=== PATIENT | male | born 1940 | race Caucasian/White ===

== ENCOUNTER 2019-01-02 17:40 | Inpatient (IN) ==
[2019-01-02] MEDS ORDERED: SODIUM CHLORIDE 0.9% 1000ML 2,000 ML IV ONE (18:45)
[2019-01-02 19:11] LABS: iSTAT Creatinine 4.9 mg/dl (0.6-1.3); iSTAT Hemoglobin 7.1 g/dl (14.0-18.0); iSTAT Ionized Calcium 1.25 mmol/l (1.12-1.32); iSTAT Potassium 5.5 mEq/L (3.3-5.0)
[2019-01-02 19:17] LABS: Eosinophils # (auto) 0.14 K/uL (0-0.5); Eosinophils % (auto) 2.6 %; Hematocrit (blood only) 23.8 % (42-52); Hemoglobin 7.8 g/dL (14.0-18.0); Immature Granulocytes # (auto) 0.01 K/uL (0.00-0.02); Immature Granulocytes % (auto) 0.2 %; Lymphocytes # (auto) 1.22 K/uL (1.2-3.4); Lymphocytes % (auto) 23.1 %; Mean Corpuscular Hemoglobin 31.5 pg (25-34); Mean Corpuscular Hgb Conc 32.8 g/dL (32-36); Mean Platelet Volume 8.9 fL (7.4-10.4); Monocytes # (auto) 0.38 K/uL (0.11-0.59); Monocytes % (auto) 7.2 %; Neutrophils # (auto) 3.54 K/uL (1.4-6.5); Neutrophils % (auto) 66.9 %; Platelet Count 212 K/uL (130-400); RDW Coefficient of Variation 14.3 % (11.5-14.5); RDW Standard Deviation 50.1 fL (36.4-46.3); Red Blood Count 2.48 M/uL (4.7-6.1); White Blood Count 5.29 K/uL (4.8-10.8)
[2019-01-02 19:40] LABS: Appearance Urine Clear (Clear); Bilirubin Urine Negative (Negative); Blood Urine Negative (Negative); Color Urine Yellow; Glucose Urine UA Negative (Negative); Ketones Urine Negative (Negative); Leukocyte Esterase Urine Negative (Negative); Nitrite Urine Negative (Negative); Protein Urine Negative (Negative); Specific Gravity Urine 1.015 (1.000-1.030); Urobilinogen Urine Negative (Negative)
[2019-01-02 19:40] LABS: Tear Drop Cells 1+
[2019-01-02 19:42] LABS: Albumin Level 3.7 gm/dl (3.4-5.0); BUN Creatinine Ratio 14.6 (10-20); Calcium 8.7 mg/dl (8.5-10.1); Est GFR (African American) 14.9; Est GFR (Non-African American) 12.9; Potassium 5.3 mmol/L (3.5-5.1)
[2019-01-02 19:45] LABS: Albumin Globulin Ratio 1.1 (0.9-2); Bilirubin,Total 0.2 mg/dl (0.2-1); Globulin 3.3 gm/dl (2.5-4.0)
--- NOTE | 2019-01-02 19:52 | CT Scan Report ---
CT abd pelvis wo con CLINICAL HISTORY: 78 years-old Male presenting with Persistent vomiting. TECHNIQUE: Multidetector CT of the abdomen and pelvis was performed without the use of intravenous co ntrast. IV contrast: None. One or more dose lowering techniques were used consistent with the princip les of ALARA (as low as reasonably achievable), including automatic exposure control, mA or kV adjust ment to individual patient size, and/or use of iterative reconstruction. COMPARISON: None. CT DOSE (mGy.cm): The estimated cumulative dose is 1005.03 mGycm. FINDINGS: Aquarist topogram: Cholecystectomy clips. Lung bases: Trace aortic valve calcification. Multichamber enlargement of the heart. The blood pool i s less dense than adjacent myocardium suggesting anemia. No pericardial or pleural effusion. Minimal dependent changes likely atelectasis. Liver: Normal morphology. Normal density. Biliary: Mild biliary ductal prominence likely a reservoir effect in the post cholecystectomy state. Gallbladder surgically absent. Pancreas: Mild parenchymal atrophy. Spleen: Normal noncontrast appearance. Adrenal glands: Normal noncontrast appearance. Kidneys and ureters: Hydronephrosis is suspected though there may also be parapelvic cysts present. U reters are dilated bilaterally with mild urothelial thickening. Mild cortical atrophy of the kidneys is suspected. Renovascular calcification. No nephrolithiasis. Bladder: Circumferential bladder wall thickening. Bladder calculus noted in the region of the right b ladder trigone. Regan catheter decompresses the urinary bladder, which also contains intraluminal gas . Pelvic organs: Prostate enlargement likely secondary to benign prostatic hyperplasia. Bowel: Moderate stool burden throughout normal caliber colon. The appendix is normal. No bowel obstru ction. Peritoneal cavity: Trace free fluid in the pelvis. No free intraperitoneal gas. Lymph nodes: No gross lymphadenopathy allowing for noncontrast technique. Vasculature: Atherosclerosis of the normal caliber abdominal aorta. Abdominal wall: Body wall edema. Musculoskeletal: Expansile changes of the lateral left seventh rib with periosteal reaction and assoc iated deformity. This does not clearly have a posttraumatic appearance. Multiple sclerotic lesions no gordon throughout the skeleton. IMPRESSION: 1. Abnormal appearance of the lateral left seventh rib, which is not clearly posttraumatic. The expa nsile appearance with periosteal reaction is highly concerning for an underlying osseous lesion. This is likely metastatic given the multifocal sclerotic osseous lesions, which are also characteristic o f metastatic disease. 2. No acute intra-abdominal pathology. 3. Chronic bladder outlet obstruction in the setting of prostatomegaly. The appearance of bilateral hydroureteronephrosis likely relates to chronic reflux uropathy. True obstruction is unlikely; the co llecting systems most likely are dilated in the setting of flaccid systems. 4. Stool burden suggests constipation. 5. Anemia. 6. Cardiomegaly. Electronically signed by: Zacarias Camarena M.D. 01/02/2019 7:51 PM
--- NOTE | 2019-01-02 20:10 | Emergency Department Note ---
Entered by Naye Sabillon acting as a scribe for Ben Muhammad DO History of Present Illness General Chief complaint: Abnormal Labs/Diagnostic Testing Stated complaint: ABNORMAL LAB Source: patient History of Present Illness Onset (ago): day(s) 3 Location: abdomen Pain Consistency: + other (episode) Maximum Pain Intensity: 7 Quality: + other (abnormal labs: elevated creatinine) Associated symptoms: + denies other symptoms (rhinorrhea, abdominal pain, diarrhea), + nausea/vomiting (vomiting) and + other (increased urination, burning with urination, dry mouth); no cough The patient is a 78 year old male who presents to the Emergency Room with complaints of an episode of abnormal labs occurring 3 days ago. The patient states that he had fallen 3 times in July while trying to care for his . He states that around the same time, he had increased urination and burning with urination. He reports that he told his PCP about it, but they didnt think much of it. He states that 3 days ago though he had a urine test and lab work done. He reports that they called him today to tell him that his kidneys were failing and his creatinine is elevated. The patient complains of a dry mouth and vomiting with every meal. The patient denies cough, rhinorrhea, abdominal pain, and diarrhea. Home Medications Home Medications Medication Instructions Recorded Confirmed Type acetaminophen [Tylenol Extra 1,000 mg PO TID PRN 01/02/19 01/02/19 History Strength] Allergies Allergy/AdvReac Type Severity Reaction Status Date / Time iodine Allergy . Verified 01/02/19 19:59 Penicillins Allergy ALLERGY TO Verified 12/28/18 13:24 PCN INJECTION Past Med/Surg History Medical History Hypertension (Acute) Lower back pain (Acute) Psoriasis (Acute) Family History Other Family history non-contributory Social History Preferred Language: Bulgarian marital status: Current Living Situation: Spouse current occupational status: retired Feels Safe at Home: Yes Smoking Status: Former smoker Review of Systems See HPI for pertinent positives & negatives. and A total of 10 systems reviewed and were otherwise negative Physical Exam Vital Signs Vital Signs - 24 hr 01/02/19 17:46 01/02/19 19:00 01/02/19 19:55 Temperature 36.5 C Temperature Source Oral Sepsis Recent Fever Within 48 Hours No Sepsis New/Unexplained Change in Mental Status No Sepsis Action Taken by Nursing No Action Required Pulse Rate 69 Pulse Rate [Apical] 56 L Pulse Rhythm Regular Pulse Strength Normal Respiratory Rate 18 18 Respiratory Effort / Characteristics Non-Labored Spontaneous Respiratory Depth Normal Respiratory Pattern Regular Blood Pressure 185/87 H Blood Pressure [Right Arm] 160/93 H Blood Pressure Mean 119 Blood Pressure Mean [Right Arm] 115 Blood Pressure Position Sitting Pulse Oximetry 99 99 99 Oxygen Delivery Method Room Air Room Air Room Air GENERAL: sitting up in bed, disheveled, chronically ill appearing EYE EXAM: normal conjunctiva OROPHARYNX: no exudate, no erythema, lips, buccal mucosa, and tongue normal and mucous membranes are moist NECK: supple, no nuchal rigidity, no adenopathy, non-tender LUNGS: Clear to auscultation. Normal chest wall mechanics HEART: no murmurs, S1 normal and S2 normal ABDOMEN: abdomen soft, non-tender, normo-active bowel sounds, no masses, no rebound or guarding. BACK: Back is symmetrical on inspection and there is no deformity, no midline tenderness, no CVA tenderness. SKIN: no rashes and no bruising UPPER EXTREMITIES: upper extremities are grossly normal. LOWER EXTREMITIES: No pitting edema. NEURO EXAM: Normal sensorium, cranial nerves II-XII grossly intact, normal speech, no gross weakness of arms, no gross weakness of legs. Procedures Free Text Procedures BEDSIDE US BLADDER SCAN: Bladder is 12 cm x 8 cm and distended. Course ED COURSE: Vital signs were reviewed and showed hypertensive and bradycardic. The patients medical record was reviewed The above diagnostic studies were performed and reviewed. ED treatments and interventions as stated above. 1843: The patient was evaluated in room B8. A complete history and physical examination was performed. 1931: Upon reevaluation, the patient is resting comfortably. I discussed my findings with the patient and he understands and agrees with the treatment plan. Based on the patients age, coexisting illnesses, exam and lab findings the decision to treat as an inpatient was made. The patient remained stable while under my care. The patient will be evaluated for further management. 1952: I discussed the patient's case with Dr. Salvador- [facility] Hospitalist. He will evaluate the patient for further management. Consultations Consultation #1: I discussed the patient's case with Dr. Judd [facility] Hospitalist. He will evaluate the patient for further management. Time: 19:53 Administered Medications Sodium Chloride (Nss 1000ml) 2,000 mls @ 999 mls/hr IV .Q2H1M ONE Stop: 01/02/19 20:45 Last Admin: 01/02/19 19:46 Dose: 999 mls/hr Documented by: [id number] Medical Decision Making Differential Diagnosis Differential Diagnosis includes but is not limited to dehydration, stroke, anemia, hypoglycemia, hyponatremia, hypernatremia, urinary tract infection, pneumonia, bronchitis, sepsis, gastroenteritis, additional abdominal pathology, metabolic abnormalities and infections. Medical Records Attestation: I reviewed the patient's medical records. Home Medications Current Medication List: was personally reviewed by me Laboratory Data Attestation: I reviewed the patient's lab results. Result diagrams: 01/02/19 19:03 01/02/19 19:03 Lab Results 01/02/19 01/02/19 01/02/19 Range/Units 18:57 19:03 19:03 WBC 5.29 (4.8-10.8) K/uL RBC 2.48 L (4.7-6.1) M/uL Hgb 7.8 L (14.0-18.0) g/dL POC Hgb 7.1 L (14.0-18.0) g/dl Hct 23.8 L (42-52) % POC Hct 21 L (42-52) % MCV 96.0 (80-100) fL MCH 31.5 (25-34) pg MCHC 32.8 (32-36) g/dL RDW Std Deviation 50.1 H (36.4-46.3) fL RDW Coeff of Jose 14.3 (11.5-14.5) % Plt Count 212 (130-400) K/uL MPV 8.9 (7.4-10.4) fL Immature Gran % (Auto) 0.2 % Neut % (Auto) 66.9 % Lymph % (Auto) 23.1 % [place] % (Auto) 7.2 % Eos % (Auto) 2.6 % Baso % (Auto) 0.0 % Immature Gran # (Auto) 0.01 (0.00-0.02) K/uL Neut # (Auto) 3.54 (1.4-6.5) K/uL Lymph # (Auto) 1.22 (1.2-3.4) K/uL [place] # (Auto) 0.38 (0.11-0.59) K/uL Eos # (Auto) 0.14 (0-0.5) K/uL Baso # (Auto) 0.00 (0-0.2) K/uL Tear Drop Cells 1+ POC Sodium 139 (135-144) mEq/L Sodium 140 (136-145) mmol/L POC Potassium 5.5 H (3.3-5.0) mEq/L Potassium 5.3 H (3.5-5.1) mmol/L POC Chloride 112 (101-112) mEq/L Chloride 112 H (98-107) mmol/L Carbon Dioxide 18 L (21-32) mmol/L POC Total CO2 19 L (24-31) mEq/l Anion Gap 10.0 (3-11) POC Anion Gap 14.0 L (16-25) mmol/L POC BUN 60 H (7-18) mg/dl BUN 61 H (7-18) mg/dl Creatinine 4.19 H (0.6-1.4) mg/dl POC Creatinine 4.9 H* (0.6-1.3) mg/dl Est Cr Clr Drug Dosing 16.0 ml/min Est GFR ( Amer) 14.9 Est GFR (Non-Af Amer) 12.9 BUN/Creatinine Ratio 14.6 (10-20) Glucose 102 H (70-99) mg/dl POC Glucose (other) 103 H (70-99) mg/dl Calcium 8.7 (8.5-10.1) mg/dl POC Ioniz Calcium Jhonny 1.25 (1.12-1.32) mmol/l Total Bilirubin 0.2 (0.2-1) mg/dl AST 12 L (15-37) U/L ALT 15 (12-78) U/L Alkaline Phosphatase 151 H (45-117) U/L Total Protein 7.0 (6.4-8.2) gm/dl Albumin 3.7 (3.4-5.0) gm/dl Globulin 3.3 (2.5-4.0) gm/dl Albumin/Globulin Ratio 1.1 (0.9-2) Lipase 214 (73-393) U/L Urine Color Urine Appearance (Clear) Urine pH (4.5-7.5) Ur Specific [place] (1.000-1.030) Urine Protein (Negative) Urine Glucose (UA) (Negative) Urine Ketones (Negative) Urine Blood (Negative) Urine Nitrite (Negative) Urine Bilirubin (Negative) Urine Urobilinogen (Negative) Ur Leukocyte Esterase (Negative) 01/02/19 Range/Units 19:30 WBC (4.8-10.8) K/uL RBC (4.7-6.1) M/uL Hgb (14.0-18.0) g/dL POC Hgb (14.0-18.0) g/dl Hct (42-52) % POC Hct (42-52) % MCV (80-100) fL MCH (25-34) pg MCHC (32-36) g/dL RDW Std Deviation (36.4-46.3) fL RDW Coeff of Jose (11.5-14.5) % Plt Count (130-400) K/uL MPV (7.4-10.4) fL Immature Gran % (Auto) % Neut % (Auto) % Lymph % (Auto) % [place] % (Auto) % Eos % (Auto) % Baso % (Auto) % Immature Gran # (Auto) (0.00-0.02) K/uL Neut # (Auto) (1.4-6.5) K/uL Lymph # (Auto) (1.2-3.4) K/uL [place] # (Auto) (0.11-0.59) K/uL Eos # (Auto) (0-0.5) K/uL Baso # (Auto) (0-0.2) K/uL Tear Drop Cells POC Sodium (135-144) mEq/L Sodium (136-145) mmol/L POC Potassium (3.3-5.0) mEq/L Potassium (3.5-5.1) mmol/L POC Chloride (101-112) mEq/L Chloride (98-107) mmol/L Carbon Dioxide (21-32) mmol/L POC Total CO2 (24-31) mEq/l Anion Gap (3-11) POC Anion Gap (16-25) mmol/L POC BUN (7-18) mg/dl BUN (7-18) mg/dl Creatinine (0.6-1.4) mg/dl POC Creatinine (0.6-1.3) mg/dl Est Cr Clr Drug Dosing ml/min Est GFR ( Amer) Est GFR (Non-Af Amer) BUN/Creatinine Ratio (10-20) Glucose (70-99) mg/dl POC Glucose (other) (70-99) mg/dl Calcium (8.5-10.1) mg/dl POC Ioniz Calcium Jhonny (1.12-1.32) mmol/l Total Bilirubin (0.2-1) mg/dl AST (15-37) U/L ALT (12-78) U/L Alkaline Phosphatase (45-117) U/L Total Protein (6.4-8.2) gm/dl Albumin (3.4-5.0) gm/dl Globulin (2.5-4.0) gm/dl Albumin/Globulin Ratio (0.9-2) Lipase (73-393) U/L Urine Color Yellow Urine Appearance Clear (Clear) Urine pH 5.0 (4.5-7.5) Ur Specific [place] 1.015 (1.000-1.030) Urine Protein Negative (Negative) Urine Glucose (UA) Negative (Negative) Urine Ketones Negative (Negative) Urine Blood Negative (Negative) Urine Nitrite Negative (Negative) Urine Bilirubin Negative (Negative) Urine Urobilinogen Negative (Negative) Ur Leukocyte Esterase Negative (Negative) Imaging Data Radiologist's Impression: Radiology results as stated below per my review and the radiologist's interpretation: CT abd pelvis wo con CLINICAL HISTORY: 78 years-old Male presenting with Persistent vomiting. TECHNIQUE: Multidetector CT of the abdomen and pelvis was performed without the use of intravenous contrast. IV contrast: None. One or more dose lowering techniques were used consistent with the principles of ALARA (as low as reasonably achievable), including automatic exposure control, mA or kV adjust ment to individual patient size, and/or use of iterative reconstruction. COMPARISON: None. CT DOSE (mGy.cm): The estimated cumulative dose is 1005.03 mGycm. FINDINGS: Res Habilitation Assistant topogram: Cholecystectomy clips. Lung bases: Trace aortic valve calcification. Multichamber enlargement of the heart. The blood pool is less dense than adjacent myocardium suggesting anemia. No pericardial or pleural effusion. Minimal dependent changes likely atelectasis. Liver: Normal morphology. Normal density. Biliary: Mild biliary ductal prominence likely a reservoir effect in the post cholecystectomy state. Gallbladder surgically absent. Pancreas: Mild parenchymal atrophy. Spleen: Normal noncontrast appearance. Adrenal glands: Normal noncontrast appearance. Kidneys and ureters: Hydronephrosis is suspected though there may also be parapelvic cysts present. Ureters are dilated bilaterally with mild urothelial thickening. Mild cortical atrophy of the kidneys is suspected. Renovascular calcification. No nephrolithiasis. Bladder: Circumferential bladder wall thickening. Bladder calculus noted in the region of the right bladder trigone. Regan catheter decompresses the urinary bladder, which also contains intraluminal gas. Pelvic organs: Prostate enlargement likely secondary to benign prostatic hype rplasia. Bowel: Moderate stool burden throughout normal caliber colon. The appendix is normal. No bowel obstruction. Peritoneal cavity: Trace free fluid in the pelvis. No free intraperitoneal gas. Lymph nodes: No gross lymphadenopathy allowing for noncontrast technique. Vasculature: Atherosclerosis of the normal caliber abdominal aorta. Abdominal wall: Body wall edema. Musculoskeletal: Expansile changes of the lateral left seventh rib with periosteal reaction and associated deformity. This does not clearly have a posttraumatic appearance. Multiple sclerotic lesions noted throughout the s [place]. IMPRESSION: 1. Abnormal appearance of the lateral left seventh rib, which is not clearly posttraumatic. The expansile appearance with periosteal reaction is highly concerning for an underlying osseous lesion. This is likely metastatic given the multifocal sclerotic osseous lesions, which are also characteristic of metastatic disease. 2. No acute intra-abdominal pathology. 3. Chronic bladder outlet obstruction in the setting of prostatomegaly. The appearance of bilateral hydroureteronephrosis likely relates to chronic reflux uropathy. True obstruction is unlikely; the collecting systems most likely are dilated in the setting of flaccid systems. 4. Stool burden suggests constipation. 5. Anemia. 6. Cardiomegaly. Electronically signed by: Zacarias Camarena M.D. 01/02/2019 7:51 PM Blood Pressure Blood Pressure Findings: Elevated blood pressure Blood Pressure Disposition: further management by hospitalist CLAIRE Narrative Patient is a 78-year-old male who presents the ER referred in by his PCP for an elevated creatinine. He admits to persistent urination and feeling thirsty at the same time. He also admits to lower abdominal pain. IV was established blood work was obtained. Bedside ultrasound performed by myself shows an extremely distended bladder. Regan was placed. Labs show chronic anemia at 7.8 thousand. No significant leukocytosis. BMP with creatinine of 4.1 and a potassium of 5.3. CO2 is slightly low at 18. Do favor the metabolic acidosis is likely secondary to the renal failure. Based on his exam and ultrasound this consistent with an obstructive uropathy. Regan was placed and we took off 2 L and he felt significantly better. No transaminitis. Lipase was normal. UA was clean. CT abdomen pelvis shows likely obstructive process. Patient was given 2 L IV fluids and discussed with the hospitalist admitted for FREDO. Impression & Plan FREDO (acute kidney injury), Bilateral hydronephrosis, Hyperkalemia, Chronic anemia Discharge Plan Visit Data Chief Complaint: Abnormal Labs/Diagnostic Testing Stated Complaint: ABNORMAL LAB ED Provider: Ben Muhammad Discharge Problem: FREDO (acute kidney injury), Bilateral hydronephrosis, Hyperkalemia, Chronic anemia Patient Disposition: Being Evaluated by Hospitalist Forms Stand Alone Forms: My [facility] Prescriptions Prescriptions: No Action acetaminophen [Tylenol Extra Strength] 500 mg Tablet 1,000 mg PO TID PRN (Reason: Pain) RF: 0 Referrals Referrals: Sebastien Nickerson III, MD [Primary Care Provider] - The scribe's documentation has been prepared under my direction and personally reviewed by me in its entirety. I confirm that the note above accurately reflects all work, treatment, procedures, and medical decision making performed by me.
[2019-01-02 21:40] LABS: Ferritin 529.1 ng/ml (8-388)
[2019-01-02] MEDS ORDERED: SODIUM CHLORIDE 0.9% 1000ML 1,000 ML IV SCH (22:29)
[2019-01-02] MEDS ORDERED: HydrALAZINE HCL 20 MG/ML VIAL IV PRN ×2 (22:29→22:56)
[2019-01-02] MEDS ORDERED: POLYETHYLENE (MIRALAX) 17 GM PACK PO PRN (22:29)
--- NOTE | 2019-01-02 22:29 | CT Scan Report ---
CT chest wo con CLINICAL HISTORY: 78 years-old Male presenting with rib pain. TECHNIQUE: Multidetector CT imaging of the chest was performed without the use of intravenous contras t. IV contrast: None. One or more dose lowering techniques were used consistent with the principles o f ALARA (as low as reasonably achievable), including automatic exposure control, mA or kV adjustment to individual patient size, and/or use of iterative reconstruction. COMPARISON: None. CT DOSE (mGy.cm): The estimated cumulative dose is 356.70 mGy.cm. FINDINGS: Instructor Weaving topogram: Cholecystectomy clips. Soft tissues: Normal thyroid and thoracic inlet. No axillary, supraclavicular, or mediastinal lymphad enopathy. Evaluation of the chikis limited without intravenous contrast. Atherosclerosis of the aorta. Mild multichamber enlargement of the heart. Coronary artery and aortic valve calcification. No perica rdial or pleural effusion. Cholecystectomy clips. Distention of the right renal collecting system luci pected. Lungs and airways: No pneumothorax. Central airways patent. Pulmonary arteries are not significantly enlarged relative to adjacent bronchi. No interlobular septal thickening. Minimal dependent changes l ikely atelectasis. Musculoskeletal: Expansile lesion of the right fifth rib and left seventh ribs compatible with underl javi lesions. Multiple sclerotic foci also noted compatible with osseous lesions. IMPRESSION: 1. Multifocal osseous metastatic disease. 2. No evidence of lung parenchymal metastatic disease. 3. Allowing for noncontrast technique, no lymphadenopathy or acute intrathoracic pathology. 4. Mild cardiomegaly. Electronically signed by: Zacarias Camarena M.D. 01/02/2019 10:28 PM
[2019-01-02] MEDS ORDERED: INFLUENZA ADMINISTRATION CHARGE ONE (22:45)
[2019-01-02] MEDS ORDERED: PNEUMOCOCCAL POLYSACCHARIDES 25 MCG/0.5 ML VIAL/SYR IM ONE (22:45)
[2019-01-02] MEDS ORDERED: PNEUMOCOCCAL ADMINISTRATION CHARGE ONE (22:45)
[2019-01-02] MEDS ORDERED: INFLUENZA VIRUS QUAD VACCINE 0.5 ML SYR IM ONE (22:45)
[2019-01-02] MEDS: ACETAMINOPHEN 325 MG TAB PO PRN (23:11)
[2019-01-03 03:29] LABS: Eosinophils # (auto) 0.09 K/uL (0-0.5); Eosinophils % (auto) 1.4 %; Hematocrit (blood only) 25.7 % (42-52); Hemoglobin 8.4 g/dL (14.0-18.0); Immature Granulocytes # (auto) 0.01 K/uL (0.00-0.02); Immature Granulocytes % (auto) 0.2 %; Lymphocytes # (auto) 1.34 K/uL (1.2-3.4); Lymphocytes % (auto) 21.1 %; Mean Corpuscular Hemoglobin 31.1 pg (25-34); Mean Corpuscular Volume 95.2 fL (80-100); Mean Platelet Volume 8.6 fL (7.4-10.4); Monocytes % (auto) 6.3 %; Platelet Count 217 K/uL (130-400); RDW Coefficient of Variation 14.1 % (11.5-14.5); RDW Standard Deviation 49.3 fL (36.4-46.3); White Blood Count 6.34 K/uL (4.8-10.8)
[2019-01-03] MEDS ORDERED: CALCIUM CARBONATE 500 MG CHEWABLE TAB PO PRN (03:30)
[2019-01-03] MEDS ORDERED: MoRPHine SULFATE 2 MG/ML CARP IV STA (03:30)
[2019-01-03] MEDS ORDERED: SODIUM CHLORIDE 0.9% 250 ML IV PRN (03:34)
[2019-01-03] MEDS: cefTRIAXone SODIUM 2,000 MG in DEXTROSE 5% 50 ML IV SCH (03:48)
[2019-01-03 03:49] LABS: Albumin Globulin Ratio 1.1 (0.9-2); Albumin Level 3.4 gm/dl (3.4-5.0); BUN Creatinine Ratio 14.9 (10-20); Bilirubin,Total 0.4 mg/dl (0.2-1); Calcium 8.5 mg/dl (8.5-10.1); Creatinine Clr Calc Pharmacy 17.4 ml/min; Est GFR (African American) 16.5; Est GFR (Non-African American) 14.3; Globulin 3.2 gm/dl (2.5-4.0); Potassium 5.3 mmol/L (3.5-5.1); Total Protein 6.6 gm/dl (6.4-8.2)
[2019-01-03 03:51] LABS: Mean Corpuscular Hgb Conc 32.7 g/dL (32-36)
[2019-01-03] MEDS: LIDOCAINE 5% 1 PATCH TD SCH (08:45)
--- NOTE | 2019-01-03 15:11 | Urology Consultation ---
Date of Consultation January 03, 2019 Assessment & Plan (1) FREDO (acute kidney injury): 78 YO male with urinary retention, resulting bilateral hydronephrosis, FREDO. No hematuria noted on exam today, however suspect that this is related to prolonged bladder distention. Regan not bothersome. Suspect that FREDO will continue to improve with hydration and Regan placement. Recommend Regan remain in place x 7-10 days. Will arrange outpatient trial of void and URO follow up. Recommend Tamsulosin QHS. Thank you for allowing us to participate in the inpatient care of Mr. Upton. Please contact our service if we can assist further during hospitalization. (2) Bilateral hydronephrosis: History of Present Illness Attending Physician: Edison Luciano MD History of Present Illness 78 YO male with urinary retention, resulting bilateral hydronephrosis, FREDO. Patient states that he has never seen a urologist. Reported to the ER for evaluation after developing abdominal pain, vomiting. Patient was found to be in urinary retention and Regan was placed. CT scan demonstrates bilateral hydronephrosis, no stones. Patient reports feeling okay today. No pain. Regan not bothersome. No fevers/chills. No nausea/vomiting. Allergies Allergy/AdvReac Type Severity Reaction Status Date / Time iodine Allergy . 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 Physical Exam Physical Exam: NAD. Resp effort normal. No JVD. Abd soft. : Regan in place, patent, draining yellow urine. No hematuria noted. A&Ox3, appropriate affect. Results & Data Vital Signs (Past 12 Hours) Vital Signs Temp Pulse Resp BP Pulse Ox 01/03/19 07:12 36.9 C 77 14 147/81 H 96 PG Care Time/CCT Total # of Minutes Spent Total Time Spent with Patient: Total time spent is greater than 50% in coordination of care (as documented) at patient's floor/unit and/or counseling patient:
--- NOTE | 2019-01-03 16:06 | Gastrointestinal Consultation ---
Date of Consultation January 03, 2019 Assessment & Plan (1) Dysphagia: dysphagia could be paraneoplastic syndrome from malignancy vs. reflux stricture vs. achalasia vs. other etiology. Recs: keep npo post midnight tonight plan for EGD to further evaluate tomorrow History of Present Illness Attending Physician: Edison Luciano MD 78 yo male with HTN here with FREDO and urinary obstruction. GI consulted for dysphagia. Patient notes solid and liquid dysphagia for 5 months now, also notes a 45 lbs weight loss over the last 4 months. He would end up regurgitating the food/throwing it up when it first started, says he can tolerate food now however. No diarrhea, hematochezia, hematemesis. He notes urinary symptoms. No prior EGD nor colonoscopy. No family hx esophageal nor gastric cancer. Labs, imaging reviewed, findings suspicious for possible prostatic malignancy. vitals reviewed. Allergies Allergy/AdvReac Type Severity Reaction Status Date / Time iodine Allergy . 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 Beliefs That Will Affect Care: None marital status: Current Living Situation: Spouse current occupational status: retired Feels Safe at Home: Yes Safety Concerns: Feels Safe At This Time Smoking Status: Never smoker Hx Alcohol Use: No Hx Substance Use: No Review of Systems Constitutional: no fever, no chills and no weight loss Eyes: as per Subjective / HPI Ear, Nose, Mouth, Throat: as per Subjective / HPI Respiratory: no dyspnea and no dyspnea on exertion Cardiovascular: no chest pain and no palpitations Gastrointestinal: as per Subjective / HPI Musculoskeletal: no joint pain and no swelling Integumentary: no rash and no lesions Neurologic: no numbness and no paresthesia Psychiatric: no depression and no anxiety Endocrine: no fatigue Hematologic / Lymphatic: no easy bleeding and no easy bruising Physical Exam 2 Constitutional: WD/WN, vitals as above Eyes: EOM intact bilaterally Neck: normal visual inspection Respiratory: normal respiratory effort, lungs clear to auscultation Cardiovascular: RRR, no murmur, no edema Gastrointestinal (Abdomen): Inspection/Auscultation: abdomen normal to inspection; abdomen not distended Percussion/Palpation: + abdomen tender (mild epigastric and upper abdominal tenderness) and abdomen soft; no hepatosplenomegaly Musculoskeletal: Extremities: no cyanosis Gait: normal gait Skin: no rashes, warm and dry Neurologic: moves all extremities Psychiatric: A+Ox3, euthymic affect Results & Data Vital Signs (Past 12 Hours) Vital Signs Temp Pulse Resp BP Pulse Ox 01/03/19 15:21 169/77 H 01/03/19 15:08 36.9 C 65 16 181/89 H 99 01/03/19 07:12 36.9 C 77 14 147/81 H 96 PG Care Time/CCT Total # of Minutes Spent Total Time Spent with Patient: Total time spent is greater than 50% in coordination of care (as documented) at patient's floor/unit and/or counseling patient:
--- NOTE | 2019-01-03 17:35 | Hospitalist Progress Note ---
Date of Service January 03, 2019 Assessment & Plan (1) FREDO (acute kidney injury): BUN/Cr of 61/4.19 on admission - now trending down following IVF U/A without sign of infection - did have hematuria in Young today likely from bladder irritation due to distention 2+ L of urine released after placement of young catheter CT abd/pel showed prostatic enlargement likely causing urinary obstruction and the bilateral hydronephrosis with ureteral dilatation (2) Enlarged prostate: PSA 387 Bladder distention relieved with young catheter Urology consulted (3) Bilateral hydronephrosis: Secondary to obstruction from prostate enlargement Urology consulted (4) Abdominal pain: - likely mixed picture of urinary obstruction and constipation - improved with increased urine outflow with catheter - miralax ordered for PRN constipation control (5) Dysphagia: With complaints of nausea and vomiting GI consulted - EGD tomorrow (6) Rib pain on left side: CT chest - Multifocal osseous metastatic disease. - given patient's lack of medical care, lack of hx of colonoscopy, prostatic e nlargement on CT with symptoms, cannot rule out metastatic lesion with source currently unknown. - SPEP and EPEP ordered for multiple myeloma - PSA 327 - GI consulted - will have EGD tomorrow, if no colonoscopy inpatient will need to set one up for outpatient after discharge (7) Hyperkalemia: K 5.3 on admission, 5.3 again this morning likely secondary to FREDO and obstructive hydronephrosis repeat prp this afternoon (8) Chronic anemia: Iron level wnl (9) Hypertension: No hx of HTN, pt has not seen physician for many years Blood pressures continue to be somewhat elevated today, no complaints of headaches at the time of my visit however he complains of daily headaches in taoist and frontal areas for which he takes extra strength tylenol 3x per day PRN Hydralazine 10 mg IV ordered for BP>180/90 May need to consider adding a daily medication such as amlodipine to patient's regimen but will hold off for now (10) DVT prophylaxis: SCDS, hold on heparin for hematuria for today, if cleared tomorrow will start dvt chemoprophylaxis Subjective Mr. Upton continues to have issues with swallowing. He rates his rib pain as a 5/10 which is about what it usually is. He has had some constipation recently but no blood in his stool. His abdominal pain is much relieved following the young catheter insertion Review of Systems Review of Systems: All systems reviewed & are unremarkable except as noted in HPI & below Physical Exam Physical Exam: General: no distress Eyes: normal inspection, PERLL Respiratory: chest non tender, clear to auscultation, normal breath sounds, no respiratory distress, no accessory muscle use Cardiac: regular rate and rhythm, no rub or gallop, no murmur, no edema, no jvd GI/: active bowel sounds, no abd pain or tenderness, soft, non distended Extremities: normal range of motion, normal strength, non tender Neuro/Psych: alert and oriented x 3, normal mood and affect Skin: normal color, dry Results & Data Vital Signs (Past 12 Hours) Vital Signs Temp Pulse Resp BP Pulse Ox 01/03/19 15:21 169/77 H 01/03/19 15:08 36.9 C 65 16 181/89 H 99 01/03/19 07:12 36.9 C 77 14 147/81 H 96 PG Care Time/CCT Total # of Minutes Spent Total Time Spent with Patient: Total time spent is greater than 50% in coordination of care (as documented) at patient's floor/unit and/or counseling patient:
[2019-01-03] MEDS ORDERED: HydrALAZINE HCL 20 MG/ML VIAL IV PRN (17:41)
[2019-01-03 18:29] LABS: BUN Creatinine Ratio 14.3 (10-20); Calcium 9.1 mg/dl (8.5-10.1); Creatinine Clr Calc Pharmacy 16.9 ml/min; Est GFR (Non-African American) 13.8; Potassium 5.4 mmol/L (3.5-5.1)
[2019-01-03] MEDS ORDERED: SODIUM CHLORIDE 0.9% 1000ML 1,000 ML IV SCH (18:45)
[2019-01-03] MEDS ORDERED: FUROSEMIDE 20 MG in SYRINGE 0 ML IV SCH (19:00)
[2019-01-04] MEDS: cefTRIAXone SODIUM 2,000 MG in DEXTROSE 5% 50 ML IV SCH (03:31)
[2019-01-04] MEDS: LIDOCAINE 5% 1 PATCH TD SCH (08:04)
[2019-01-04 08:40] LABS: Basophils # (auto) 0.01 K/uL (0-0.2); Basophils % (auto) 0.2 %; Eosinophils # (auto) 0.08 K/uL (0-0.5); Eosinophils % (auto) 1.4 %; Hematocrit (blood only) 26.2 % (42-52); Hemoglobin 8.5 g/dL (14.0-18.0); Immature Granulocytes # (auto) 0.01 K/uL (0.00-0.02); Immature Granulocytes % (auto) 0.2 %; Lymphocytes # (auto) 1.15 K/uL (1.2-3.4); Lymphocytes % (auto) 19.7 %; Mean Corpuscular Hemoglobin 31.3 pg (25-34); Mean Corpuscular Hgb Conc 32.4 g/dL (32-36); Mean Corpuscular Volume 96.3 fL (80-100); Monocytes # (auto) 0.48 K/uL (0.11-0.59); Monocytes % (auto) 8.2 %; Neutrophils # (auto) 4.11 K/uL (1.4-6.5); Neutrophils % (auto) 70.3 %; Platelet Count 230 K/uL (130-400); RDW Coefficient of Variation 14.4 % (11.5-14.5); RDW Standard Deviation 49.9 fL (36.4-46.3); Red Blood Count 2.72 M/uL (4.7-6.1); White Blood Count 5.84 K/uL (4.8-10.8)
[2019-01-04 09:15] LABS: BUN Creatinine Ratio 15.6 (10-20); Calcium 9.2 mg/dl (8.5-10.1); Creatinine Clr Calc Pharmacy 17.9 ml/min; Est GFR (African American) 17.1; Est GFR (Non-African American) 14.8; Potassium 5.5 mmol/L (3.5-5.1)
--- NOTE | 2019-01-04 10:36 | Gastroenterology Progress Note ---
Date of Service January 04, 2019 Assessment & Plan (1) Dysphagia: 1. EGD canceled for today. 2. May advance diet. 3. Continue supportive care. 4. Will sign off now. Reconsideration of outpatient GI work up can be made once acute issues are resolved. Supervising Physician Co-Signing Physician Notes Agree with BRIAN Burnham as above Abd: Soft, NT, ND Consider EGD as outpatient when acute renal problems resolve Continue current therapy Subjective Patient reports frustration over ongoing hospitalization. He denies any GI complaints at present. Was kept NPO for EGD with Dr. Elliott today although he has been evaluated by anesthesia and canceled today due to ongoing acute renal impairment. Review of Systems Constitutional: no problem reported Gastrointestinal: no problem reported Physical Exam Constitutional: WD/WN, vitals as above Respiratory: normal respiratory effort, lungs clear to auscultation Cardiovascular: Rate/Rhythm: regular rate and regular rhythm Gastrointestinal (Abdomen): normal bowel sounds, soft, nontender, no hepatosplenomegaly Psychiatric: A+Ox3, euthymic affect Results & Data Vital Signs (Past 12 Hours) Vital Signs Temp Pulse Resp BP Pulse Ox 01/04/19 07:28 36.8 C 85 18 137/84 97 01/03/19 23:30 36.9 C 64 16 165/82 H 97 Laboratory Results Abnormal lab results 01/03/19 01/04/19 01/04/19 Range/Units 17:48 08:17 08:17 RBC 2.72 L (4.7-6.1) M/uL Hgb 8.5 L (14.0-18.0) g/dL Hct 26.2 L (42-52) % RDW Std Deviation 49.9 H (36.4-46.3) fL Lymph # (Auto) 1.15 L (1.2-3.4) K/uL Sodium 146 H (136-145) mmol/L Potassium 5.4 H 5.5 H (3.5-5.1) mmol/L Chloride 118 H 119 H (98-107) mmol/L Carbon Dioxide 18 L 18 L (21-32) mmol/L BUN 57 H 58 H (7-18) mg/dl Creatinine 3.96 H 3.74 H (0.6-1.4) mg/dl Glucose 113 H 103 H (70-99) mg/dl PG Care Time/CCT Total # of Minutes Spent Total Time Spent with Patient: Total time spent is greater than 50% in coordination of care (as documented) at patient's floor/unit and/or counseling patient:
--- NOTE | 2019-01-04 11:34 | Hospitalist Progress Note ---
Date of Service January 04, 2019 Assessment & Plan (1) FREDO (acute kidney injury): Due to obstruction from enlarged prostate 2+ L of urine released after placement of young catheter BUN/Cr of 61/4.19 on admission - trended down a bit after IVF and placement of Young but remains in the high 3s U/A without sign of infection - hematuria in Young clearing - likely from bladder irritation due to distention CT abd/pel showed prostatic enlargement likely causing urinary obstruction and the bilateral hydronephrosis with ureteral dilatation Nephrology consulted (2) Enlarged prostate: PSA 387 Bladder distention relieved with young catheter Urology consulted - recommend Young stay 7-10 days and then follow up in the office for void trial (3) Bilateral hydronephrosis: Secondary to obstruction from prostate enlargement Urology consulted (4) Abdominal pain: - likely mixed picture of urinary obstruction and constipation - improved with increased urine outflow with catheter - miralax ordered for PRN constipation control (5) Dysphagia: With complaints of nausea and vomiting GI consulted - EGD on hold due to kidney function (6) Rib pain on left side: CT chest - Multifocal osseous metastatic disease. - given patient's lack of medical care, lack of hx of colonoscopy, prostatic enlargement on CT with symptoms, cannot rule out metastatic lesion with source currently unknown. - SPEP and EPEP ordered for multiple myeloma - PSA 327 - GI consulted - will have EGD when kidney function improves, if no colonoscopy inpatient will need to set one up for outpatient after discharge (7) Hyperkalemia: K 5.3 on admission, 5.5 today secondary to FREDO and obstructive hydronephrosis Nephrology consulted (8) Chronic anemia: Iron level wnl Hgb stable in the 8s (9) Hypertension: No hx of HTN, pt has not seen physician for many years Blood pressures continue to be somewhat elevated PRN Hydralazine 10 mg IV ordered for BP>180/90 May need to consider adding a daily medication such as amlodipine to patient's regimen but will hold off for now (10) DVT prophylaxis: SCDS, hold chemoprophylaxis for hematuria which is clearing, if resolved tomorrow will start heparin subq Subjective Mr. Upton is feeling a bit down today about his hospital stay but otherwise has no complaints. His pain is well controlled Review of Systems Review of Systems: All systems reviewed & are unremarkable except as noted in HPI & below Physical Exam Physical Exam: General: no distress Eyes: normal inspection, PERLL Respiratory: chest non tender, clear to auscultation, normal breath sounds, no respiratory distress, no accessory muscle use Cardiac: regular rate and rhythm, no rub or gallop, no murmur, no edema, no jvd GI/: active bowel sounds, no abd pain or tenderness, soft, non distended Extremities: normal range of motion, normal strength, non tender Neuro/Psych: alert and oriented x 3, normal mood and affect Skin: normal color, dry Results & Data Vital Signs (Past 12 Hours) Vital Signs Temp Pulse Resp BP Pulse Ox 01/04/19 07:28 36.8 C 85 18 137/84 97 01/03/19 23:30 36.9 C 64 16 165/82 H 97 PG Care Time/CCT Total # of Minutes Spent Total Time Spent with Patient: Total time spent is greater than 50% in coordination of care (as documented) at patient's floor/unit and/or counseling patient:
--- NOTE | 2019-01-04 11:43 | Nephrology Consultation ---
Date of Consultation January 04, 2019 Assessment & Plan (1) Chronic kidney disease: -- Renal impairment is likely due to chronic obstruction related to BPH -- Urine sediment is bloody due to recent Young catheter insertion -- Creatinine is trending down following Young catheter insertion -- Baseline creatinine is unknown (2) Hyperkalemia: -- Hyperkalemia due to CKD and metabolic acidosis -- Will provide IV NaHCO3 to help correct metabolic acidosis and hyperkalemia -- Monitor PRP -- Recommend low K diet (3) Enlarged prostate: -- PSA 387 -- Await further Urology recommendations. Question need for prostate biopsy (4) Rib pain on left side: -- Consider consultation w/ General Surgery or Oncology to obtain L 7th rib biopsy (metastatic lesion?) History of Present Illness Reason for Consultation: CKD Attending Physician: Edison Luciano MD History of Present Illness Mr. Upton is a 78 year old white male who is seen at the request of Dr. Luciano for evaluation of CKD. Medical records in the EMR were reviewed today and are summarized as follows: Mr. Upton has enjoyed good health. He reports a h/o cataracts and HTN but no other medical illnesses. He has not been on any chronic prescription medications. His last OV w/ his PCP (Dr. Nickerson) was in 2010. Recently Mr. Upton had blood work completed. This revealed Cr 4.2, HCO3 18, K 5.5 and Hgb 8.3. Noncontrast abdominal CT revealed bilateral hydronephrosis, bladder wall thickening, enlarged prostate and a L 7th rib lesion concerning for metastasis. Urology has placed a young catheter. PSA is elevated at 387. Baseline creatinine is unknown but creatinine has improved to 3.7 following Young catheter insertion Allergies Allergy/AdvReac Type Severity Reaction Status Date / Time iodine Allergy . Verified 01/02/19 19:59 Penicillins Allergy ALLERGY TO Verified 12/28/18 13:24 PCN INJECTION Home Medications Home Medications Medication Instructions Recorded Confirmed Type acetaminophen [Tylenol Extra 1,000 mg PO TID PRN 01/02/19 01/02/19 History Strength] Patient History Medical History Hypertension (Acute) Lower back pain (Acute) Psoriasis (Acute) Surgical History History of cholecystectomy Family History Other Family history non-contributory Social History Preferred Language: Slovenian Communication Ability: Effective Micropaleontologist Required: No Beliefs That Will Affect Care: None marital status: Current Living Situation: Spouse current occupational status: retired 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 Feels Safe at Home: Yes Safety Concerns: Feels Safe At This Time Smoking Status: Never smoker Hx Alcohol Use: No Hx Substance Use: No Review of Systems Constitutional: + weakness; no fever and no chills Eyes: no worsening vision and no problem reported Ear, Nose, Mouth, Throat: no problem reported Respiratory: no cough and no dyspnea Cardiovascular: no chest pain, no palpitations and no edema Gastrointestinal: no abdominal pain, no nausea, no vomiting and no diarrhea/loose stools Genitourinary: + urinary hesitancy; no dysuria and no hematuria Musculoskeletal: L chest discomfort Integumentary: no rash Neurologic: no falls, no dizziness and no confusion Physical Exam Constitutional: + frail appearing Eyes: PERRL, conjunctivae normal, anicteric sclerae ENMT: external ear and nose normal, oropharynx normal Neck: trachea midline, no thyromegaly Respiratory: normal respiratory effort, lungs clear to auscultation Cardiovascular: RRR, no murmur, no edema Gastrointestinal (Abdomen): normal bowel sounds, soft, nontender, no hepatosplenomegaly Musculoskeletal: Extremities: no cyanosis Skin: no rashes, warm and dry Neurologic: awake; not confused Results & Data Vital Signs (Past 12 Hours) Vital Signs Temp Pulse Resp BP Pulse Ox 01/04/19 07:28 36.8 C 85 18 137/84 97 Laboratory Results Laboratory Results - last 24 hr 01/03/19 01/03/19 01/04/19 17:48 23:00 08:17 WBC 5.84 RBC 2.72 L Hgb 8.5 L Hct 26.2 L MCV 96.3 MCH 31.3 MCHC 32.4 RDW Std Deviation 49.9 H RDW Coeff of Jose 14.4 Plt Count 230 MPV 9.0 Immature Gran % (Auto) 0.2 Neut % (Auto) 70.3 Lymph % (Auto) 19.7 [place] % (Auto) 8.2 Eos % (Auto) 1.4 Baso % (Auto) 0.2 Immature Gran # (Auto) 0.01 Neut # (Auto) 4.11 Lymph # (Auto) 1.15 L [place] # (Auto) 0.48 Eos # (Auto) 0.08 Baso # (Auto) 0.01 Sodium 144 Potassium 5.4 H Chloride 118 H Carbon Dioxide 18 L Anion Gap 9.0 BUN 57 H Creatinine 3.96 H Est Cr Clr Drug Dosing 16.9 Est GFR ( Amer) 16.0 Est GFR (Non-Af Amer) 13.8 BUN/Creatinine Ratio 14.3 Glucose 113 H Calcium 9.1 Urine Total Volume Pending Ur Creatinine mg/dL Pending Ur Total Protein Conc Pending Ur Total Protein 24 Hr Pending Protein/Creat Ratio 24h Pending Urine Albumin (%) Pending U Prcjw-[id number] (%) Pending U [id number] (%) Pending U Beta Globulin (%) Pending U Gamma Globulin (%) Pending Urine PEP Interpret Pending 01/04/19 08:17 WBC RBC Hgb Hct MCV MCH MCHC RDW Std Deviation RDW Coeff of Jose Plt Count MPV Immature Gran % (Auto) Neut % (Auto) Lymph % (Auto) [place] % (Auto) Eos % (Auto) Baso % (Auto) Immature Gran # (Auto) Neut # (Auto) Lymph # (Auto) [place] # (Auto) Eos # (Auto) Baso # (Auto) Sodium 146 H Potassium 5.5 H Chloride 119 H Carbon Dioxide 18 L Anion Gap 9.0 BUN 58 H Creatinine 3.74 H Est Cr Clr Drug Dosing 17.9 Est GFR ( Amer) 17.1 Est GFR (Non-Af Amer) 14.8 BUN/Creatinine Ratio 15.6 Glucose 103 H Calcium 9.2 Urine Total Volume Ur Creatinine mg/dL Ur Total Protein Conc Ur Total Protein 24 Hr Protein/Creat Ratio 24h Urine Albumin (%) U [id number] (%) U Gwyid-2-Uoufyert (%) U Beta Globulin (%) U Gamma Globulin (%) Urine PEP Interpret Diagnostic Findings Laboratory Tests 01/02/19 19:03 Prostate Specific Ag 387.000 H PG Care Time/CCT Total # of Minutes Spent Total Time Spent with Patient: Total time spent is greater than 50% in coordination of care (as documented) at patient's floor/unit and/or counseling patient:
[2019-01-04] MEDS: SODIUM BICARBONATE 8.4% 75 MEQ in SODIUM CHLORIDE 0.45 % 1,000 ML IV SCH (12:44)
[2019-01-04 14:21] LABS: Albumin 3.6 G/DL (3.8-4.8); Alpha 1 Globulin 0.3 G/DL (0.2-0.3); Alpha 2 Globulin 0.6 G/DL (0.5-0.9); Beta-1-Globulin 0.3 G/DL (0.4-0.6); Beta-2-Globulin 0.3 G/DL (0.2-0.5); Gamma Globulin 0.8 G/DL (0.8-1.7); Monoclonal Protein Band 1 DNR G/DL (NOT DETECTED); Monoclonal Protein Band 2 DNR G/DL (NOT DETECTED); Monoclonal Protein Band 3 DNR G/DL (NOT DETECTED); Total Protein 5.9 G/DL (6.2-8.3)
[2019-01-04] MEDS: ACETAMINOPHEN 325 MG TAB PO PRN (15:47)
[2019-01-05] MEDS: SODIUM BICARBONATE 8.4% 75 MEQ in SODIUM CHLORIDE 0.45 % 1,000 ML IV SCH ×2 (01:33→15:31)
[2019-01-05] MEDS: cefTRIAXone SODIUM 2,000 MG in DEXTROSE 5% 50 ML IV SCH (04:18)
[2019-01-05 05:49] LABS: Hematocrit (blood only) 24.4 % (42-52); Mean Corpuscular Hemoglobin 31.3 pg (25-34); Mean Corpuscular Hgb Conc 32.8 g/dL (32-36); Mean Corpuscular Volume 95.3 fL (80-100); Mean Platelet Volume 9.5 fL (7.4-10.4); Platelet Count 201 K/uL (130-400); RDW Coefficient of Variation 14.2 % (11.5-14.5); RDW Standard Deviation 48.8 fL (36.4-46.3); Red Blood Count 2.56 M/uL (4.7-6.1); White Blood Count 5.29 K/uL (4.8-10.8)
[2019-01-05 06:29] LABS: BUN Creatinine Ratio 18.6 (10-20); Calcium 8.6 mg/dl (8.5-10.1); Creatinine Clr Calc Pharmacy 21.8 ml/min; Est GFR (African American) 21.7; Est GFR (Non-African American) 18.8; Potassium 5.1 mmol/L (3.5-5.1)
[2019-01-05] MEDS: LIDOCAINE 5% 1 PATCH TD SCH (08:48)
--- NOTE | 2019-01-05 09:29 | Nephrology Progress Note ---
Date of Service January 05, 2019 Assessment & Plan (1) Chronic kidney disease: -- Renal impairment due to chronic obstruction related to BPH -- Urine sediment is bloody due to recent Regan catheter insertion -- Creatinine is trending down following Regan catheter insertion -- Baseline creatinine is unknown (2) Hyperkalemia: -- Hyperkalemia due to CKD and metabolic acidosis -- Continue IV NaHCO3 to help correct metabolic acidosis and hyperkalemia -- Monitor PRP -- Recommend low K diet (3) Enlarged prostate: -- PSA 387 -- Await further Urology recommendations. Question need for prostate biopsy (4) Rib pain on left side: -- Consider consultation w/ General Surgery or Oncology to obtain L 7th rib biopsy (metastatic lesion?) Subjective Mr. Upton was seen & examined in his hospital room this morning. He is tolerating IV hydration without dyspnea or progressive LE swelling. Regan catheter remains in place draining clear yellow urine. Mr. Upton reports that he is tolerating his diet and swallowing without difficulty Review of Systems Constitutional: no fever and no chills Eyes: no worsening vision and no problem reported Ear, Nose, Mouth, Throat: no problem reported Respiratory: no cough and no dyspnea Cardiovascular: no chest pain, no palpitations and no edema Gastrointestinal: no abdominal pain, no nausea, no vomiting and no diarrhea/loose stools Genitourinary: no dysuria, no urinary hesitancy and no hematuria Musculoskeletal: no back pain Integumentary: no rash Physical Exam Constitutional: + frail appearing Eyes: PERRL, conjunctivae normal, anicteric sclerae ENMT: external ear and nose normal, oropharynx normal Neck: trachea midline, no thyromegaly Respiratory: normal respiratory effort, lungs clear to auscultation Cardiovascular: RRR, no murmur, no edema Gastrointestinal (Abdomen): normal bowel sounds, soft, nontender, no hepatosplenomegaly Musculoskeletal: Extremities: no cyanosis Skin: no rashes, warm and dry Neurologic: awake; not confused Results & Data Vital Signs (Past 12 Hours) Vital Signs Temp Pulse Resp BP Pulse Ox 01/05/19 07:00 36.7 C 74 18 163/82 H 99 01/04/19 23:25 37 C 61 16 159/75 H 98 Laboratory Results Laboratory Tests 01/05/19 01/05/19 05:21 05:21 WBC 5.29 Hgb 8.0 L Hct 24.4 L Plt Count 201 Sodium 144 Potassium 5.1 Chloride 113 H Carbon Dioxide 23 BUN 57 H Creatinine 3.07 H D Glucose 97 PG Care Time/CCT Total # of Minutes Spent Total Time Spent with Patient: Total time spent is greater than 50% in coordination of care (as documented) at patient's floor/unit and/or counseling patient:
--- NOTE | 2019-01-05 12:16 | Communication Note ---
Date of Service: January 05, 2019 Contacted regarding PSA of 387. Discussed with Dr. Luciano - will order Casodex BID and arrange for outpatient prostate biopsy within 2 weeks. Maintain Regan. Will also coordinate bone scan today. Will discuss results with patient in morning rounds.
[2019-01-05] MEDS: ACETAMINOPHEN 325 MG TAB PO PRN ×2 (15:30→23:46)
[2019-01-05] MEDS: BICALUTAMIDE 50 MG TAB PO SCH (15:32)
--- NOTE | 2019-01-05 16:11 | Hospitalist Progress Note ---
Date of Service January 05, 2019 Assessment & Plan (1) FREDO (acute kidney injury): Due to obstruction from enlarged prostate 2+ L of urine released after placement of young catheter BUN/Cr of 61/4.19 on admission - trended down a bit after IVF and placement of Young but remains in the high 3s U/A without sign of infection - hematuria in Young clearing - likely from bladder irritation due to distention CT abd/pel showed prostatic enlargement likely causing urinary obstruction and the bilateral hydronephrosis with ureteral dilatation Nephrology consulted - placed on bicarb gtt (2) Enlarged prostate: PSA 387 Bladder distention relieved with young catheter Urology consulted - recommend Casodex and biopsy in 2 weeks. They will also organize a bone scan (3) Bilateral hydronephrosis: Secondary to obstruction from prostate enlargement Urology consulted - continue Young until follow up (4) Abdominal pain: - likely mixed picture of urinary obstruction and constipation - improved with increased urine outflow with catheter - miralax ordered for PRN constipation control (5) Dysphagia: With complaints of nausea and vomiting GI consulted - EGD on hold due to kidney function Patient reports his symptoms have resolved at this point following decompression of his bladder (6) Rib pain on left side: CT chest - Multifocal osseous metastatic disease. - likely metastatic prostate CA given high PSA, - SPEP and EPEP ordered for multiple myeloma - PSA 327 - Casodex as above (7) Hyperkalemia: K peaked at 5.5 and trended down with bicarb gtt secondary to FREDO and obstructive hydronephrosis Nephrology consulted (8) Chronic anemia: Iron level wnl Hgb stable in the 8s (9) Hypertension: No hx of HTN, pt has not seen physician for many years Blood pressures continue to be somewhat elevated PRN Hydralazine 10 mg IV ordered for BP>180/90 May need to consider adding a daily medication such as amlodipine to patient's regimen but will hold off for now (10) DVT prophylaxis: SCDS, heparin subq Subjective Mr. Upton is frustrated by continuing to be in the hospital. He has a moderate sinus headache which he reports being prone to centered around his maxillary sinuses that started last evening. Otherwise he has no other complaints. Review of Systems Review of Systems: All systems reviewed & are unremarkable except as noted in HPI & below Physical Exam Physical Exam: General: no distress Eyes: normal inspection, PERLL Respiratory: chest non tender, clear to auscultation, normal breath sounds, no respiratory distress, no accessory muscle use Cardiac: regular rate and rhythm, no rub or gallop, no murmur, no edema, no jvd GI/: active bowel sounds, no abd pain or tenderness, soft, non distended, urine clear in Young Extremities: normal range of motion, normal strength, non tender Neuro/Psych: alert and oriented x 3, normal mood and affect Skin: normal color, dry Results & Data Vital Signs (Past 12 Hours) Vital Signs Temp Pulse Resp BP Pulse Ox 01/05/19 15:16 36.4 C L 60 16 145/66 H 98 01/05/19 07:00 36.7 C 74 18 163/82 H 99 PG Care Time/CCT Total # of Minutes Spent Total Time Spent with Patient: Total time spent is greater than 50% in coordination of care (as documented) at patient's floor/unit and/or counseling patient:
[2019-01-05] MEDS: HEPARIN SOD 5,000 UNIT/0.5 ML VIAL SQ SCH (20:32)
--- NOTE | 2019-01-05 20:48 | Nuclear Medicine Report ---
NM bone scan whole body CLINICAL HISTORY: Elevated PSA elevated alkaline phosphatase. Left rib pain. Enlarged prostate. COMPARISON STUDY: CT scan chest abdomen pelvis dated 01/02/2019 FINDINGS: The patient was injected with 27 mCi of technetium 99m MDP. Three-hour delayed whole-body i mages were acquired. There are extensive multifocal areas of abnormal osseous uptake. These involve multiple bilateral rib s, the left inferior pubic ramus, the medial left femoral neck, the left T12 pedicle. In addition th ere is abnormal activity at the level of both SI joints. There is a focus of increased activity at th e level of the right acetabulum. IMPRESSION: 1. Multiple foci of abnormal increased activity corresponding to blastic lesions on the prior CT scan . 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 Electronically signed by: Graham Horta M.D. 01/05/2019 8:47 PM
[2019-01-05] MEDS ORDERED: BICALUTAMIDE 50 MG TAB PO SCH (21:00)
[2019-01-06] MEDS: cefTRIAXone SODIUM 2,000 MG in DEXTROSE 5% 50 ML IV SCH (04:51)
[2019-01-06 05:43] LABS: Creatinine Ur 21 MG/DL (20-320); Protein, Urine 24 Hour 30664 MG/24HRS. (0-149); Total Protein, Urine 481 MG/DL; Urine Protein/Creatinine Ratio 22905 (<OR=115)
[2019-01-06 06:27] LABS: BUN Creatinine Ratio 18.5 (10-20); Calcium 8.4 mg/dl (8.5-10.1); Est GFR (African American) 25.6; Est GFR (Non-African American) 22.1; Potassium 4.7 mmol/L (3.5-5.1)
[2019-01-06] MEDS: HEPARIN SOD 5,000 UNIT/0.5 ML VIAL SQ SCH (08:03)
[2019-01-06] MEDS: BICALUTAMIDE 50 MG TAB PO SCH (08:04)
[2019-01-06] MEDS: LIDOCAINE 5% 1 PATCH TD SCH (08:04)
[2019-01-06 09:05] LABS: Albumin Level 3.1 gm/dl (3.4-5.0); Bilirubin,Total 0.2 mg/dl (0.2-1); Globulin 3.1 gm/dl (2.5-4.0); Total Protein 6.2 gm/dl (6.4-8.2)
[2019-01-06 09:13] LABS: Basophils # (auto) 0.01 K/uL (0-0.2); Basophils % (auto) 0.2 %; Eosinophils # (auto) 0.24 K/uL (0-0.5); Eosinophils % (auto) 5.4 %; Hematocrit (blood only) 22.8 % (42-52); Hemoglobin 7.5 g/dL (14.0-18.0); Immature Granulocytes # (auto) 0.01 K/uL (0.00-0.02); Immature Granulocytes % (auto) 0.2 %; Lymphocytes # (auto) 1.32 K/uL (1.2-3.4); Lymphocytes % (auto) 29.9 %; Mean Corpuscular Hemoglobin 31.4 pg (25-34); Mean Corpuscular Hgb Conc 32.9 g/dL (32-36); Mean Corpuscular Volume 95.4 fL (80-100); Mean Platelet Volume 9.5 fL (7.4-10.4); Monocytes # (auto) 0.42 K/uL (0.11-0.59); Monocytes % (auto) 9.5 %; Neutrophils # (auto) 2.41 K/uL (1.4-6.5); Neutrophils % (auto) 54.8 %; Platelet Count 203 K/uL (130-400); RDW Standard Deviation 48.4 fL (36.4-46.3); Red Blood Count 2.39 M/uL (4.7-6.1); White Blood Count 4.41 K/uL (4.8-10.8)
--- NOTE | 2019-01-06 09:49 | Nephrology Progress Note ---
Date of Service January 06, 2019 Assessment & Plan (1) Chronic kidney disease: -- Renal impairment due to chronic obstruction related to BPH -- Creatinine is trending down following Regan catheter insertion -- Baseline creatinine is unknown -- If discharge is anticipated monitoring of kidney function and PSA can be provided by PCP and Urology (2) Hyperkalemia: -- Resolved -- Monitor PRP -- Recommend low K diet (3) Enlarged prostate: -- PSA 387 -- Await further Urology recommendations. Question need for prostate biopsy (4) Rib pain on left side: -- Consider consultation w/ General Surgery or Oncology to obtain L 7th rib biopsy (metastatic lesion?) Subjective Mr. Upton was seen & examined in his hospital room this morning. IVF have been stopped. Regan catheter remains in place draining clear yellow urine. Mr. Upton reports that he is tolerating his diet and swallowing without difficulty Review of Systems Constitutional: no fever and no chills Eyes: no worsening vision and no problem reported Ear, Nose, Mouth, Throat: no problem reported Respiratory: no cough and no dyspnea Cardiovascular: no chest pain, no palpitations and no edema Gastrointestinal: no abdominal pain, no nausea, no vomiting and no diarrhea/loose stools Genitourinary: no dysuria, no urinary hesitancy and no hematuria Musculoskeletal: no back pain Integumentary: no rash Physical Exam Constitutional: + frail appearing Eyes: PERRL, conjunctivae normal, anicteric sclerae ENMT: external ear and nose normal, oropharynx normal Neck: trachea midline, no thyromegaly Respiratory: normal respiratory effort, lungs clear to auscultation Cardiovascular: RRR, no murmur, no edema Gastrointestinal (Abdomen): normal bowel sounds, soft, nontender, no hepatosplenomegaly Musculoskeletal: Extremities: no cyanosis Skin: no rashes, warm and dry Neurologic: awake; not confused Results & Data Vital Signs (Past 12 Hours) Vital Signs Temp Pulse Resp BP Pulse Ox 01/06/19 07:29 36.9 C 65 16 137/72 99 01/05/19 23:20 36.7 C 59 L 16 151/77 H 98 Laboratory Results Laboratory Tests 01/06/19 05:20 Sodium 143 Potassium 4.7 Chloride 111 H Carbon Dioxide 26 BUN 50 H Creatinine 2.68 H D Glucose 94 PG Care Time/CCT Total # of Minutes Spent Total Time Spent with Patient: Total time spent is greater than 50% in coordination of care (as documented) at patient's floor/unit and/or counseling patient:
[2019-01-06 10:14] LABS: RBC Morphology Unremarkable
--- NOTE | 2019-01-06 10:36 | Urology Progress Note ---
Date of Service January 06, 2019 Assessment & Plan (1) FREDO (acute kidney injury): 78 YO male with significantly elevated PSA, UR with resulting bilateral hydronephrosis, FREDO. Discussed elevated PSA and bone scan consistent with metastatic prostate cancer. I have arranged outpatient prostate biopsy in our outpatient [address] [place] [address] clinic on Wednesday01/10/19 @ [address] Bran. Biopsy instructions have been mailed to patient home. Patient did mention to me that he will need assistance with transportation to our office - discussed with hospitalist team. Continue Casodex daily. Maintain Regan. Please contact our service if we can assist further during hospitalization. (2) Bilateral hydronephrosis: (3) Elevated PSA, greater than or equal to 20 ng/ml: Subjective 78 YO male with significantly elevated PSA, UR with resulting bilateral hydronephrosis, FREDO. Patient reports feeling better today, is up in chair upon exam. No fevers/chills. No nausea/vomiting. Regan not bothersome. Bone scan is reviewed with patient and is evident of metastatic disease. Review of Systems Review of Systems: Per HPI. Physical Exam Physical Exam: NAD. Resp effort normal. No JVD. Abd nondistended. : Regan patent, draining clear yellow urine. A&Ox3, appropriate affect. Results & Data Vital Signs (Past 12 Hours) Vital Signs Temp Pulse Resp BP Pulse Ox 01/06/19 07:29 36.9 C 65 16 137/72 99 01/05/19 23:20 36.7 C 59 L 16 151/77 H 98 PG Care Time/CCT Total # of Minutes Spent Total Time Spent with Patient: Total time spent is greater than 50% in coordination of care (as documented) at patient's floor/unit and/or counseling patient:
--- NOTE | 2019-01-06 14:07 | Discharge Summary ---
Date of Service January 06, 2019 Admission HPI Per Admitting Provider Mr. Upton is a 78 yo M with a history of cataracts and cholecystectomy who was told to go to the ED by his PCP for abnormal results from recent labwork (Cr of 4.2). Prior to earlier this week, Mr. Upton hadn't had medical care since 2012 when he saw a high school social studies tutor and 2010 was his last appointment with Dr. Nickerson. Today his primary complaint is his abdominal pain and rib pain. The rib pain has been present since July when he fell 3 times taking care of his in her wheelchair. He denies falling on his sides or hitting his head at the time of the injuries. The pain is mostly located throughout the 5-9th left ribs and is described as a dull ache at rest. The abdominal pain has been present for the past 2 months and is general pain throughout his whole abdomen at rest. He denies any nausea/vomiting but attests that he has trouble swallowing foods as he also has a very dry mouth. He attests to having issues with constipation, with his last bowel movement being last Wednesday. In addition, he complains of urinary frequency and difficulty with initiating streams as well as having stopping and starting streams. He states at home he avoids drinking water because he already goes to the bathroom to urinate 15 times an hour, with small amounts coming out each time. After insertion of a young catheter, Mr. Upton was able to urinate over 2L of fluid and attested to much of his resting abdominal pain improving. Principal Diagnosis FREDO Discharge Exam Constitutional WD/WN, vitals as above Respiratory normal respiratory effort, lungs clear to auscultation Cardiovascular RRR, no murmur, no edema Gastrointestinal (Abdomen) Inspection/Auscultation: abdomen normal to inspection and normal bowel sounds; abdomen not distended Percussion/Palpation: abdomen soft; abdomen nontender Musculoskeletal no cyanosis or clubbing, extremities motor strength 5/5 Skin no rashes, warm and dry Neurologic moves all extremities and awake Psychiatric A+Ox3, euthymic affect Discharge Data Allergies Allergy/AdvReac Type Severity Reaction Status Date / Time iodine Allergy . Verified 01/02/19 19:59 Penicillins Allergy ALLERGY TO Verified 12/28/18 13:24 PCN INJECTION Consultations 01/02/19 19:47 ED Decision to Admit Stat 01/02/19 22:29 Consult Case Management - Discharge Planning Routine 01/03/19 03:30 Consult Urology Routine 01/03/19 11:34 Consult Gastroenterology Routine 01/04/19 09:42 Consult Nephrology Routine 01/06/19 12:13 Consult Patient Rep / Service Excellence [Consult Patient Services] Routine Procedures Performed Operation Date: 01/04/19 09:15 <No data on this case meets the specified criteria> Ordered Studies 01/02/19 18:45 CT abd pelvis wo con Stat 01/02/19 20:42 CT chest wo con Stat Hospital Course (1) FREDO (acute kidney injury): Due to obstruction from enlarged prostate 2+ L of urine released after placement of young catheter BUN/Cr of 61/4.19 on admission - trended bit after IVF and placement of Young U/A without sign of infection - hematuria in Young cleared - likely from bladder irritation due to distention UC no growth - discontinue abx CT abd/pel showed prostatic enlargement likely causing urinary obstruction and the bilateral hydronephrosis with ureteral dilatation Nephrology consulted - placed on bicarb gtt (2) Enlarged prostate: Likely secondary to metastatic prostate cancer PSA 387 Bladder distention relieved with young catheter Urology consulted - recommend Casodex, tamsulosin and biopsy in 2 weeks. Bone scan re-demonstrating multiple areas of bone metastasis I did have a long discussion with patient and his daughter at bedside before discharge today summarizing the admission and plan for discharge as well as patient's diagnosis most likely being metastatic prostate cancer but that the biopsy outpatient on Wednesday will help to provide more information (3) Bilateral hydronephrosis: Secondary to obstruction from prostate enlargement Urology consulted - continue Young until follow up (4) Abdominal pain: - likely mixed picture of urinary obstruction and constipation - improved with increased urine outflow with catheter - miralax ordered for PRN constipation control (5) Dysphagia: With complaints of nausea and vomiting GI consulted - EGD on hold due to kidney function Patient reports his symptoms have resolved at this point following decompression of his bladder and no longer wishes to have an EGD (6) Rib pain on left side: CT chest - Multifocal osseous metastatic disease. - likely metastatic prostate CA given high PSA, - SPEP and EPEP ordered for multiple myeloma - Casodex as above (7) Hyperkalemia: K peaked at 5.5 and trended down with bicarb gtt secondary to FREDO and obstructive hydronephrosis Nephrology consulted (8) Chronic anemia: Iron level wnl Hgb stable 7.5-8.5 - will have patient recheck cbc on Wednesday. No s/s of bleeding Has had two small bowel movements here - unlikely GI source of bleeding Patient has never had a colonoscopy and probably should have one on follow up (9) Hypertension: No hx of HTN, pt has not seen physician for many years Blood pressures continue to be somewhat elevated May need to consider adding a daily medication such as amlodipine to patient's regimen but will hold off for now (10) DVT prophylaxis: SCDS, heparin subq Total Time Total Time Spent Total Time Spent (In Minutes): greater than 30 minutes Discharge Plan Discharge Items Patient Disposition: Home - Home Health Services Reason For Visit: ABNORMAL LABS Discharge Diagnosis: Acute Kidney Injury Activity: Resume your previous activity Non-emergency contact: Primary Care Provider Call non-emergency contact if: you have any medication questions, your symptoms worsen, your pain is not controlled and you have a fever Follow-up/Referrals: Crow Bran MD [Physician] - 01/10/19 2:30 pm (Please, follow up at [facility] Urology Office with Dr. Bran on WednesdayJanuary 10 at 2:40 pm (arrive 2:30 pm). *The office is located at [address] [place] [address] in [place]. If you have any questions, call the office at [phone].) Sebastien Nickerson III, MD [Primary Care Provider] - 01/12/19 2:00 pm (Please, follow up at Dr. Nickerson's office with his associate, Kati TORRES, on January 12 at 2:00 pm. *If you need to change this appointment, call the office at [phone].) Diet: Regular Ambulatory Orders: Basic Metabolic Panel (Routine) Timeframe: 20190116 Location: Determined by Patient Ordered By: Ariana Martinez Complete Blood Count with Diff (Timed) Timeframe: 20190106 Location: Determined by Patient Ordered By: Ariana Martinez Addtl Attending Provider Instructions: While you were here you were found to have an enlarged prostate which was causing obstruction to your bladder preventing you from voiding adequately. This obstruction caused injury to your kidneys. - have your kidney function blood work drawn on Tuesday 01/09 by Home Health - You are scheduled to have a biopsy of your prostate on Wednesday 01/10 at 2:40 pm at the Urology office - You will need to keep the Young urinary catheter until Urology recommends it's removal - You will be started on a new medication called Casodex (bicalutamide). This medication is used to prevent testosterone from stimulating cell growth in prostate cancer. Constipation - continue to take Miralax as needed as well as stool softeners such as Colace twice per day. Both of these medications can be purchased over the counter. Anemia - Please have your blood drawn on Wednesday by home health. Your blood count was running low while you were here without any obvious signs or symptoms of bleeding. You should tell your doctor right away if you have any dark or tarry stools, blood in your stools or urine, or excessive bruising Hypertension - your blood pressure was running a bit high while you were in the hospital. Please have [facility] check your blood pressures and record the value to take with you to your next primary care appointment. You may need to start on a blood pressure medication Home Health physical and occupational therapy to evaluate and treat Pending Studies at Discharge: No Stand-Alone Forms: [facility] Medications and DC Order Prescriptions: New bicalutamide 50 mg Tablet 50 mg PO DAILY Qty: 30 RF: 2 polyethylene glycol 3350 [Miralax] 17 gram Powder In Packet 17 g PO DAILY PRN (Reason: constipation) Qty: 30 RF: 0 tamsulosin 0.4 mg capsule 0.4 mg PO DAILY Qty: 30 RF: 0 Continued acetaminophen [Tylenol Extra Strength] 500 mg Tablet 1,000 mg PO TID PRN (Reason: Pain) RF: 0 Discontinued ciprofloxacin HCl [Cipro] 500 mg tablet 500 mg PO BID Qty: 14 RF: 0 Discharge Orders: Discharge Order (Routine); Ordered 01/06/19 Ordered By: Ariana Culver/Other Patient Handouts: Bicalutamide Oral tablet Admission Data Admit Date/Time: 01/03/19 09:46 Attending Provider: Edison Luciano Admit Provider: Yokasta Garcia Primary Care Provider: Sebastien Nickerson III Other Providers: Daniel Craft II ; Edison Luciano ; Galindo Overton ; Andre Jennings
== END 2019-01-06 14:25 | disposition home health service (06) | DRG 723 ==
LOC: ED 17:40 → 3N 17:40 → SUATTDRO 21:06 → 3N 22:02

== ENCOUNTER 2019-06-01 10:55 | Inpatient (IN) ==
[2019-06-01 11:54] LABS: Eosinophils # (auto) 0.01 K/uL (0-0.5); Eosinophils % (auto) 0.2 %; Hematocrit (blood only) 33.8 % (42-52); Immature Granulocytes # (auto) 0.02 K/uL (0.00-0.02); Immature Granulocytes % (auto) 0.3 %; Lymphocytes # (auto) 0.38 K/uL (1.2-3.4); Lymphocytes % (auto) 6.5 %; Mean Corpuscular Hemoglobin 29.9 pg (25-34); Mean Corpuscular Hgb Conc 32.5 g/dL (32-36); Mean Corpuscular Volume 91.8 fL (80-100); Monocytes # (auto) 0.13 K/uL (0.11-0.59); Monocytes % (auto) 2.2 %; Neutrophils # (auto) 5.28 K/uL (1.4-6.5); Neutrophils % (auto) 90.8 %; Platelet Count 184 K/uL (130-400); RDW Standard Deviation 43.7 fL (36.4-46.3); Red Blood Count 3.68 M/uL (4.7-6.1); White Blood Count 5.82 K/uL (4.8-10.8)
[2019-06-01 12:21] LABS: Alanine Aminotransferase 18 U/L (12-78); Albumin Level 3.4 gm/dl (3.4-5.0); Aspartate Aminotransferase 17 U/L (15-37); BUN Creatinine Ratio 16.2 (10-20); Blood Urea Nitrogen 23 mg/dl (7-18); Carbon Dioxide 27 mmol/L (21-32); Chloride 104 mmol/L (98-107); Creatinine Clr Calc Pharmacy 51.7 ml/min; Est GFR (African American) 54.3; Est GFR (Non-African American) 46.8; Glucose 157 mg/dl (70-99); Lipase 66 U/L (73-393); Magnesium 2.4 mg/dl (1.8-2.4); Potassium 4.8 mmol/L (3.5-5.1); Sodium 137 mmol/L (136-145)
--- NOTE | 2019-06-01 12:25 | Ultrasound Report ---
BILATERAL LOWER EXTREMITY VENOUS DOPPLER HISTORY: Bilateral lower extremity edema. COMPARISON STUDY: None. FINDINGS: Small echogenic focus within the right common femoral vein consistent with a site of nonocc lusive chronic thrombus. Otherwise, there is normal compressibility, flow, and augmentation within th e remaining bilateral lower extremity deep venous systems. IMPRESSION: No acute DVT within the right or left lower extremity. Small nonocclusive echogenic focus within the right common femoral vein consistent with chronic thrombus. ACT 112: Negative or not required by law. Electronically signed by: Tung Bryant M.D. 06/01/2019 12:24 PM
[2019-06-01 12:26] LABS: Albumin Globulin Ratio 0.9 (0.9-2); Alkaline Phosphatase 267 U/L (45-117); Bilirubin,Total 0.5 mg/dl (0.2-1); Globulin 3.9 gm/dl (2.5-4.0); NT Pro B Type Natriuretic Pept 218 pg/ml (0-1800); Total Protein 7.3 gm/dl (6.4-8.2); Troponin I < 0.015 ng/ml (0-0.045)
--- NOTE | 2019-06-01 12:45 | CT Scan Report ---
CT chest wo con CLINICAL HISTORY: Fatigue. Abnormal chest x-ray. Suspected metastatic disease. COMPARISON STUDY: CT scan dated 01/02/2019 CT DOSE: 851.08 mGy.cm TECHNIQUE: CT of the thorax was performed from the thoracic inlet to the lung bases. Images are revi ewed in the axial, sagittal, and coronal planes. IV contrast was not administered for this examinatio n. A dose lowering technique was utilized adhering to the principles of ALARA. FINDINGS: Thyroid: Imaged portions of the thyroid gland are normal in appearance. Thoracic aorta: The ascending thoracic aorta measures 36 mm. Heart: The heart is normal in size and configuration, without pericardial effusion. Lungs and pleural spaces: There are dependent atelectatic changes. There are no pleural effusions. Th ere is no focal pulmonary consolidation. Mediastinum: There is no mediastinal lymphadenopathy. Wandy: There is no evidence of pathologic hilar adenopathy given the limitations of a noncontrast stud y Axilla: There is known to pathologic axillary lymphadenopathy Upper abdomen: Partially visualized upper abdominal viscera is within normal limits. Skeletal structures: There are multiple blastic vertebral body lesions indicative of metastatic disea se. In a male of this age, this is most likely secondary to prostate carcinoma. Multiple rib metastas is are also visualized. There is a blastic expansile lesion of the left sixth rib slightly larger casi n on the preceding study. This is consistent with a metastatic lesion. There is an expansile scleroti c lesion of the right sixth rib, also slightly larger than the prior study, consistent with a metasta tic lesion. IMPRESSION: 1. Slight progression in the blastic skeletal lesions consistent with mildly progressive skeletal met astasis. ACT 112: Negative or not required by law. Electronically signed by: Graham Horta M.D. 06/01/2019 12:44 PM
[2019-06-01] MEDS ORDERED: SODIUM CHLORIDE 0.9% 1000ML 1,000 ML IV ONE (13:25)
[2019-06-01] MEDS ORDERED: ONDANSETRON INJ 2 MG/ML 2 ML VIAL IV STA (13:25)
[2019-06-01] MEDS ORDERED: ACETAMINOPHEN 1,000 MG/100 ML VIAL IV STA (13:25)
[2019-06-01] MEDS ORDERED: fentaNYL citrate 100 MCG/2 ML VIAL IV STA (15:53)
[2019-06-01] MEDS ORDERED: PROCHLORPERAZINE 1 ML IV ONE (15:53)
[2019-06-01] MEDS ORDERED: SODIUM CHLORIDE 0.9% 1000ML 1,000 ML IV SCH (16:00)
--- NOTE | 2019-06-01 17:29 | CT Scan Report ---
CT head/brain wo con CT DOSE: 638.56 mGycm HISTORY: Mental status change n/v, ?mets TECHNIQUE: Multiaxial CT images of the head were performed without the use of intravenous contrast. A dose lowering technique was utilized adhering to the principles of ALARA. Comparison: 08/20/2010 Findings: Moderate mucosal thickening right maxillary sinus. Remaining sinuses are clear. The calvari um and skull base are intact. The ventricles and sulci are within normal limits. There is no mass, he matoma, midline shift, or acute infarct. Impression: No acute intracranial abnormality. Moderate mucosal thickening right maxillary sinus ACT 112: Negative or not required by law. The above report was generated using voice recognition software. It may contain grammatical, syntax or spelling errors. Electronically signed by: James Rodrigues M.D. 06/01/2019 5:28 PM
--- NOTE | 2019-06-01 18:42 | History & Physical Report ---
Date of Service June 01, 2019 Assessment & Plan (1) Intractable vomiting with nausea: Admit to PCU on telemetry, Vital signs every 4 hours, Monitor electrolytes and replenish, Supportive treatment for most likely viral gastroenteritis with IV fluids and antinausea medication. Continue observing. DVT prophylaxis patient is on heparin drip for chronic DVT. Full code full code Present on Admission?: Yes (2) Metastatic cancer: Patient is followed by urology. Referred to urology. Appears to be stable at this point. Present on Admission?: Yes (3) Edema of both lower extremities: Patient has chronic lower extremities edema unrelated to DVT. Both lower extremities are slightly edematous. Recommended teds bilaterally Present on Admission?: Yes (4) Urinary retention: Continue Regan catheter Present on Admission?: Yes (5) CKD (chronic kidney disease), stage III: Avoid nephrotoxic agents, Continue monitoring creatinine. Present on Admission?: Yes History of Present Illness Chief Complaint: Generalized malaise, nausea and vomiting Primary Care Provider: Sebastien Nickerson MD The patient is a 78 years old male with past medical history of metastatic prostate cancer to the bone, anemia, chronic left lower extremity DVT, urinary retention who was brought by his daughter to the emergency room for evaluation of nausea vomiting that has been ongoing for 1 day. Patient daughter reports that patient is taking care of her elderly mother who is sick as well. Their is sickness is different, and while patient is nauseated his is short of breath. Patient has long-term history of prostate cancer that metastasized to the bone. Patient declined chemotherapy and is treated only by urologist. Patient declined to see telephoto engineer oncologist. Patient denied eating anything that could be causing food poisoning. Patient reports having normal bowel movement this morning. He reports his stomach being upset since yesterday when he had a CT scan and had to drink contrast. Labs are reviewed: WBC is 5.82, hemoglobin 11, hematocrit 33.8, platelets 184, PT 11.2, INR 1.1, APTT 28.3, sodium 137, potassium 4.8, chloride 104, carbon dioxide 27, anion gap 6, BUN 23, creatinine 1.44, GFR 46.8, magnesium 2.4, calcium 9, TSH 2.09, lipase 66. CT scan of the head no acute intracranial abnormality. Moderate mucosal thickening right maxillary sinus. Venous Doppler shows no acute DVT within the right or left lower extremity. Small nonocclusive echogenic focus within the right common femoral vein consistent with chronic thrombus. CT abdomen and pelvis done on May 31 shows no acute process in the abdomen or pelvis. Unchanged multifocal sclerotic lesions of the bony structures. This again is consistent with metastatic disease. Expansile lesion left seventh rib also unchanged. No change compared to the prior study. CT of the chest shows slight progression in the blastic skeletal lesions consistent with mildly progressive skeletal m etastasis. Decision was made to admit patient to PCU on telemetry for most likely viral gastroenteritis. Allergies Allergy/AdvReac Type Severity Reaction Status Date / Time iodine Allergy . Verified 06/01/19 12:06 Penicillins Allergy ALLERGY TO Verified 06/01/19 12:06 PCN INJECTION Home Medications Home Medications Medication Instructions Recorded Confirmed Type tamsulosin 0.4 mg capsule 0.4 mg PO DAILY #90 cap 02/24/19 06/01/19 Rx bicalutamide 50 mg PO DAILY 06/01/19 06/01/19 History tramadol 50 mg PO TID PRN 06/01/19 06/01/19 History Past Med/Surg History Medical History Acute kidney injury superimposed on CKD (Acute) Anemia (Chronic) Chronic kidney disease (Chronic) Enlarged prostate (Chronic) Hyperkalemia (Acute) Hypertension (Acute) Lower back pain (Acute) Prostate cancer metastatic to bone (Chronic) Psoriasis (Acute) Rib pain on left side (Acute) Surgical History History of cholecystectomy Family History Other Family history non-contributory Social History Preferred Language: Grenadian Communication Ability: Effective Consumer Attorney Required: No Beliefs That Will Affect Care: None marital status: Current Living Situation: Spouse current occupational status: retired 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 Other Information That Helps Us Care for You: No Feels Safe at Home: Yes Safety Concerns: Feels Safe At This Time Smoking Status: Never smoker Hx Alcohol Use: No Hx Substance Use: No Review of Systems Review of Systems: All systems reviewed & are unremarkable except as noted in HPI & below Physical Exam Constitutional: WD/WN, vitals as above well developed and + obese Eyes: PERRL, conjunctivae normal, anicteric sclerae ENMT: external ear and nose normal, oropharynx normal Neck: trachea midline, no thyromegaly Respiratory: normal respiratory effort, lungs clear to auscultation Cardiovascular: Heart Sounds: normal S1 and normal S2 Palpation: + palpable S3 Vessels: dorsalis pedis pulses present Gastrointestinal (Abdomen): Inspection/Auscultation: + abdomen distended and normal bowel sounds Percussion/Palpation: abdomen soft Musculoskeletal: no cyanosis or clubbing, extremities motor strength 5/5 Neurologic: patellar DTR's 2+ bilat, sensation intact Psychiatric: A+Ox3, euthymic affect Lymphatic: no cervical or axillary lymphadenopathy Results & Data Vital Signs (Past 12 Hours) Vital Signs Temp Pulse Pulse Resp BP BP Pulse Ox 06/01/19 17:31 79 14 97 06/01/19 17:30 91 H 10 L 161/77 H 95 06/01/19 17:24 93 H 13 06/01/19 17:01 87 10 L 06/01/19 17:00 85 181/87 H 06/01/19 16:50 85 11 L 06/01/19 16:40 83 1 L 06/01/19 16:31 82 06/01/19 16:30 83 169/93 H 06/01/19 16:20 84 11 L 06/01/19 16:10 64 16 06/01/19 16:01 78 06/01/19 16:00 78 167/88 H 06/01/19 15:50 79 8 L 06/01/19 15:40 82 06/01/19 15:31 86 06/01/19 15:30 79 178/95 H 06/01/19 15:20 86 12 06/01/19 15:10 86 96 06/01/19 15:01 78 10 L 97 06/01/19 15:00 85 11 L 180/98 H 96 06/01/19 14:50 75 97 06/01/19 14:40 75 98 06/01/19 14:31 73 96 06/01/19 14:30 64 162/95 H 97 06/01/19 14:20 81 98 06/01/19 14:10 77 97 06/01/19 14:01 69 96 06/01/19 14:00 80 173/76 H 96 06/01/19 13:50 94 H 18 96 06/01/19 13:40 86 4 L 97 06/01/19 13:31 80 12 96 06/01/19 13:30 81 11 L 190/90 H 96 06/01/19 13:20 80 96 06/01/19 13:10 80 13 95 06/01/19 13:01 67 97 06/01/19 13:00 86 10 L 165/91 H 96 06/01/19 12:59 80 18 165/92 H 97 06/01/19 12:57 79 11 L 165/93 H 98 06/01/19 12:50 81 95 06/01/19 12:40 66 96 06/01/19 12:36 66 97 06/01/19 12:23 70 17 97 06/01/19 11:50 73 12 94 06/01/19 11:40 75 95 06/01/19 11:33 60 13 06/01/19 11:30 81 14 170/103 H 06/01/19 11:00 36.5 C 89 18 158/97 H 95 Code Status & VTE Plan Code Status Full code VTE Prophylaxis Plan VTE Prophylaxis will be ordered: Yes PG Care Time/CCT Total # of Minutes Spent Total Time Spent with Patient: Total time spent is greater than 50% in coordination of care (as documented) at patient's floor/unit and/or counseling patient: Coding Level of Care Code 69399 Initial Inpt Care Lvl 3 Diagnoses Intractable vomiting with nausea R11.2 Metastatic cancer C79.9 Edema of both lower extremities R60.0 Urinary retention R33.9 CKD (chronic kidney disease), stage III N18.3
--- NOTE | 2019-06-01 19:14 | Electrocardiogram Report ---
Test Reason : Blood Pressure : / mmHG Vent. Rate : 065 BPM Atrial Rate : 065 BPM P-R Int : 178 ms QRS Dur : 112 ms QT Int : 396 ms P-R-T Axes : 063 031 063 degrees QTc Int : 411 ms Sinus rhythm with marked sinus arrhythmia Incomplete right bundle branch block Borderline ECG When compared with ECG of 20-AUG-2010 18:20, No significant change was found Confirmed by Winston Young ([id number]) on 06/01/2019 7:14:15 PM Referred By: REFERRED SELF Confirmed By:Jimbo Young
[2019-06-01] MEDS ORDERED: PROMETHAZINE HCL 25 MG in SODIUM CHLORIDE 0.9% 50 ML IV PRN (20:19)
[2019-06-01] MEDS ORDERED: MAGNESIUM HYDROXIDE SUSP 30 ML UDC PO PRN (20:19)
[2019-06-01] MEDS ORDERED: ONDANSETRON INJ 2 MG/ML 2 ML VIAL IV PRN (20:19)
[2019-06-01] MEDS ORDERED: TRAMADOL HCL 50 MG TABLET PO PRN (20:19)
[2019-06-01] MEDS ORDERED: POLYETHYLENE (MIRALAX) 17 GM PACK PO PRN (20:19)
[2019-06-01] MEDS ORDERED: ALUMINUM/MAGNESIUM SUSP 30 ML UDC PO PRN (20:19)
[2019-06-01] MEDS ORDERED: HEPARIN 25000 UNIT/500 ML D5W IV ONE (20:36)
[2019-06-01 20:58] LABS: INR 1.1 (0.9-1.1); Partial Thromboplastin Time 28.3 Seconds (21.0-31.0); Prothrombin Time 11.2 Seconds (9.0-12.0)
[2019-06-01] MEDS: HEPARIN SODIUM/DEXTROSE 25,000 UNITS/500 ML BAG IV SCH (20:59)
[2019-06-01] MEDS: Heparin IV Standard *NO* Bolus IV SCH ×4 (21:00→23:16)
[2019-06-01 21:12] LABS: Thyroid Stimulating Hormone 2.09 uIu/ml (0.300-4.500)
[2019-06-01] MEDS: HydrALAZINE 10 MG TAB PO PRN (23:34)
[2019-06-02] MEDS: ACETAMINOPHEN 325 MG TAB PO PRN ×3 (02:58→19:32)
[2019-06-02 03:06] LABS: Eosinophils # (auto) 0.01 K/uL (0-0.5); Eosinophils % (auto) 0.1 %; Hematocrit (blood only) 35.5 % (42-52); Hemoglobin 11.4 g/dL (14.0-18.0); Immature Granulocytes # (auto) 0.01 K/uL (0.00-0.02); Immature Granulocytes % (auto) 0.1 %; Lymphocytes # (auto) 1.05 K/uL (1.2-3.4); Mean Corpuscular Hemoglobin 29.3 pg (25-34); Mean Corpuscular Hgb Conc 32.1 g/dL (32-36); Mean Corpuscular Volume 91.3 fL (80-100); Mean Platelet Volume 9.1 fL (7.4-10.4); Monocytes % (auto) 6.7 %; Neutrophils # (auto) 5.93 K/uL (1.4-6.5); Neutrophils % (auto) 79.1 %; Platelet Count 174 K/uL (130-400); RDW Coefficient of Variation 13.2 % (11.5-14.5); RDW Standard Deviation 43.3 fL (36.4-46.3); Red Blood Count 3.89 M/uL (4.7-6.1)
[2019-06-02 03:28] LABS: Partial Thromboplastin Ratio 2.2
[2019-06-02 03:34] LABS: Partial Thromboplastin Time 58.5 Seconds (21.0-31.0)
[2019-06-02 03:45] LABS: Albumin Level 3.3 gm/dl (3.4-5.0); Calcium 8.7 mg/dl (8.5-10.1); Creatinine Clr Calc Pharmacy 52.7 ml/min; Est GFR (African American) 63.2; Est GFR (Non-African American) 54.5; Potassium 4.9 mmol/L (3.5-5.1)
[2019-06-02] MEDS: Heparin IV Standard *NO* Bolus IV SCH (03:45)
[2019-06-02 03:48] LABS: Albumin Globulin Ratio 0.9 (0.9-2); Bilirubin,Total 0.5 mg/dl (0.2-1); Globulin 3.8 gm/dl (2.5-4.0); Total Protein 7.1 gm/dl (6.4-8.2)
[2019-06-02] MEDS: BICALUTAMIDE 50 MG TAB PO SCH (07:53)
[2019-06-02] MEDS: TAMSULOSIN HCL 0.4 MG CAP PO SCH (07:53)
[2019-06-02] MEDS: HydrALAZINE 10 MG TAB PO PRN ×2 (07:53→15:20)
[2019-06-02] MEDS: RIVAROXABAN 10 MG TABLET PO SCH (14:37)
[2019-06-02] MEDS: HEPARIN SODIUM/DEXTROSE 25,000 UNITS/500 ML BAG IV SCH (14:55)
--- NOTE | 2019-06-02 16:42 | Hospitalist Progress Note ---
Date of Service June 02, 2019 Assessment & Plan (1) Intractable vomiting with nausea: - Suspect this may be more from drinking oral contrast as this currently is resolved; CT suggest some sinus mucosal thickening so maybe some viral component to GI symptoms? -- is hospitalized with respiratory condition - daughter states this is a CHF exacerbation - Given initial hydration - will monitor off IVF; labs in AM (2) Chronic deep vein thrombosis (DVT): - Venous U/S reveals small focus in the R common femoral vein consistent with chronic thrombus - Discussed with heme/onc as normally chronic thrombi do not necessarily need anticoagulation however given his CA diagnosis he may benefit from a prophylactic dose of anticoagulation. May discuss with Dr. Bailey as well to discuss options. -- Recommended Xarelto 10 mg daily (3) Metastatic cancer: - Only follows with Urology; not actively seeking treatment for cancer - is aware of the metastasis (4) Edema of both lower extremities: - Chronic lower extremity edema - unlikley this is related to DVT - Could utilize compression stockings - No echocardiogram to review for heart function - rather stable in general so this can be defered to outpatient workup if needed to assess contribution of heart to lower extremity edema (5) Urinary retention: - Related partially to prostatic enlargement - Continue Regan catheter (6) CKD (chronic kidney disease), stage III: - Cr at 1.27 with hydration was mildly elevated at 1.44 - limited labs for comparison as previous ones were rather elevated and thought to be related to obstructive uropathy in setting of prostatic enlargement Disposition: Likely D/C home tomorrow if symptoms remain resolved Admission and Anticipated Discharge Date Admission Date: June 01, 2019 Supervising Physician Co-Signing Physician Notes Attending Attestation - Chart reviewed in detail, care plan d/w AUORRA Quinn. I agree w/ the bolaños components of her documentation. 78yo male - stage 4 prostate ca - with nausea/emesis. Recent CT abd/pelvis without acute process (bony mets from prostate ca seen only). Rib abnormality also seen but this, too, is chronic. Cont Rx of symptoms. Joshua Coronado MD Subjective Reports feeling a lot better today. No more nausea or vomiting and tolerating his diet. Denies fever or chills. A little tired but otherwise feeling well. Discussed his blood clot and reports no known history of this. He verbalizes no other complaints Review of Systems Constitutional: + fatigue; no fever and no chills Respiratory: no cough and no dyspnea Cardiovascular: no chest pain, no palpitations and no lightheadedness Gastrointestinal: no abdominal pain, no nausea, no vomiting, no constipation and no diarrhea/loose stools Genitourinary: no dysuria Neurologic: no tingling and no numbness Physical Exam Constitutional: WD/WN, vitals as above Eyes: + anicteric sclerae ENMT: Ears: no hearing impairment Neck: trachea midline Respiratory: normal respiratory effort, lungs clear to auscultation Cardiovascular: RRR, no murmur, no edema Gastrointestinal (Abdomen): Inspection/Auscultation: normal bowel sounds Percussion/Palpation: abdomen soft; abdomen nontender Musculoskeletal: Head/Neck/Chest: normocephalic and head atraumatic Skin: no rashes, warm and dry Neurologic: moves all extremities Psychiatric: A+Ox3, euthymic affect Results & Data ([facility]) Vital Signs (Past 12 Hours) Vital Signs Temp Pulse Pulse Pulse Pulse Resp BP 06/02/19 16:35 82 176/72 H 06/02/19 15:38 36.4 C L 72 20 181/80 H 06/02/19 15:18 65 177/83 H 06/02/19 10:57 36.3 C L 63 20 178/82 H 06/02/19 10:27 60 168/83 H 06/02/19 09:57 65 06/02/19 07:09 36.6 C 78 16 196/95 H Pulse Ox 06/02/19 16:35 94 06/02/19 15:38 93 06/02/19 15:18 96 06/02/19 10:57 97 06/02/19 10:27 06/02/19 09:57 06/02/19 07:09 98 PG Care Time/CCT Total # of Minutes Spent Total Time Spent with Patient: Total time spent is greater than 50% in coordination of care (as documented) at patient's floor/unit and/or counseling patient: Coding Level of Care Code 10962 Subseq Hosp Care Lvl 3 Diagnoses Intractable vomiting with nausea R11.2 Chronic deep vein thrombosis (DVT) I82.509 Metastatic cancer C79.9 Edema of both lower extremities R60.0 Urinary retention R33.9 CKD (chronic kidney disease), stage III N18.3
[2019-06-02 19:06] LABS: Influenza A virus by PCR Neg for Influ A (Neg); Influenza B virus by PCR Neg for Influ B (Neg)
--- NOTE | 2019-06-03 00:12 | Emergency Department Note ---
Entered by Arnie Montenegro acting as a scribe for History of Present Illness General Chief complaint: Illness Time Seen by Provider: 06/01/19 11:01 Source: patient Limitations: no limitations History of Present Illness Onset (ago): day(s) (couple days ago) Location: lower extremity Pain Consistency: + constant Quality: + constant Associated symptoms: + denies other symptoms (trouble breathing, abdominal pain), + fever/chills (chills), + nausea/vomiting (vomiting) and + other (dizzy, tired, legs swelling); no chest pain The patient is a 78 year old male who presents to the Emergency Room with complaints of a constant illness starting a couple days ago. The patient states he has been dizzy, tired, and has had a dry mouth. He states he has been having chills. The patient's daughter states the patient's legs are swollen from his knees down to his toes. She states the patient went to his PCP yesterday. She states the patient's PCP sent him to the ED to get emergent testing done. She states the patient did not see anyone in the ED. they state he had blood work done and a CT of the abdomen performed. She states they were supposed to go to the patient's PCP today to discuss the testing results, but this morning the patient was vomiting. She states she called the patient's PCP and was told to go to the ED. The daughter states the patient has prostate cancer that led to bone cancer. She states the patient has metastasis in his ribs, back, and going down his legs. She notes the patient does not have nausea medication at home. The patient denies having fevers, chest pain, trouble breathing, and abdominal pain. On review of EMR, patient had labs and CT of the abdomen and pelvis performed at the hospital but was not seen in the emergency room. Home Medications Home Medications Medication Instructions Recorded Confirmed Type tamsulosin 0.4 mg capsule 0.4 mg PO DAILY #90 cap 02/24/19 06/01/19 Rx bicalutamide 50 mg PO DAILY 06/01/19 06/01/19 History tramadol 50 mg PO TID PRN 06/01/19 06/01/19 History Allergies Allergy/AdvReac Type Severity Reaction Status Date / Time iodine Allergy . 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 and A total of 10 systems reviewed and were otherwise negative Physical Exam Vital Signs Vital Signs - 24 hr 06/01/19 11:00 06/01/19 11:30 06/01/19 11:33 Temperature 97.7 F Temperature Source Oral Pulse Rate 89 81 60 Pulse Rate [Apical] Pulse Rate from SpO2 Sensor Respiratory Rate 18 14 13 Blood Pressure 158/97 H 170/103 H Blood Pressure [Left Arm] Blood Pressure Mean 117 125 Blood Pressure Mean [Left Arm] Pulse Oximetry 95 Oxygen Delivery Method Room Air Sepsis Recent Fever Within 48 Hours No Sepsis New/Unexplained Change in Mental Status No Sepsis Action Taken by Nursing No Action Required 06/01/19 11:40 06/01/19 11:50 06/01/19 12:23 Temperature Temperature Source Pulse Rate 75 73 70 Pulse Rate [Apical] Pulse Rate from SpO2 Sensor 70 71 68 Respiratory Rate 12 17 Blood Pressure Blood Pressure [Left Arm] Blood Pressure Mean Blood Pressure Mean [Left Arm] Pulse Oximetry 95 94 97 Oxygen Delivery Method Sepsis Recent Fever Within 48 Hours Sepsis New/Unexplained Change in Mental Status Sepsis Action Taken by Nursing 06/01/19 12:36 06/01/19 12:40 06/01/19 12:50 Temperature Temperature Source Pulse Rate 66 66 81 Pulse Rate [Apical] Pulse Rate from SpO2 Sensor 72 68 80 Respiratory Rate Blood Pressure Blood Pressure [Left Arm] Blood Pressure Mean Blood Pressure Mean [Left Arm] Pulse Oximetry 97 96 95 Oxygen Delivery Method Sepsis Recent Fever Within 48 Hours Sepsis New/Unexplained Change in Mental Status Sepsis Action Taken by Nursing 06/01/19 12:57 06/01/19 12:59 06/01/19 13:00 Temperature Temperature Source Pulse Rate 79 86 Pulse Rate [Apical] 80 Pulse Rate from SpO2 Sensor 79 87 Respiratory Rate 11 L 18 10 L Blood Pressure 165/93 H 165/91 H Blood Pressure [Left Arm] 165/92 H Blood Pressure Mean 105 111 Blood Pressure Mean [Left Arm] 116 Pulse Oximetry 98 97 96 Oxygen Delivery Method Room Air Sepsis Recent Fever Within 48 Hours Sepsis New/Unexplained Change in Mental Status Sepsis Action Taken by Nursing 06/01/19 13:01 06/01/19 13:10 06/01/19 13:20 Temperature Temperature Source Pulse Rate 67 80 80 Pulse Rate [Apical] Pulse Rate from SpO2 Sensor 71 78 79 Respiratory Rate 13 Blood Pressure Blood Pressure [Left Arm] Blood Pressure Mean Blood Pressure Mean [Left Arm] Pulse Oximetry 97 95 96 Oxygen Delivery Method Sepsis Recent Fever Within 48 Hours Sepsis New/Unexplained Change in Mental Status Sepsis Action Taken by Nursing 06/01/19 13:30 06/01/19 13:31 06/01/19 13:40 Temperature Temperature Source Pulse Rate 81 80 86 Pulse Rate [Apical] Pulse Rate from SpO2 Sensor 80 80 86 Respiratory Rate 11 L 12 4 L Blood Pressure 190/90 H Blood Pressure [Left Arm] Blood Pressure Mean 116 Blood Pressure Mean [Left Arm] Pulse Oximetry 96 96 97 Oxygen Delivery Method Sepsis Recent Fever Within 48 Hours Sepsis New/Unexplained Change in Mental Status Sepsis Action Taken by Nursing 06/01/19 13:50 06/01/19 14:00 06/01/19 14:01 Temperature Temperature Source Pulse Rate 94 H 80 69 Pulse Rate [Apical] Pulse Rate from SpO2 Sensor 92 H 82 70 Respiratory Rate 18 Blood Pressure 173/76 H Blood Pressure [Left Arm] Blood Pressure Mean 127 Blood Pressure Mean [Left Arm] Pulse Oximetry 96 96 96 Oxygen Delivery Method Sepsis Recent Fever Within 48 Hours Sepsis New/Unexplained Change in Mental Status Sepsis Action Taken by Nursing 06/01/19 14:10 06/01/19 14:20 06/01/19 14:30 Temperature Temperature Source Pulse Rate 77 81 64 Pulse Rate [Apical] Pulse Rate from SpO2 Sensor 76 81 69 Respiratory Rate Blood Pressure 162/95 H Blood Pressure [Left Arm] Blood Pressure Mean 122 Blood Pressure Mean [Left Arm] Pulse Oximetry 97 98 97 Oxygen Delivery Method Sepsis Recent Fever Within 48 Hours Sepsis New/Unexplained Change in Mental Status Sepsis Action Taken by Nursing 06/01/19 14:31 06/01/19 14:40 06/01/19 14:50 Temperature Temperature Source Pulse Rate 73 75 75 Pulse Rate [Apical] Pulse Rate from SpO2 Sensor 74 76 75 Respiratory Rate Blood Pressure Blood Pressure [Left Arm] Blood Pressure Mean Blood Pressure Mean [Left Arm] Pulse Oximetry 96 98 97 Oxygen Delivery Method Sepsis Recent Fever Within 48 Hours Sepsis New/Unexplained Change in Mental Status Sepsis Action Taken by Nursing 06/01/19 15:00 06/01/19 15:01 06/01/19 15:10 Temperature Temperature Source Pulse Rate 85 78 86 Pulse Rate [Apical] Pulse Rate from SpO2 Sensor 85 77 86 Respiratory Rate 11 L 10 L Blood Pressure 180/98 H Blood Pressure [Left Arm] Blood Pressure Mean 116 Blood Pressure Mean [Left Arm] Pulse Oximetry 96 97 96 Oxygen Delivery Method Sepsis Recent Fever Within 48 Hours Sepsis New/Unexplained Change in Mental Status Sepsis Action Taken by Nursing 06/01/19 15:20 06/01/19 15:30 06/01/19 15:31 Temperature Temperature Source Pulse Rate 86 79 86 Pulse Rate [Apical] Pulse Rate from SpO2 Sensor Respiratory Rate 12 Blood Pressure 178/95 H Blood Pressure [Left Arm] Blood Pressure Mean 139 Blood Pressure Mean [Left Arm] Pulse Oximetry Oxygen Delivery Method Sepsis Recent Fever Within 48 Hours Sepsis New/Unexplained Change in Mental Status Sepsis Action Taken by Nursing 06/01/19 15:40 06/01/19 15:50 06/01/19 16:00 Temperature Temperature Source Pulse Rate 82 79 78 Pulse Rate [Apical] Pulse Rate from SpO2 Sensor Respiratory Rate 8 L Blood Pressure 167/88 H Blood Pressure [Left Arm] Blood Pressure Mean 111 Blood Pressure Mean [Left Arm] Pulse Oximetry Oxygen Delivery Method Sepsis Recent Fever Within 48 Hours Sepsis New/Unexplained Change in Mental Status Sepsis Action Taken by Nursing 06/01/19 16:01 06/01/19 16:10 06/01/19 16:20 Temperature Temperature Source Pulse Rate 78 64 84 Pulse Rate [Apical] Pulse Rate from SpO2 Sensor Respiratory Rate 16 11 L Blood Pressure Blood Pressure [Left Arm] Blood Pressure Mean Blood Pressure Mean [Left Arm] Pulse Oximetry Oxygen Delivery Method Sepsis Recent Fever Within 48 Hours Sepsis New/Unexplained Change in Mental Status Sepsis Action Taken by Nursing 06/01/19 16:30 06/01/19 16:31 Temperature Temperature Source Pulse Rate 83 82 Pulse Rate [Apical] Pulse Rate from SpO2 Sensor Respiratory Rate Blood Pressure 169/93 H Blood Pressure [Left Arm] Blood Pressure Mean 126 Blood Pressure Mean [Left Arm] Pulse Oximetry Oxygen Delivery Method Sepsis Recent Fever Within 48 Hours Sepsis New/Unexplained Change in Mental Status Sepsis Action Taken by Nursing GENERAL: alert, ill appearing, well nourished, no distress, non-toxic EYE EXAM: normal conjunctiva, PERRL and EOM's grossly intact OROPHARYNX: no exudate, no erythema, lips, buccal mucosa, and tongue normal and mucous membranes are dry NECK: supple, no nuchal rigidity, no adenopathy, non-tender LUNGS: Clear to auscultation. Normal chest wall mechanics. Decreased breath sounds but no wheezing, rhonchi, or rales. HEART: no murmurs, S1 normal and S2 normal ABDOMEN: abdomen soft, non-tender, normo-active bowel sounds, no masses, no rebound or guarding. BACK: Back is symmetrical on inspection and there is no deformity, no midline tenderness, no CVA tenderness. SKIN: no rashes and no bruising UPPER EXTREMITIES: upper extremities are grossly normal. FROM, nml pulses b/l. LOWER EXTREMITIES: 3+ lower extremity edema up to knees bilaterally. FROM, nml pulses b/l. NEURO EXAM: Normal sensorium, cranial nerves II-XII grossly intact, normal speech, no gross weakness of arms, no gross weakness of legs. Course Course 1107: The patient was evaluated in room C10, and a complete history and physical examination were performed. 1322: I reevaluated the patient. He states he is still nauseous and has a headache. 1423: I spoke with [facility]. Dr. Craft - Urology, is aware of the patient's case. 1551: I spoke with the patient. Patient still very nauseated and ill-appearing. I discussed admission, and the patient agreed. 1625: I discussed the patient's case with Dr. Servin [facility]. She will evaluate the patient for further management. Administered Medications Acetaminophen (Tylenol) 650 mg PO Q4H PRN PRN Reason: Pain or Fever Stop: 07/01/19 20:18 Last Admin: 06/02/19 19:32 Dose: 650 mg Documented by: [id number] Admin: 06/02/19 07:52 Dose: 650 mg Documented by: [id number] Admin: 06/02/19 02:58 Dose: 650 mg Documented by: [id number] Bicalutamide (Casodex) 50 mg PO DAILY [facility] Stop: 07/02/19 08:59 Last Admin: 06/02/19 07:53 Dose: 50 mg Documented by: [id number] Cosigned by: [id number] Hydralazine HCl (Apresoline) 10 mg PO QID PRN PRN Reason: for elevated BP Stop: 07/02/19 08:59 Last Admin: 06/02/19 15:20 Dose: 10 mg Documented by: [id number] Admin: 06/02/19 07:53 Dose: 10 mg Documented by: [id number] Admin: 06/01/19 23:34 Dose: 10 mg Documented by: [id number] Rivaroxaban (Xarelto) 10 mg PO DAILY [facility] Stop: 07/02/19 13:14 Last Admin: 06/02/19 14:37 Dose: 10 mg Documented by: [id number] Tamsulosin HCl (Flomax) 0.4 mg PO DAILY [facility] Stop: 07/02/19 08:59 Last Admin: 06/02/19 07:53 Dose: 0.4 mg Documented by: [id number] Discontinued Medications Fentanyl Citrate (Fentanyl Citrate) 50 mcg IV NOW [facility] Stop: 06/01/19 15:54 Last Admin: 06/01/19 16:06 Dose: 50 mcg Documented by: [id number] Heparin Sodium/Dextrose () 1 ea IV Q15M [facility]; Protocol Stop: 06/01/19 22:05 Last Admin: 06/02/19 03:45 Dose: Not Given Documented by: [id number] Admin: 06/02/19 03:45 Dose: Not Given Documented by: [id number] Admin: 06/02/19 03:45 Dose: Not Given Documented by: [id number] Admin: 06/02/19 03:45 Dose: Not Given Documented by: [id number] Admin: 06/01/19 23:16 Dose: 1 ea Documented by: [id number] Admin: 06/01/19 21:02 Dose: Not Given Documented by: [id number] Admin: 06/01/19 21:01 Dose: Not Given Documented by: [id number] Admin: 06/01/19 21:00 Dose: Not Given Documented by: [id number] Heparin Sodium/Dextrose (Heparin Sodium/Dextrose) Confirm Administered Dose 25,000 units IV .STK-MED ONE Stop: 06/01/19 20:37 Last Admin: 06/01/19 20:59 Dose: Not Given Documented by: [id number] Acetaminophen (Ofirmev) 1,000 mg in 100 mls @ 400 mls/hr IV NOW STA Stop: 06/01/19 13:39 Last Infusion: 06/01/19 14:38 Dose: 0 mls/hr Documented by: [id number] Admin: 06/01/19 13:46 Dose: 400 mls/hr Documented by: [id number] Sodium Chloride (Nss 1000ml) 1,000 mls @ 999 mls/hr IV .Q1H1M ONE Stop: 06/01/19 14:25 Last Infusion: 06/01/19 14:38 Dose: 0 mls/hr Documented by: [id number] Admin: 06/01/19 13:46 Dose: 999 mls/hr Documented by: [id number] Prochlorperazine (Compazine) 1 mls @ 1 mls/min IV ONE ONE Stop: 06/01/19 15:54 Last Admin: 06/01/19 16:06 Dose: 1 mls/min Documented by: [id number] Sodium Chloride (Nss 1000ml) 1,000 mls @ 125 mls/hr IV .Q8H LORIE Stop: 07/01/19 15:59 Last Infusion: 06/01/19 23:17 Dose: 0 mls/hr Documented by: [id number] Admin: 06/01/19 16:06 Dose: 125 mls/hr Documented by: [id number] Heparin Sodium/Dextrose (Heparin Sodium/Dextrose) 25,000 units in 500 mls @ 30 mls/hr IV .[id number] LORIE; Protocol Stop: 07/01/19 20:18 Last Admin: 06/02/19 14:55 Dose: Not Given Documented by: [id number] Titration: 06/02/19 12:59 Dose: 0 units/hr, 0 mls/hr Documented by: [id number] Cosigned by: [id number] Titration: 06/02/19 07:16 Dose: 1,500 units/hr, 30 mls/hr Documented by: [id number] Cosigned by: [id number] Admin: 06/01/19 20:59 Dose: 1,500 units/hr, 30 mls/hr Documented by: [id number] Cosigned by: [id number] Ondansetron HCl (Zofran) 4 mg IV NOW STA Stop: 06/01/19 13:26 Last Admin: 06/01/19 13:46 Dose: 4 mg Documented by: [id number] Medical Decision Making Differential Diagnosis Differential Diagnosis includes but is not limited to dehydration, stroke, anemia, hypoglycemia, hyponatremia, hypernatremia, urinary tract infection, pneumonia, bronchitis, sepsis, gastroenteritis, additional abdominal pathology, metabolic abnormalities and infections, DVT, vascular ischemia, radiculopathy, fracture, hematoma/contusion, myositis, abscess, septic arthritis cellulitis, joint effusion, trauma, lymphedema, idiopathic, and CHF. Medical Records Attestation: I reviewed the patient's medical records. Home Medications Current Medication List: was personally reviewed by me Laboratory Data Attestation: I reviewed the patient's lab results. Result diagrams: 06/02/19 02:56 06/02/19 02:56 Lab Results 06/01/19 06/01/19 Range/Units 11:38 11:38 WBC 5.82 (4.8-10.8) K/uL RBC 3.68 L (4.7-6.1) M/uL Hgb 11.0 L (14.0-18.0) g/dL Hct 33.8 L (42-52) % MCV 91.8 (80-100) fL MCH 29.9 (25-34) pg MCHC 32.5 (32-36) g/dL RDW Std Deviation 43.7 (36.4-46.3) fL RDW Coeff of Jose 13.0 (11.5-14.5) % Plt Count 184 (130-400) K/uL MPV 9.0 (7.4-10.4) fL Immature Gran % (Auto) 0.3 % Neut % (Auto) 90.8 % Lymph % (Auto) 6.5 % Greer % (Auto) 2.2 % Eos % (Auto) 0.2 % Baso % (Auto) 0.0 % Immature Gran # (Auto) 0.02 (0.00-0.02) K/uL Neut # (Auto) 5.28 (1.4-6.5) K/uL Lymph # (Auto) 0.38 L (1.2-3.4) K/uL Greer # (Auto) 0.13 (0.11-0.59) K/uL Eos # (Auto) 0.01 (0-0.5) K/uL Baso # (Auto) 0.00 (0-0.2) K/uL Sodium 137 (136-145) mmol/L Potassium 4.8 (3.5-5.1) mmol/L Chloride 104 (98-107) mmol/L Carbon Dioxide 27 (21-32) mmol/L Anion Gap 6.0 (3-11) BUN 23 H (7-18) mg/dl Creatinine 1.44 H (0.6-1.4) mg/dl Est Cr Clr Drug Dosing 51.7 ml/min Est GFR ( Amer) 54.3 Est GFR (Non-Af Amer) 46.8 BUN/Creatinine Ratio 16.2 (10-20) Glucose 157 H (70-99) mg/dl Calcium 9.0 (8.5-10.1) mg/dl Magnesium 2.4 (1.8-2.4) mg/dl Total Bilirubin 0.5 (0.2-1) mg/dl AST 17 (15-37) U/L ALT 18 (12-78) U/L Alkaline Phosphatase 267 H (45-117) U/L Troponin I < 0.015 (0-0.045) ng/ml NT-Pro-B Natriuret Pep 218 (0-1800) pg/ml Total Protein 7.3 (6.4-8.2) gm/dl Albumin 3.4 (3.4-5.0) gm/dl Globulin 3.9 (2.5-4.0) gm/dl Albumin/Globulin Ratio 0.9 (0.9-2) Lipase 66 L (73-393) U/L Imaging Data Radiologist's Impression: Radiology results as stated below per my review and the radiologist's interpretation: CT chest wo con CLINICAL HISTORY: Fatigue. Abnormal chest x-ray. Suspected metastatic disease. COMPARISON STUDY: CT scan dated 01/02/2019 CT DOSE: 851.08 mGy.cm TECHNIQUE: CT of the thorax was performed from the thoracic inlet to the lung bases. Images are reviewed in the axial, sagittal, and coronal planes. IV contrast was not administered for this examination. A dose lowering technique was utilized adhering to the principles of ALARA. FINDINGS: Thyroid: Imaged portions of the thyroid gland are normal in appearance. Thoracic aorta: The ascending thoracic aorta measures 36 mm. Heart: The heart is normal in size and configuration, without pericardial effusion. Lungs and pleural spaces: There are dependent atelectatic changes. There are no pleural effusions. There is no focal pulmonary consolidation. Mediastinum: There is no mediastinal lymphadenopathy. Wandy: There is no evidence of pathologic hilar adenopathy given the limitations of a noncontrast study Axilla: There is known to pathologic axillary lymphadenopathy Upper abdomen: Partially visualized upper abdominal viscera is within normal limits. Skeletal structures: There are multiple blastic vertebral body lesions indicative of metastatic disease. In a male of this age, this is most likely secondary to prostate carcinoma. Multiple rib metastasis are also visualized. There is a blastic expansile lesion of the left sixth rib slightly larger than on the preceding study. This is consistent with a metastatic lesion. There is an expansile sclerotic lesion of the right sixth rib, also slightly larger than the prior study, consistent with a metastatic lesion. IMPRESSION: 1. Slight progression in the blastic skeletal lesions consistent with mildly progressive skeletal metastasis. ACT 112: Negative or not required by law. Electronically signed by: Graham Horta M.D. 06/01/2019 12:44 PM BILATERAL LOWER EXTREMITY VENOUS DOPPLER HISTORY: Bilateral lower extremity edema. COMPARISON STUDY: None. FINDINGS: Small echogenic focus within the right common femoral vein consistent with a site of nonocclusive chronic thrombus. Otherwise, there is normal compressibility, flow, and augmentation within the remaining bilateral lower extremity deep venous systems. IMPRESSION: No acute DVT within the right or left lower extremity. Small nonocclusive echogenic focus within the right common femoral vein consistent with chronic thrombus. ACT 112: Negative or not required by law. Electronically signed by: Tung Bryant M.D. 06/01/2019 12:24 PM ECG Data Attestation: I personally reviewed and interpreted this ECG as follows: Indication: + vomiting Rate (beats per minute): 65 Rhythm: + sinus rhythm ECG Intervals/blocks: + Normal QRS, + Normal QT, + Normal MT and + Normal QT-c ECG [place]: + Normal ECG ST segments: no ST depression and no ST elevation Blood Pressure Blood Pressure Findings: Elevated blood pressure Blood Pressure Disposition: further management by hospitalist CLAIRE Narrative Continuous Cardiac Monitoring: An order was placed for continuous cardiac monitoring. The monitor shows a rate of 65 with a sinus rhythm Patient here ill-appearing with known metastatic prostate cancer. Unclear how long the chronic appearing nonocclusive proximal DVT has been in the right lower extremity. It does not seem that it is related to the new and acute bilateral lower extremity edema. Patient had persistent nausea despite 2 different antiemetics here. Patient was cautiously rehydrated. Due to concern for persistent nausea and intolerance of p.o., unclear etiology of lower extremity edema, I discussed case with the hospitalist. Patient was in agreement with this plan, we did discuss all results at bedside. I feel patient's pain that he complains of is likely secondary to his bony mets. Patient was given Tylenol here and then additional IV fentanyl. Patient states he had not felt well at home on both tramadol or Tylenol with codeine. No evidence of acute infectious etiology at this time. I do not suspect sepsis, ACS, PE, CVA, dissection. Patient has taken a very conservative approach to the treatment of his cancer so far. Urology at this time did not have any significant input and stated they would see the patient in consult if he was admitted. Impression & Plan Intractable vomiting with nausea, Metastatic cancer, Edema of both lower extremities Discharge Plan Visit Data *Final* Discharge Date/Time: 06/01/19 18:54 Chief Complaint: Illness ED Provider: Ghazala Nash Discharge Problem: Intractable vomiting with nausea, Metastatic cancer, Edema of both lower extremities Patient Disposition: Admitted As Inpatient Discharge Instructions Interventions: ED Discharge Assessment Last Done: 06/01/19 18:54 The scribe's documentation has been prepared under my direction and personally reviewed by me in its entirety. I confirm that the note above accurately reflects all work, treatment, procedures, and medical decision making performed by me.
[2019-06-03] MEDS: HydrALAZINE 10 MG TAB PO PRN ×2 (00:37→08:15)
[2019-06-03] MEDS ORDERED: HydrALAZINE HCL 20 MG/ML VIAL IV STA (03:43)
[2019-06-03] MEDS: ACETAMINOPHEN 325 MG TAB PO PRN ×3 (04:06→15:36)
[2019-06-03 05:56] LABS: Basophils # (auto) 0.01 K/uL (0-0.2); Basophils % (auto) 0.1 %; Eosinophils # (auto) 0.01 K/uL (0-0.5); Eosinophils % (auto) 0.1 %; Hematocrit (blood only) 38.3 % (42-52); Hemoglobin 12.3 g/dL (14.0-18.0); Immature Granulocytes # (auto) 0.09 K/uL (0.00-0.02); Immature Granulocytes % (auto) 1.2 %; Lymphocytes # (auto) 1.32 K/uL (1.2-3.4); Lymphocytes % (auto) 17.3 %; Mean Corpuscular Hemoglobin 29.3 pg (25-34); Mean Corpuscular Hgb Conc 32.1 g/dL (32-36); Mean Corpuscular Volume 91.2 fL (80-100); Mean Platelet Volume 8.9 fL (7.4-10.4); Monocytes # (auto) 0.45 K/uL (0.11-0.59); Monocytes % (auto) 5.9 %; Neutrophils # (auto) 5.76 K/uL (1.4-6.5); Neutrophils % (auto) 75.4 %; Platelet Count 186 K/uL (130-400); RDW Coefficient of Variation 13.1 % (11.5-14.5); RDW Standard Deviation 43.6 fL (36.4-46.3); White Blood Count 7.64 K/uL (4.8-10.8)
[2019-06-03 06:27] LABS: Albumin Level 3.6 gm/dl (3.4-5.0); BUN Creatinine Ratio 21.4 (10-20); Calcium 9.1 mg/dl (8.5-10.1); Creatinine Clr Calc Pharmacy 55.8 ml/min; Est GFR (African American) 61.4; Potassium 3.9 mmol/L (3.5-5.1)
[2019-06-03 06:41] LABS: Albumin Globulin Ratio 0.9 (0.9-2); Bilirubin,Total 0.6 mg/dl (0.2-1); Globulin 3.9 gm/dl (2.5-4.0); Total Protein 7.5 gm/dl (6.4-8.2)
[2019-06-03] MEDS: TAMSULOSIN HCL 0.4 MG CAP PO SCH (08:03)
[2019-06-03] MEDS: RIVAROXABAN 10 MG TABLET PO SCH (08:03)
[2019-06-03] MEDS: BICALUTAMIDE 50 MG TAB PO SCH (08:11)
[2019-06-03] MEDS ORDERED: POLYETHYLENE (MIRALAX) 17 GM PACK PO PRN (09:42)
[2019-06-03] MEDS ORDERED: bisacodyL 10 MG SUPP PR STA (09:42)
[2019-06-03] MEDS ORDERED: SENNA 8.6 MG TAB PO SCH (09:45)
[2019-06-03] MEDS ORDERED: AMLODIPINE BESYLATE 5 MG TAB PO ONE (11:50)
[2019-06-03] MEDS: CIPRO 0.3%/DEXAMETHASONE 0.1% OTIC SUSP 7.5ML OTL SCH ×2 (12:15→20:07)
--- NOTE | 2019-06-03 16:52 | Hospitalist Progress Note ---
Date of Service June 03, 2019 Assessment & Plan (1) Intractable vomiting with nausea: - Reviewed CT images and discussion with patient it appears he has had to disimpact himself lately and there is presence of significant stool on imaging - between this and maybe some upset stomach from oral contrast this could be the cause of his presentation - After a long discussion and chart review - nausea/vomiting is not a new issue and was to have an EGD on last admission but felt improved and didn't complete this; He is noted to have some dysphagia so maybe contributing to regurgitation - could consider outpatient EGD if needed; also reporting significant stress/depression due to having cancer and being 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 x 1; can do Miralax PRN - Start Protonix 40 mg daily consider short treatment course (2) Chronic deep vein thrombosis (DVT): - Venous U/S reveals small focus in the R common femoral vein consistent with chronic thrombus - Discussed with heme/onc as normally chronic thrombi do not necessarily need anticoagulation however given his CA diagnosis he may benefit from a prophylactic dose of anticoagulation. -- Recommended Xarelto 10 mg daily - copay $3.90 - No CP/SOB/hypoxia on admission - low suspicion for PE but if these symptoms should arise could perform CTA to assess need for full dose anticoagulation (3) Metastatic cancer: - Prostate - Only follows with Urology; not actively seeking treatment for cancer - is aware of the metastasis - Continue Casodex 50 mg daily - Tramadol for pain; patient reports GI upset with Tylenol #3 so avoid this (4) Edema of both lower extremities: - Chronic lower extremity edema - unlikley this is related to DVT - Could utilize compression stockings - No echocardiogram to review for heart function - rather stable in general so this can be defered to outpatient workup if needed to assess contribution of heart to lower extremity edema (5) Urinary retention: - Related partially to prostatic enlargement - Flomax 0.4 mg daily - Continue Regan catheter - this is chronic - exchanged in ED (6) Depression: - Had a long discussion in regards to this. 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 ; Has multiple social situations in regards to his home - Discussed options of looking into therapy or even medications to help with depression/stress and he is in agreement - Started Fluoxetine 20 mg daily and can monitor - will need PCP F/U to assess efficacy (7) Hypertension: - Has had ongoing elevations in-hospital but seems to be improved at PCP office and hasn't started medications -- Some BP issues may be from stress/hospital setting - but Hydralazine was not working - most recent BP since medication dose is 138/85 - Will start Amlodipine 5 mg daily (8) Ear pain, left: - Had recent cerumen washout of L ear canal and now with some tenderness - TM difficult to visualize as some mild cerumen but not obvious redness on external canal - but will do Ciprodex BID to see if this gives some relief - CT suggests R maxillary sinus thickening but denies sinus congestion and no R ear pain (9) CKD (chronic kidney disease), stage III: - Cr at 1.3 was mildly elevated at 1.44 - limited labs for comparison as previous ones were rather elevated and thought to be related to obstructive uropathy in setting of prostatic enlargement Disposition: Likely D/C home tomorrow if symptoms remain resolved; patient is having difficulty coping with his metastatic prostate CA and trying to care for his rather dependent who is currently hospitalized as well. [facility]OA is involved and they have caregivers for her. Daughter is trying to get caregivers for him as well. They need more help at night as this is what is creating more stress for him trying to take care of her. Discussed possibility of her needing rehab on D/C which I am not caring for her to know the plan but family states she will likely not agree. Admission and Anticipated Discharge Date Admission Date: June 01, 2019 Subjective Was feeling well yesterday however had increased nausea and vomited x 1 this AM. Some bilious vomit but also some regurgitation of slovak toast. This seems to be a recurrent issue and was to have an EGD on a previous admission but got better and did have it done. Suspect multifactorial issues. Did review the CT imaging and with discussion with the patient it appears he actually has had a lot of constipation lately and there is a lot of stool on the CT. Symptoms improved after BMs today on reassessment. We also discussed his BP and started Amlodipine which seems to have helped this afternoon control BP. Also discussed how he feels emotionally as he reports some depression in regards to is prostate cancer diagnosis and difficulty caring for his . Discussed possibly starting medications and he is agreeing to that. Review of Systems Constitutional: no fever and no chills Ear, Nose, Mouth, Throat: + ear pain (L) Respiratory: no cough and no dyspnea Cardiovascular: no chest pain, no palpitations and no lightheadedness Gastrointestinal: + nausea, + vomiting, + cramping and + constipation; no abdominal pain and no diarrhea/loose stools Genitourinary: no dysuria Psychiatric: + depression and + abnormal sleep pattern Physical Exam Constitutional: WD/WN, vitals as above Eyes: + anicteric sclerae ENMT: Ears: no hearing impairment and no TM abnormality (can only minimally see L TM due to some cerumen) Neck: trachea midline Respiratory: normal respiratory effort, lungs clear to auscultation Cardiovascular: RRR, no murmur, no edema Gastrointestinal (Abdomen): Inspection/Auscultation: normal bowel sounds Percussion/Palpation: abdomen soft; abdomen nontender Musculoskeletal: Head/Neck/Chest: normocephalic and head atraumatic Skin: + psoriatic patches of hands/knees/elbows Neurologic: moves all extremities Psychiatric: Orientation: alert and oriented x 3 Affect: + flat affect (improved in the afternoon with some smiling more comfortable) Results & Data ([facility]) Vital Signs (Past 12 Hours) Vital Signs Temp Pulse Resp BP Pulse Ox 06/03/19 15:57 36.7 C 88 20 138/85 96 06/03/19 11:16 36.1 C L 78 16 171/90 H 97 06/03/19 07:24 36.8 C 92 H 18 173/87 H 94 06/03/19 05:02 175/85 H PG Care Time/CCT Total # of Minutes Spent Total Time Spent with Patient: Total time spent is greater than 50% in coordination of care (as documented) at patient's floor/unit and/or counseling patient: Coding Level of Care Code 37729 Subseq Hosp Care Lvl 3 Diagnoses Intractable vomiting with nausea R11.2 Chronic deep vein thrombosis (DVT) I82.509 Metastatic cancer C79.9 Edema of both lower extremities R60.0 Urinary retention R33.9 Depression F32.9 Hypertension I10 Ear pain, left H92.02 CKD (chronic kidney disease), stage III N18.3
[2019-06-03] MEDS: EUCERIN CR 120 GM JAR EXT SCH (20:09)
[2019-06-04] MEDS: ACETAMINOPHEN 325 MG TAB PO PRN (04:18)
[2019-06-04 06:21] LABS: Basophils # (auto) 0.01 K/uL (0-0.2); Basophils % (auto) 0.2 %; Eosinophils # (auto) 0.04 K/uL (0-0.5); Eosinophils % (auto) 0.6 %; Hematocrit (blood only) 36.6 % (42-52); Hemoglobin 11.7 g/dL (14.0-18.0); Immature Granulocytes # (auto) 0.02 K/uL (0.00-0.02); Immature Granulocytes % (auto) 0.3 %; Lymphocytes # (auto) 1.42 K/uL (1.2-3.4); Lymphocytes % (auto) 22.9 %; Mean Corpuscular Hemoglobin 29.6 pg (25-34); Mean Corpuscular Volume 92.7 fL (80-100); Mean Platelet Volume 9.4 fL (7.4-10.4); Monocytes # (auto) 0.72 K/uL (0.11-0.59); Monocytes % (auto) 11.6 %; Neutrophils # (auto) 3.99 K/uL (1.4-6.5); Neutrophils % (auto) 64.4 %; Platelet Count 208 K/uL (130-400); RDW Coefficient of Variation 13.1 % (11.5-14.5); RDW Standard Deviation 44.6 fL (36.4-46.3); Red Blood Count 3.95 M/uL (4.7-6.1)
[2019-06-04 06:51] LABS: Albumin Level 3.2 gm/dl (3.4-5.0); BUN Creatinine Ratio 18.9 (10-20); Calcium 8.5 mg/dl (8.5-10.1); Creatinine Clr Calc Pharmacy 45.5 ml/min; Est GFR (African American) 52.9; Est GFR (Non-African American) 45.7; Potassium 3.8 mmol/L (3.5-5.1)
[2019-06-04 06:53] LABS: Albumin Globulin Ratio 0.9 (0.9-2); Bilirubin,Total 0.6 mg/dl (0.2-1); Globulin 3.6 gm/dl (2.5-4.0); Total Protein 6.8 gm/dl (6.4-8.2)
[2019-06-04] MEDS: CIPRO 0.3%/DEXAMETHASONE 0.1% OTIC SUSP 7.5ML OTL SCH (07:51)
[2019-06-04] MEDS: EUCERIN CR 120 GM JAR EXT SCH (07:52)
[2019-06-04] MEDS: TAMSULOSIN HCL 0.4 MG CAP PO SCH (07:53)
[2019-06-04] MEDS: RIVAROXABAN 10 MG TABLET PO SCH (07:53)
[2019-06-04] MEDS: BICALUTAMIDE 50 MG TAB PO SCH (07:55)
[2019-06-04] MEDS ORDERED: FLUOXETINE HCL 20 MG CAP PO SCH (09:00)
[2019-06-04] MEDS ORDERED: PANTOprazole 40 MG TAB PO SCH (09:00)
[2019-06-04] MEDS ORDERED: SENNA 8.6 MG TAB PO SCH (09:00)
--- NOTE | 2019-06-04 15:22 | Discharge Summary ---
Date of Service June 04, 2019 Admission HPI Per Admitting Provider The patient is a 78 years old male with past medical history of metastatic prostate cancer to the bone, anemia, chronic left lower extremity DVT, urinary retention who was brought by his daughter to the emergency room for evaluation of nausea vomiting that has been ongoing for 1 day. Patient daughter reports that patient is taking care of her elderly mother who is sick as well. Their is sickness is different, and while patient is nauseated his is short of breath. Patient has long-term history of prostate cancer that metastasized to the bone. Patient declined chemotherapy and is treated only by urologist. Patient declined to see information security engineer oncologist. Patient denied eating anything that could be causing food poisoning. Patient reports having normal bowel movement this morning. He reports his stomach being upset since yesterday when he had a CT scan and had to drink contrast. Labs are reviewed: WBC is 5.82, hemoglobin 11, hematocrit 33.8, platelets 184, PT 11.2, INR 1.1, APTT 28.3, sodium 137, potassium 4.8, chloride 104, carbon dioxide 27, anion gap 6, BUN 23, creatinine 1.44, GFR 46.8, magnesium 2.4, calcium 9, TSH 2.09, lipase 66. CT scan of the head no acute intracranial abnormality. Moderate mucosal thickening right maxillary sinus. Venous Doppler shows no acute DVT within the right or left lower extremity. Small nonocclusive echogenic focus within the right common femoral vein consistent with chronic thrombus. CT abdomen and pelvis done on May 31 shows no acute process in the abdomen or pelvis. Unchanged multifocal sclerotic lesions of the bony structures. This again is consistent with metastatic disease. Expansile lesion left seventh rib also unchanged. No change compared to the prior study. CT of the chest shows slight progression in the blastic skeletal lesions consistent with mildly progressive skeletal metastasis. Decision was made to admit patient to PCU on telemetry for most likely viral gastroenteritis. Discharge Data Allergies Allergy/AdvReac Type Severity Reaction Status Date / Time iodine Allergy . Verified 06/01/19 12:06 Penicillins Allergy ALLERGY TO Verified 06/01/19 12:06 PCN INJECTION Consultations 06/01/19 16:24 ED Decision to Admit Stat Ordered Studies 06/01/19 11:20 CT chest wo con Stat 06/01/19 11:22 US venous doppler LE BI Stat 06/01/19 16:24 CT head/brain wo con Stat Discharge Plan Discharge Items Patient Disposition: Home - Self-Care Reason For Visit: NAUSEA AND VOMITING Discharge Diagnosis: nausea and vomiting - resolved; possibly due to severe constipation Activity: Resume your previous activity Activity Comment: as tolerated Non-emergency contact: Primary Care Provider Call non-emergency contact if: you have any medication questions, your symptoms worsen, your pain is unusual for you, your pain is concerning for you and you have a fever Follow-up/Referrals: Sebastien Nickerson III, MD [Primary Care Provider] - (see Dr Nickerson this week (within 5 days)) Diet: Regular Addtl Attending Provider Instructions: You were admitted for nausea and vomiting. A CAT scan of your abdomen on 05/31 was normal with the exception of a fair amount of stool. Other blood work and test results were normal. We did not find any infections such as urinary tract infection. We treated you for reflux and constipation with various medications. Your nausea/vomiting gradually resolved. In addition to the above we found an OLD blood clot in the groin in your right leg. We do not know how old it is but it was felt to have occurred in the past. We discussed your case with a blood specialist (information security engineer) and, in light of your prostate cancer, it was felt that we should put you on PREVENTIVE blood thinner to prevent the old clot from getting larger and prevent the formation of new clots. Thus, we are placing you on xarelto 10mg once daily every day for prevention purposes. Recommendations - 1. for constipation - both agents can be purchased [id number] -- * senna (senakot) 2 tablets daily * miralax one serving daily 2. for blood clot prevention - * xarelto 10mg once daily 3. to improve your spirits/moods - * fluoxetine 20mg once daily * please follow-up with your family doctor for this medication 4. for stomach - * pantoprazole 40mg once daily every morning 5. follow-up - see your family doctor within 5 days 6. diet - please gradually increase the amount of solids in your diet over the next 24 hours Return to [facility] if - * you have fever over 100.5 degrees * you have worsening abdominal pain, nausea or vomiting * you have shortness of breath * any other concerns Pending Studies at Discharge: No Stand-Alone Forms: My [facility], Smoking Cessation Medications and DC Order Prescriptions: New sennosides [Senokot] 8.6 mg Tablet 17.2 mg PO QAM Qty: 60 RF: 2 polyethylene glycol 3350 [Miralax] 17 gram Powder In Packet 17 g PO DAILY Qty: 30 RF: 0 pantoprazole 40 mg Tablet,Delayed Release (Dr/Ec) 40 mg PO QAM Qty: 30 RF: 2 fluoxetine 20 mg Capsule 20 mg PO QAM Qty: 30 RF: 0 Xarelto 10 mg Tablet 10 mg PO DAILY Qty: 30 RF: 2 Continued tamsulosin 0.4 mg capsule 0.4 mg PO DAILY Qty: 90 RF: 3 bicalutamide 50 mg tablet 50 mg PO DAILY RF: 0 tramadol 50 mg tablet 50 mg PO TID PRN (Reason: Pain) RF: 0 Discharge Orders: Discharge Order (Routine); Ordered 06/04/19 Ordered By: Joshua Coronado Admission Data Admit Date/Time: 06/01/19 18:40 Attending Provider: Joshua Croonado Admit Provider: Lora Servin Primary Care Provider: Sebastien Nickerson III Other Providers: Lora Servin ; [facility] Coding
== END 2019-06-04 16:43 | disposition home or self-care (01) | DRG 392 ==
LOC: ED 10:55 → 2S 18:40 → SUATTDRO 18:40 → 2S 18:54

== ENCOUNTER 2020-07-28 19:56 | Inpatient (IN) ==
[~2020-07-28 19:56] MED LIST: ETOMIDATE 2 MG/ML 20 ML VIAL IV ONE; ROCURONIUM BROMIDE 10 MG/ML 5 ML VIAL IV ONE
[2020-07-28] MEDS ORDERED: SODIUM CHLORIDE 0.9% 1000ML 500 ML IV ONE (20:15)
--- NOTE | 2020-07-28 20:19 | Emergency Department Note ---
History of Present Illness General Chief complaint: Shortness of Breath/Dyspnea Stated complaint: FALL, COVID+ Time Seen by Provider: 07/28/20 20:07 Source: patient and RN notes reviewed Mode of arrival: EMS Limitations: no limitations History of Present Illness Maximum Pain Intensity: 5 This patient comes in after being diagnosed with Covid 2 days ago but feeling very weak he fell 3 times today because his legs were weak bilaterally he denies any trauma. He has had a temperature as well and had increasing shortness of breath and cough. He said he was sick for a week prior to getting tested so he is on about day 9. In the ambulance his O2 sat was 89% was placed on oxygen. He denies any head trauma. He denies chest pain. Denies abdominal pain. He feels he has been keeping up with fluids. No nausea vomiting or diarrhea or blood or melena in stool Home Medications Medication Instructions Recorded Confirmed Type polyethylene glycol 3350 [Miralax] 17 g PO DAILY #30 ea 06/04/19 07/28/20 Rx leuprolide (6 month) 45 mg 45 mg IM Q24W 08/25/19 07/28/20 History intramuscular syringe kit tamsulosin 0.4 mg capsule 0.4 mg PO DAILY #90 cap 01/10/20 07/28/20 Rx bicalutamide 50 mg tablet 50 mg PO DAILY tab 06/20/20 07/28/20 History triamcinolone acetonide 0.1 % 1 applic TOPICAL TID #80 g 06/20/20 07/28/20 Rx topical cream cholecalciferol (vitamin D3) 25 25 mcg PO DAILY 07/03/20 07/28/20 History mcg (1,000 unit) capsule furosemide 20 mg tablet 20 mg PO DAILY #90 tab 07/03/20 07/28/20 Rx Allergies Allergy/AdvReac Type Severity Reaction Status Date / Time iodine Allergy Unknown Unknown Verified 07/28/20 21:21 Penicillins Allergy Unknown Unknown Verified 07/28/20 21:21 Past Med/Surg History Medical History Acute kidney injury superimposed on CKD Anemia Bilateral hydronephrosis Chronic deep vein thrombosis of femoral vein Constipation Depression Dysphagia Elevated PSA, greater than or equal to 20 ng/ml Enlarged prostate Hyperkalemia Hypertension Lower back pain Prostate cancer metastatic to bone Psoriasis Rib pain on left side Sinobronchitis Surgical History History of cataract extraction History of cholecystectomy Family History Mother , age 89 choking something stuck in her throat No problems noted. Father , age 88 coma No problems noted. Brother No problems noted. Brother No problems noted. Brother No problems noted. Brother No problems noted. Brother No problems noted. Brother No problems noted. Brother No problems noted. Brother No problems noted. Sister No problems noted. Sister No problems noted. Sister , age 54 cancer does not know type Cancer Son No problems noted. Daughter No problems noted. Daughter No problems noted. Other Family history non-contributory Denies family history of Ovarian cancer Prostate cancer Myocardial infarction Breast cancer Colorectal cancer Social History Smoking Status: Never smoker Second Hand Exposure: Yes (his son smokes around him at times ); Hx Alcohol Use: No Hx Substance Use: No Preferred Language: [place] Communication Ability: Effective Visual Impairment: No Limitations Hearing Ability: Normal Director Occupational Required: No Beliefs That Will Affect Care: None marital status: Current Living Situation: Spouse Current Living Situation Comment: lives at home independently with current occupational status: retired 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 Feels Safe at Home: Yes Safety Concerns: Feels Safe At This Time Childhood Exposure to Second-Hand Smoke: Yes caffeine: Yes (tea 2 cups per day) during the past year weight has: decreased > 10 lbs Dental Care, Regularly: No Physical Activity Frequency: 1-2 Times per Week Seatbelt Use: always Sunscreen Use: No Assistive Devices: Glasses Review of Systems A total of 10 systems reviewed and were otherwise negative Physical Exam Vital Signs Vital Signs - 24 hr 07/28/20 20:02 07/28/20 20:08 07/28/20 20:15 Temperature 38.2 C H 37.6 C H Temperature Source Oral Oral Pulse Rate 102 H Pulse Rate [Left Finger] 87 Pulse Rate from SpO2 Sensor Pulse Rhythm [Left Finger] Regular Pulse Strength [Left Finger] Normal Respiratory Rate 18 20 Respiratory Effort / Characteristics Non-Labored Spontaneous Respiratory Depth Normal Normal Respiratory Pattern Regular Blood Pressure 156/91 H Blood Pressure Mean 112 Pulse Oximetry 89 L 94 90 Oxygen Delivery Method Room Air Nasal Cannula Nasal Cannula Oxygen Flow Rate 4 4 Sepsis Recent Fever Within 48 Hours Yes Sepsis New/Unexplained Change in Mental Status No Sepsis Action Taken by Nursing No Action Required 07/28/20 20:45 07/28/20 21:15 07/28/20 21:30 Temperature Temperature Source Pulse Rate Pulse Rate [Left Finger] Pulse Rate from SpO2 Sensor Pulse Rhythm [Left Finger] Pulse Strength [Left Finger] Respiratory Rate 24 30 H 30 H Respiratory Effort / Characteristics Non-Labored Respiratory Depth Respiratory Pattern Blood Pressure Blood Pressure Mean Pulse Oximetry 99 98 97 Oxygen Delivery Method Nasal Cannula Nasal Cannula Nasal Cannula Oxygen Flow Rate 4 4 4 Sepsis Recent Fever Within 48 Hours Sepsis New/Unexplained Change in Mental Status Sepsis Action Taken by Nursing 07/28/20 21:31 07/28/20 21:42 07/28/20 21:45 Temperature Temperature Source Pulse Rate 98 H 95 H 97 H Pulse Rate [Left Finger] Pulse Rate from SpO2 Sensor 91 H 95 H 98 H Pulse Rhythm [Left Finger] Pulse Strength [Left Finger] Respiratory Rate 26 H 28 H 20 Respiratory Effort / Characteristics Respiratory Depth Respiratory Pattern Blood Pressure 153/64 H Blood Pressure Mean 93 Pulse Oximetry 98 98 95 Oxygen Delivery Method Oxygen Flow Rate Sepsis Recent Fever Within 48 Hours Sepsis New/Unexplained Change in Mental Status Sepsis Action Taken by Nursing 07/28/20 22:00 07/28/20 22:15 07/28/20 22:30 Temperature Temperature Source Pulse Rate 97 H 96 H 94 H Pulse Rate [Left Finger] Pulse Rate from SpO2 Sensor 100 H 97 H 96 H Pulse Rhythm [Left Finger] Pulse Strength [Left Finger] Respiratory Rate 33 H 30 H 28 H Respiratory Effort / Characteristics Respiratory Depth Respiratory Pattern Blood Pressure 131/83 153/88 H Blood Pressure Mean 99 109 Pulse Oximetry 98 99 99 Oxygen Delivery Method Nasal Cannula Oxygen Flow Rate 4 Sepsis Recent Fever Within 48 Hours Sepsis New/Unexplained Change in Mental Status Sepsis Action Taken by Nursing 07/28/20 22:45 07/28/20 23:00 07/28/20 23:15 Temperature Temperature Source Pulse Rate 95 H 94 H 95 H Pulse Rate [Left Finger] Pulse Rate from SpO2 Sensor 94 H 93 H Pulse Rhythm [Left Finger] Pulse Strength [Left Finger] Respiratory Rate 32 H 33 H 22 Respiratory Effort / Characteristics Respiratory Depth Respiratory Pattern Blood Pressure 153/70 H 143/87 H 154/86 H Blood Pressure Mean 97 105 108 Pulse Oximetry 99 99 Oxygen Delivery Method Oxygen Flow Rate Sepsis Recent Fever Within 48 Hours Sepsis New/Unexplained Change in Mental Status Sepsis Action Taken by Nursing 07/28/20 23:23 Temperature 36.8 C Temperature Source Oral Pulse Rate 95 H Pulse Rate [Left Finger] Pulse Rate from SpO2 Sensor Pulse Rhythm [Left Finger] Pulse Strength [Left Finger] Respiratory Rate 22 Respiratory Effort / Characteristics Respiratory Depth Respiratory Pattern Blood Pressure 154/86 H Blood Pressure Mean Pulse Oximetry Oxygen Delivery Method Nasal Cannula Oxygen Flow Rate 4 Sepsis Recent Fever Within 48 Hours Sepsis New/Unexplained Change in Mental Status Sepsis Action Taken by Nursing General: Well developed well nourished older male who is on supplemental oxygen but in no acute distress, breathing comfortably on room air. Normal speech HEENT: Normal cephalic atraumatic. Pupils are equal round and reactive to light. Extraocular movements are intact. Oropharynx is pink with moist mucous membranes. No swelling of the mouth lips or tongue. Neck: Supple with a midline trachea. No meningeal signs or stiffness, no JVD or bruits. No Stridor. Chest: Clear to auscultation bilaterally. No wheezes or rhonchi. No increased work of breathing. Heart: Regular rate and rhythm without murmurs or gallops. Abdomen: Soft nontender, nondistended without rebound guarding or rigidity. Extremities: No cyanosis clubbing or edema. No calf tenderness or assymetry Spine/Back. Non tender to palpation. No CVA tenderness Skin: Good turgor without rashes. Neurologic exam: Cranial nerves two through 12 are intact. Motor and sensation are intact and symmetrical throughout. Course Administered Medications Acetaminophen (Acetaminophen 325 Mg Tab) 650 mg PO Q4H PRN PRN Reason: Pain or Fever Stop: 08/28/20 00:06 Last Admin: 07/29/20 00:29 Dose: 650 mg Documented by: [id number] Discontinued Medications Amoxicillin (Amoxicillin 250 Mg/5 Ml Btl) Confirm Administered Dose 50 mg .ROUTE .STK-MED ONE Stop: 07/28/20 21:05 Last Admin: 07/28/20 21:32 Dose: Not Given Documented by: [id number] Dexamethasone Sodium Phosphate (DexamethasonePf 10 Mg/Ml Vial) 6 mg IV NOW ONE Stop: 07/28/20 21:43 Last Admin: 07/28/20 22:06 Dose: 6 mg Documented by: [id number] Sodium Chloride (Nss 1000ml) 500 mls @ 999 mls/hr IV .Q31M ONE Stop: 07/28/20 20:45 Last Infusion: 07/28/20 20:57 Dose: 0 mls/hr Documented by: [id number] Admin: 07/28/20 20:26 Dose: 999 mls/hr Documented by: [id number] Sodium Chloride (Nss 1000ml) 1,000 mls @ 999 mls/hr IV .Q1H1M ONE Stop: 07/28/20 22:42 Last Infusion: 07/28/20 23:20 Dose: 0 mls/hr Documented by: [id number] Admin: 07/28/20 22:06 Dose: 999 mls/hr Documented by: [id number] Medical Decision Making Differential Diagnosis Covid, dehydration, electrolyte or metabolic abnormality, arrhythmia, PE, anemia Medical Records Attestation: I reviewed the patient's medical records. Home Medications Current Medication List: was personally reviewed by me Laboratory Data Attestation: I reviewed the patient's lab results. Result diagrams: 07/28/20 20:20 07/28/20 20:20 Lab Results 07/28/20 07/28/20 07/28/20 Range/Units 20:20 20:20 20:20 WBC 10.62 (4.8-10.8) K/uL RBC 4.40 L (4.7-6.1) M/uL Hgb 13.6 L (14.0-18.0) g/dL Hct 39.8 L (42-52) % MCV 90.5 (80-100) fL MCH 30.9 (25-34) pg MCHC 34.2 (32-36) g/dL RDW Std Deviation 43.3 (36.4-46.3) fL RDW Coeff of Jose 13.1 (11.5-14.5) % Plt Count 212 (130-400) K/uL MPV 9.8 (7.4-10.4) fL Immature Gran % (Auto) 0.4 % Neut % (Auto) 89.8 % Lymph % (Auto) 4.0 % Aiken % (Auto) 5.6 % Eos % (Auto) 0.1 % Baso % (Auto) 0.1 % Neut # (Auto) 9.53 H (1.4-6.5) K/uL Lymph # (Auto) 0.43 L (1.2-3.4) K/uL Aiken # (Auto) 0.60 H (0.11-0.59) K/uL Eos # (Auto) 0.01 (0-0.5) K/uL Baso # (Auto) 0.01 (0-0.2) K/uL Immature Gran # (Auto) 0.04 H (0.00-0.02) K/uL PT 11.1 (9.0-12.0) Seconds INR 1.1 (0.9-1.1) APTT 29.5 (21.0-31.0) Seconds PTT Ratio 1.1 Sodium 133 L (136-145) mmol/L Potassium 3.8 (3.5-5.1) mmol/L Chloride 99 (98-107) mmol/L Carbon Dioxide 26 (21-32) mmol/L Anion Gap 8.0 (3-11) BUN 39 H (7-18) mg/dl Creatinine 2.16 H (0.6-1.4) mg/dl Est Cr Clr Drug Dosing 34.9 ml/min Est GFR ( Amer) 32.8 Est GFR (Non-Af Amer) 28.3 BUN/Creatinine Ratio 17.9 (10-20) Glucose 142 H (70-99) mg/dl Lactate (0.4-2.0) mmol/L Calcium 8.8 (8.5-10.1) mg/dl Magnesium 2.3 (1.8-2.4) mg/dl Total Bilirubin 0.8 (0.2-1) mg/dl AST 28 (15-37) U/L ALT 27 (12-78) U/L Alkaline Phosphatase 150 H (45-117) U/L Troponin I < 0.015 (0-0.045) ng/ml Total Protein 8.1 (6.4-8.2) gm/dl Albumin 3.3 L (3.4-5.0) gm/dl Globulin 4.8 H (2.5-4.0) gm/dl Albumin/Globulin Ratio 0.7 L (0.9-2) Procalcitonin (0-0.5) ng/ml 07/28/20 07/28/20 Range/Units 20:20 20:20 WBC (4.8-10.8) K/uL RBC (4.7-6.1) M/uL Hgb (14.0-18.0) g/dL Hct (42-52) % MCV (80-100) fL MCH (25-34) pg MCHC (32-36) g/dL RDW Std Deviation (36.4-46.3) fL RDW Coeff of Jose (11.5-14.5) % Plt Count (130-400) K/uL MPV (7.4-10.4) fL Immature Gran % (Auto) % Neut % (Auto) % Lymph % (Auto) % Aiken % (Auto) % Eos % (Auto) % Baso % (Auto) % Neut # (Auto) (1.4-6.5) K/uL Lymph # (Auto) (1.2-3.4) K/uL Aiken # (Auto) (0.11-0.59) K/uL Eos # (Auto) (0-0.5) K/uL Baso # (Auto) (0-0.2) K/uL Immature Gran # (Auto) (0.00-0.02) K/uL PT (9.0-12.0) Seconds INR (0.9-1.1) APTT (21.0-31.0) Seconds PTT Ratio Sodium (136-145) mmol/L Potassium (3.5-5.1) mmol/L Chloride (98-107) mmol/L Carbon Dioxide (21-32) mmol/L Anion Gap (3-11) BUN (7-18) mg/dl Creatinine (0.6-1.4) mg/dl Est Cr Clr Drug Dosing ml/min Est GFR ( Amer) Est GFR (Non-Af Amer) BUN/Creatinine Ratio (10-20) Glucose (70-99) mg/dl Lactate 1.4 (0.4-2.0) mmol/L Calcium (8.5-10.1) mg/dl Magnesium (1.8-2.4) mg/dl Total Bilirubin (0.2-1) mg/dl AST (15-37) U/L ALT (12-78) U/L Alkaline Phosphatase (45-117) U/L Troponin I (0-0.045) ng/ml Total Protein (6.4-8.2) gm/dl Albumin (3.4-5.0) gm/dl Globulin (2.5-4.0) gm/dl Albumin/Globulin Ratio (0.9-2) Procalcitonin 0.59 H (0-0.5) ng/ml Imaging Data Attestation: I personally reviewed and interpreted this imaging study as follows: My Impression: Chest x-raycardiomegaly and infiltrates in the base consistent with Covid likely. No pneumothorax Pelvis with left hip x-rayno fractures or dislocations appreciated or seen. ECG Data Attestation: I personally reviewed and interpreted this ECG as follows: Indication: + SOB/dyspnea and + weakness Rate (beats per minute): 97 Rhythm: + normal sinus ECG Intervals/blocks: + Incomplete right bundle branch block ECG Kinnear: + Normal ECG ST segments: + Normal ST segments ECG Findings: no PACs and no PVCs Comparison ECG Date: from (06/01/19) [facility] Narrative This patient comes in as described above. Was placed on a residential monitor in room C9. He has Covid and is not doing well at home he was hypoxemic he has been weak and falling. Besides hypoxemia his vital signs are stable. Blood work was obtained a full sepsis type work-up was obtained chest x-ray EKG were obtained. His hydrated normal saline. Covid test was not repeated as he had one done [address] the [address]-through. His chest x-ray does show findings likely consistent with Covid with patchy infiltrates bilaterally. EKG does not suggest ischemic changes. BUN and creatinine were elevated and likely he is dehydrated he was hydrated with IV normal saline boluses in the ED. He was given Decadron 6 mg IV, as he was hypoxemic. He looks much more comfortable. I do think he needs to come in. Later in his stay he started complaining of hip pain and I did do hip x-rays and there is no fractures or dislocations. Given his weakness and hypoxemia and Covid I do think he needs to be admitted/observed. Consulted Dr. Conley to see him in ER for these measures Continuous cardiac monitoringdue to his shortness of breath he was placed on a continuous cardiac monito, an order was placed in the EMR. he was noted to be in normal sinus rhythm with a rate of 95 upon my interpretation. Impression & Plan COVID-19, Dehydration, Weakness, Frequent falls, Hypoxemia Discharge Plan Visit Data Chief Complaint: Shortness of Breath/Dyspnea Stated Complaint: FALL, COVID+ ED Provider: Isaías Abraham Discharge Problem: COVID-19, Dehydration, Weakness, Frequent falls, Hypoxemia Patient Disposition: Admitted As Inpatient Discharge Instructions Interventions: ED Discharge Assessment Last Done: 07/28/20 23:23
[2020-07-28 20:37] LABS: Basophils # (auto) 0.01 K/uL (0-0.2); Basophils % (auto) 0.1 %; Eosinophils # (auto) 0.01 K/uL (0-0.5); Eosinophils % (auto) 0.1 %; Hematocrit (blood only) 39.8 % (42-52); Hemoglobin 13.6 g/dL (14.0-18.0); Immature Granulocytes # (auto) 0.04 K/uL (0.00-0.02); Immature Granulocytes % (auto) 0.4 %; Lymphocytes # (auto) 0.43 K/uL (1.2-3.4); Mean Corpuscular Hemoglobin 30.9 pg (25-34); Mean Corpuscular Hgb Conc 34.2 g/dL (32-36); Mean Corpuscular Volume 90.5 fL (80-100); Mean Platelet Volume 9.8 fL (7.4-10.4); Monocytes % (auto) 5.6 %; Neutrophils # (auto) 9.53 K/uL (1.4-6.5); Neutrophils % (auto) 89.8 %; Platelet Count 212 K/uL (130-400); RDW Coefficient of Variation 13.1 % (11.5-14.5); RDW Standard Deviation 43.3 fL (36.4-46.3); White Blood Count 10.62 K/uL (4.8-10.8)
[2020-07-28 20:47] LABS: INR 1.1 (0.9-1.1); Partial Thromboplastin Ratio 1.1; Partial Thromboplastin Time 29.5 Seconds (21.0-31.0); Prothrombin Time 11.1 Seconds (9.0-12.0)
[2020-07-28 20:59] LABS: Alanine Aminotransferase 27 U/L (12-78); Albumin Level 3.3 gm/dl (3.4-5.0); Aspartate Aminotransferase 28 U/L (15-37); BUN Creatinine Ratio 17.9 (10-20); Blood Urea Nitrogen 39 mg/dl (7-18); Calcium 8.8 mg/dl (8.5-10.1); Carbon Dioxide 26 mmol/L (21-32); Chloride 99 mmol/L (98-107); Creatinine Clr Calc Pharmacy 34.9 ml/min; Est GFR (African American) 32.8; Est GFR (Non-African American) 28.3; Glucose 142 mg/dl (70-99); Magnesium 2.3 mg/dl (1.8-2.4); Potassium 3.8 mmol/L (3.5-5.1); Sodium 133 mmol/L (136-145)
[2020-07-28 21:04] LABS: Albumin Globulin Ratio 0.7 (0.9-2); Alkaline Phosphatase 150 U/L (45-117); Bilirubin,Total 0.8 mg/dl (0.2-1); Globulin 4.8 gm/dl (2.5-4.0); Total Protein 8.1 gm/dl (6.4-8.2); Troponin I < 0.015 ng/ml (0-0.045)
[2020-07-28] MEDS ORDERED: AMOXICILLIN 250 MG/5 ML ONE (21:04)
[2020-07-28] MEDS ORDERED: dexAMETHasone**PF** 10 MG/ML VIAL IV ONE (21:42)
[2020-07-28] MEDS ORDERED: SODIUM CHLORIDE 0.9% 1000ML 1,000 ML IV ONE (21:42)
--- NOTE | 2020-07-28 22:38 | History & Physical Report ---
Date of Service July 28, 2020 Assessment & Plan (1) COVID-19: Som Upton is a 80yo C male presenting with Covid-19 infection, hypoxic on room air at 89% now improved with supplemental O2. He is on appx day 9 of illness. -Admit, maintain isolation precautions airborne and contact -Supplemental O2 as needed to maintain SpO2 94% -Prone as tolerated -Dexamethasone 6mg IV daily -EGFR = 28.3 - patient is unable to receive Remdesivir at this time -Tylenol PRN pain or fever -Continue home Vitamin D supplementation -Zofran PRN -DVT PPX with Heparin 5000u q 8H Present on Admission?: Yes (2) Psoriasis: Chronic. Patient with diffuse plaques on extensor surfaces of arms and legs as well as abdomen and scalp. No evidence of bleeding or secondary infection -Continue Triamcinolone cream TID Present on Admission?: Yes (3) CKD (chronic kidney disease), stage III: Patient with obstructive uropathy secondary to prostate CA. BUN=39 today and Cr = 2.16 which is slightly above prior values of 30 and 1.59, respectively. Patient follows with Nephrology - last seen 07/01/20. Baseline Cr is 1.4-1.6. Patient was administered 1.5L of NSS in the ER. Will hold additional IVF at this time as a slightly negative fluid balance is preferred in patients with Covid-19 PNA -Repeat BMP in AM -Avoid nephrotoxic agents -Renal dosing where needed -Will continue Lasix 20mg po daily Present on Admission?: Yes (4) Prostate cancer metastatic to bone: PET scan revealed bony metastasis. Patient follows with Urology. He was treated with one dose of Firmagon and now receives Lupron injections q6mo. He reports self catheterizing several times daily -Place Regan -Continue Casodex -Flomax daily F/E/N - 1.5L given in ER, Monitor electrolytes and replete as needed, CC diet as tolerated, continue bowel regimen PPx - Heparin 5000u q8 Present on Admission?: Yes History of Present Illness Chief Complaint: Covid-19 infection Primary Care Provider: Sebastien Nickerson MD Som Upton is a 80yo C male presenting with Covid-19 infection, hypoxia. Patient states he has been feeling ill for the last 9 days. He has been weak and fatigued, abdominal pain, diarrhea and hip pain. He has fallen x 3 at home due to weakness. He also has some dry cough, SOB and chest discomfort. Patient was possibly exposed to Covid-19 by a door tender that helps him and his at home. His is currently admitted with Covid-19 as well. On arrival to the ER patient febrile, tachycardic, tachypneic and hypoxic to 89%. He was placed on supplemental O2 with improvement. ER Course: NSS x 1500mL, Dexamethasone 6mg IV Allergies Allergy/AdvReac Type Severity Reaction Status Date / Time iodine Allergy Unknown Unknown Verified 07/28/20 21:21 Penicillins Allergy Unknown Unknown Verified 07/28/20 21:21 Home Medications Medication Instructions Recorded Confirmed Type polyethylene glycol 3350 [Miralax] 17 g PO DAILY #30 ea 06/04/19 07/28/20 Rx leuprolide (6 month) 45 mg 45 mg IM Q24W 08/25/19 07/28/20 History intramuscular syringe kit tamsulosin 0.4 mg capsule 0.4 mg PO DAILY #90 cap 01/10/20 07/28/20 Rx bicalutamide 50 mg tablet 50 mg PO DAILY tab 06/20/20 07/28/20 History triamcinolone acetonide 0.1 % 1 applic TOPICAL TID #80 g 06/20/20 07/28/20 Rx topical cream cholecalciferol (vitamin D3) 25 25 mcg PO DAILY 07/03/20 07/28/20 History mcg (1,000 unit) capsule furosemide 20 mg tablet 20 mg PO DAILY #90 tab 07/03/20 07/28/20 Rx Past Med/Surg History Medical History Acute kidney injury superimposed on CKD Anemia Bilateral hydronephrosis Chronic deep vein thrombosis of femoral vein Constipation Depression Dysphagia Elevated PSA, greater than or equal to 20 ng/ml Enlarged prostate Hyperkalemia Hypertension Lower back pain Prostate cancer metastatic to bone Psoriasis Rib pain on left side Sinobronchitis Surgical History History of cataract extraction History of cholecystectomy Family History Mother , age 89 choking something stuck in her throat No problems noted. Father , age 88 coma No problems noted. Brother No problems noted. Brother No problems noted. Brother No problems noted. Brother No problems noted. Brother No problems noted. Brother No problems noted. Brother No problems noted. Brother No problems noted. Sister No problems noted. Sister No problems noted. Sister , age 54 cancer does not know type Cancer Son No problems noted. Daughter No problems noted. Daughter No problems noted. Other Family history non-contributory Denies family history of Ovarian cancer Prostate cancer Myocardial infarction Breast cancer Colorectal cancer Social History Smoking Status: Never smoker Second Hand Exposure: Yes (his son smokes around him at times ); Hx Alcohol Use: No Hx Substance Use: No Preferred Language: Swedish Communication Ability: Effective Visual Impairment: No Limitations Hearing Ability: Normal Soil Chemist Required: No Beliefs That Will Affect Care: None marital status: Current Living Situation: Spouse Current Living Situation Comment: lives at home independently with current occupational status: retired 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 Feels Safe at Home: Yes Safety Concerns: Feels Safe At This Time Childhood Exposure to Second-Hand Smoke: Yes caffeine: Yes (tea 2 cups per day) during the past year weight has: decreased > 10 lbs Dental Care, Regularly: No Physical Activity Frequency: 1-2 Times per Week Seatbelt Use: always Sunscreen Use: No Assistive Devices: Glasses Review of Systems Review of Systems: All systems reviewed & are unremarkable except as noted in HPI & below Physical Exam Physical Exam: General: patient resting comfortably, NAD, non-toxic in appearance, AA&O x 4 Skin: warm, dry, intact, psoriasis plaques on forehead, extensor surfaces of arms and legs. No evidence of secondary infection or bleeding HEENT: NC/AT, PERRL, EOMI, anicteric sclera, conjunctiva without injection, external ear normal to inspection and nontender, nares patent, moist mucus membranes, dentition intact, no oropharyngeal lesions, neck supple, trachea midline, no LAD, no thyromegaly, no JVD Heart: +S1/S2, regular, tachycardic, no m/r/g Lungs: equal air entry bilaterally, no rales/rhonchi/wheezes Abd: +BS, soft, mildly tender with deep palpation with no rebound/guarding/peritoneal signs, ND, no masses/organomegaly/ascites Ext: warm, 2+ pulses in UE/LE bilaterally, no clubbing/cyanosis or edema Neuro: nonfocal, patient AA&O x 4, speech intact, no facial droop, moving all extremities on command with equal strength 5/5 Results & Data Results & Data ([facility]) Vital Signs (Past 12 Hours) Vital Signs Temp Pulse Resp BP Pulse Ox 07/28/20 22:00 28 H 98 07/28/20 21:30 30 H 97 07/28/20 21:15 30 H 98 07/28/20 20:45 24 99 07/28/20 20:08 94 07/28/20 20:02 38.2 C H 102 H 18 156/91 H 89 L Laboratory Results Lab Results 07/28/20 07/28/20 07/28/20 Range/Units 20:20 20:20 20:20 WBC 10.62 (4.8-10.8) K/uL RBC 4.40 L (4.7-6.1) M/uL Hgb 13.6 L (14.0-18.0) g/dL Hct 39.8 L (42-52) % MCV 90.5 (80-100) fL MCH 30.9 (25-34) pg MCHC 34.2 (32-36) g/dL RDW Std Deviation 43.3 (36.4-46.3) fL RDW Coeff of Jose 13.1 (11.5-14.5) % Plt Count 212 (130-400) K/uL MPV 9.8 (7.4-10.4) fL Immature Gran % (Auto) 0.4 % Neut % (Auto) 89.8 % Lymph % (Auto) 4.0 % Heard % (Auto) 5.6 % Eos % (Auto) 0.1 % Baso % (Auto) 0.1 % Neut # (Auto) 9.53 H (1.4-6.5) K/uL Lymph # (Auto) 0.43 L (1.2-3.4) K/uL Heard # (Auto) 0.60 H (0.11-0.59) K/uL Eos # (Auto) 0.01 (0-0.5) K/uL Baso # (Auto) 0.01 (0-0.2) K/uL Immature Gran # (Auto) 0.04 H (0.00-0.02) K/uL PT 11.1 (9.0-12.0) Seconds INR 1.1 (0.9-1.1) APTT 29.5 (21.0-31.0) Seconds PTT Ratio 1.1 Sodium 133 L (136-145) mmol/L Potassium 3.8 (3.5-5.1) mmol/L Chloride 99 (98-107) mmol/L Carbon Dioxide 26 (21-32) mmol/L Anion Gap 8.0 (3-11) BUN 39 H (7-18) mg/dl Creatinine 2.16 H (0.6-1.4) mg/dl Est Cr Clr Drug Dosing 34.9 ml/min Est GFR ( Amer) 32.8 Est GFR (Non-Af Amer) 28.3 BUN/Creatinine Ratio 17.9 (10-20) Glucose 142 H (70-99) mg/dl Lactate (0.4-2.0) mmol/L Calcium 8.8 (8.5-10.1) mg/dl Magnesium 2.3 (1.8-2.4) mg/dl Total Bilirubin 0.8 (0.2-1) mg/dl AST 28 (15-37) U/L ALT 27 (12-78) U/L Alkaline Phosphatase 150 H (45-117) U/L Troponin I < 0.015 (0-0.045) ng/ml Total Protein 8.1 (6.4-8.2) gm/dl Albumin 3.3 L (3.4-5.0) gm/dl Globulin 4.8 H (2.5-4.0) gm/dl Albumin/Globulin Ratio 0.7 L (0.9-2) 04/25/21 Range/Units 20:20 WBC (4.8-10.8) K/uL RBC (4.7-6.1) M/uL Hgb (14.0-18.0) g/dL Hct (42-52) % MCV (80-100) fL MCH (25-34) pg MCHC (32-36) g/dL RDW Std Deviation (36.4-46.3) fL RDW Coeff of Jose (11.5-14.5) % Plt Count (130-400) K/uL MPV (7.4-10.4) fL Immature Gran % (Auto) % Neut % (Auto) % Lymph % (Auto) % Heard % (Auto) % Eos % (Auto) % Baso % (Auto) % Neut # (Auto) (1.4-6.5) K/uL Lymph # (Auto) (1.2-3.4) K/uL Heard # (Auto) (0.11-0.59) K/uL Eos # (Auto) (0-0.5) K/uL Baso # (Auto) (0-0.2) K/uL Immature Gran # (Auto) (0.00-0.02) K/uL PT (9.0-12.0) Seconds INR (0.9-1.1) APTT (21.0-31.0) Seconds PTT Ratio Sodium (136-145) mmol/L Potassium (3.5-5.1) mmol/L Chloride (98-107) mmol/L Carbon Dioxide (21-32) mmol/L Anion Gap (3-11) BUN (7-18) mg/dl Creatinine (0.6-1.4) mg/dl Est Cr Clr Drug Dosing ml/min Est GFR ( Amer) Est GFR (Non-Af Amer) BUN/Creatinine Ratio (10-20) Glucose (70-99) mg/dl Lactate 1.4 (0.4-2.0) mmol/L Calcium (8.5-10.1) mg/dl Magnesium (1.8-2.4) mg/dl Total Bilirubin (0.2-1) mg/dl AST (15-37) U/L ALT (12-78) U/L Alkaline Phosphatase (45-117) U/L Troponin I (0-0.045) ng/ml Total Protein (6.4-8.2) gm/dl Albumin (3.4-5.0) gm/dl Globulin (2.5-4.0) gm/dl Albumin/Globulin Ratio (0.9-2) Diagnostic Findings Hip X-ray - by my interpretation, no fracture CXR - by my interpretation patient with diffuse airspace disease of bilateral lower lung burciaga PG Care Time/CCT Total # of Minutes Spent Total Time Spent with Patient: Total time spent is greater than 50% in coordination of care (as documented) at patient's floor/unit and/or counseling patient: Coding Level of Care Code 70802 Initial Inpt Care Lvl 3 Diagnoses COVID-19 U07.1 Psoriasis L40.9 CKD (chronic kidney disease), stage III N18.30 Chronic kidney disease stage 3 subtype: unspecified whether 3a or 3b Prostate cancer metastatic to bone C61 (1) CKD (chronic kidney disease), stage III Chronic kidney disease stage 3 subtype: unspecified whether 3a or 3b Qualified Code(s): N18.30 - Chronic kidney disease, stage 3 unspecified
[2020-07-29] MEDS ORDERED: POLYETHYLENE (MIRALAX) 17 GM PACK PO PRN (00:07)
[2020-07-29] MEDS: ACETAMINOPHEN 325 MG TAB PO PRN ×2 (00:29→20:50)
[2020-07-29 00:50] LABS: Appearance Urine Cloudy (Clear); Bacteria Urine Automated Negative (Negative); Bilirubin Urine Negative (Negative); Blood Urine 2+ (Negative); Color Urine Dark Yellow; Epithelial Cell Urine Auto >30 /lpf (0-5); Glucose Urine UA Negative (Negative); Ketones Urine Negative (Negative); Leukocyte Esterase Urine Negative (Negative); Nitrite Urine Negative (Negative); Protein Urine 3+ (Negative); RBC Urine Automated 0-4 /hpf (0-4); Specific Gravity Urine 1.021 (1.000-1.030); Urobilinogen Urine Negative (Negative)
[2020-07-29 01:01] LABS: Mucus Urine Present (None Prsent)
[2020-07-29] MEDS: HEPARIN SOD 5,000 UNIT/0.5 ML VIAL SQ SCH ×3 (05:16→20:43)
[2020-07-29 06:19] LABS: Basophils # (auto) 0.01 K/uL (0-0.2); Basophils % (auto) 0.1 %; Hematocrit (blood only) 38.5 % (42-52); Hemoglobin 12.6 g/dL (14.0-18.0); Immature Granulocytes # (auto) 0.03 K/uL (0.00-0.02); Immature Granulocytes % (auto) 0.3 %; Lymphocytes # (auto) 0.57 K/uL (1.2-3.4); Mean Corpuscular Hemoglobin 30.1 pg (25-34); Mean Corpuscular Hgb Conc 32.7 g/dL (32-36); Mean Corpuscular Volume 91.9 fL (80-100); Mean Platelet Volume 10.2 fL (7.4-10.4); Neutrophils # (auto) 8.82 K/uL (1.4-6.5); Neutrophils % (auto) 92.6 %; Platelet Count 195 K/uL (130-400); RDW Coefficient of Variation 13.1 % (11.5-14.5); RDW Standard Deviation 44.1 fL (36.4-46.3); Red Blood Count 4.19 M/uL (4.7-6.1); White Blood Count 9.53 K/uL (4.8-10.8)
--- NOTE | 2020-07-29 06:48 | XRay Report ---
XR chest 1V portable CLINICAL HISTORY: SEPSIS COMPARISON STUDY: 05/31/2019 FINDINGS: The heart is enlarged. There are old bilateral rib fractures. Since the prior study, the pa tient developed bilateral pulmonary opacities. The findings likely represent a multifocal pneumonia a lthough congestive failure with pulmonary edema could appear similar. There are no large pleural effu sions IMPRESSION: 1. Cardiomegaly and interval development of bilateral pulmonary opacities. Multifocal pneumonia favor ed over pulmonary edema. Clinical and radiographic follow-up recommended ACT 112: Negative or not required by law. Electronically signed by: Graham Horta M.D. 07/29/2020 6:47 AM
--- NOTE | 2020-07-29 06:53 | XRay Report ---
XR hip LT 2V w pelvis CLINICAL HISTORY: left hip pain COMPARISON: None. DISCUSSION: No fractures or dislocations are visualized. There are no erosive or destructive changes. IMPRESSION: No fractures or dislocations identified. ACT 112: Negative or not required by law. Electronically signed by: Graham Horta M.D. 07/29/2020 6:51 AM
[2020-07-29 06:59] LABS: BUN Creatinine Ratio 22.8 (10-20); Calcium 8.5 mg/dl (8.5-10.1); Est GFR (African American) 44.1; Est GFR (Non-African American) 38.1; Magnesium 2.8 mg/dl (1.8-2.4); Potassium 4.1 mmol/L (3.5-5.1)
--- NOTE | 2020-07-29 08:55 | Hospitalist Progress Note ---
Date of Service July 29, 2020 Assessment & Plan (1) Acute respiratory failure with hypoxia: due to COVID 19 pneumonia, possible bacterial infection as well continue dexamethasone Ceftriaxone/Zithromax flutter valve and ISB (2) COVID-19: Som Upton is a 80yo C male presenting with Covid-19 infection, hypoxic on room air at 89% now improved with supplemental O2. He is on appx day 9 of illness at the time of admission dexamethasone 6mg IV daily, day 2 today add Rocephin/Zithromax x 5 days due to slightly elevated procalcitonin initially did not give Remdesivir due to low GFR, now improved a little, but day 10 illness, unlikely to provide benefit encourage him to lay on his side, he says he cannot lay prone ISB and flutter valve to promote deep breaths stay well nourished and well hydrated Hep SC for DVT prophylaxis (3) Psoriasis: Chronic. Patient with diffuse plaques on extensor surfaces of arms and legs as well as abdomen and scalp. No evidence of bleeding or secondary infection -Continue Triamcinolone cream TID (4) CKD (chronic kidney disease), stage III: Patient with obstructive uropathy secondary to prostate CA. BUN=39 today and Cr = 2.16 which is slightly above prior values of 30 and 1.59, respectively. Patient follows with Nephrology - last seen 07/01/20. Baseline Cr is 1.4-1.6. Patient was administered 1.5L of NSS in the ER would qualify as mild FREDO at the time of admission, this was prerenal azotemia Cr improved to baseline at 1.69 this morning, no further IV fluids electrolytes stable, K 4.1 resume Lasix 20mg PO daily promote good oral intake, follow BMP daily (5) Prostate cancer metastatic to bone: PET scan revealed bony metastasis. Patient follows with Urology. He was treated with one dose of Firmagon and now receives Lupron injections q6mo. 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 discussed need to take deep breaths, will get incentive spirometer and flutter valve discussed prone position, he says he cannot lay on stomach but can lay on his side reviewed chart, reviewed labs, procalcitonin is 0.59, will add rocephina and zithromax Review of Systems Review of Systems: All systems reviewed & are unremarkable except as noted in Subjective Constitutional: + fatigue and + weakness; no fever Respiratory: + cough, + dyspnea and + dyspnea on exertion; no sputum production Cardiovascular: no chest pain and no edema Gastrointestinal: no abdominal pain, no nausea, no vomiting, no constipation and no diarrhea/loose stools Musculoskeletal: + muscle weakness (generalized) Physical Exam Constitutional: WD/WN, vitals as above no acute distress Neck: trachea midline, no thyromegaly Respiratory: normal respiratory effort and + cough; no respiratory distress and no labored breathing Auscultation: lungs clear to auscultation bilaterally Cardiovascular: RRR, no murmur, no edema Gastrointestinal (Abdomen): normal bowel sounds, soft, nontender, no hepatosplenomegaly Musculoskeletal: no cyanosis or clubbing, extremities motor strength 5/5 Skin: no rashes, warm and dry Neurologic: patellar DTR's 2+ bilat, sensation intact and PERRL, EOMI, accommodation nl, no face palsy, no dysarthria Psychiatric: A+Ox3, euthymic affect Lymphatic: no cervical or axillary lymphadenopathy Results & Data Results & Data ([facility]) Vital Signs (Past 12 Hours) Vital Signs Temp Pulse Pulse Resp BP BP Pulse Ox 07/29/20 05:14 139/77 07/29/20 04:11 36.5 C 60 24 181/83 H 93 07/29/20 02:03 96 H 07/29/20 00:15 37.6 C H 87 20 152/88 H 97 07/28/20 23:23 36.8 C 95 H 22 154/86 H 07/28/20 23:15 95 H 22 154/86 H 07/28/20 23:00 94 H 33 H 143/87 H 99 07/28/20 22:45 95 H 32 H 153/70 H 99 07/28/20 22:30 94 H 28 H 153/88 H 99 07/28/20 22:15 96 H 30 H 131/83 99 07/28/20 22:00 97 H 33 H 98 07/28/20 21:45 97 H 20 95 07/28/20 21:42 95 H 28 H 98 07/28/20 21:31 98 H 26 H 153/64 H 98 07/28/20 21:30 30 H 97 07/28/20 21:15 30 H 98 Laboratory Results Laboratory Results - last 24 hr 07/28/20 07/28/20 07/28/20 20:20 20:20 20:20 WBC 10.62 RBC 4.40 L Hgb 13.6 L Hct 39.8 L MCV 90.5 MCH 30.9 MCHC 34.2 RDW Std Deviation 43.3 RDW Coeff of Jose 13.1 Plt Count 212 MPV 9.8 Immature Gran % (Auto) 0.4 Neut % (Auto) 89.8 Lymph % (Auto) 4.0 [place] % (Auto) 5.6 Eos % (Auto) 0.1 Baso % (Auto) 0.1 Neut # (Auto) 9.53 H Lymph # (Auto) 0.43 L [place] # (Auto) 0.60 H Eos # (Auto) 0.01 Baso # (Auto) 0.01 Immature Gran # (Auto) 0.04 H PT 11.1 INR 1.1 APTT 29.5 PTT Ratio 1.1 Sodium 133 L Potassium 3.8 Chloride 99 Carbon Dioxide 26 Anion Gap 8.0 BUN 39 H Creatinine 2.16 H Est Cr Clr Drug Dosing 34.9 Est GFR ( Amer) 32.8 Est GFR (Non-Af Amer) 28.3 BUN/Creatinine Ratio 17.9 Glucose 142 H POC Glucose Lactate Calcium 8.8 Magnesium 2.3 Total Bilirubin 0.8 AST 28 ALT 27 Alkaline Phosphatase 150 H Troponin I < 0.015 Total Protein 8.1 Albumin 3.3 L Globulin 4.8 H Albumin/Globulin Ratio 0.7 L Procalcitonin Urine Color Urine Appearance Urine pH Ur Specific [place] Urine Protein Urine Glucose (UA) Urine Ketones Urine Blood Urine Nitrite Urine Bilirubin Urine Urobilinogen Ur Leukocyte Esterase Urine WBC (Auto) Urine RBC (Auto) U Hyaline Cast (Auto) U Epithel Cells (Auto) Urine Bacteria (Auto) Urine Mucus Urine Yeast 07/28/20 07/28/20 07/29/20 20:20 20:20 00:40 WBC RBC Hgb Hct MCV MCH MCHC RDW Std Deviation RDW Coeff of Jose Plt Count MPV Immature Gran % (Auto) Neut % (Auto) Lymph % (Auto) [place] % (Auto) Eos % (Auto) Baso % (Auto) Neut # (Auto) Lymph # (Auto) [place] # (Auto) Eos # (Auto) Baso # (Auto) Immature Gran # (Auto) PT INR APTT PTT Ratio Sodium Potassium Chloride Carbon Dioxide Anion Gap BUN Creatinine Est Cr Clr Drug Dosing Est GFR ( Amer) Est GFR (Non-Af Amer) BUN/Creatinine Ratio Glucose POC Glucose Lactate 1.4 Calcium Magnesium Total Bilirubin AST ALT Alkaline Phosphatase Troponin I Total Protein Albumin Globulin Albumin/Globulin Ratio Procalcitonin 0.59 H Urine Color Dark Yellow Urine Appearance Cloudy A Urine pH 5.0 Ur Specific [place] 1.021 Urine Protein 3+ H Urine Glucose (UA) Negative Urine Ketones Negative Urine Blood 2+ H Urine Nitrite Negative Urine Bilirubin Negative Urine Urobilinogen Negative Ur Leukocyte Esterase Negative Urine WBC (Auto) 5-10 H Urine RBC (Auto) 0-4 U Hyaline Cast (Auto) 1-5 U Epithel Cells (Auto) >30 H Urine Bacteria (Auto) Negative Urine Mucus Present A Urine Yeast Not Reportable 07/29/20 07/29/20 07/29/20 05:31 05:31 07:27 WBC 9.53 RBC 4.19 L Hgb 12.6 L Hct 38.5 L MCV 91.9 MCH 30.1 MCHC 32.7 RDW Std Deviation 44.1 RDW Coeff of Jose 13.1 Plt Count 195 MPV 10.2 Immature Gran % (Auto) 0.3 Neut % (Auto) 92.6 Lymph % (Auto) 6.0 [place] % (Auto) 1.0 Eos % (Auto) 0.0 Baso % (Auto) 0.1 Neut # (Auto) 8.82 H Lymph # (Auto) 0.57 L [place] # (Auto) 0.10 L Eos # (Auto) 0.00 Baso # (Auto) 0.01 Immature Gran # (Auto) 0.03 H PT INR APTT PTT Ratio Sodium 137 Potassium 4.1 Chloride 106 Carbon Dioxide 24 Anion Gap 7.0 BUN 38 H Creatinine 1.69 H D Est Cr Clr Drug Dosing 45.0 Est GFR ( Amer) 44.1 Est GFR (Non-Af Amer) 38.1 BUN/Creatinine Ratio 22.8 H Glucose 181 H POC Glucose 180 H Lactate Calcium 8.5 Magnesium 2.8 H Total Bilirubin AST ALT Alkaline Phosphatase Troponin I Total Protein Albumin Globulin Albumin/Globulin Ratio Procalcitonin Urine Color Urine Appearance Urine pH Ur Specific [place] Urine Protein Urine Glucose (UA) Urine Ketones Urine Blood Urine Nitrite Urine Bilirubin Urine Urobilinogen Ur Leukocyte Esterase Urine WBC (Auto) Urine RBC (Auto) U Hyaline Cast (Auto) U Epithel Cells (Auto) Urine Bacteria (Auto) Urine Mucus Urine Yeast Medications Administered Current Inpatient Medications Acetaminophen (Acetaminophen 325 Mg Tab) 650 mg PO Q4H PRN PRN Reason: Pain or Fever Stop: 08/28/20 00:06 Last Admin: 07/29/20 00:29 Dose: 650 mg Documented by: Azithromycin (Azithromycin 250 Mg Tab) 500 mg PO QAM [facility] Stop: 08/05/20 08:59 Bicalutamide (Bicalutamide 50 Mg Tab) 50 mg PO DAILY [facility] Stop: 08/28/20 08:59 Furosemide (Furosemide 20 Mg Tab) 20 mg PO DAILY [facility] Stop: 08/28/20 08:59 Heparin Sodium (Porcine) (Heparin Sod 5,000 Unit/0.5 Ml Vial) 5,000 units SQ Q8 [facility] Stop: 08/28/20 05:59 Last Admin: 07/29/20 05:16 Dose: 5,000 units Documented by: Dexamethasone 6 mg/ Syringe 1.5 mls @ 1 mls/min IV DAILY [facility] Stop: 08/08/20 08:59 Ceftriaxone Sodium 2,000 mg/ (Dextrose) 70 mls @ 100 mls/hr IV DAILY@0900 [facility]; Protocol Stop: 08/05/20 08:59 Ondansetron HCl (Ondansetron Inj 2 Mg/Ml 2 Ml Vial) 4 mg IV Q6H PRN PRN Reason: Nausea Stop: 08/28/20 00:06 Polyethylene Glycol (Polyethylene (Miralax) 17 Gm Pack) 17 gm PO DAILY [facility] Stop: 08/28/20 08:59 Polyethylene Glycol (Polyethylene (Miralax) 17 Gm Pack) 17 gm PO DAILY PRN PRN Reason: Constipation Stop: 08/28/20 00:06 Tamsulosin HCl (Tamsulosin Hcl 0.4 Mg Cap) 0.4 mg PO DAILY [facility] Stop: 08/28/20 08:59 Triamcinolone Acetonide (Triamcinolone Acet 0.1% Cr 15 Gm Tube) 1 appln TOP TID [facility] Stop: 08/28/20 08:59 Vitamin D (Cholecalciferol 1,000 Units 25 Mcg Tab) 1,000 units PO DAILY [facility] Stop: 08/28/20 08:59 PG Care Time/CCT Total # of Minutes Spent Total Time Spent with Patient: Total time spent is greater than 50% in c oordination of care (as documented) at patient's floor/unit and/or counseling patient: Coding Level of Care Code 22971 Subseq Hosp Care Lvl 3 Diagnoses Acute respiratory failure with hypoxia J96.01 COVID-19 U07.1 Psoriasis L40.9 CKD (chronic kidney disease), stage III N18.30 Chronic kidney disease stage 3 subtype: unspecified whether 3a or 3b Prostate cancer metastatic to bone C61 Acute kidney injury superimposed on CKD N17.9 (1) CKD (chronic kidney disease), stage III Chronic kidney disease stage 3 subtype: unspecified whether 3a or 3b Qualified Code(s): N18.30 - Chronic kidney disease, stage 3 unspecified
[2020-07-29] MEDS: cefTRIAXone SODIUM 2,000 MG in DEXTROSE 5% 50 ML IV SCH (09:23)
[2020-07-29] MEDS: dexAMETHasone 6 MG in SYRINGE 0 ML IV SCH (09:24)
[2020-07-29] MEDS: AZITHROMYCIN 250 MG TAB PO SCH (09:24)
[2020-07-29] MEDS: TAMSULOSIN HCL 0.4 MG CAP PO SCH (09:25)
[2020-07-29] MEDS: BICALUTAMIDE 50 MG TAB PO SCH (09:25)
[2020-07-29] MEDS: FUROSEMIDE 20 MG TAB PO SCH (09:25)
[2020-07-29] MEDS: POLYETHYLENE (MIRALAX) 17 GM PACK PO SCH (09:25)
[2020-07-29] MEDS: CHOLECALCIFEROL 1,000 UNITS 25 MCG TAB PO SCH (09:25)
[2020-07-29] MEDS: TRIAMCINOLONE ACET 0.1% CR 15 GM TUBE TOP SCH ×3 (09:26→20:43)
--- NOTE | 2020-07-29 14:31 | Electrocardiogram Report ---
Test Reason : Blood Pressure : / mmHG Vent. Rate : 097 BPM Atrial Rate : 097 BPM P-R Int : 136 ms QRS Dur : 112 ms QT Int : 330 ms P-R-T Axes : 050 005 047 degrees QTc Int : 419 ms Normal sinus rhythm Incomplete right bundle branch block Borderline ECG When compared with ECG of 01-JUN-2019 11:29, Vent. rate has increased BY 32 BPM Nonspecific T wave abnormality now evident in Inferior leads T wave amplitude has decreased in Anterolateral leads Confirmed by Mat Clark [id number]) on 07/29/2020 2:31:35 PM Referred By: REFERRED SELF Confirmed By:Mat Clark
[2020-07-30] MEDS: HEPARIN SOD 5,000 UNIT/0.5 ML VIAL SQ SCH ×3 (05:45→20:29)
--- NOTE | 2020-07-30 07:27 | Hospitalist Progress Note ---
Date of Service July 30, 2020 Assessment & Plan (1) Acute respiratory failure with hypoxia: due to COVID 19 pneumonia, possible bacterial infection as well worsening dyspnea, hypoxemia today, went from 4L to 15L to Vapotherm this morning currently on 35L and 80%, laying on his side, cannot lay prone CRP elevated at 13 will increase dexamethasone asked Dr. Rich to evaluate for Tocilizumab guarded prognosis, will update his daughter and his (she is in 301) (2) COVID-19: he is about day 11 of illness at this time, getting worse dexamethasone 6mg IV daily x 3 days will increase to 20mg IV daily due to elevated CRP and worsening hypoxemia continue Rocephin/Zithromax x 5 days due to slightly elevated procalcitonin, day 2 today initially did not give Remdesivir due to low GFR, now improved a little, but day 11 illness, unlikely to provide benefit ask pulmonology to evaluate for Tocilizumab encourage him to lay on his side, he says he cannot lay prone ISB and flutter valve to promote deep breaths stay well nourished and well hydrated Hep SC for DVT prophylaxis (3) Psoriasis: Chronic. Patient with diffuse plaques on extensor surfaces of arms and legs as well as abdomen and scalp. No evidence of bleeding or secondary infection -Continue Triamcinolone cream TID (4) CKD (chronic kidney disease), stage III: Baseline Cr is 1.4-1.6. 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 Patient follows with Urology. He was treated with one dose of Firmagon and now receives Lupron injections q6mo. He reports self catheterizing several times daily -Placed Regan on admission -Continue Casodex -Flomax daily c/o back pain from metastatic disease, will give Morphine 2mg IV q4 (6) Acute kidney injury superimposed on CKD: see above, resolved, Cr is 1.7 today Admission and Anticipated Discharge Date Admission Date: July 28, 2020 Subjective patient with worsening hypoxemia this morning, went from 4L mask yesterday, up to 15L mask this morning with saturations in 80's placed on Vapotherm, tolerating well, currently at 35L and 80% FiO2 laying on his side, he cannot lay prone due to severe back pain from prostate cancer mets he ate some toast this morning, drinking well reviewed labs, WBC 16, Hb 13, Cr 1.75, CRP is high at 13 discussed that his worsening hypoxemia is not a good sign, that he may start to get fatigued discussed possible need for intubation and ventilation, he said he would not want to be on a ventilator no fever, no chills, + weakness and fatigue, no chest pain, no GI symptoms Review of Systems Review of Systems: All systems reviewed & are unremarkable except as noted in Subjective Constitutional: + fatigue and + weakness; no fever Respiratory: + cough, + dyspnea and + dyspnea on exertion; no sputum production and no wheezing Cardiovascular: no chest pain Gastrointestinal: no abdominal pain, no nausea, no vomiting, no constipation and no diarrhea/loose stools Musculoskeletal: + back pain Physical Exam Constitutional: well developed, well nourished, + ill appearing and + frail appearing Neck: trachea midline, no thyromegaly Respiratory: + labored breathing, + uses accessory muscles, + cough and + tachypneic; no respiratory distress Auscultation: lungs clear to auscultation bilaterally Cardiovascular: RRR, no murmur, no edema Gastrointestinal (Abdomen): normal bowel sounds, soft, nontender, no hepatosplenomegaly Musculoskeletal: no cyanosis or clubbing, extremities motor strength 5/5 Skin: no rashes, warm and dry Neurologic: patellar DTR's 2+ bilat, sensation intact and PERRL, EOMI, accommodation nl, no face palsy, no dysarthria Psychiatric: A+Ox3, euthymic affect Lymphatic: no cervical or axillary lymphadenopathy Results & Data Results & Data ([facility]) Vital Signs (Past 12 Hours) Vital Signs Temp Pulse Pulse Resp BP BP Pulse Ox 07/30/20 07:04 36.8 C 100 H 24 160/90 H 94 07/30/20 03:44 37.1 C 77 20 148/75 H 95 07/30/20 00:02 36.5 C 58 L 24 138/80 93 07/30/20 00:00 71 Laboratory Results Laboratory Results - last 24 hr 07/29/20 07/29/20 07/29/20 11:31 16:30 20:48 WBC RBC Hgb Hct MCV MCH MCHC RDW Std Deviation RDW Coeff of Jose Plt Count MPV Immature Gran % (Auto) Neut % (Auto) Lymph % (Auto) Sierra % (Auto) Eos % (Auto) Baso % (Auto) Neut # (Auto) Lymph # (Auto) Sierra # (Auto) Eos # (Auto) Baso # (Auto) Immature Gran # (Auto) Sodium Potassium Chloride Carbon Dioxide Anion Gap BUN Creatinine Est Cr Clr Drug Dosing Est GFR ( Amer) Est GFR (Non-Af Amer) BUN/Creatinine Ratio Glucose POC Glucose 145 H 190 H 163 H Calcium Magnesium C-Reactive Protein 07/30/20 07/30/20 07/30/20 06:56 06:56 06:56 WBC 16.34 H RBC 4.34 L Hgb 13.2 L Hct 39.9 L MCV 91.9 MCH 30.4 MCHC 33.1 RDW Std Deviation 44.1 RDW Coeff of Jose 13.2 Plt Count 255 MPV 10.7 H Immature Gran % (Auto) 0.4 Neut % (Auto) 87.4 Lymph % (Auto) 7.0 Sierra % (Auto) 5.1 Eos % (Auto) 0.0 Baso % (Auto) 0.1 Neut # (Auto) 14.28 H Lymph # (Auto) 1.15 L Sierra # (Auto) 0.83 H Eos # (Auto) 0.00 Baso # (Auto) 0.01 Immature Gran # (Auto) 0.07 H Sodium 138 Potassium 3.7 Chloride 105 Carbon Dioxide 26 Anion Gap 7.0 BUN 54 H Creatinine 1.75 H Est Cr Clr Drug Dosing 44.2 Est GFR ( Amer) 42.3 Est GFR (Non-Af Amer) 36.5 BUN/Creatinine Ratio 30.7 H Glucose 117 H POC Glucose Calcium 9.2 Magnesium 2.7 H C-Reactive Protein 13.50 H 07/30/20 07:03 WBC RBC Hgb Hct MCV MCH MCHC RDW Std Deviation RDW Coeff of Jose Plt Count MPV Immature Gran % (Auto) Neut % (Auto) Lymph % (Auto) Sierra % (Auto) Eos % (Auto) Baso % (Auto) Neut # (Auto) Lymph # (Auto) Sierra # (Auto) Eos # (Auto) Baso # (Auto) Immature Gran # (Auto) Sodium Potassium Chloride Carbon Dioxide Anion Gap BUN Creatinine Est Cr Clr Drug Dosing Est GFR ( Amer) Est GFR (Non-Af Amer) BUN/Creatinine Ratio Glucose POC Glucose 110 H Calcium Magnesium C-Reactive Protein Medications Administered Current Inpatient Medications Acetaminophen (Acetaminophen 325 Mg Tab) 650 mg PO Q4H PRN PRN Reason: Pain or Fever Stop: 08/28/20 00:06 Last Admin: 07/29/20 20:50 Dose: 650 mg Documented by: Azithromycin (Azithromycin 250 Mg Tab) 500 mg PO QAM [facility] Stop: 08/05/20 08:59 Last Admin: 07/29/20 09:24 Dose: 500 mg Documented by: Bicalutamide (Bicalutamide 50 Mg Tab) 50 mg PO DAILY [facility] Stop: 08/28/20 08:59 Last Admin: 07/29/20 09:25 Dose: 50 mg Documented by: Furosemide (Furosemide 20 Mg Tab) 20 mg PO DAILY [facility] Stop: 08/28/20 08:59 Last Admin: 07/29/20 09:25 Dose: 20 mg Documented by: Heparin Sodium (Porcine) (Heparin Sod 5,000 Unit/0.5 Ml Vial) 5,000 units SQ Q8 [facility] Stop: 08/28/20 05:59 Last Admin: 07/30/20 05:45 Dose: 5,000 units Documented by: Dexamethasone 6 mg/ Syringe 1.5 mls @ 1 mls/min IV DAILY [facility] Stop: 08/08/20 08:59 Last Admin: 07/29/20 09:24 Dose: 1 mls/min Documented by: Ceftriaxone Sodium 2,000 mg/ (Dextrose) 70 mls @ 100 mls/hr IV DAILY@0900 [facility]; Protocol Stop: 08/05/20 08:59 Last Infusion: 07/29/20 10:10 Dose: Infused Documented by: Ondansetron HCl (Ondansetron Inj 2 Mg/Ml 2 Ml Vial) 4 mg IV Q6H PRN PRN Reason: Nausea Stop: 08/28/20 00:06 Polyethylene Glycol (Polyethylene (Miralax) 17 Gm Pack) 17 gm PO DAILY [facility] Stop: 08/28/20 08:59 Last Admin: 07/29/20 09:25 Dose: 17 gm Documented by: Polyethylene Glycol (Polyethylene (Miralax) 17 Gm Pack) 17 gm PO DAILY PRN PRN Reason: Constipation Stop: 08/28/20 00:06 Tamsulosin HCl (Tamsulosin Hcl 0.4 Mg Cap) 0.4 mg PO DAILY [facility] Stop: 08/28/20 08:59 Last Admin: 07/29/20 09:25 Dose: 0.4 mg Documented by: Triamcinolone Acetonide (Triamcinolone Acet 0.1% Cr 15 Gm Tube) 1 appln TOP TID [facility] Stop: 08/28/20 08:59 Last Admin: 07/29/20 20:43 Dose: 1 appln Documented by: Vitamin D (Cholecalciferol 1,000 Units 25 Mcg Tab) 1,000 units PO DAILY [facility] Stop: 08/28/20 08:59 Last Admin: 07/29/20 09:25 Dose: 1,000 units Documented by: PG Care Time/CCT Total # of Minutes Spent Total Time Spent: 33 Total Time Spent with Patient: Total time spent is greater than 50% in coordination of care (as documented) at patient's floor/unit and/or counseling patient: Coding Level of Care Code 65171 Subseq Hosp Care Lvl 3 Diagnoses Acute respiratory failure with hypoxia J96.01 COVID-19 U07.1 Psoriasis L40.9 CKD (chronic kidney disease), stage III N18.30 Chronic kidney disease stage 3 subtype: unspecified whether 3a or 3b Prostate cancer metastatic to bone C61 Acute kidney injury superimposed on CKD N17.9 (1) CKD (chronic kidney disease), stage III Chronic kidney disease stage 3 subtype: unspecified whether 3a or 3b Qualified Code(s): N18.30 - Chronic kidney disease, stage 3 unspecified
[2020-07-30 07:31] LABS: Basophils # (auto) 0.01 K/uL (0-0.2); Basophils % (auto) 0.1 %; Hematocrit (blood only) 39.9 % (42-52); Hemoglobin 13.2 g/dL (14.0-18.0); Immature Granulocytes # (auto) 0.07 K/uL (0.00-0.02); Immature Granulocytes % (auto) 0.4 %; Lymphocytes # (auto) 1.15 K/uL (1.2-3.4); Mean Corpuscular Hemoglobin 30.4 pg (25-34); Mean Corpuscular Hgb Conc 33.1 g/dL (32-36); Mean Corpuscular Volume 91.9 fL (80-100); Mean Platelet Volume 10.7 fL (7.4-10.4); Monocytes # (auto) 0.83 K/uL (0.11-0.59); Monocytes % (auto) 5.1 %; Neutrophils # (auto) 14.28 K/uL (1.4-6.5); Neutrophils % (auto) 87.4 %; Platelet Count 255 K/uL (130-400); RDW Coefficient of Variation 13.2 % (11.5-14.5); RDW Standard Deviation 44.1 fL (36.4-46.3); Red Blood Count 4.34 M/uL (4.7-6.1); White Blood Count 16.34 K/uL (4.8-10.8)
[2020-07-30] MEDS: FUROSEMIDE 20 MG TAB PO SCH (07:37)
[2020-07-30] MEDS: AZITHROMYCIN 250 MG TAB PO SCH (07:37)
[2020-07-30] MEDS: CHOLECALCIFEROL 1,000 UNITS 25 MCG TAB PO SCH (07:37)
[2020-07-30] MEDS: BICALUTAMIDE 50 MG TAB PO SCH (07:37)
[2020-07-30] MEDS: TAMSULOSIN HCL 0.4 MG CAP PO SCH (07:37)
[2020-07-30] MEDS: POLYETHYLENE (MIRALAX) 17 GM PACK PO SCH (07:37)
[2020-07-30] MEDS: cefTRIAXone SODIUM 2,000 MG in DEXTROSE 5% 50 ML IV SCH (07:38)
[2020-07-30] MEDS: dexAMETHasone 6 MG in SYRINGE 0 ML IV SCH (07:38)
[2020-07-30] MEDS: TRIAMCINOLONE ACET 0.1% CR 15 GM TUBE TOP SCH ×3 (07:38→20:30)
[2020-07-30] MEDS: ACETAMINOPHEN 325 MG TAB PO PRN (08:05)
[2020-07-30 08:07] LABS: BUN Creatinine Ratio 30.7 (10-20); Calcium 9.2 mg/dl (8.5-10.1); Creatinine Clr Calc Pharmacy 44.2 ml/min; Est GFR (African American) 42.3; Est GFR (Non-African American) 36.5; Magnesium 2.7 mg/dl (1.8-2.4); Potassium 3.7 mmol/L (3.5-5.1)
[2020-07-30] MEDS ORDERED: DEXAMETHASONE SOD INJ 4 MG/ML VIAL IV STA (09:20)
[2020-07-30] MEDS ORDERED: MoRPHine SULFATE 2 MG/ML CARP IV STA (09:25)
[2020-07-30] MEDS ORDERED: MoRPHine SULFATE 2 MG/ML CARP IV PRN (09:25)
[2020-07-30] MEDS ORDERED: dexAMETHasone 10 MG in SYRINGE 0 ML IV ONE (10:00)
[2020-07-31] MEDS: HEPARIN SOD 5,000 UNIT/0.5 ML VIAL SQ SCH ×4 (05:57→21:22)
[2020-07-31 06:05] LABS: Basophils # (auto) 0.01 K/uL (0-0.2); Basophils % (auto) 0.1 %; Hematocrit (blood only) 37.6 % (42-52); Hemoglobin 12.3 g/dL (14.0-18.0); Immature Granulocytes # (auto) 0.05 K/uL (0.00-0.02); Immature Granulocytes % (auto) 0.4 %; Lymphocytes # (auto) 0.71 K/uL (1.2-3.4); Lymphocytes % (auto) 5.7 %; Mean Corpuscular Hemoglobin 29.9 pg (25-34); Mean Corpuscular Hgb Conc 32.7 g/dL (32-36); Mean Corpuscular Volume 91.5 fL (80-100); Mean Platelet Volume 10.9 fL (7.4-10.4); Monocytes # (auto) 0.77 K/uL (0.11-0.59); Monocytes % (auto) 6.2 %; Neutrophils # (auto) 10.86 K/uL (1.4-6.5); Neutrophils % (auto) 87.6 %; Platelet Count 236 K/uL (130-400); RDW Standard Deviation 43.3 fL (36.4-46.3); Red Blood Count 4.11 M/uL (4.7-6.1)
[2020-07-31 06:40] LABS: Calcium 8.4 mg/dl (8.5-10.1); Creatinine Clr Calc Pharmacy 48.8 ml/min; Est GFR (African American) 49.7; Est GFR (Non-African American) 42.9; Potassium 4.2 mmol/L (3.5-5.1)
--- NOTE | 2020-07-31 07:49 | Hospitalist Progress Note ---
Date of Service July 31, 2020 Assessment & Plan (1) Acute respiratory failure with hypoxia: due to COVID 19 pneumonia, possible bacterial infection as well worsening dyspnea, hypoxemia the past 72 hours went from 4L to 15L to Vapotherm currently on 40L and 100% he is sitting up in a chair this morning, no distress CRP elevated at 14, went up despite higher dose dexamethasone continue dexamethasone 20mg IV daily x [address] Rich to evaluate for Tocilizumab guarded prognosis, will update his daughter and his (she is in 301) (2) COVID-19: he is about day 12 of illness at this time, getting worse dexamethasone 6mg IV daily, completed 3 days then increased cotinue 20mg IV daily due to elevated CRP and worsening hypoxemia, day 1 of 20mg IV continue Rocephin/Zithromax x 5 days due to slightly elevated procalcitonin, day 3 today no role for Remdesivir ask pulmonology to evaluate for Tocilizumab today encourage him to lay on his side, he says he cannot lay prone ISB and flutter valve to promote deep breaths stay well nourished and well hydrated Hep SC for DVT prophylaxis (3) Psoriasis: Chronic. Patient with diffuse plaques on extensor surfaces of arms and legs as well as abdomen and scalp. No evidence of bleeding or secondary infection -Continue Triamcinolone cream TID he says he does not take any biologics, has never had psoriatic arthritis (4) CKD (chronic kidney disease), stage III: Baseline Cr is 1.4-1.6. 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 Patient follows with Urology. He was treated with one dose of Firmagon and now receives Lupron injections q6mo. He reports self catheterizing several times daily -Placed Regan on admission -Continue Casodex -Flomax daily c/o back pain from metastatic disease, will give Morphine 2mg IV q4 (6) Acute kidney injury superimposed on CKD: see above, resolved, Cr is 1.5 today (7) Constipation: no BM for 5 days mildly distended, hypoactive bowel sounds Miralax BID, Senokot qAM try suppository this afternoon if no BM Admission and Anticipated Discharge Date Admission Date: July 28, 2020 Subjective patient doing okay, he is up in a chair, he is on 40L and 100% FiO2 but no increased work of breathing reviewed labs, Cr is 1.5, CRP is up to 14 from 13 despite higher dose of Decadron reached out to pharmacy about Tocilizumab, awaiting their input he is eating fairly well, does not like the sausage or the chicken he has not had a BM in a few days, has been taking Miralax, asked for Senokot encouraged him to try a suppository later today I updated his daughter over the phone and his at the bedside in her room, 301 Review of Systems Review of Systems: All systems reviewed & are unremarkable except as noted in Subjective Respiratory: + cough, + dyspnea and + dyspnea on exertion; no sputum production Cardiovascular: no chest pain and no edema Gastrointestinal: + constipation; no abdominal pain, no nausea, no vomiting and no diarrhea/loose stools Physical Exam Constitutional: WD/WN, vitals as above well developed, well nourished, + ill appearing and + frail appearing Neck: trachea midline, no thyromegaly Respiratory: + cough and + tachypneic; no respiratory distress, no labored breathing and does not use accessory muscles Auscultation: lungs clear to auscultation bilaterally Cardiovascular: RRR, no murmur, no edema Gastrointestinal (Abdomen): Inspection/Auscultation: + abdomen distended and + hypoactive bowel sounds Percussion/Palpation: + tympanic to percussion and + abdomen firm; abdomen nontender Musculoskeletal: no cyanosis or clubbing, extremities motor strength 5/5 Skin: no rashes, warm and dry Neurologic: patellar DTR's 2+ bilat, sensation intact and PERRL, EOMI, accommodation nl, no face palsy, no dysarthria Psychiatric: A+Ox3, euthymic affect Lymphatic: no cervical or axillary lymphadenopathy Results & Data Results & Data ([facility]) Vital Signs (Past 12 Hours) Vital Signs Temp Pulse Pulse Resp BP Pulse Ox 07/31/20 07:41 58 L 20 90 07/31/20 07:24 36.8 C 61 20 120/68 91 07/31/20 04:35 36.6 C 58 L 20 139/77 90 07/31/20 03:40 53 L 18 95 07/30/20 23:05 36.9 C 54 L 24 123/63 96 07/30/20 23:00 59 L 07/30/20 22:08 52 L 21 94 Laboratory Results Laboratory Results - last 24 hr 07/30/20 07/30/20 07/30/20 06:56 06:56 11:21 WBC RBC Hgb Hct MCV MCH MCHC RDW Std Deviation RDW Coeff of Jose Plt Count MPV Immature Gran % (Auto) Neut % (Auto) Lymph % (Auto) [place] % (Auto) Eos % (Auto) Baso % (Auto) Neut # (Auto) Lymph # (Auto) [place] # (Auto) Eos # (Auto) Baso # (Auto) Immature Gran # (Auto) Sodium 138 Potassium 3.7 Chloride 105 Carbon Dioxide 26 Anion Gap 7.0 BUN 54 H Creatinine 1.75 H Est Cr Clr Drug Dosing 44.2 Est GFR ( Amer) 42.3 Est GFR (Non-Af Amer) 36.5 BUN/Creatinine Ratio 30.7 H Glucose 117 H POC Glucose 167 H Calcium 9.2 Magnesium 2.7 H C-Reactive Protein 13.50 H 07/30/20 07/30/20 07/31/20 16:19 20:39 05:26 WBC 12.40 H RBC 4.11 L Hgb 12.3 L Hct 37.6 L MCV 91.5 MCH 29.9 MCHC 32.7 RDW Std Deviation 43.3 RDW Coeff of Jose 13.0 Plt Count 236 MPV 10.9 H Immature Gran % (Auto) 0.4 Neut % (Auto) 87.6 Lymph % (Auto) 5.7 [place] % (Auto) 6.2 Eos % (Auto) 0.0 Baso % (Auto) 0.1 Neut # (Auto) 10.86 H Lymph # (Auto) 0.71 L [place] # (Auto) 0.77 H Eos # (Auto) 0.00 Baso # (Auto) 0.01 Immature Gran # (Auto) 0.05 H Sodium Potassium Chloride Carbon Dioxide Anion Gap BUN Creatinine Est Cr Clr Drug Dosing Est GFR ( Amer) Est GFR (Non-Af Amer) BUN/Creatinine Ratio Glucose POC Glucose 178 H 174 H Calcium Magnesium C-Reactive Protein 07/31/20 07/31/20 05:26 07:22 WBC RBC Hgb Hct MCV MCH MCHC RDW Std Deviation RDW Coeff of Jose Plt Count MPV Immature Gran % (Auto) Neut % (Auto) Lymph % (Auto) [place] % (Auto) Eos % (Auto) Baso % (Auto) Neut # (Auto) Lymph # (Auto) [place] # (Auto) Eos # (Auto) Baso # (Auto) Immature Gran # (Auto) Sodium 136 Potassium 4.2 Chloride 104 Carbon Dioxide 27 Anion Gap 5.0 BUN 55 H Creatinine 1.53 H Est Cr Clr Drug Dosing 48.8 Est GFR ( Amer) 49.7 Est GFR (Non-Af Amer) 42.9 BUN/Creatinine Ratio 36.0 H Glucose 130 H POC Glucose 105 H Calcium 8.4 L Magnesium 3.0 H C-Reactive Protein Medications Administered Current Inpatient Medications Acetaminophen (Acetaminophen 325 Mg Tab) 650 mg PO Q4H PRN PRN Reason: Pain or Fever Stop: 08/28/20 00:06 Last Admin: 07/30/20 08:05 Dose: 650 mg Documented by: Azithromycin (Azithromycin 250 Mg Tab) 500 mg PO QAM [facility] Stop: 08/05/20 08:59 Last Admin: 07/30/20 07:37 Dose: 500 mg Documented by: Bicalutamide (Bicalutamide 50 Mg Tab) 50 mg PO DAILY [facility] Stop: 08/28/20 08:59 Last Admin: 07/30/20 07:37 Dose: 50 mg Documented by: Furosemide (Furosemide 20 Mg Tab) 20 mg PO DAILY [facility] Stop: 08/28/20 08:59 Last Admin: 07/30/20 07:37 Dose: 20 mg Documented by: Heparin Sodium (Porcine) (Heparin Sod 5,000 Unit/0.5 Ml Vial) 5,000 units SQ Q8 [facility] Stop: 08/28/20 05:59 Last Admin: 07/31/20 05:57 Dose: 5,000 units Documented by: Ceftriaxone Sodium 2,000 mg/ (Dextrose) 70 mls @ 100 mls/hr IV DAILY@0900 [facility]; Protocol Stop: 08/05/20 08:59 Last Infusion: 07/30/20 09:26 Dose: Infused Documented by: Dexamethasone 20 mg/ Dextrose 30 mls @ 0.833 mls/min IV DAILY [facility] Stop: 08/10/20 08:59 Morphine Sulfate (Morphine Sulfate 2 Mg/Ml Carp) 2 mg IV Q4H PRN PRN Reason: Pain Stop: 08/13/20 09:24 Last Admin: 07/31/20 05:57 Dose: 2 mg Documented by: Ondansetron HCl (Ondansetron Inj 2 Mg/Ml 2 Ml Vial) 4 mg IV Q6H PRN PRN Reason: Nausea Stop: 08/28/20 00:06 Polyethylene Glycol (Polyethylene (Miralax) 17 Gm Pack) 17 gm PO DAILY [facility] Stop: 08/28/20 08:59 Last Admin: 07/30/20 07:37 Dose: 17 gm Documented by: Polyethylene Glycol (Polyethylene (Miralax) 17 Gm Pack) 17 gm PO DAILY PRN PRN Reason: Constipation Stop: 08/28/20 00:06 Tamsulosin HCl (Tamsulosin Hcl 0.4 Mg Cap) 0.4 mg PO DAILY [facility] Stop: 08/28/20 08:59 Last Admin: 07/30/20 07:37 Dose: 0.4 mg Documented by: Triamcinolone Acetonide (Triamcinolone Acet 0.1% Cr 15 Gm Tube) 1 appln TOP TID [facility] Stop: 08/28/20 08:59 Last Admin: 07/30/20 20:30 Dose: 1 appln Documented by: Vitamin D (Cholecalciferol 1,000 Units 25 Mcg Tab) 1,000 units PO DAILY [facility] Stop: 08/28/20 08:59 Last Admin: 07/30/20 07:37 Dose: 1,000 units Documented by: PG Care Time/CCT Total # of Minutes Spent Total Time Spent with Patient: Total time spent is greater than 50% in coordination of care (as documented) at patient's floor/unit and/or counseling patient: Coding Level of Care Code 00999 Subseq Hosp Care Lvl 3 Diagnoses Acute respiratory failure with hypoxia J96.01 COVID-19 U07.1 Psoriasis L40.9 CKD (chronic kidney disease), stage III N18.30 Chronic kidney disease stage 3 subtype: unspecified whether 3a or 3b Prostate cancer metastatic to bone C61 Acute kidney injury superimposed on CKD N17.9 Constipation K59.00 (1) CKD (chronic kidney disease), stage III Chronic kidney disease stage 3 subtype: unspecified whether 3a or 3b Qualified Code(s): N18.30 - Chronic kidney disease, stage 3 unspecified
[2020-07-31] MEDS: cefTRIAXone SODIUM 2,000 MG in DEXTROSE 5% 50 ML IV SCH (08:06)
[2020-07-31] MEDS: POLYETHYLENE (MIRALAX) 17 GM PACK PO SCH (08:07)
[2020-07-31] MEDS: AZITHROMYCIN 250 MG TAB PO SCH (08:07)
[2020-07-31] MEDS: FUROSEMIDE 20 MG TAB PO SCH (08:07)
[2020-07-31] MEDS: BICALUTAMIDE 50 MG TAB PO SCH (08:07)
[2020-07-31] MEDS: TRIAMCINOLONE ACET 0.1% CR 15 GM TUBE TOP SCH ×3 (08:08→20:39)
[2020-07-31] MEDS: TAMSULOSIN HCL 0.4 MG CAP PO SCH (08:08)
[2020-07-31] MEDS: CHOLECALCIFEROL 1,000 UNITS 25 MCG TAB PO SCH (08:08)
[2020-07-31] MEDS: ACETAMINOPHEN 325 MG TAB PO PRN (08:21)
[2020-07-31] MEDS ORDERED: dexAMETHasone 20 MG in DEXTROSE 5% 25 ML IV SCH (09:00)
[2020-07-31] MEDS ORDERED: dexAMETHasone 20 MG in SYRINGE 0 ML IV SCH (09:00)
[2020-07-31] MEDS ORDERED: bisacodyL 10 MG SUPP PR STA (09:08)
[2020-07-31] MEDS: DOCUSATE SODIUM/SENNA 50/8.6MG TAB PO SCH (10:05)
[2020-07-31] MEDS ORDERED: POTASSIUM CHLORIDE CRTAB 20 MEQ TABCR PO STA (11:02)
[2020-07-31] MEDS ORDERED: FUROSEMIDE 20 MG in SYRINGE 0 ML IV ONE (11:02)
[2020-07-31] MEDS ORDERED: TOCILIZUMAB 800 MG in 0.9 % SODIUM CHLORIDE 60 ML IV ONE (11:15)
[2020-07-31] MEDS: INSULIN ASPART 100 UNITS/ML 3 ML PEN SC SCH ×2 (17:45→21:22)
[2020-08-01] MEDS: ONDANSETRON INJ 2 MG/ML 2 ML VIAL IV PRN (06:06)
[2020-08-01] MEDS: HEPARIN SOD 5,000 UNIT/0.5 ML VIAL SQ SCH ×3 (06:06→21:37)
[2020-08-01 06:36] LABS: Hematocrit (blood only) 39.6 % (42-52); Hemoglobin 12.9 g/dL (14.0-18.0); Mean Corpuscular Hemoglobin 29.7 pg (25-34); Mean Corpuscular Hgb Conc 32.6 g/dL (32-36); Mean Corpuscular Volume 91.2 fL (80-100); Platelet Count 274 K/uL (130-400); RDW Coefficient of Variation 12.9 % (11.5-14.5); RDW Standard Deviation 43.4 fL (36.4-46.3); Red Blood Count 4.34 M/uL (4.7-6.1); White Blood Count 11.55 K/uL (4.8-10.8)
[2020-08-01] MEDS ORDERED: MoRPHine SULFATE 4 MG/ML 1 ML CARP\\VIAL IV STA (07:11)
[2020-08-01] MEDS ORDERED: FUROSEMIDE 40 MG in SYRINGE 0 ML IV ONE (07:12)
[2020-08-01 07:13] LABS: BUN Creatinine Ratio 36.9 (10-20); Calcium 8.5 mg/dl (8.5-10.1); Creatinine Clr Calc Pharmacy 49.6 ml/min; Est GFR (African American) 50.1; Est GFR (Non-African American) 43.3; Potassium 4.6 mmol/L (3.5-5.1)
[2020-08-01 07:14] LABS: C Reactive Protein 14.2 mg/dl (0-0.29)
[2020-08-01] MEDS ORDERED: MoRPHine SULFATE 4 MG/ML 1 ML CARP\\VIAL ONE (07:18)
[2020-08-01] MEDS ORDERED: FUROSEMIDE 40 MG/4 ML VIAL IV ONE ×2 (07:18→07:30)
[2020-08-01] MEDS: POLYETHYLENE (MIRALAX) 17 GM PACK PO SCH (07:21)
[2020-08-01] MEDS: dexAMETHasone 6 MG in SYRINGE 0 ML IV SCH (07:21)
[2020-08-01] MEDS: DOCUSATE SODIUM/SENNA 50/8.6MG TAB PO SCH (07:21)
[2020-08-01] MEDS: cefTRIAXone SODIUM 2,000 MG in DEXTROSE 5% 50 ML IV SCH (07:31)
[2020-08-01] MEDS ORDERED: AZITHROMYCIN 500 MG in DEXTROSE 5% 250 ML IV ONE (07:45)
[2020-08-01] MEDS: INSULIN ASPART 100 UNITS/ML 3 ML PEN SC SCH ×3 (07:46→17:13)
--- NOTE | 2020-08-01 08:08 | Hospitalist Progress Note ---
Date of Service August 01, 2020 Assessment & Plan (1) Acute respiratory failure with hypoxia: due to COVID 19 pneumonia, possible bacterial infection as well worsening dyspnea, hypoxemia over the past 4 days since he was admitted was on 40L 100% FiO2 on 07/31 required CPAP last night and BIPAP this morning, tried again on high flow at 60L and 100% but dropped to 82%, needs the pressure spoke with patient again about intubation/ventilation, he agreed spoke with his daughter Annabella prior to intubation, she also agreed with plan intubated 08/[address] Sloan, will transfer to ICU status CXR today shows worsening infiltrates CRP still high at 14 continue dexamethasone 6mg IV daily (2) COVID-19: he is about two weeks into illness dexamethasone 6mg IV daily, day 5 did give one day of 20mg IV on 07/31, changed back to 6mg due to use of To cilizumab gave Tocilizumab on 07/31 due to increasing oxygen requirements and CRP of 14 despite steroids continue Rocephin/Zithromax x 5 days due to slightly elevated procalcitonin, day 4 today no role for Remdesivir on admission due to FREDO and being 10 days into illness required intubation on 08/01, change to ICU status will continue to follow closely Hep SC for DVT prophylaxis (3) Psoriasis: Chronic. Patient with diffuse plaques on extensor surfaces of arms and legs as well as abdomen and scalp. No evidence of bleeding or secondary infection -Continue Triamcinolone cream TID he says he does not take any biologics, has never had psoriatic arthritis (4) CKD (chronic kidney disease), stage III: Baseline Cr is 1.4-1.6. 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 Patient follows with Urology. He was treated with one dose of Firmagon and now receives Lupron injections q6mo. He reports self catheterizing several times daily -Placed Regan on admission -Continue Casodex -Flomax daily c/o back pain from metastatic disease, will give Morphine 2mg IV q4 (6) Acute kidney injury superimposed on CKD: see above, resolved, Cr is 1.5 again today (7) Constipation: no BM for 5 days mildly distended, hypoactive bowel sounds Miralax BID, Senokot qAM try suppository this afternoon if no BM (did not get this on 07/31) KUB today with moderate stool in colon, no obstruction or ileus seen Admission and Anticipated Discharge Date Admission Date: July 28, 2020 Subjective patient got worse over night, required CPAP got nauseated on CPAP, took off for some Zofran this morning, placed on 40L and 100% but his saturations were 80% placed on BIPAP, had to increase to 18/12 with 100% FiO2 and saturations were finally 90% increased work of breathing earlier this morning but now a little more calm evaluated with Dr. Rich at the bedside, will transfer to ICU status will try high flow at 60L and 100%, check a chest x-ray reviewed labs this morning, WBC 11k, Cr 1.5, CRP still high at 14 got Tocilizumab yesterday still no BM despite Miralax (multiple doses) and Senokot S, will check a KUB patient did not do well on high flow, placed back on CPAP Dr. Rich intubated this morning, placed central line I called his daughter after this happened to she is aware and I spoke with patient's in room 301 Review of Systems Review of Systems: All systems reviewed & are unremarkable except as noted in Subjective Constitutional: + fatigue and + weakness; no fever Respiratory: + cough, + dyspnea and + dyspnea on exertion Cardiovascular: no chest pain and no edema Gastrointestinal: + nausea and + constipation; no abdominal pain, no vomiting and no diarrhea/loose stools Physical Exam Constitutional: WD/WN, vitals as above well developed, well nourished, + ill appearing and + frail appearing Neck: trachea midline, no thyromegaly Respiratory: + labored breathing, + uses accessory muscles, + cough and + tachypneic; no respiratory distress Auscultation: lungs clear to auscultation bilaterally Cardiovascular: RRR, no murmur, no edema Gastrointestinal (Abdomen): normal bowel sounds, soft, nontender, no hepatosplenomegaly Inspection/Auscultation: + abdomen distended and + hypoactive bowel sounds Percussion/Palpation: + tympanic to percussion and + abdomen firm; abdomen nontender Musculoskeletal: no cyanosis or clubbing, extremities motor strength 5/5 Skin: no rashes, warm and dry Neurologic: patellar DTR's 2+ bilat, sensation intact and PERRL, EOMI, accommodation nl, no face palsy, no dysarthria Psychiatric: A+Ox3, euthymic affect Lymphatic: no cervical or axillary lymphadenopathy Results & Data Results & Data ([facility]) Vital Signs (Past 12 Hours) Vital Signs Temp Pulse Pulse Resp BP Pulse Ox 08/01/20 07:05 36.8 C 54 L 20 149/72 H 91 08/01/20 06:46 50 L 24 87 L 08/01/20 04:00 60 27 H 93 08/01/20 03:29 36.5 C 64 18 124/68 88 L 07/31/20 23:42 36.5 C 65 18 134/64 91 07/31/20 22:41 61 27 H 91 07/31/20 21:14 63 28 H 91 Laboratory Results Laboratory Results - last 24 hr 07/31/20 07/31/20 07/31/20 05:26 11:50 16:27 WBC RBC Hgb Hct MCV MCH MCHC RDW Std Deviation RDW Coeff of Jose Plt Count MPV Sodium Potassium Chloride Carbon Dioxide Anion Gap BUN Creatinine Est Cr Clr Drug Dosing Est GFR ( Amer) Est GFR (Non-Af Amer) BUN/Creatinine Ratio Glucose POC Glucose 208 H 238 H Calcium C-Reactive Protein 14.00 H 07/31/20 08/01/20 08/01/20 21:04 05:35 05:35 WBC 11.55 H RBC 4.34 L Hgb 12.9 L Hct 39.6 L MCV 91.2 MCH 29.7 MCHC 32.6 RDW Std Deviation 43.4 RDW Coeff of Jose 12.9 Plt Count 274 MPV 11.0 H Sodium 138 Potassium 4.6 Chloride 107 Carbon Dioxide 27 Anion Gap 4.0 BUN 56 H Creatinine 1.52 H Est Cr Clr Drug Dosing 49.6 Est GFR ( Amer) 50.1 Est GFR (Non-Af Amer) 43.3 BUN/Creatinine Ratio 36.9 H Glucose 130 H POC Glucose 225 H Calcium 8.5 C-Reactive Protein 14.20 H 08/01/20 07:13 WBC RBC Hgb Hct MCV MCH MCHC RDW Std Deviation RDW Coeff of Jose Plt Count MPV Sodium Potassium Chloride Carbon Dioxide Anion Gap BUN Creatinine Est Cr Clr Drug Dosing Est GFR ( Amer) Est GFR (Non-Af Amer) BUN/Creatinine Ratio Glucose POC Glucose 124 H Calcium C-Reactive Protein Diagnostic Findings KUB: IMPRESSION: 1. No evidence for a bowel obstruction. 2. Moderate amount of stool within the colon and rectum. Chest x-ray IMPRESSION: 1. Progression of extensive bilateral mid to lower lung airspace opacities consistent with pneumonia. 2. Redemonstration of skeletal metastases, better depicted on prior chest CT. Medications Administered Current Inpatient Medications Acetaminophen (Acetaminophen 325 Mg Tab) 650 mg PO Q4H PRN PRN Reason: Pain or Fever Stop: 08/28/20 00:06 Last Admin: 07/31/20 08:21 Dose: 650 mg Documented by: Heparin Sodium (Porcine) (Heparin Sod 5,000 Unit/0.5 Ml Vial) 5,000 units SQ Q8 [facility] Stop: 08/28/20 05:59 Last Admin: 08/01/20 06:06 Dose: 5,000 units Documented by: Ceftriaxone Sodium 2,000 mg/ (Dextrose) 70 mls @ 100 mls/hr IV DAILY@0900 [facility]; Protocol Stop: 08/05/20 08:59 Last Admin: 08/01/20 07:31 Dose: 100 mls/hr Documented by: Dexamethasone 6 mg/ Syringe 1.5 mls @ 0.75 mls/min IV DAILY [facility] Stop: 08/31/20 08:59 Last Admin: 08/01/20 07:21 Dose: 0.75 mls/min Documented by: Azithromycin 500 mg/ Dextrose 255 mls @ 125 mls/hr IV 0745 [facility] Stop: 08/01/20 09:47 Insulin Aspart (Insulin Aspart 100 Units/Ml 3 Ml Pen) 0 units SC ACHS [facility] Stop: 08/30/20 16:29 Last Admin: 08/01/20 07:46 Dose: Not Given Documented by: Ondansetron HCl (Ondansetron Inj 2 Mg/Ml 2 Ml Vial) 4 mg IV Q6H PRN PRN Reason: Nausea Stop: 08/28/20 00:06 Last Admin: 08/01/20 06:06 Dose: 4 mg Documented by: Polyethylene Glycol (Polyethylene (Miralax) 17 Gm Pack) 17 gm PO DAILY [facility]ORIE Stop: 08/28/20 08:59 Last Admin: 08/01/20 07:21 Dose: Not Given Documented by: Polyethylene Glycol (Polyethylene (Miralax) 17 Gm Pack) 17 gm PO DAILY PRN PRN Reason: Constipation Stop: 08/28/20 00:06 Senna/Docusate Sodium (Docusate Sodium/Senna 50/8.6mg Tab) 1 tab PO QAM LORIE Stop: 08/30/20 09:29 Last Admin: 08/01/20 07:21 Dose: Not Given Documented by: Triamcinolone Acetonide (Triamcinolone Acet 0.1% Cr 15 Gm Tube) 1 appln TOP TID [facility] Stop: 08/28/20 08:59 Last Admin: 07/31/20 20:39 Dose: 1 appln Documented by: PG Care Time/CCT Total # of Minutes Spent Total Time Spent: 62 Total Time Spent with Patient: Total time spent is greater than 50% in coordination of care (as documented) at patient's floor/unit and/or counseling patient: three visits to patients room this morning several discussion with Dr. Rich two separate talks with daughter over the phone spoke with his in room 301 reviewed chart, imaging, labs Prolonged Care Time Prolonged Care Time: Yes Total Prolonged Care Time: 32 Coding Level of Care Code 70829 Subseq Hosp Care Lvl 3 Diagnoses Acute respiratory failure with hypoxia J96.01 COVID-19 U07.1 Psoriasis L40.9 CKD (chronic kidney disease), stage III N18.30 Chronic kidney disease stage 3 subtype: unspecified whether 3a or 3b Prostate cancer metastatic to bone C61 Acute kidney injury superimposed on CKD N17.9 Constipation K59.00 Additional Codes Prolonged Care Time - Prolonged Care Time: Yes ([id number]) (1) CKD (chronic kidney disease), stage III Chronic kidney disease stage 3 subtype: unspecified whether 3a or 3b Qualified Code(s): N18.30 - Chronic kidney disease, stage 3 unspecified
[2020-08-01] MEDS: TRIAMCINOLONE ACET 0.1% CR 15 GM TUBE TOP SCH ×3 (08:13→21:33)
--- NOTE | 2020-08-01 08:42 | XRay Report ---
ERMA CLINICAL HISTORY: constipation COMPARISON STUDY: CT of the abdomen and pelvis October 30, 2019. FINDINGS: Cholecystectomy clips are noted. The bowel gas pattern is normal. Moderate amount stool wit hin the colon and rectum is noted. Sclerotic skeletal lesions are better depicted on CT of the abdome n and pelvis from October 30, 2019. IMPRESSION: 1. No evidence for a bowel obstruction. 2. Moderate amount of stool within the colon and rectum. ACT 112: Negative or not required by law. Electronically signed by: Vamsi Hayes M.D. 08/01/2020 8:40 AM
[2020-08-01] MEDS ORDERED: RAPID SEQUENCE INDUCTION BAG ONE (08:49)
[2020-08-01] MEDS ORDERED: DOPamine 400MG / 250ML D5W IV ONE (08:49)
[2020-08-01] MEDS ORDERED: MIDAZOLAM BOLUS FROM BAG IV PRN (08:52)
[2020-08-01] MEDS ORDERED: STAT IV Infusion **Titration per Protocol STA ×5 (08:52→20:44)
--- NOTE | 2020-08-01 08:53 | XRay Report ---
XR chest 1V portable CLINICAL HISTORY: RESPIRATORY PROBLEMS COMPARISON STUDY: Chest radiograph July 28, 2020. FINDINGS: There is no pneumothorax or pleural effusion. There has been progression of extensive bilat eral mid and lower lung airspace opacities since prior exam. Cardiomegaly is unchanged. Multiple bila teral rib lesions consistent with metastatic disease are better depicted on chest CT of June 01, 2019. IMPRESSION: 1. Progression of extensive bilateral mid to lower lung airspace opacities consistent with pneumonia. 2. Redemonstration of skeletal metastases, better depicted on prior chest CT. ACT 112: Negative or not required by law. Electronically signed by: Vamsi Hayes M.D. 08/01/2020 8:52 AM
--- NOTE | 2020-08-01 08:57 | Critical Care Consultation ---
Date of Consultation August 01, 2020 Assessment & Plan (1) Acute hypoxemic respiratory failure: Neurologic: Analgesics and sedation: Patient is currently sedated with Versed and fentanyl. We will switch to propofol. He is also on neuromuscular blockade with Nimbex to promote ventilator synchrony. He was mentating well prior to intubation. Delirium precautions Pulmonary: Ventilator/BiPAP settings: Intubated 08/01/2020 due to ARDS secondary to COVID-19 pneumonitis. Continue lung protective ventilation strategy. He is currently proned. We will continue proning for approximately 16 hours. He should be placed in a supine position at around 5 AM. His oxygenation improved substantia lly with proning. ABG is suggestive of combined hypoxemic and hypercapnic respiratory failure. Maintain pH above 7.25. Cardiovascular: No significant issues at present. Maintain mean arterial pressures above sixty- five. Gastrointestinal: Bowel regimen if on analgesics: We will order a soapsuds enema given constipation. Continue with MiraLAX, senna and docusate. We will start tube feeds tomorrow. Stress ulcer prophylaxis: Pepcid 20 mg IV daily. Renal: FREDO is improving. We will continue monitor urine output closely. Infectious disease: Repeat procalcitonin. Obtain sputum culture. Continue with Rocephin. Received tocilizumab 07/31/2020. Not a candidate for remdesivir due to FREDO. Hematologic: No issues at present. Endocrine: Pharmacy assisting in management of hyperglycemia. Lines and tubes: Right IJ placed 08/01/2020. Right radial arterial line placed 08/01/2020. Intubated 08/01/2020. Peripheral IVs and Regan catheter are in place. VTE prophylaxis: Heparin 5000 units subcu 3 times daily. CODE STATUS: Full code Family at bedside: None available at bedside due to the COVID-19 pandemic. Disposition: Remain in ICU. I have personally spent 120 minutes of critical care time in the direct management of this patient. This is a life/limb threatening event. This includes time spent evaluating patient, direct bedside care, chart review, placing orders, interpretation of diagnostic studies, discussion with consultants, patient, and family members, as well as other required patient management activities. This time is exclusive of all separately billable procedures, and teaching time and separate from and in addition to any other critical care service time. (2) COVID-19: (3) CKD (chronic kidney disease), stage III: History of Present Illness Reason for Consultation: COVID-19 and hypoxic respiratory failure Attending Physician: Chau Castro DO History of Present Illness 80-year-old male with a past medical history of plaque psoriasis, metastatic prostate cancer, hypertension and CKD stage III who presented to the hospital on 07/28/2020 due to COVID-19 pneumonia. He has been becoming progressively hypoxemic. He received tocilizumab 07/31/2020 due to an elevated CRP of fourteen. He is currently on day #5 of 6 mg Decadron. He did receive a 20 mg dose of Decadron yesterday. Patient notes that he is tired and mildly short of breath. He also has a nonproductive cough. He denies any chest pain at present. He did have some nausea earlier this morning while on CPAP and received Zofran. He is also constipated and has received several doses of MiraLAx and Senokot. He was on BiPAP set at 100% FiO2 upon my evaluation and saturating in the high 80s to low 90s. We did trial the patient on 60 L of high flow nasal cannula set at 100% and he would drop his saturations to the low 80s while laying in bed. Numerous discussions were had with the patient regarding CODE STATUS and intubation. Patient was agreeable to intubation. Patient was emergently intubated. I then placed a central line in the right internal jugular and a right radial arterial line. He was then proned after intubation. His oxygenation improved substantially after proning. He is currently on a PEEP of sixteen and FiO2 of 60%. He did have a period of desaturation about an hour after proning and a large mucous plug was suctioned out of his airway with improvement of his oxygenation. Of note, dopamine was started prior to the intubation due to sinus bradycardia. This was quickly discontinued after intubation. Allergies Allergy/AdvReac Type Severity Reaction Status Date / Time iodine Allergy Unknown Unknown Verified 07/28/20 21:21 Penicillins Allergy Unknown Unknown Verified 07/28/20 21:21 Home Medications Medication Instructions Recorded Confirmed Type polyethylene glycol 3350 [Miralax] 17 g PO DAILY #30 ea 06/04/19 07/28/20 Rx leuprolide (6 month) 45 mg 45 mg IM Q24W 08/25/19 07/28/20 History intramuscular syringe kit tamsulosin 0.4 mg capsule 0.4 mg PO DAILY #90 cap 01/10/20 07/28/20 Rx bicalutamide 50 mg tablet 50 mg PO DAILY tab 06/20/20 07/28/20 History triamcinolone acetonide 0.1 % 1 applic TOPICAL TID #80 g 06/20/20 07/28/20 Rx topical cream cholecalciferol (vitamin D3) 25 25 mcg PO DAILY 07/03/20 07/28/20 History mcg (1,000 unit) capsule furosemide 20 mg tablet 20 mg PO DAILY #90 tab 07/03/20 07/28/20 Rx Patient History Medical History Acute kidney injury superimposed on CKD Anemia Bilateral hydronephrosis Chronic deep vein thrombosis of femoral vein Constipation Depression Dysphagia Elevated PSA, greater than or equal to 20 ng/ml Enlarged prostate Hyperkalemia Hypertension Lower back pain Prostate cancer metastatic to bone Psoriasis Rib pain on left side Sinobronchitis Surgical History History of cataract extraction History of cholecystectomy Family History Mother , age 89 choking something stuck in her throat No problems noted. Father , age 88 coma No problems noted. Brother No problems noted. Brother No problems noted. Brother No problems noted. Brother No problems noted. Brother No problems noted. Brother No problems noted. Brother No problems noted. Brother No problems noted. Sister No problems noted. Sister No problems noted. Sister , age 54 cancer does not know type Cancer Son No problems noted. Daughter No problems noted. Daughter No problems noted. Other Family history non-contributory Denies family history of Ovarian cancer Prostate cancer Myocardial infarction Breast cancer Colorectal cancer Social History Smoking Status: Never smoker Second Hand Exposure: Yes (his son smokes around him at times ); Hx Alcohol Use: No Hx Substance Use: No Preferred Language: Spanish Communication Ability: Effective Visual Impairment: No Limitations Hearing Ability: Normal Surgical Scrub Technologist Required: No Beliefs That Will Affect Care: None marital status: Current Living Situation: Spouse Current Living Situation Comment: lives at home independently with current occupational status: retired 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 Feels Safe at Home: Yes Safety Concerns: Feels Safe At This Time Childhood Exposure to Second-Hand Smoke: Yes caffeine: Yes (tea 2 cups per day) during the past year weight has: decreased > 10 lbs Dental Care, Regularly: No Physical Activity Frequency: 1-2 Times per Week Seatbelt Use: always Sunscreen Use: No Assistive Devices: BiPap Review of Systems Review of Systems: All systems reviewed & are unremarkable except as noted in HPI & below Physical Exam Constitutional: + ill appearing and + in distress Eyes: PERRL, conjunctivae normal, anicteric sclerae Neck: normal visual inspection Respiratory: + retractions and + cough Auscultation: + diminished lung sounds Cardiovascular: RRR, no murmur, no edema Gastrointestinal (Abdomen): normal bowel sounds, soft, nontender, no hepatosplenomegaly Musculoskeletal: no cyanosis or clubbing, extremities motor strength 5/5 Skin: no rashes, warm and dry Neurologic: PERRL, EOMI, accommodation nl, no face palsy, no dysarthria Psychiatric: A+Ox3, euthymic affect Results & Data Results & Data ([facility]) Vital Signs (Past 12 Hours) Vital Signs Temp Pulse Pulse Resp BP Pulse Ox 08/01/20 07:05 98.2 F 54 L 20 149/72 H 91 08/01/20 06:46 50 L 24 87 L 08/01/20 04:00 60 27 H 93 08/01/20 03:29 97.7 F 64 18 124/68 88 L 07/31/20 23:42 97.7 F 65 18 134/64 91 07/31/20 22:41 61 27 H 91 07/31/20 21:14 63 28 H 91 I reviewed the patient's vital signs, labs and imaging. I discussed with the hospitalist at bedside on multiple occasions. Coding Level of Care Code 33126 Prolonged Care (int'l) Diagnoses Acute hypoxemic respiratory failure J96.01 COVID-19 U07.1 CKD (chronic kidney disease), stage III N18.30 Time Spent (min) 120
[2020-08-01] MEDS ORDERED: FUROSEMIDE 40 MG TAB PO SCH (09:00)
[2020-08-01] MEDS ORDERED: MIDAZOLAM HCL 125 MG/250 ML BAG IV SCH (09:00)
[2020-08-01] MEDS ORDERED: DOPamine / D5W 400 MG/250 ML BAG IV SCH (09:00)
[2020-08-01] MEDS: fentaNYL DRIP 1,250 MCG/250 ML BAG IV SCH ×2 (09:23→23:25)
[2020-08-01] MEDS: ATROPINE SULFATE 0.1 MG/ML 10ML SYR IV ONE (10:08)
--- NOTE | 2020-08-01 10:15 | Procedure Note ---
Procedure Note Date of Service August 01, 2020 Note INTERNAL JUGULAR CENTRAL LINE PROCEDURE NOTE: Procedure: Internal Jugular Central Line Placement Indication: Central Drug Administration, Poor Venous Access, Multiple Lab Draws Necessary, etc. Anesthesia: Continuous Versed and fentanyl were infusing none/eight lidocaine 1% Verbal consent was obtained from the patient prior to intubation. He understood the risks and benefits of the procedure. A time-out was completed verifying correct patient, procedure, site, positioning, and implants(s) or special equipment if applicable. Patients right neck was cleansed and draped in the typical sterile fashion using Chloraprep. The Internal Jugular Vein and Carotid Artery were identified using ultrasound. The superficial tissue was anesthetized using eight mL of 1% lidocaine without epinephrine under direct visualization with the ultrasound. After adequate anesthetization was achieved, the Internal Jugular vein was cannulated under direct ultrasound guidance using an introducer needle on a syringe. Good venous blood return was maintained prior to removal of syringe from introducer needle. Using Seldinger Technique, a guide wire was advanced through the introducer needle without resistance. The introducer needle was removed and ultrasound images were obtained of the guide wire within the Internal Jugular Vein and saved to the patients medical record. A small incision was made in penetrating fashion at the guide wire insertion site utilizing an 11 blade scalpel. The dilator was advanced to the vessel without resistance. The dilator was exchanged for the triple lumen catheter which was advanced into the vessel without r esistance. The guide wire was removed intact from the catheter without issue. Claves were placed on each catheter tip with confirmation of good blood flow from each lumen. Each port was easily flushed with sterile saline. The catheter was placed at 16 cm [address] in place. BioPatch was applied to the catheter and a sterile Tegaderm dressing was applied over the catheter with careful attention to sterility. Patient tolerated procedure well. No immediate complications were met. Post procedure x-ray was completed, placement was appropriate and no pneumothorax was noted. Procedural Ultrasound Guidance used. Coding CPT Codes Tubes, Drains, and Vasc Access - Tubes, Drains, and Vasc Access: [id number] Place catheter in vein superior or inferior vena cava ([id number]) Tubes, Drains, and Vasc Access - Tubes, Drains, and Vasc Access: [id number] Ultrasonic Guide For Needle Placement ([id number]) [facility] [place] Procedure Codes (Charges) Tubes, Drains, and Vasc Access Procedure 1: Tubes, Drains, and Vasc Access: [id number] Place catheter in vein superior or inferior vena cava Procedure 2: Tubes, Drains, and Vasc Access: [id number] Ultrasonic Guide For Needle Placement
--- NOTE | 2020-08-01 10:16 | Procedure Note ---
Procedure Note Date of Service August 01, 2020 Note INTUBATION PROCEDURE NOTE: Dr. Enrique Rich A time-out was completed verifying correct patient, procedure, site, positioning. Patient was evaluated and required intubation for acute hypoxemic respiratory failure from COVID-19 pneumonia. Sedative agent used: 25 mg etomidate Paralysis agent used: 75 mg rocuronium Verbal consent was obtained from the patient prior to the intubation due to his worsening hypoxemic respiratory failure. He understood the risks and benefits and agreed to the procedure. Number of attempts: 1 The patient was prepared in the appropriate fashion. Sedation was achieved utilizing etomidate and rocuronium. The patient was easily ventilated using [id number] to achieve adequate oxygenation. A 8.0 Indian endotracheal tube was placed under glide scope guidance to 25 cm at the lip. The stylette was removed and balloon was inflated with 10mL of air. Appropriate Colorimetric change was appreciated. Bilateral breath sounds were heard without air sounds in the abdomen. Post intubation chest x-ray demonstrates adequate positioning of the endotracheal tube. Patient tolerated the procedure well and there were no immediate complications. Coding CPT Codes Resuscitation - Resuscitation: 34479 Endotracheal Intubation, emergency ([id number]) [facility] [place] Procedure Codes (Charges) Resuscitation Resuscitation: 90385 Endotracheal Intubation, emergency
--- NOTE | 2020-08-01 10:16 | Procedure Note ---
Procedure Note Date of Service August 01, 2020 Note ARTERIAL LINE PROCEDURE NOTE: Procedure: Arterial Line Placement Indication: Monitoring on Pressors Anesthesia: Continuous Versed and fentanyl were infusing at the time Consent was obtained from the patient verbally prior to the intubation. Indication, risks, and benefits were explained at length. A time-out was completed verifying correct patient, procedure, site, positioning, and implant(s) or special equipment if applicable. Patients right wrist was prepped and draped in the usual sterile fashion. Ultrasound guidance was used to aid needle placement. A 20g Arrow arterial line was introduced into the right radial artery. Catheter was threaded, and the needle was removed with appropriate blood return. Good waveform was observed. The patient tolerated the procedure well. Blood Loss: Minimal Complications: None Coding CPT Codes Tubes, Drains, and Vasc Access - Tubes, Drains, and Vasc Access: [id number] Insertion Catheter, Artery ([id number]) Tubes, Drains, and Vasc Access - Tubes, Drains, and Vasc Access: [id number] Ultrasonic Guide For Needle Placement ([id number]) [facility] [place]arges) Tubes, Drains, and Vasc Access Procedure 3: Tubes, Drains, and Vasc Access: [id number] Insertion Catheter, Artery Procedure 4: Tubes, Drains, and Vasc Access: [id number] Ultrasonic Guide For Needle Placement
--- NOTE | 2020-08-01 10:22 | XRay Report ---
XR chest 1V portable HISTORY: hypoxemia COMPARISON: Chest 08/01/2020. FINDINGS: Endotracheal tube terminates proximal a 4.5 cm and the ayala. Nasogastric tube terminates in the stomach. No pneumothorax. No change in the hazy bilateral airspace opacities most pronounced w ithin the mid to lower lung zones. The heart remains borderline enlarged. A right jugular central jhonny ous catheter terminates at the SVC. IMPRESSION: 1. Satisfactory support line placement. 2. No change in the bilateral airspace opacities consistent with a pneumonia. ACT 112: Negative or not required by law. Electronically signed by: Tung Brynat M.D. 08/01/2020 10:21 AM
[2020-08-01] MEDS: CISATRACURIUM BESYLATE 40 MG in 0.9 % SODIUM CHLORIDE 80 ML IV SCH ×4 (11:03→22:42)
[2020-08-01 11:53] LABS: iSTAT Arterial Blood Gas HCO3 29 meg/L (19-24); iSTAT Arterial Blood Gas pCO2 60 mmHg (35-46); iSTAT Arterial Blood Gas pO2 67 mmHg (80-95); iSTAT Carbon Dioxide 31 mmol/L (24-31); iSTAT FiO2 80 %; iSTAT Site Art Line
[2020-08-01] MEDS ORDERED: PROPOFOL BOLUS FROM BAG IV PRN (12:37)
--- NOTE | 2020-08-01 13:25 | XRay Report ---
XR chest 1V portable HISTORY: Respiratory distress. COMPARISON: Chest 08/01/2020. FINDINGS: Endotracheal tube terminates 5.5 cm from the ayala. Nasogastric tube terminates in the sto mach. A right jugular central venous catheter terminates in the expected location of the SVC. No pneu mothorax. No pleural effusions. Old, healed bilateral rib fractures. The heart remains enlarged. Ther e is a tortuous thoracic aorta. Perihilar interstitial thickening and hazy airspace opacities have sl ightly improved. IMPRESSION: 1. Slight improved aeration within the perihilar hazy airspace opacities. 2. The endotracheal tube terminates 5.5 cm and the ayala. This could be advanced by approximately 1 to 2 cm. 3. Stable cardiomegaly. ACT 112: Negative or not required by law. Electronically signed by: Tung Bryant M.D. 08/01/2020 1:23 PM
[2020-08-01] MEDS: propofoL 1,000 MG/100 ML VIAL IV SCH ×4 (13:34→21:46)
[2020-08-01] MEDS: POLYETHYLENE (MIRALAX) 17 GM PACK GT PRN (17:59)
[2020-08-01] MEDS: MIDAZOLAM HCL 125 MG/250 ML BAG IV PRN (21:33)
[2020-08-01] MEDS: SENNOSIDES 8.8 MG/5 ML UDC GT PRN (22:16)
[2020-08-02] MEDS: INSULIN ASPART 100 UNITS/ML 3 ML PEN SC SCH ×4 (00:13→18:13)
[2020-08-02] MEDS: CISATRACURIUM BESYLATE 40 MG in 0.9 % SODIUM CHLORIDE 80 ML IV SCH ×5 (03:32→22:32)
[2020-08-02] MEDS: propofoL 1,000 MG/100 ML VIAL IV SCH ×2 (03:33→12:40)
--- NOTE | 2020-08-02 04:18 | Communication Note ---
Date of Service: August 02, 2020 Procedure: Supination Maneuver Attending: Dr. Rich APC: Arnoldo Coles PA-C Indication: Requiring lung recruitment intervention in the setting of advanced ARDS with poor lung compliance and oxygenation on standard ventilator settings. Patient requiring return to supination in the setting of advanced ARDS per imaging, ventilator requirements, and calculated P:F ratio. Appropriate staff was assembled including myself, Respiratory Therapy, and Nursing Staff. A time- out was completed verifying correct patient, time from recent pronation/supination, current ventilator settings, review of any prior issues during pronation/supination maneuvers. Patient was fully undressed as to be able to view all current IV sites, central venous access sites, arterial lines, endotracheal tube, Regan catheter, etc. After properly identifying/securing all lines, tubes, etc., the patient was ``papoosed using flat sheets. On my count, the patient was slid to the edge of the bed. After reevaluating all lines, tubes, etc., the patient was then placed on their side allowing for RT to maintain control of ET tube and ready for completion of Supination maneuver. Fi nal check of all lines, tubes, etc. was completed by myself and nursing staff. Blood pressure, heart rhythm, and oxygen saturations were monitored for several minutes s/p maneuver. Discussion was held with patients RN and RT regarding ongoing management. Patient tolerated maneuver well. No immediate complications were noted. TIME SUPINE: 0415 I have personally spent 20 minutes of critical care time in the direct management of this patient. This is a life/limb threatening event. This includes time spent evaluating patient, direct bedside care, chart review, placing orders, interpretation of diagnostic studies, discussion with consultants, patient, and family members, as well as other required patient management activities. This time is exclusive of all separately billable procedures, and teaching time and separate from and in addition to any other critical care service time. Coding Level of Care Code Critical Care 1st 30-74 mins Time Spent (min) 20
[2020-08-02 04:23] LABS: iSTAT Art Bld Gas pCO2 Correct 43 mmHg (35-46); iSTAT Art Bld Gas pH Corrected 7.394 (7.35-7.45); iSTAT Arterial Blood Gas HCO3 27 meg/L (19-24); iSTAT Arterial Blood Gas pCO2 43 mmHg (35-46); iSTAT Arterial Blood Gas pH 7.39 (7.35-7.45); iSTAT Arterial Blood Gas pO2 74 mmHg (80-95); iSTAT Arterial Blood Gas pO2 C 74; iSTAT Carbon Dioxide 28 mmol/L (24-31); iSTAT FiO2 40 %; iSTAT Hematocrit 38 % (42-52); iSTAT Hemoglobin 12.9 g/dl (14.0-18.0); iSTAT Potassium 4.6 mmol/L (3.3-5.0); iSTAT Site Art Line; iSTAT Sodium 138 mmol/L (135-144)
[2020-08-02 06:06] LABS: Hematocrit (blood only) 39.1 % (42-52); Hemoglobin 12.6 g/dL (14.0-18.0); Mean Corpuscular Hemoglobin 29.8 pg (25-34); Mean Corpuscular Hgb Conc 32.2 g/dL (32-36); Mean Corpuscular Volume 92.4 fL (80-100); Mean Platelet Volume 10.8 fL (7.4-10.4); Platelet Count 299 K/uL (130-400); RDW Coefficient of Variation 13.1 % (11.5-14.5); RDW Standard Deviation 43.9 fL (36.4-46.3); Red Blood Count 4.23 M/uL (4.7-6.1); White Blood Count 7.86 K/uL (4.8-10.8)
[2020-08-02] MEDS ORDERED: STAT IV Infusion **Titration per Protocol STA (06:24)
[2020-08-02 06:30] LABS: BUN Creatinine Ratio 42.1 (10-20); C Reactive Protein 8.34 mg/dl (0-0.29); Calcium 8.3 mg/dl (8.5-10.1); Creatinine Clr Calc Pharmacy 47.8 ml/min; Est GFR (African American) 49.7; Est GFR (Non-African American) 42.9; Magnesium 3.1 mg/dl (1.8-2.4); Potassium 4.7 mmol/L (3.5-5.1)
[2020-08-02] MEDS: HEPARIN SOD 5,000 UNIT/0.5 ML VIAL SQ SCH ×3 (07:09→22:32)
[2020-08-02] MEDS: dexAMETHasone 6 MG in SYRINGE 0 ML IV SCH (07:26)
[2020-08-02] MEDS: TRIAMCINOLONE ACET 0.1% CR 15 GM TUBE TOP SCH ×3 (07:27→20:08)
[2020-08-02] MEDS: FAMOTIDINE 20 MG in SYRINGE 3 ML IV SCH (07:35)
[2020-08-02] MEDS: cefTRIAXone SODIUM 2,000 MG in DEXTROSE 5% 50 ML IV SCH (07:45)
--- NOTE | 2020-08-02 08:50 | XRay Report ---
XR chest 1V portable CLINICAL HISTORY: Respiratory failure COMPARISON STUDY: 08/01/2020 FINDINGS: The heart remains enlarged. There is aortic tortuosity. There is an endotracheal tube posit ioned 6 cm above the ayala. There is an enteric tube which passes into the stomach. There is a right internal jugular central venous catheter projected superior vena cava. There are persistent bilatera l pulmonary airspace opacities.[ IMPRESSION: 1. Persistent bilateral pulmonary airspace opacities similar to the prior study 2. Endotracheal tube 6 cm above the ayala ACT 112: Negative or not required by law. Electronically signed by: Graham Horta M.D. 08/02/2020 8:49 AM
[2020-08-02] MEDS: ATROPINE SULFATE 0.1 MG/ML 10ML SYR IV ONE (09:25)
--- NOTE | 2020-08-02 10:02 | Hospitalist Progress Note ---
Date of Service August 02, 2020 Assessment & Plan (1) Acute respiratory failure with hypoxia: due to COVID 19 pneumonia, possible bacterial infection as well worsening dyspnea, hypoxemia over 4 days since he was admitted progressed from Vapotherm to being dependent on BIPAP/CPAP spoke with patient again about intubation/ventilation, he agreed spoke with his daughter Annabella prior to intubation, she also agreed with plan intubated 08/[address] Sloan, will transfer to ICU status prone and sedated, paralyzed today PEEP 18 and FiO2 80% pH normal on ABG this morning, PaO2 [address] Rich continue dexamethasone 6mg IV daily (2) COVID-19: he is about two weeks into illness dexamethasone 6mg IV daily, day 6 gave Tocilizumab on 07/31 due to increasing oxygen requirements and CRP of 14 despite steroids continue Rocephin/Zithromax x 5 days due to slightly elevated procalcitonin, day 5 today defer to ICU for further antibiotics no role for Remdesivir on admission due to FREDO and being 10 days into illness required intubation on 08/01, change to ICU status will continue to follow closely Hep SC for DVT prophylaxis (3) Psoriasis: Chronic. Patient with diffuse plaques on extensor surfaces of arms and legs as well as abdomen and scalp. No evidence of bleeding or secondary infection -Continue Triamcinolone cream TID he says he does not take any biologics, has never had psoriatic arthritis (4) CKD (chronic kidney disease), stage III: Baseline Cr is 1.4-1.6. 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 Patient follows with Urology. He was treated with one dose of Firmagon and now receives Lupron injections q6mo. He reports self catheterizing several times daily -Placed Regan on admission -Continue Casodex -Flomax daily (6) Acute kidney injury superimposed on CKD: see above, resolved, Cr is 1.5 again today (7) Constipation: no BM for 6 days mildly distended, hypoactive bowel sounds can try Miralax down OGT once he is no longer paralyzed has rectal tube to monitor for stools Admission and Anticipated Discharge Date Admission Date: July 28, 2020 Subjective patient ventilated and prone PEEP is 18 and FiO2 80% currently and assist control CRP going down to 8, Cr is 1.5 updated his daughter Annabella Review of Systems Review of Systems: Unobtainable due to cognitive status and Unobtainable due to endotracheal tube Physical Exam Constitutional: + mechanically ventilated (prone, sedated, paralyzed) Neck: trachea midline, no thyromegaly Respiratory: symmetric chest movement Auscultation: lungs clear to auscult ation bilaterally Cardiovascular: RRR, no murmur, no edema Gastrointestinal (Abdomen): Inspection/Auscultation: abdomen normal to inspection (difficult to exam, laying prone, has rectal tube) Musculoskeletal: no cyanosis or clubbing, extremities motor strength 5/5 Skin: no rashes, warm and dry Neurologic: patellar DTR's 2+ bilat, sensation intact and PERRL, EOMI, accommodation nl, no face palsy, no dysarthria Psychiatric: A+Ox3, euthymic affect Lymphatic: no cervical or axillary lymphadenopathy Results & Data Results & Data ([facility]) Vital Signs (Past 12 Hours) Vital Signs Temp Pulse Pulse Resp BP BP BP 08/02/20 09:45 66 24 120/88 08/02/20 09:00 49 L 24 100/51 L 08/02/20 08:07 55 L 24 08/02/20 08:00 65 65 24 139/70 131/73 139/70 08/02/20 07:00 36.5 C 65 24 180/79 H 08/02/20 04:00 53 L 08/02/20 03:30 55 L 08/02/20 03:27 52 L 24 08/02/20 03:00 50 L 08/02/20 02:45 51 L 138/91 08/02/20 02:30 52 L 08/02/20 02:00 51 L 08/02/20 01:45 51 L 153/91 H 08/02/20 01:30 51 L 08/02/20 01:00 51 L 08/02/20 00:45 52 L 131/84 08/02/20 00:30 53 L 08/02/20 00:00 62 08/01/20 23:45 56 L 165/93 H 08/01/20 23:30 63 08/01/20 23:16 56 L 08/01/20 23:12 59 L 24 08/01/20 23:00 36.6 C 56 L 57 L 24 150/67 H 08/01/20 22:30 56 L 08/01/20 22:04 54 L 128/80 Pulse Ox 08/02/20 09:45 86 L 08/02/20 09:00 86 L 08/02/20 08:07 90 08/02/20 08:00 90 08/02/20 07:00 96 08/02/20 04:00 08/02/20 03:30 85 L 08/02/20 03:27 96 08/02/20 03:00 86 L 08/02/20 02:45 88 L 08/02/20 02:30 89 L 08/02/20 02:00 92 08/02/20 01:45 90 08/02/20 01:30 85 L 08/02/20 01:00 85 L 08/02/20 00:45 86 L 08/02/20 00:30 87 L 08/02/20 00:00 86 L 08/01/20 23:45 89 L 08/01/20 23:30 93 08/01/20 23:16 08/01/20 23:12 91 08/01/20 23:00 99 08/01/20 22:30 100 08/01/20 22:04 97 Laboratory Results Laboratory Results - last 24 hr 08/01/20 08/01/20 08/01/20 05:20 11:34 11:36 WBC RBC Hgb POC Hgb Hct POC Hct MCV MCH MCHC RDW Std Deviation RDW Coeff of Jose Plt Count MPV Sample Site Art Line POC pH 7.30 L POC pCO2 60 H POC pO2 67 L POC HCO3 29 H POC Total CO2 31 POC Base Excess 3.0 H ABG pH (Temp Correct) ABG pCO2 (Temp Corrct POC ABG pO2 at Pt Temp POC ABG O2 Sat 90.0 Ananda Test NA O2 Delivery Device Ventilator POC O2 Rate 20 Minute Ventilation POC FiO2 80 Tidal Volume 400 PEEP 20 POC Sodium Sodium POC Potassium Potassium Chloride Carbon Dioxide Anion Gap BUN Creatinine Est Cr Clr Drug Dosing Est GFR ( Amer) Est GFR (Non-Af Amer) BUN/Creatinine Ratio Glucose POC Glucose 174 H Calcium Phosphorus Magnesium C-Reactive Protein Procalcitonin 0.30 08/01/20 08/02/20 08/02/20 16:19 00:00 04:00 WBC RBC Hgb POC Hgb 12.9 L Hct POC Hct 38 L MCV MCH MCHC RDW Std Deviation RDW Coeff of Jose Plt Count MPV Sample Site Art Line POC pH 7.39 POC pCO2 43 POC pO2 74 L POC HCO3 27 H POC Total CO2 28 POC Base Excess 2.0 H ABG pH (Temp Correct) 7.394 ABG pCO2 (Temp Corrct 43 POC ABG pO2 at Pt Temp 74 POC ABG O2 Sat 95.0 Ananda Test NA O2 Delivery Device Ventilator POC O2 Rate 24 Minute Ventilation 400 POC FiO2 40 Tidal Volume 400 PEEP 14 POC Sodium 138 Sodium POC Potassium 4.6 Potassium Chloride Carbon Dioxide Anion Gap BUN Creatinine Est Cr Clr Drug Dosing Est GFR ( Amer) Est GFR (Non-Af Amer) BUN/Creatinine Ratio Glucose POC Glucose 157 H 140 H Calcium Phosphorus Magnesium C-Reactive Protein Procalcitonin 08/02/20 08/02/20 08/02/20 05:19 05:19 05:19 WBC 7.86 RBC 4.23 L Hgb 12.6 L POC Hgb Hct 39.1 L POC Hct MCV 92.4 MCH 29.8 MCHC 32.2 RDW Std Deviation 43.9 RDW Coeff of Jose 13.1 Plt Count 299 MPV 10.8 H Sample Site POC pH POC pCO2 POC pO2 POC HCO3 POC Total CO2 POC Base Excess ABG pH (Temp Correct) ABG pCO2 (Temp Corrct POC ABG pO2 at Pt Temp POC ABG O2 Sat Ananda Test O2 Delivery Device POC O2 Rate Minute Ventilation POC FiO2 Tidal Volume PEEP POC Sodium Sodium 138 POC Potassium Potassium 4.7 Chloride 107 Carbon Dioxide 25 Anion Gap 6.0 BUN 64 H Creatinine 1.53 H Est Cr Clr Drug Dosing 47.8 Est GFR ( Amer) 49.7 Est GFR (Non-Af Amer) 42.9 BUN/Creatinine Ratio 42.1 H Glucose 129 H POC Glucose Calcium 8.3 L Phosphorus 5.0 H Magnesium 3.1 H C-Reactive Protein 8.34 H Procalcitonin 0.20 08/02/20 06:51 WBC RBC Hgb POC Hgb Hct POC Hct MCV MCH MCHC RDW Std Deviation RDW Coeff of Jose Plt Count MPV Sample Site POC pH POC pCO2 POC pO2 POC HCO3 POC Total CO2 POC Base Excess ABG pH (Temp Correct) ABG pCO2 (Temp Corrct POC ABG pO2 at Pt Temp POC ABG O2 Sat Ananda Test O2 Delivery Device POC O2 Rate Minute Ventilation POC FiO2 Tidal Volume PEEP POC Sodium Sodium POC Potassium Potassium Chloride Carbon Dioxide Anion Gap BUN Creatinine Est Cr Clr Drug Dosing Est GFR ( Amer) Est GFR (Non-Af Amer) BUN/Creatinine Ratio Glucose POC Glucose 119 H Calcium Phosphorus Magnesium C-Reactive Protein Procalcitonin Medications Administered Current Inpatient Medications Acetaminophen (Acetaminophen 325 Mg Tab) 650 mg PO Q4H PRN PRN Reason: Pain or Fever Stop: 08/28/20 00:06 Last Admin: 07/31/20 08:21 Dose: 650 mg Documented by: Fentanyl Citrate (Fentanyl Bolus From Bag) 50 mcg IV Q60M PRN PRN Reason: Pain or Agitation Stop: 08/15/20 08:51 Heparin Sodium (Porcine) (Heparin Sod 5,000 Unit/0.5 Ml Vial) 5,000 units SQ Q8 [facility] Stop: 08/28/20 05:59 Last Admin: 08/02/20 07:09 Dose: 5,000 units Documented by: Ceftriaxone Sodium 2,000 mg/ (Dextrose) 70 mls @ 100 mls/hr IV DAILY@0900 [facility]; Protocol Stop: 08/05/20 08:59 Last Infusion: 08/02/20 08:23 Dose: Infused Documented by: Dexamethasone 6 mg/ Syringe 1.5 mls @ 0.75 mls/min IV DAILY [facility] Stop: 08/31/20 08:59 Last Admin: 08/02/20 07:26 Dose: 0.75 mls/min Documented by: Fentanyl Citrate (Fentanyl Drip) 1,250 mcg in 250 mls @ 20 mls/hr IV .[id number] [facility]; Protocol Stop: 08/15/20 08:59 Last Admin: 08/01/20 23:25 Dose: 100 mcg/hr, 20 mls/hr Documented by: Cisatracurium Besylate 40 mg/ (Sodium Chloride) 100 mls @ 22.59 mls/hr IV .Q4H26M [facility]; Protocol Stop: 08/31/20 10:14 Last Admin: 08/02/20 08:12 Dose: 2 mcg/kg/min, 22.6 mls/hr Documented by: Propofol (Diprivan) 1,000 mg in 100 mls @ 0 mls/hr IV .Q0M [facility]; Protocol Stop: 08/04/20 12:44 Last Titration: 08/02/20 06:43 Dose: 0 mcg/kg/min, 0 mls/hr Documented by: Famotidine 20 mg/ Syringe 5 mls @ 2.5 mls/min IV DAILY [facility] Stop: 09/01/20 08:59 Last Admin: 08/02/20 07:35 Dose: 2.5 mls/min Documented by: Midazolam HCl (Versed) 125 mg in 250 mls @ 2 mls/hr IV .Q96H PRN; Protocol PRN Reason: agitation Stop: 08/31/20 20:43 Last Admin: 08/01/20 21:33 Dose: 1 mg/hr, 2 mls/hr Documented by: Norepinephrine Bitartrate (Levophed/D5w) 8 mg in 508 mls @ 18.898 mls/hr IV .Q24H [facility]; Protocol Stop: 09/01/20 06:29 Insulin Aspart (Insulin Aspart 100 Units/Ml 3 Ml Pen) 0 units SC Q6 [facility] Stop: 08/31/20 17:59 Last Admin: 08/02/20 07:08 Dose: Not Given Documented by: Midazolam HCl (Midazolam Bolus From Bag) 2 mg IV Q60M PRN PRN Reason: Sedation Stop: 08/31/20 20:43 Ondansetron HCl (Ondansetron Inj 2 Mg/Ml 2 Ml Vial) 4 mg IV Q6H PRN PRN Reason: Nausea Stop: 08/28/20 00:06 Last Admin: 08/01/20 06:06 Dose: 4 mg Documented by: Polyethylene Glycol (Polyethylene (Miralax) 17 Gm Pack) 17 gm GT DAILY PRN PRN Reason: Constipation Stop: 08/31/20 17:46 Last Admin: 08/01/20 17:59 Dose: 17 gm Documented by: Propofol (Propofol Bolus From Bag) 20 mg IV Q5M PRN PRN Reason: Sedation Stop: 08/04/20 12:36 Sennosides (Sennosides 8.8 Mg/5 Ml Udc) 8.8 mg GT DAILY PRN PRN Reason: Constipation Stop: 08/31/20 17:47 Last Admin: 08/01/20 22:16 Dose: 8.8 mg Documented by: Triamcinolone Acetonide (Triamcinolone Acet 0.1% Cr 15 Gm Tube) 1 appln TOP TID [facility] Stop: 08/28/20 08:59 Last Admin: 08/02/20 07:27 Dose: 1 appln Documented by: PG Care Time/CCT Total # of Minutes Spent Total Time Spent with Patient: Total time spent is greater than 50% in coordination of care (as documented) at patient's floor/unit and/or counseling patient: Coding Level of Care Code 24770 Subseq Hosp Care Lvl 3 Diagnoses Acute respiratory failure with hypoxia J96.01 COVID-19 U07.1 Psoriasis L40.9 CKD (chronic kidney disease), stage III N18.30 Chronic kidney disease stage 3 subtype: unspecified whether 3a or 3b Prostate cancer metastatic to bone C61 Acute kidney injury superimposed on CKD N17.9 Constipation K59.00 (1) CKD (chronic kidney disease), stage III Chronic kidney disease stage 3 subtype: unspecified whether 3a or 3b Qualified Code(s): N18.30 - Chronic kidney disease, stage 3 unspecified
--- NOTE | 2020-08-02 10:50 | XRay Report ---
XR chest 1V portable CLINICAL HISTORY: Post-proning SpO2 changes HYPOXIA COMPARISON STUDY: 08/02/2020 FINDINGS: The endotracheal tube is 53 mm above the ayala. The enteric tube is positioned within the stomach. There is a right internal jugular central venous catheter with its tip projected superior ve na cava. The heart remains enlarged. There are persistent bilateral pulmonary airspace opacities stab le to minimally progressive. IMPRESSION: Persistent bilateral pulmonary airspace opacities stable to minimally progressive. ACT 112: Negative or not required by law. Electronically signed by: Graham Horta M.D. 08/02/2020 10:48 AM
[2020-08-02] MEDS: fentaNYL DRIP 1,250 MCG/250 ML BAG IV SCH (11:45)
[2020-08-02] MEDS: ALBUTEROL 0.083% NEBU SOLN 3 ML VIAL NEB SCH ×2 (13:04→19:36)
[2020-08-02] MEDS ORDERED: FUROSEMIDE 40 MG in SYRINGE 0 ML IV ONE (13:24)
[2020-08-02] MEDS ORDERED: FUROSEMIDE 40 MG/4 ML VIAL IV ONE (13:30)
--- NOTE | 2020-08-02 13:33 | Critical Care Progress Note ---
Date of Service August 02, 2020 Assessment & Plan (1) Acute hypoxemic respiratory failure: Neurologic: Analgesics and sedation: Patient is currently sedated with Versed and fentanyl. Holding on propofol and Precedex given severe bradycardia. Nimbex drip day #2. He was mentating well prior to intubation. Delirium precautions Pulmonary: Ventilator/BiPAP settings: Intubated 08/01/2020 due to ARDS secondary to COVID-19 pneumonitis. Continue lung protective ventilation strategy. Day #2 of proning. We will continue proning for approximately 16 hours. Oxygenation is not improving with proning today. Increasing infiltrates noted bilaterally. He has progressed to severe ARDS. Maintain pH above 7.25. Cardiovascular: Continues with bradycardia. Prior to placing the patient in the prone position this morning, I instructed the nurse to give 0.5 mg of atropine. Bradycardia likely related to hypoxia and the use of sedatives. Gastrointestinal: Bowel regimen if on analgesics: Continue with bowel regimen including MiraLAX, senna and docusate. We will hold on tube feeds today. Stress ulcer prophylaxis: Pepcid 20 mg IV daily. Renal: FREDO stable. We will give a one-time dose of 40 mg IV Lasix today. Infectious disease: Procalcitonin is within normal limits. Sputum cultures gr owing few gram-negative rods. Continue with Rocephin. Received tocilizumab 07/31/2020. Not a candidate for remdesivir due to FREDO. Hematologic: No issues at present. Endocrine: Pharmacy assisting in management of hyperglycemia. Lines and tubes: Right IJ placed 08/01/2020. Right radial arterial line placed 08/01/2020. Intubated 08/01/2020. Peripheral IVs and Regan catheter are in place. VTE prophylaxis: Heparin 5000 units subcu 3 times daily. CODE STATUS: Full code Family at bedside: None available at bedside due to the COVID-19 pandemic. Family updated by the hospitalist Disposition: Remain in ICU. I have personally spent 45 minutes of critical care time in the direct management of this patient. This is a life/limb threatening event. This includes time spent evaluating patient, direct bedside care, chart review, placing orders, interpretation of diagnostic studies, discussion with consultants, patient, and family members, as well as other required patient management activities. This time is exclusive of all separately billable procedures, and teaching time and separate from and in addition to any other critical care service time. (2) COVID-19: (3) CKD (chronic kidney disease), stage III: (4) ARDS (adult respiratory distress syndrome): Admission and Anticipated Discharge Date Admission Date: July 28, 2020 Subjective Patient was placed in the supine position at approximately 5 AM this morning. He continues to have oxygen desaturations to the low 80s. He was placed prone in approximately 9:30 AM. He continues to have significant desaturations and is requiring 70% FiO2 and high amounts of PEEP support. He is currently on Versed, fentanyl and neuromuscular blockade with Nimbex. Patient is unable to participate in the review of systems. Physical Exam Constitutional: + mechanically ventilated (prone, sedated, paralyzed) Neck: trachea midline, no thyromegaly Respiratory: symmetric chest movement Auscultation: lungs clear to auscultation bilaterally Cardiovascular: RRR, no murmur, no edema Gastrointestinal (Abdomen): Inspection/Auscultation: abdomen normal to inspection (difficult to exam, laying prone, has rectal tube) Musculoskeletal: Intubated, sedated and paralyzed. Difficult to examine skeletal tone. Skin: no rashes, warm and dry Neurologic: Neurological exam is limited given that he is currently on neuromuscular blockade. Psychiatric: Unable to assess given sedation and neuromuscular blockade. Lymphatic: no cervical or axillary lymphadenopathy Results & Data Results & Data ([facility]) Vital Signs (Past 12 Hours) Vital Signs Temp Pulse Pulse Resp BP BP BP 08/02/20 13:02 66 24 08/02/20 13:00 58 L 08/02/20 12:59 66 24 08/02/20 12:51 68 162/86 H 08/02/20 12:49 73 216/99 H 08/02/20 12:04 54 L 24 108/89 08/02/20 12:00 63 118/86 08/02/20 11:45 61 08/02/20 11:30 76 08/02/20 11:15 53 L 08/02/20 11:11 98.2 F 55 L 24 113/54 L 08/02/20 11:00 54 L 08/02/20 10:45 56 L 08/02/20 10:30 59 L 08/02/20 10:15 60 08/02/20 10:12 61 24 152/60 H 08/02/20 10:00 63 64 24 08/02/20 09:45 64 66 24 120/88 08/02/20 09:30 08/02/20 09:15 53 L 08/02/20 09:00 49 L 49 L 24 100/51 L 08/02/20 08:46 51 L 08/02/20 08:45 51 L 106/65 08/02/20 08:30 53 L 08/02/20 08:15 54 L 08/02/20 08:07 55 L 24 08/02/20 08:00 67 65 24 139/70 131/73 139/70 08/02/20 07:46 57 L 08/02/20 07:45 60 131/73 08/02/20 07:30 57 L 08/02/20 07:15 57 L 08/02/20 07:00 97.7 F 70 65 24 180/79 H 08/02/20 06:46 52 L 08/02/20 06:45 51 L 106/64 08/02/20 06:30 51 L 08/02/20 06:24 51 L 86/53 L 08/02/20 06:23 51 L 85/53 L 08/02/20 06:15 51 L 08/02/20 06:11 50 L 84/56 L 08/02/20 06:00 52 L 08/02/20 05:50 51 L 91/59 L 08/02/20 05:46 51 L 08/02/20 05:45 51 L 88/58 L 08/02/20 05:39 53 L 102/69 08/02/20 05:30 54 L 08/02/20 05:15 47 L 08/02/20 05:00 50 L 08/02/20 04:46 50 L 08/02/20 04:45 49 L 97/63 L 08/02/20 04:30 49 L 08/02/20 04:15 61 08/02/20 04:00 56 L 08/02/20 03:46 51 L 08/02/20 03:45 52 L 139/83 08/02/20 03:30 55 L 08/02/20 03:27 52 L 24 08/02/20 03:00 50 L 08/02/20 02:45 51 L 138/91 08/02/20 02:30 52 L 08/02/20 02:00 51 L 08/02/20 01:45 51 L 153/91 H 08/02/20 01:30 51 L Pulse Ox 08/02/20 13:02 90 08/02/20 13:00 92 08/02/20 12:59 90 08/02/20 12:51 97 08/02/20 12:49 98 08/02/20 12:04 93 08/02/20 12:00 93 08/02/20 11:45 89 L 08/02/20 11:30 82 L 08/02/20 11:15 94 08/02/20 11:11 92 08/02/20 11:00 92 08/02/20 10:45 91 08/02/20 10:30 92 08/02/20 10:15 96 08/02/20 10:12 99 08/02/20 10:00 85 L 08/02/20 09:45 86 L 08/02/20 09:30 87 L 08/02/20 09:15 89 L 08/02/20 09:00 86 L 08/02/20 08:46 88 L 08/02/20 08:45 88 L 08/02/20 08:30 91 08/02/20 08:15 90 08/02/20 08:07 90 08/02/20 08:00 88 L 08/02/20 07:46 93 08/02/20 07:45 91 08/02/20 07:30 91 08/02/20 07:15 93 08/02/20 07:00 95 08/02/20 06:46 96 08/02/20 06:45 96 08/02/20 06:30 96 08/02/20 06:24 94 08/02/20 06:23 94 08/02/20 06:15 94 08/02/20 06:11 94 08/02/20 06:00 93 08/02/20 05:50 92 08/02/20 05:46 91 08/02/20 05:45 91 08/02/20 05:39 91 08/02/20 05:30 83 L 08/02/20 05:15 84 L 08/02/20 05:00 86 L 08/02/20 04:46 87 L 08/02/20 04:45 89 L 08/02/20 04:30 87 L 08/02/20 04:15 08/02/20 04:00 95 08/02/20 03:46 95 08/02/20 03:45 95 08/02/20 03:30 85 L 08/02/20 03:27 96 08/02/20 03:00 86 L 08/02/20 02:45 88 L 08/02/20 02:30 89 L 08/02/20 02:00 92 08/02/20 01:45 90 08/02/20 01:30 85 L Vital signs, labs and imaging reviewed. Chest x-ray with increasing multifocal, bilateral infiltrates. Coding Level of Care Code Critical Care 1st 30-74 mins Diagnoses Acute hypoxemic respiratory failure J96.01 COVID-19 U07.1 CKD (chronic kidney disease), stage III N18.30 ARDS (adult respiratory distress syndrome) J80 Time Spent (min) 45
[2020-08-02] MEDS: MIDAZOLAM BOLUS FROM BAG IV PRN ×2 (13:44→22:09)
[2020-08-02] MEDS: POLYETHYLENE (MIRALAX) 17 GM PACK GT PRN (14:39)
[2020-08-03] MEDS: INSULIN ASPART 100 UNITS/ML 3 ML PEN SC SCH ×4 (01:07→16:56)
[2020-08-03] MEDS: CISATRACURIUM BESYLATE 40 MG in 0.9 % SODIUM CHLORIDE 80 ML IV SCH ×9 (02:20→17:15)
[2020-08-03] MEDS: ALBUTEROL 0.083% NEBU SOLN 3 ML VIAL NEB SCH ×3 (02:37→11:16)
--- NOTE | 2020-08-03 03:05 | Communication Note ---
Date of Service: August 03, 2020 Procedure: Supination Maneuver Attending: Dr. Rich APC: Arnoldo Coles PA-C Indication: Requiring lung recruitment intervention in the setting of advanced ARDS with poor lung compliance and oxygenation on standard ventilator settings. Patient requiring supination in the setting of advanced ARDS per imaging, ventilator requirements, and calculated P:F ratio. Appropriate staff was assembled including myself, Respiratory Therapy, and Nursing Staff. A time-out was completed verifying correct patient, time from recent pronation/supination, current ventilator settings, review of any prior issues during pronation/supination maneuvers. Patient was fully undressed as to be able to view all current IV sites, central venous access sites, arterial lines, en dotracheal tube, Regan catheter, etc. After properly identifying/securing all lines, tubes, etc., the patient was ``papoosed using flat sheets. On my count, the patient was slid to the edge of the bed. After reevaluating all lines, tubes, etc., the patient was then placed on their side allowing for RT to maintain control of ET tube and ready for completion of Supination maneuver. Final check of all lines, tubes, etc. was completed by myself and nursing staff. Blood pressure, heart rhythm, and oxygen saturations were monitored for several minutes s/p maneuver. Discussion was held with patients RN and RT regarding ongoing management. Patient tolerated maneuver well. No immediate complications were noted. TIME SUPINE: 0245 I have personally spent 20 minutes of critical care time in the direct management of this patient. This is a life/limb threatening event. This includes time spent evaluating patient, direct bedside care, chart review, placing orders, interpretation of diagnostic studies, discussion with consultants, patient, and family members, as well as other required patient management activities. This time is exclusive of all separately billable procedures, and teaching time and separate from and in addition to any other critical care service time. Coding Level of Care Code Critical Care 1st 30-74 mins Time Spent (min) 20
[2020-08-03 03:35] LABS: iSTAT Allen Test Pass; iSTAT Arterial Blood Gas HCO3 27 meg/L (19-24); iSTAT Arterial Blood Gas pCO2 49 mmHg (35-46); iSTAT Arterial Blood Gas pH 7.35 (7.35-7.45); iSTAT Arterial Blood Gas pO2 54 mmHg (80-95); iSTAT Carbon Dioxide 29 mmol/L (24-31); iSTAT FiO2 40 %; iSTAT Site Art Line
[2020-08-03] MEDS: MIDAZOLAM BOLUS FROM BAG IV PRN ×2 (04:02→08:33)
[2020-08-03] MEDS: fentaNYL DRIP 1,250 MCG/250 ML BAG IV SCH ×5 (04:04→17:13)
[2020-08-03] MEDS: HEPARIN SOD 5,000 UNIT/0.5 ML VIAL SQ SCH ×3 (06:43→19:31)
[2020-08-03 07:00] LABS: Hematocrit (blood only) 43.1 % (42-52); Hemoglobin 13.8 g/dL (14.0-18.0); Mean Corpuscular Hemoglobin 29.8 pg (25-34); Mean Corpuscular Volume 93.1 fL (80-100); Mean Platelet Volume 10.9 fL (7.4-10.4); Nucleated RBC # (auto) 0.03 K/uL (0-0); Nucleated RBC % (auto) 0.4 %; Platelet Count 346 K/uL (130-400); RDW Coefficient of Variation 13.1 % (11.5-14.5); RDW Standard Deviation 44.4 fL (36.4-46.3); Red Blood Count 4.63 M/uL (4.7-6.1); White Blood Count 7.54 K/uL (4.8-10.8)
[2020-08-03 07:17] LABS: BUN Creatinine Ratio 40.3 (10-20); C Reactive Protein 4.96 mg/dl (0-0.29); Calcium 9.1 mg/dl (8.5-10.1); Creatinine Clr Calc Pharmacy 45.5 ml/min; Est GFR (African American) 47.5; Phosphorus 5.4 mg/dl (2.5-4.9); Potassium 4.6 mmol/L (3.5-5.1)
[2020-08-03] MEDS: TRIAMCINOLONE ACET 0.1% CR 15 GM TUBE TOP SCH ×3 (07:18→19:33)
[2020-08-03] MEDS: cefTRIAXone SODIUM 2,000 MG in DEXTROSE 5% 50 ML IV SCH (08:08)
[2020-08-03] MEDS: dexAMETHasone 6 MG in SYRINGE 0 ML IV SCH (08:08)
[2020-08-03] MEDS: FAMOTIDINE 20 MG in SYRINGE 3 ML IV SCH (08:08)
--- NOTE | 2020-08-03 08:55 | XRay Report ---
XR chest 1V portable HISTORY: 80 years-old Male f/u acute respiratory failure COMPARISON: Chest radiograph 08/02/2020 TECHNIQUE: AP view the chest FINDINGS: Endotracheal tube overlies the midline, 4.3 cm superior to the ayala. Enteric tube courses below the diaphragm outside the field of view. Right IJ central venous catheter distal tip overlies the superi or cavoatrial junction. Unchanged cardiomegaly. No pneumothorax or large pleural effusion. Persistent bilateral airspace opacities appear unchanged. Degenerative changes of the shoulders and spine. IMPRESSION: 1. Lines and tubes as above. 2. Persistent bilateral airspace opacities suggestive of multifocal pneumonia. 3. No pneumothorax. ACT 112: Negative or not required by law. The above report was generated using voice recognition software. It may contain grammatical, syntax o r spelling errors. Electronically signed by: Jhonny Mcknight M.D. 08/03/2020 8:54 AM
[2020-08-03] MEDS ORDERED: FUROSEMIDE 40 MG in SYRINGE 0 ML IV ONE (11:13)
[2020-08-03] MEDS ORDERED: FUROSEMIDE 40 MG/4 ML VIAL IV ONE (11:30)
[2020-08-03] MEDS: SENNOSIDES 8.8 MG/5 ML UDC GT PRN (12:11)
[2020-08-03] MEDS: ARTIFICIAL TEARS OP OINT 3.5 GM TUBE OP SCH ×3 (16:19→19:32)
[2020-08-03] MEDS: NYSTATIN POWDER 15GM BTL EXT SCH ×2 (16:20→19:32)
[2020-08-03] MEDS: MIDAZOLAM HCL 125 MG/250 ML BAG IV PRN (16:25)
[2020-08-03] MEDS: NOREPINEPHRINE/D5W 8 MG/508 ML BAG IV SCH ×2 (16:55→17:14)
[2020-08-03] MEDS: propofoL 1,000 MG/100 ML VIAL IV SCH (19:30)
--- NOTE | 2020-08-03 22:21 | Hospitalist Progress Note ---
Date of Service August 03, 2020 Assessment & Plan (1) Acute respiratory failure with hypoxia: due to COVID 19 pneumonia, possible bacterial infection as well worsening dyspnea, hypoxemia over 4 days since he was admitted progressed from Vapotherm to being dependent on BIPAP/CPAP spoke with patient again about intubation/ventilation, he agreed spoke with his daughter Annabella prior to intubation, she also agreed with plan intubated 08/[address] Sloan supine today after being prone yesterday ventilating, oxygenating better today, lower PEEP and FiO2 40% defer further prone positioning to ICU management per Dr. Rihc continue dexamethasone 6mg IV daily (2) COVID-19: he is about two weeks into illness dexamethasone 6mg IV daily, day 7 gave Tocilizumab on 07/31 due to increasing oxygen requirements and CRP of 14 despite steroids CRP did go down to 8 after Toci gave 5 days of Rocephin/Zithromax due to slightly elevated procalcitonin defer to ICU for further antibiotics no role for Remdesivir on admission due to FREDO and being 10 days into illness required intubation on 08/01, change to ICU status will continue to follow closely Hep SC for DVT prophylaxis (3) Psoriasis: Chronic. Patient with diffuse plaques on extensor surfaces of arms and legs as well as abdomen and scalp. No evidence of bleeding or secondary infection -Continue Triamcinolone cream TID he says he has never needed biologics, has never had psoriatic arthritis (4) CKD (chronic kidney disease), stage III: Baseline Cr is 1.4-1.6. 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 Patient follows with Urology. He was treated with one dose of Firmagon and now receives Lupron injections q6mo. He reports self catheterizing several times daily -Placed Regan on admission -Continue Casodex -Flomax daily (6) Acute kidney injury superimposed on CKD: see above, resolved, Cr is 1.5 again today (7) Constipation: no BM for 6 days mildly distended, hypoactive bowel sounds can try Miralax down OGT once he is no longer paralyzed has rectal tube to monitor for stools, some liquid brown stool today (08/03), not much Admission and Anticipated Discharge Date Admission Date: July 28, 2020 Subjective some improvement today with ventilation able to lower the PEEP and FiO2 even when supine moved down to 105 to make it easier for ICU to manage reviewed labs discussed with Dr. Rich discussed with his RN at the bedside Review of Systems Review of Systems: Unobtainable due to endotracheal tube Physical Exam Constitutional: WD/WN, vitals as above + mechanically ventilated (supine) Neck: trachea midline, no thyromegaly Respiratory: symmetric chest movement Auscultation: lungs clear to auscultation bilaterally Cardiovascular: RRR, no murmur, no edema Gastrointestinal (Abdomen): normal bowel sounds, soft, nontender, no hepatosplenomegaly Inspection/Auscultation: abdomen normal to inspection (d ifficult to exam, laying prone, has rectal tube) Percussion/Palpation: + tympanic to percussion and + abdomen firm; abdomen nontender Musculoskeletal: no cyanosis or clubbing, extremities motor strength 5/5 Skin: no rashes, warm and dry Neurologic: patellar DTR's 2+ bilat, sensation intact and PERRL, EOMI, accommodation nl, no face palsy, no dysarthria Psychiatric: A+Ox3, euthymic affect Lymphatic: no cervical or axillary lymphadenopathy Results & Data Results & Data ([facility]) Vital Signs (Past 12 Hours) Vital Signs Temp Pulse Pulse Resp BP Pulse Ox 08/03/20 21:51 53 L 95/63 L 90 08/03/20 20:47 37.1 C 57 L 104/60 89 L 08/03/20 19:51 79 148/74 H 86 L 08/03/20 19:20 84 28 H 86 L 08/03/20 19:00 56 L 94 08/03/20 18:51 58 L 119/79 91 08/03/20 18:45 56 L 91 08/03/20 18:30 56 L 90 08/03/20 18:15 67 90 08/03/20 18:00 56 L 92 08/03/20 17:53 56 L 91 08/03/20 17:52 55 L 111/66 91 08/03/20 17:00 60 91 08/03/20 16:51 62 127/68 92 08/03/20 16:30 70 92 08/03/20 16:00 36.8 C 57 L 92 08/03/20 15:30 58 L 91 08/03/20 15:00 58 L 92 08/03/20 14:40 63 24 91 08/03/20 14:30 65 92 08/03/20 14:18 36.8 C 08/03/20 14:15 62 91 08/03/20 14:00 71 92 08/03/20 13:51 77 141/95 H 91 08/03/20 13:45 71 94 08/03/20 11:36 61 107/62 08/03/20 11:31 61 114/69 88 L 08/03/20 11:30 63 88 L 08/03/20 11:16 62 24 93 08/03/20 11:15 68 92 08/03/20 11:00 57 L 94 08/03/20 10:54 60 24 93 08/03/20 10:45 62 93 08/03/20 10:30 57 L 92 08/03/20 10:27 60 123/78 92 08/03/20 10:21 59 L 114/74 92 Laboratory Results Laboratory Results - last 24 hr 08/02/20 08/03/20 08/03/20 23:44 03:03 05:31 WBC 7.54 RBC 4.63 L Hgb 13.8 L Hct 43.1 MCV 93.1 MCH 29.8 MCHC 32.0 RDW Std Deviation 44.4 RDW Coeff of Jose 13.1 Plt Count 346 MPV 10.9 H Absolute Nucleated RBC 0.03 H Nucleated RBC % (auto) 0.4 Sample Site Art Line POC pH 7.35 POC pCO2 49 H POC pO2 54 L POC HCO3 27 H POC Total CO2 29 POC Base Excess 1.0 POC ABG O2 Sat 86.0 L Ananda Test Pass O2 Delivery Device Ventilator POC O2 Rate 24 Minute Ventilation 9.6 POC FiO2 40 Tidal Volume 400 PEEP 12 Sodium Potassium Chloride Carbon Dioxide Anion Gap BUN Creatinine Est Cr Clr Drug Dosing Est GFR ( Amer) Est GFR (Non-Af Amer) BUN/Creatinine Ratio Glucose POC Glucose 130 H Calcium Phosphorus Magnesium C-Reactive Protein 08/03/20 08/03/20 08/03/20 05:31 06:47 12:06 WBC RBC Hgb Hct MCV MCH MCHC RDW Std Deviation RDW Coeff of Jose Plt Count MPV Absolute Nucleated RBC Nucleated RBC % (auto) Sample Site POC pH POC pCO2 POC pO2 POC HCO3 POC Total CO2 POC Base Excess POC ABG O2 Sat Ananda Test O2 Delivery Device POC O2 Rate Minute Ventilation POC FiO2 Tidal Volume PEEP Sodium 137 Potassium 4.6 Chloride 104 Carbon Dioxide 27 Anion Gap 6.0 BUN 64 H Creatinine 1.59 H Est Cr Clr Drug Dosing 45.5 Est GFR ( Amer) 47.5 Est GFR (Non-Af Amer) 41.0 BUN/Creatinine Ratio 40.3 H Glucose 141 H POC Glucose 124 H 150 H Calcium 9.1 Phosphorus 5.4 H Magnesium 3.0 H C-Reactive Protein 4.96 H 08/03/20 08/03/20 14:06 16:40 WBC RBC Hgb Hct MCV MCH MCHC RDW Std Deviation RDW Coeff of Jose Plt Count MPV Absolute Nucleated RBC Nucleated RBC % (auto) Sample Site POC pH POC pCO2 POC pO2 POC HCO3 POC Total CO2 POC Base Excess POC ABG O2 Sat Ananda Test O2 Delivery Device POC O2 Rate Minute Ventilation POC FiO2 Tidal Volume PEEP Sodium Potassium Chloride Carbon Dioxide Anion Gap BUN Creatinine Est Cr Clr Drug Dosing Est GFR ( Amer) Est GFR (Non-Af Amer) BUN/Creatinine Ratio Glucose POC Glucose 172 H 169 H Calcium Phosphorus Magnesium C-Reactive Protein Medications Administered Current Inpatient Medications Acetaminophen (Acetaminophen 325 Mg Tab) 650 mg PO Q4H PRN PRN Reason: Pain or Fever Stop: 08/28/20 00:06 Last Admin: 07/31/20 08:21 Dose: 650 mg Documented by: Fentanyl Citrate (Fentanyl Bolus From Bag) 50 mcg IV Q60M PRN PRN Reason: Pain or Agitation Stop: 08/15/20 08:51 Last Admin: 08/03/20 08:33 Dose: 50 mcg Documented by: Heparin Sodium (Porcine) (Heparin Sod 5,000 Unit/0.5 Ml Vial) 5,000 units SQ Q8 LORIE Stop: 08/28/20 05:59 Last Admin: 08/03/20 19:31 Dose: 5,000 units Documented by: Ceftriaxone Sodium 2,000 mg/ (Dextrose) 70 mls @ 100 mls/hr IV DAILY@0900 [facility]; Protocol Stop: 08/05/20 08:59 Last Infusion: 08/03/20 08:45 Dose: Infused Documented by: Dexamethasone 6 mg/ Syringe 1.5 mls @ 0.75 mls/min IV DAILY LORIE Stop: 08/31/20 08:59 Last Admin: 08/03/20 08:08 Dose: 0.75 mls/min Documented by: Fentanyl Citrate (Fentanyl Drip) 1,250 mcg in 250 mls @ 20 mls/hr IV .[id number] LORIE; Protocol Stop: 08/15/20 08:59 Last Titration: 08/03/20 20:07 Dose: 100 mcg/hr, 20 mls/hr Documented by: Cisatracurium Besylate 40 mg/ (Sodium Chloride) 100 mls @ 0 mls/hr IV .Q0M LORIE; Protocol Stop: 08/31/20 10:14 Last Titration: 08/03/20 20:07 Dose: 0 mcg/kg/min, 0 mls/hr Documented by: Propofol (Diprivan) 1,000 mg in 100 mls @ 12.732 mls/hr IV .Q7H52M [facility]; Protocol Stop: 08/04/20 12:44 Last Titration: 08/03/20 21:29 Dose: 20 mcg/kg/min, 12.7 mls/hr Documented by: Famotidine 20 mg/ Syringe 5 mls @ 2.5 mls/min IV DAILY LORIE Stop: 09/01/20 08:59 Last Admin: 08/03/20 08:08 Dose: 2.5 mls/min Documented by: Midazolam HCl (Versed) 125 mg in 250 mls @ 6 mls/hr IV .[id number] PRN; Protocol PRN Reason: agitation Stop: 08/31/20 20:43 Last Titration: 08/03/20 20:07 Dose: 3 mg/hr, 6 mls/hr Documented by: Norepinephrine Bitartrate (Levophed/D5w) 8 mg in 508 mls @ 18.898 mls/hr IV .Q24H [facility]; Protocol Stop: 09/01/20 06:29 Last Admin: 08/03/20 17:14 Dose: Not Given Documented by: Insulin Aspart (Insulin Aspart 100 Units/Ml 3 Ml Pen) 0 units SC Q6 LORIE Stop: 08/31/20 17:59 Last Admin: 08/03/20 16:56 Dose: 1 units Documented by: Midazolam HCl (Midazolam Bolus From Bag) 2 mg IV Q60M PRN PRN Reason: Sedation Stop: 08/31/20 20:43 Last Admin: 08/03/20 08:33 Dose: 2 mg Documented by: Multi-Ingredient Cream (Artificial Tears Op Oint 3.5 Gm Tube) 1 appln OP QID [facility] Stop: 09/02/20 12:59 Last Admin: 08/03/20 19:32 Dose: 1 appln Documented by: Nystatin (Nystatin Powder 15gm Btl) 1 appln EXT TID [facility] Stop: 09/02/20 13:59 Last Admin: 08/03/20 19:32 Dose: 1 appln Documented by: Ondansetron HCl (Ondansetron Inj 2 Mg/Ml 2 Ml Vial) 4 mg IV Q6H PRN PRN Reason: Nausea Stop: 08/28/20 00:06 Last Admin: 08/01/20 06:06 Dose: 4 mg Documented by: Polyethylene Glycol (Polyethylene (Miralax) 17 Gm Pack) 17 gm GT DAILY PRN PRN Reason: Constipation Stop: 08/31/20 17:46 Last Admin: 08/02/20 14:39 Dose: 17 gm Documented by: Sennosides (Sennosides 8.8 Mg/5 Ml Udc) 8.8 mg GT DAILY PRN PRN Reason: Constipation Stop: 08/31/20 17:47 Last Admin: 08/03/20 12:11 Dose: 8.8 mg Documented by: Triamcinolone Acetonide (Triamcinolone Acet 0.1% Cr 15 Gm Tube) 1 appln TOP TID [facility] Stop: 08/28/20 08:59 Last Admin: 08/03/20 19:33 Dose: 1 appln Documented by: PG Care Time/CCT Total # of Minutes Spent Total Time Spent with Patient: Total time spent is greater than 50% in coord ination of care (as documented) at patient's floor/unit and/or counseling patient: Coding Level of Care Code 57140 Subseq Hosp Care Lvl 3 Diagnoses Acute respiratory failure with hypoxia J96.01 COVID-19 U07.1 Psoriasis L40.9 CKD (chronic kidney disease), stage III N18.30 Chronic kidney disease stage 3 subtype: unspecified whether 3a or 3b Prostate cancer metastatic to bone C61 Acute kidney injury superimposed on CKD N17.9 Constipation K59.00 (1) CKD (chronic kidney disease), stage III Chronic kidney disease stage 3 subtype: unspecified whether 3a or 3b Qualified Code(s): N18.30 - Chronic kidney disease, stage 3 unspecified
--- NOTE | 2020-08-03 23:27 | Critical Care Progress Note ---
Date of Service August 03, 2020 Assessment & Plan (1) Acute hypoxemic respiratory failure: Neurologic: Analgesics and sedation: Patient is currently sedated with Versed and fentanyl. Holding on propofol and Precedex given severe bradycardia. Nimbex drip day #3. Will begin to wean nimbex. He was mentating well prior to intubation. Pulmonary: Ventilator/BiPAP settings: Intubated 08/01/2020 due to ARDS secondary to COVID-19 pneumonitis. Continue lung protective ventilation strategy. Two days of proning complete. No proning required today. Maintain pH above 7.25. Cardiovascular: Occasional sinus bradycardia likely from sedation. Weaning nimbex ggt. HDS. Gastrointestinal: Bowel regimen if on analgesics: Continue with bowel regimen including MiraLAX, senna and docusate. Will need to start tube feeds soon. Stress ulcer prophylaxis: Pepcid 20 mg IV daily. Renal: Renal function stable. Infectious disease: Procalcitonin is within normal limits. Sputum cultures growing few gram-negative rods. Continue with Rocephin. Received tocilizumab 07/31/2020. Not a candidate for remdesivir due to FREDO. Hematologic: No issues at present. Endocrine: Pharmacy assisting in management of hyperglycemia. Lines and tubes: Right IJ placed 08/01/2020. Right radial arterial line placed 08/01/2020. Intubated 08/01/2020. Peripheral IVs and Regan catheter are in place. VTE prophylaxis: Heparin 5000 units subcu 3 times daily. CODE STATUS: Full code Family at bedside: None available at bedside due to the COVID-19 pandemic. Family updated by the hospitalist Disposition: Remain in ICU. I have personally spent 30 minutes of critical care time in the direct management of this patient. This is a life/limb threatening event. This includes time spent evaluating patient, direct bedside care, chart review, placing orders, interpretation of diagnostic studies, discussion with consultants, patient, and family members, as well as other required patient management activities. This time is exclusive of all separately billable procedures, and teaching time and separate from and in addition to any other critical care service time. (2) COVID-19: (3) CKD (chronic kidney disease), stage III: (4) ARDS (adult respiratory distress syndrome): Admission and Anticipated Discharge Date Admission Date: July 28, 2020 Subjective Sedated. Unable to obtain ROS. Physical Exam Constitutional: + mechanically ventilated (prone, sedated, paralyzed) Neck: trachea midline, no thyromegaly Respiratory: symmetric chest movement Auscultation: lungs clear to auscultation bilaterally Cardiovascular: RRR, no murmur, no edema Gastrointestinal (Abdomen): Inspection/Auscultation: abdomen normal to inspection (difficult to exam, laying prone, has rectal tube) Musculoskeletal: Intubated, sedated and paralyzed. Difficult to examine skeletal tone. Skin: no rashes, warm and dry Neurologic: Neurological exam is limited given that he is currently on neuromuscular blockade. Psychiatric: Unable to assess given sedation and neuromuscular blockade. Lymphatic: no cervical or axillary lymphadenopathy Results & Data Results & Data ([facility]) Vital Signs (Past 12 Hours) Vital Signs Temp Pulse Resp BP Pulse Ox 08/03/20 21:51 53 L 95/63 L 90 08/03/20 20:47 98.8 F 57 L 104/60 89 L 08/03/20 19:51 79 148/74 H 86 L 08/03/20 19:20 84 28 H 86 L 08/03/20 19:00 56 L 94 08/03/20 18:51 58 L 119/79 91 08/03/20 18:45 56 L 91 08/03/20 18:30 56 L 90 08/03/20 18:15 67 90 08/03/20 18:00 56 L 92 08/03/20 17:53 56 L 91 08/03/20 17:52 55 L 111/66 91 08/03/20 17:00 60 91 08/03/20 16:51 62 127/68 92 08/03/20 16:30 70 92 08/03/20 16:00 98.2 F 57 L 92 08/03/20 15:30 58 L 91 08/03/20 15:00 58 L 92 08/03/20 14:40 63 24 91 08/03/20 14:30 65 92 08/03/20 14:18 98.2 F 08/03/20 14:15 62 91 08/03/20 14:00 71 92 08/03/20 13:51 77 141/95 H 91 08/03/20 13:45 71 94 08/03/20 11:36 61 107/62 08/03/20 11:31 61 114/69 88 L 08/03/20 11:30 63 88 L Coding Level of Care Code Critical Care 1st 30-74 mins Diagnoses Acute hypoxemic respiratory failure J96.01 COVID-19 U07.1 CKD (chronic kidney disease), stage III N18.30 ARDS (adult respiratory distress syndrome) J80 Time Spent (min) 30
--- NOTE | 2020-08-04 00:36 | Procedure Note ---
Procedure Note Date of Service August 04, 2020 Procedure: Arterial Line Placement Attending: Dr. Rich APC: Arnoldo Coles PA-C Indication: Monitoring on Pressors Anesthesia: Lidocaine 1% Emergent consent previously obtained prior to induction and intubation. Need for change of arterial line secondary to malfunction of initial line. A time-out was completed verifying correct patient, procedure, site, positioning, and implant(s) or special equipment if applicable. Allens test was performed to ensure adequate perfusion. Patients LEFT wrist was prepped and draped in the usual sterile fashion. Ultrasound guidance was used to aid needle placement. A 20g Arrow arterial line was introduced into the LEFT Radial artery. Catheter was threaded, and the needle was removed with appropriate blood return. Good waveform was observed. The patient tolerated the procedure well. Confirmation of placement with ultrasound. Blood Loss: Minimal Complications: None Procedural Ultrasound Guidance: Procedure Date: 08/04/2020 Indication: Pressors, frequent lab draws, frequent ABGs Attending: Dr. Rich APC: Arnoldo Coles PA-C Artery Identified: YES Line confirmed in Artery with ultrasound: YES Complications: NONE Patient tolerated procedure: WELL Coding CPT Codes Tubes, Drains, and Vasc Access - Tubes, Drains, and Vasc Access: [id number] Place Catheter In Artery ([id number]) [facility] [place] Procedure Codes (Charges) Tubes, Drains, and Vasc Access Procedure 5: Tubes, Drains, and Vasc Access: [id number] Place Catheter In Artery
[2020-08-04] MEDS: propofoL 1,000 MG/100 ML VIAL IV SCH ×5 (03:50→21:37)
[2020-08-04] MEDS: fentaNYL DRIP 1,250 MCG/250 ML BAG IV SCH ×5 (03:51→17:03)
[2020-08-04 03:52] LABS: iSTAT Arterial Blood Gas HCO3 26 meg/L (19-24); iSTAT Arterial Blood Gas pCO2 44 mmHg (35-46); iSTAT Arterial Blood Gas pH 7.38 (7.35-7.45); iSTAT Arterial Blood Gas pO2 54 mmHg (80-95); iSTAT Carbon Dioxide 28 mmol/L (24-31); iSTAT Hematocrit 39 % (42-52); iSTAT Hemoglobin 13.3 g/dl (14.0-18.0); iSTAT Potassium 4.4 mmol/L (3.3-5.0); iSTAT Sodium 140 mmol/L (135-144)
[2020-08-04 04:21] LABS: BUN Creatinine Ratio 46.4 (10-20); Calcium 8.5 mg/dl (8.5-10.1); Creatinine Clr Calc Pharmacy 39.1 ml/min; Est GFR (African American) 39.5; Est GFR (Non-African American) 34.1; Magnesium 3.4 mg/dl (1.8-2.4); Potassium 4.4 mmol/L (3.5-5.1)
[2020-08-04] MEDS: INSULIN ASPART 100 UNITS/ML 3 ML PEN SC SCH ×4 (05:19→17:58)
[2020-08-04] MEDS: HEPARIN SOD 5,000 UNIT/0.5 ML VIAL SQ SCH ×3 (05:19→21:38)
[2020-08-04] MEDS: NOREPINEPHRINE/D5W 8 MG/508 ML BAG IV SCH (05:20)
[2020-08-04 06:18] LABS: Hematocrit (blood only) 41.1 % (42-52); Hemoglobin 13.4 g/dL (14.0-18.0); Mean Corpuscular Hemoglobin 30.5 pg (25-34); Mean Corpuscular Hgb Conc 32.6 g/dL (32-36); Mean Corpuscular Volume 93.4 fL (80-100); Nucleated RBC # (auto) 0.04 K/uL (0-0); Nucleated RBC % (auto) 0.6 %; Platelet Count 345 K/uL (130-400); RDW Standard Deviation 44.8 fL (36.4-46.3); White Blood Count 7.11 K/uL (4.8-10.8)
[2020-08-04 06:46] LABS: Basophils # (auto) 0.01 K/uL (0-0.2); Basophils % (auto) 0.1 %; Eosinophils % (auto) 2.8 %; Immature Granulocytes # (auto) 0.39 K/uL (0.00-0.02); Immature Granulocytes % (auto) 5.5 %; Lymphocytes # (auto) 0.92 K/uL (1.2-3.4); Lymphocytes % (auto) 12.9 %; Monocytes # (auto) 0.23 K/uL (0.11-0.59); Monocytes % (auto) 3.2 %; Neutrophils # (auto) 5.36 K/uL (1.4-6.5); Neutrophils % (auto) 75.5 %
[2020-08-04] MEDS: CISATRACURIUM BESYLATE 40 MG in 0.9 % SODIUM CHLORIDE 80 ML IV SCH (07:14)
[2020-08-04] MEDS: FAMOTIDINE 20 MG in SYRINGE 3 ML IV SCH (08:19)
[2020-08-04] MEDS: dexAMETHasone 6 MG in SYRINGE 0 ML IV SCH (08:19)
[2020-08-04] MEDS: cefTRIAXone SODIUM 2,000 MG in DEXTROSE 5% 50 ML IV SCH (08:19)
[2020-08-04] MEDS: TRIAMCINOLONE ACET 0.1% CR 15 GM TUBE TOP SCH ×3 (08:20→21:37)
[2020-08-04] MEDS: NYSTATIN POWDER 15GM BTL EXT SCH ×3 (08:20→21:37)
[2020-08-04] MEDS: ARTIFICIAL TEARS OP OINT 3.5 GM TUBE OP SCH ×4 (08:21→21:36)
--- NOTE | 2020-08-04 09:58 | XRay Report ---
XR chest 1V portable HISTORY: 80 years-old Male F/U COVID-19 acute respiratory failure COMPARISON: Chest radiograph 08/03/2020 TECHNIQUE: Portable AP view the chest FINDINGS: Endotracheal tube overlies the midline, 6.0 cm superior to the ayala. Enteric tube courses below the diaphragm outside the [id number]. Right IJ central venous catheter distal tip terminates over the superior SVC. No pneumothorax or large pleural effusion. Persistent bilateral airspace opacities hav e slightly improved. Bones appear grossly intact. IMPRESSION: 1. Lines and tubes as above. 2. Mild improvement of the bilateral airspace opacities. ACT 112: Negative or not required by law. The above report was generated using voice recognition software. It may contain grammatical, syntax o r spelling errors. Electronically signed by: Jhonny Mcknight M.D. 08/04/2020 9:57 AM
--- NOTE | 2020-08-04 10:15 | Hospitalist Progress Note ---
Date of Service August 04, 2020 Assessment & Plan (1) Acute respiratory failure with hypoxia: due to COVID 19 pneumonia, possible bacterial infection as well worsening dyspnea, hypoxemia over 4 days from admission leading to need for intubation progressed from Vapotherm to being dependent on BIPAP/CPAP spoke with patient again about intubation/ventilation, he agreed spoke with his daughter Annabella prior to intubation, she also agreed with plan intubated 08/[address] Sloan supine today after being prone on 08/02 PEEP 14 and FiO2 50% defer further prone positioning to ICU sedated with Propofol, Versed, Fentanyl, not ready for SBT today management per Dr. Rich continue dexamethasone 6mg IV daily (2) COVID-19: he is about two weeks into illness dexamethasone 6mg IV daily, day 8 gave Tocilizumab on 07/31 due to increasing oxygen requirements and CRP of 14 despite steroids CRP has gone down to 4.9 on 08/03 after Toci on 07/31 gave 5 days of Rocephin/Zithromax due to slightly elevated procalcitonin continues on Ceftriaxone for now no role for Remdesivir on admission due to FREDO and being 10 days into illness required intubation on 08/01, changed to ICU status will continue to follow closely Hep SC for DVT prophylaxis (3) Psoriasis: Chronic. Patient with diffuse plaques on extensor surfaces of arms and legs as well as abdomen and scalp. No evidence of bleeding or secondary infe ction -Continue Triamcinolone cream TID he says he has never needed biologics, has never had psoriatic arthritis (4) CKD (chronic kidney disease), stage III: Baseline Cr is 1.4-1.6. 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 Patient follows with Urology. He was treated with one dose of Firmagon and now receives Lupron injections q6mo. He reports self catheterizing several times daily -Placed Regan on admission -Continue Casodex -Flomax daily (6) Acute kidney injury superimposed on CKD: see above, resolved, Cr is 1.8 today (7) Constipation: went 6 days without BM mildly distended, hypoactive bowel sounds using Miralax down OGT has rectal tube to monitor for stools, some liquid brown stool on 08/03, not much today Admission and Anticipated Discharge Date Admission Date: July 28, 2020 Subjective patient seen this morning, sedated on Propofol, Versed, Fentanyl he is on PEEP 14 and FiO2 50% with saturations 90%, vitals stable reviewed labs, WBC 7k, Hb 13, plts 345k pH 7.38, CO2 44, pO2 54 Cr is 1.85, BUN 86, K 4.4 phos and mag elevated, glucose controlled Dr. Rich managing will call daughter later to update her Review of Systems Review of Systems: Unobtainable due to endotracheal tube Physical Exam Constitutional: WD/WN, vitals as above + mechanically ventilated (supine) Neck: trachea midline, no thyromegaly Respiratory: symmetric chest movement Auscultation: lungs clear to auscultation bilaterally Cardiovascular: RRR, no murmur, no edema Gastrointestinal (Abdomen): normal bowel sounds, soft, nontender, no hepatosplenomegaly Inspection/Auscultation: abdomen normal to inspection (difficult to exam, laying prone, has rectal tube) Percussion/Palpation: + tympanic to percussion and + abdomen firm; abdomen nontender Musculoskeletal: no cyanosis or clubbing, extremities motor strength 5/5 Skin: no rashes, warm and dry Neurologic: CN's II-XI intact bilaterally and + obtunded; no focal motor deficits Psychiatric: Orientation: + not alert Lymphatic: no cervical or axillary lymphadenopathy Results & Data Results & Data ([facility]) Vital Signs (Past 12 Hours) Vital Signs Temp Pulse Resp BP Pulse Ox 08/04/20 09:00 52 L 92 08/04/20 08:52 53 L 106/61 90 08/04/20 08:00 36.6 C 53 L 91 08/04/20 07:52 54 L 100/60 92 08/04/20 07:30 54 L 90 08/04/20 07:15 55 L 89 L 08/04/20 07:08 55 L 24 88 L 08/04/20 07:00 56 L 85 L 08/04/20 06:52 54 L 106/62 90 08/04/20 06:45 55 L 90 08/04/20 06:30 54 L 90 08/04/20 06:15 54 L 90 08/04/20 05:52 55 L 102/61 89 L 08/04/20 04:52 56 L 112/70 91 08/04/20 03:52 54 L 113/70 87 L 08/04/20 03:35 54 L 24 90 08/04/20 02:52 53 L 101/65 90 08/04/20 01:00 58 L 91 08/04/20 00:29 36.5 C 54 L 124/75 88 L 08/03/20 23:40 54 L 104/63 91 08/03/20 23:25 53 L 24 91 08/03/20 22:52 54 L 97/62 L 90 Laboratory Results Laboratory Results - last 24 hr 08/03/20 08/03/20 08/03/20 12:06 14:06 16:40 WBC RBC Hgb POC Hgb Hct POC Hct MCV MCH MCHC RDW Std Deviation RDW Coeff of Jose Plt Count MPV Immature Gran % (Auto) Neut % (Auto) Lymph % (Auto) [place] % (Auto) Eos % (Auto) Baso % (Auto) Neut # (Auto) Lymph # (Auto) [place] # (Auto) Eos # (Auto) Baso # (Auto) Immature Gran # (Auto) Absolute Nucleated RBC Nucleated RBC % (auto) POC pH POC pCO2 POC pO2 POC HCO3 POC Total CO2 POC Base Excess POC ABG O2 Sat POC Sodium Sodium POC Potassium Potassium Chloride Carbon Dioxide Anion Gap BUN Creatinine Est Cr Clr Drug Dosing Est GFR ( Amer) Est GFR (Non-Af Amer) BUN/Creatinine Ratio Glucose POC Glucose 150 H 172 H 169 H Calcium Phosphorus Magnesium 08/03/20 08/04/20 08/04/20 23:02 03:34 03:34 WBC 7.11 RBC 4.40 L Hgb 13.4 L POC Hgb Hct 41.1 L POC Hct MCV 93.4 MCH 30.5 MCHC 32.6 RDW Std Deviation 44.8 RDW Coeff of Jose 13.0 Plt Count 345 MPV 11.0 H Immature Gran % (Auto) 5.5 Neut % (Auto) 75.5 Lymph % (Auto) 12.9 [place] % (Auto) 3.2 Eos % (Auto) 2.8 Baso % (Auto) 0.1 Neut # (Auto) 5.36 Lymph # (Auto) 0.92 L [place] # (Auto) 0.23 Eos # (Auto) 0.20 Baso # (Auto) 0.01 Immature Gran # (Auto) 0.39 H Absolute Nucleated RBC 0.04 H Nucleated RBC % (auto) 0.6 POC pH POC pCO2 POC pO2 POC HCO3 POC Total CO2 POC Base Excess POC ABG O2 Sat POC Sodium Sodium 141 POC Potassium Potassium 4.4 Chloride 109 H Carbon Dioxide 26 Anion Gap 6.0 BUN 86 H Creatinine 1.85 H Est Cr Clr Drug Dosing 39.1 Est GFR ( Amer) 39.5 Est GFR (Non-Af Amer) 34.1 BUN/Creatinine Ratio 46.4 H Glucose 138 H POC Glucose 132 H Calcium 8.5 Phosphorus 5.0 H Magnesium 3.4 H 08/04/20 08/04/20 03:39 04:50 WBC RBC Hgb POC Hgb 13.3 L Hct POC Hct 39 L MCV MCH MCHC RDW Std Deviation RDW Coeff of Jose Plt Count MPV Immature Gran % (Auto) Neut % (Auto) Lymph % (Auto) [place] % (Auto) Eos % (Auto) Baso % (Auto) Neut # (Auto) Lymph # (Auto) [place] # (Auto) Eos # (Auto) Baso # (Auto) Immature Gran # (Auto) Absolute Nucleated RBC Nucleated RBC % (auto) POC pH 7.38 POC pCO2 44 POC pO2 54 L POC HCO3 26 H POC Total CO2 28 POC Base Excess 1.0 POC ABG O2 Sat 87.0 L POC Sodium 140 Sodium POC Potassium 4.4 Potassium Chloride Carbon Dioxide Anion Gap BUN Creatinine Est Cr Clr Drug Dosing Est GFR ( Amer) Est GFR (Non-Af Amer) BUN/Creatinine Ratio Glucose POC Glucose 121 H Calcium Phosphorus Magnesium Medications Administered Current Inpatient Medications Acetaminophen (Acetaminophen 325 Mg Tab) 650 mg PO Q4H PRN PRN Reason: Pain or Fever Stop: 08/28/20 00:06 Last Admin: 07/31/20 08:21 Dose: 650 mg Documented by: Fentanyl Citrate (Fentanyl Bolus From Bag) 50 mcg IV Q60M PRN PRN Reason: Pain or Agitation Stop: 08/15/20 08:51 Last Admin: 08/03/20 08:33 Dose: 50 mcg Documented by: Heparin Sodium (Porcine) (Heparin Sod 5,000 Unit/0.5 Ml Vial) 5,000 units SQ Q8 [facility] Stop: 08/28/20 05:59 Last Admin: 08/04/20 05:19 Dose: 5,000 units Documented by: Ceftriaxone Sodium 2,000 mg/ (Dextrose) 70 mls @ 100 mls/hr IV DAILY@0900 [facility]; Protocol Stop: 08/05/20 08:59 Last Infusion: 08/04/20 09:22 Dose: Infused Documented by: Dexamethasone 6 mg/ Syringe 1.5 mls @ 0.75 mls/min IV DAILY [facility] Stop: 08/31/20 08:59 Last Admin: 08/04/20 08:19 Dose: 0.75 mls/min Documented by: Fentanyl Citrate (Fentanyl Drip) 1,250 mcg in 250 mls @ 15 mls/hr IV .[id number] [facility]; Protocol Stop: 08/15/20 08:59 Last Admin: 08/04/20 07:15 Dose: Not Given Documented by: Cisatracurium Besylate 40 mg/ (Sodium Chloride) 100 mls @ 0 mls/hr IV .Q0M [facility]; Protocol Stop: 08/31/20 10:14 Last Admin: 08/04/20 07:14 Dose: Not Given Documented by: Propofol (Diprivan) 1,000 mg in 100 mls @ 9.549 mls/hr IV .[id number] [facility]; Protocol Stop: 08/04/20 12:44 Last Admin: 08/04/20 09:22 Dose: Not Given Documented by: Famotidine 20 mg/ Syringe 5 mls @ 2.5 mls/min IV DAILY [facility] Stop: 09/01/20 08:59 Last Admin: 08/04/20 08:19 Dose: 2.5 mls/min Documented by: Midazolam HCl (Versed) 125 mg in 250 mls @ 5 mls/hr IV .Q50H PRN; Protocol PRN Reason: agitation Stop: 08/31/20 20:43 Last Titration: 08/04/20 06:51 Dose: 2.5 mg/hr, 5 mls/hr Documented by: Norepinephrine Bitartrate (Levophed/D5w) 8 mg in 508 mls @ 18.898 mls/hr IV .Q24H [facility]; Protocol Stop: 09/01/20 06:29 Last Admin: 08/04/20 05:20 Dose: Not Given Documented by: Insulin Aspart (Insulin Aspart 100 Units/Ml 3 Ml Pen) 0 units SC Q6 [facility] Stop: 08/31/20 17:59 Last Admin: 08/04/20 05:19 Dose: Not Given Documented by: Midazolam HCl (Midazolam Bolus From Bag) 2 mg IV Q60M PRN PRN Reason: Sedation Stop: 08/31/20 20:43 Last Admin: 08/03/20 08:33 Dose: 2 mg Documented by: Multi-Ingredient Cream (Artificial Tears Op Oint 3.5 Gm Tube) 1 appln OP QID [facility] Stop: 09/02/20 12:59 Last Admin: 08/04/20 08:21 Dose: 1 appln Documented by: Nystatin (Nystatin Powder 15gm Btl) 1 appln EXT TID [facility] Stop: 09/02/20 13:59 Last Admin: 08/04/20 08:20 Dose: 1 appln Documented by: Ondansetron HCl (Ondansetron Inj 2 Mg/Ml 2 Ml Vial) 4 mg IV Q6H PRN PRN Reason: Nausea Stop: 08/28/20 00:06 Last Admin: 08/01/20 06:06 Dose: 4 mg Documented by: Polyethylene Glycol (Polyethylene (Miralax) 17 Gm Pack) 17 gm GT DAILY PRN PRN Reason: Constipation Stop: 08/31/20 17:46 Last Admin: 08/02/20 14:39 Dose: 17 gm Documented by: Sennosides (Sennosides 8.8 Mg/5 Ml Udc) 8.8 mg GT DAILY PRN PRN Reason: Constipation Stop: 08/31/20 17:47 Last Admin: 08/03/20 12:11 Dose: 8.8 mg Documented by: Triamcinolone Acetonide (Triamcinolone Acet 0.1% Cr 15 Gm Tube) 1 appln TOP TID [facility] Stop: 08/28/20 08:59 Last Admin: 08/04/20 08:20 Dose: 1 appln Documented by: PG Care Time/CCT Total # of Minutes Spent Total Time Spent with Patient: Total time spent is greater than 50% in coordination of care (as documented) at patient's floor/unit and/or counseling p atient: Coding Level of Care Code 05288 Subseq Hosp Care Lvl 3 Diagnoses Acute respiratory failure with hypoxia J96.01 COVID-19 U07.1 Psoriasis L40.9 CKD (chronic kidney disease), stage III N18.30 Chronic kidney disease stage 3 subtype: unspecified whether 3a or 3b Prostate cancer metastatic to bone C61 Acute kidney injury superimposed on CKD N17.9 Constipation K59.00 (1) CKD (chronic kidney disease), stage III Chronic kidney disease stage 3 subtype: unspecified whether 3a or 3b Qualified Code(s): N18.30 - Chronic kidney disease, stage 3 unspecified
--- NOTE | 2020-08-04 10:44 | Critical Care Progress Note ---
Date of Service August 04, 2020 Assessment & Plan (1) Acute hypoxemic respiratory failure: Neurologic: Analgesics and sedation: Currently on Versed, propofol and fentanyl. He was on 3 days of Nimbex. He was mentating well prior to intubation. Pulmonary: Ventilator/BiPAP settings: Intubated 08/01/2020 due to ARDS secondary to COVID-19 pneumonitis. Continue lung protective ventilation strategy. Two days of proning complete. No proning required today. Maintain pH above 7.25. Cardiovascular: Occasional sinus bradycardia likely from sedation. Nimbex drip has been weaned off. Hemodynamically stable. Gastrointestinal: Bowel regimen if on analgesics: Continue with bowel regimen including MiraLAX, senna and docusate. Start tube feeds today. Stress ulcer prophylaxis: Pepcid 20 mg IV daily. Renal: Worsening creatinine today. We will keep an eye on urine output. Infectious disease: Procalcitonin is within normal limits. Sputum cultures with normal george. We will discontinue Rocephin. Received tocilizumab 07/31/2020. Not a candidate for remdesivir due to FREDO. Hematologic: No issues at present. Endocrine: Pharmacy assisting in management of hyperglycemia. Lines and tubes: Right IJ placed 08/01/2020. Right radial arterial line placed 08/01/2020. Intubated 08/01/2020. Peripheral IVs and Regan catheter are in place. VTE prophylaxis: Heparin 5000 units subcu 3 times daily. CODE STATUS: Full code Family at bedside: None available at bedside due to the COVID-19 pandemic. Disposition: Remain in ICU. I have personally spent 30 minutes of critical care time in the direct management of this patient. This is a life/limb threatening event. This includes time spent evaluating patient, direct bedside care, chart review, placing orders, interpretation of diagnostic studies, discussion with consultants, patient, and family members, as well as other required patient management activities. This time is exclusive of all separately billable procedures, and teaching time and separate from and in addition to any other critical care service time. (2) COVID-19: (3) CKD (chronic kidney disease), stage III: (4) ARDS (adult respiratory distress syndrome): Admission and Anticipated Discharge Date Admission Date: July 28, 2020 Subjective Patient seen examined this morning. Currently on propofol, Versed and fentanyl. Responds to commands intermittently. No significant overnight events. Review of Systems Review of Systems: Unobtainable due to cognitive status and Unobtainable due to endotracheal tube Physical Exam Constitutional: + mechanically ventilated (prone, sedated, paralyzed) Neck: trachea midline, no thyromegaly Respiratory: symmetric chest movement Auscultation: lungs clear to auscultation bilaterally Cardiovascular: RRR, no murmur, no edema Gastrointestinal (Abdomen): Inspection/Auscultation: abdomen normal to inspection (difficult to exam, laying prone, has rectal tube) Musculoskeletal: Intubated, sedated and paralyzed. Difficult to examine skeletal tone. Skin: no rashes, warm and dry Neurologic: Moves limbs spontaneously. Follows simple commands. Psychiatric: Unable to fully assess due to sedation Lymphatic: no cervical or axillary lymphadenopathy Results & Data Results & Data ([place]) Vital Signs (Past 12 Hours) Vital Signs Temp Pulse Resp BP Pulse Ox 08/04/20 09:00 52 L 92 08/04/20 08:52 53 L 106/61 90 08/04/20 08:00 97.9 F 53 L 91 08/04/20 07:52 54 L 100/60 92 08/04/20 07:30 54 L 90 08/04/20 07:15 55 L 89 L 08/04/20 07:08 55 L 24 88 L 08/04/20 07:00 56 L 85 L 08/04/20 06:52 54 L 106/62 90 08/04/20 06:45 55 L 90 08/04/20 06:30 54 L 90 08/04/20 06:15 54 L 90 08/04/20 05:52 55 L 102/61 89 L 08/04/20 04:52 56 L 112/70 91 08/04/20 03:52 54 L 113/70 87 L 08/04/20 03:35 54 L 24 90 08/04/20 02:52 53 L 101/65 90 08/04/20 01:00 58 L 91 08/04/20 00:29 97.7 F 54 L 124/75 88 L 08/03/20 23:40 54 L 104/63 91 08/03/20 23:25 53 L 24 91 08/03/20 22:52 54 L 97/62 L 90 I reviewed the vital signs, labs and imaging Coding Level of Care Code Critical Care 1st 30-74 mins Diagnoses Acute hypoxemic respiratory failure J96.01 COVID-19 U07.1 CKD (chronic kidney disease), stage III N18.30 ARDS (adult respiratory distress syndrome) J80 Time Spent (min) 30
[2020-08-04] MEDS: DOCUSATE SODIUM/SENNA 50/8.6MG TAB PO SCH (11:41)
[2020-08-04] MEDS: PEPTAMEN INTENSE VHP 1.0 CAL 1,000 ML BAG OG SCH ×2 (15:53→18:00)
--- NOTE | 2020-08-04 17:50 | XRay Report ---
KUB HISTORY: Status post placement of an enteric tube OG tube placement COMPARISON: KUB 08/01/2020. FINDINGS: Lower abdomen is excluded from the [id number]. Enteric tube distal tip projects over the proximal gastric body. Cholecystectomy. Nonobstructive bowel gas pattern. No urolith or acute fractu re notified. Degenerative changes of the lumbar spine. Cardiomegaly. Right IJ central venous catheter . Findings suggestive of healed chronic bilateral rib fractures. IMPRESSION: Distal tip of enteric tube projects over the proximal gastric body. ACT 112: Negative or not required by law. The above report was generated using voice recognition software. It may contain grammatical, syntax o r spelling errors. Electronically signed by: Jhonny Mcknight M.D. 08/04/2020 5:49 PM
[2020-08-04] MEDS ORDERED: PROPOFOL BOLUS FROM BAG IV PRN (19:41)
[2020-08-04] MEDS ORDERED: STAT IV Infusion **Titration per Protocol STA (19:41)
[2020-08-05] MEDS: INSULIN ASPART 100 UNITS/ML 3 ML PEN SC SCH ×4 (00:25→18:05)
[2020-08-05] MEDS: propofoL 1,000 MG/100 ML VIAL IV SCH ×5 (02:11→20:10)
[2020-08-05] MEDS: fentaNYL DRIP 1,250 MCG/250 ML BAG IV SCH ×2 (03:13→13:22)
[2020-08-05 04:31] LABS: iSTAT Arterial Blood Gas HCO3 26 meg/L (19-24); iSTAT Arterial Blood Gas pCO2 46 mmHg (35-46); iSTAT Arterial Blood Gas pH 7.35 (7.35-7.45); iSTAT Arterial Blood Gas pO2 69 mmHg (80-95); iSTAT Carbon Dioxide 27 mmol/L (24-31); iSTAT Hematocrit 39 % (42-52); iSTAT Hemoglobin 13.3 g/dl (14.0-18.0); iSTAT Potassium 4.2 mmol/L (3.3-5.0); iSTAT Sodium 141 mmol/L (135-144)
[2020-08-05 05:13] LABS: Basophils # (auto) 0.01 K/uL (0-0.2); Basophils % (auto) 0.1 %; Eosinophils # (auto) 0.18 K/uL (0-0.5); Eosinophils % (auto) 1.8 %; Hematocrit (blood only) 40.7 % (42-52); Hemoglobin 13.1 g/dL (14.0-18.0); Lymphocytes # (auto) 0.84 K/uL (1.2-3.4); Lymphocytes % (auto) 8.6 %; Mean Corpuscular Hemoglobin 30.3 pg (25-34); Mean Corpuscular Hgb Conc 32.2 g/dL (32-36); Mean Platelet Volume 10.6 fL (7.4-10.4); Monocytes # (auto) 0.44 K/uL (0.11-0.59); Monocytes % (auto) 4.5 %; Neutrophils # (auto) 8.12 K/uL (1.4-6.5); Nucleated RBC # (auto) 0.03 K/uL (0-0); Nucleated RBC % (auto) 0.4 %; Platelet Count 299 K/uL (130-400); RDW Coefficient of Variation 13.2 % (11.5-14.5); RDW Standard Deviation 45.6 fL (36.4-46.3); Red Blood Count 4.33 M/uL (4.7-6.1); White Blood Count 9.79 K/uL (4.8-10.8)
[2020-08-05 05:32] LABS: BUN Creatinine Ratio 57.1 (10-20); Calcium 8.5 mg/dl (8.5-10.1); Creatinine Clr Calc Pharmacy 40.4 ml/min; Est GFR (African American) 40.9; Est GFR (Non-African American) 35.3; Magnesium 3.8 mg/dl (1.8-2.4); Potassium 4.2 mmol/L (3.5-5.1)
[2020-08-05 05:34] LABS: Phosphorus 5.3 mg/dl (2.5-4.9)
[2020-08-05] MEDS: HEPARIN SOD 5,000 UNIT/0.5 ML VIAL SQ SCH ×2 (06:17→15:21)
--- NOTE | 2020-08-05 07:28 | Hospitalist Progress Note ---
Date of Service August 05, 2020 Assessment & Plan (1) Acute respiratory failure with hypoxia: due to COVID 19 pneumonia, possible bacterial infection as well worsening dyspnea, hypoxemia over 4 days from admission leading to need for intubation progressed from Vapotherm to being dependent on BIPAP/CPAP IN patient team discussed with patient again about intubation/ventilation, he agreed IN patient team discussed with his daughter Annabella prior to intubation, she also agreed with plan intubated 08/[address] Sloan supine today after being prone on 08/02 PEEP 14 and FiO2 50% defer further prone positioning to ICU sedated with Propofol, Versed, Fentanyl, not ready for SBT today management per Dr. Rich continue dexamethasone 6mg IV daily (2) COVID-19: he is about two weeks into illness dexamethasone 6mg IV daily Administered Tocilizumab on 07/31 due to increasing oxygen requirements and CRP of 14 despite steroids CRP has gone down to 4.9 on 08/03 after Toci on 07/31 gave 5 days of Rocephin/Zithromax due to slightly elevated procalcitonin continues on Ceftriaxone for now no role for Remdesivir on admission due to FREDO and being 10 days into illness required intubation on 08/01, changed to ICU status Hep SC for DVT prophylaxis (3) Acute kidney injury superimposed on CKD: see above, resolved, Cr is 1.8 today (4) CKD (chronic kidney disease), stage III: Baseline Cr is 1.4-1.6. Patient was administered 1.5L of NSS in the ER for Cr of 2.0 FREDO and rising BUN question if elevation of BUN is from feeding (5) Psoriasis: Chronic. Patient with diffuse plaques on extensor surfaces of arms and legs as well as abdomen and scalp. 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 Patient follows with Urology. He was treated with one dose of Firmagon and now receives Lupron injections q6mo. He reports self catheterizing several times daily -Placed Regan on admission -Continue Casodex -Flomax daily (7) Constipation: went 6 days without BM mildly distended, hypoactive bowel sounds using Miralax down OGT has rectal tube to monitor for stools, some liquid brown stool (8) DVT prophylaxis: heparin due to renal dysfunction Admission and Anticipated Discharge Date Admission Date: July 28, 2020 Subjective Intubated sedated and ventilated Review of Systems Review of Systems: Unobtainable due to cognitive status and Unobtainable due to endotracheal tube Physical Exam Physical Exam: The patient appeared comfortable on the vent tolerating tube feeding Vital signs as documented. Head exam is normocephalic atraumatic Neck is without JVD, thyromegaly, or carotid bruits. Lungs are coarse bilaterally Cardiac exam, Rhythm is regular.. No murmurs, rubs or gallops. Abdominal exam reveals normal bowel sounds, soft does not appear to be distended Extremities are nonedematous and both pedal pulses are present Neurologic exam sedate this is open his eyes and a startle response does not follow commands Skin is without bruises or rashes Results & Data Results & Data ([facility]) Vital Signs (Past 12 Hours) Vital Signs Temp Pulse Resp BP Pulse Ox 08/05/20 06:35 97.3 F L 08/05/20 06:30 47 L 94 08/05/20 05:52 47 L 101/63 90 08/05/20 05:30 48 L 93 08/05/20 04:52 47 L 99/67 L 92 08/05/20 04:30 47 L 92 08/05/20 03:52 49 L 99/66 L 92 08/05/20 03:30 47 L 92 08/05/20 02:52 48 L 110/68 92 08/05/20 02:30 49 L 20 86 L 08/05/20 01:52 48 L 102/68 89 L 08/05/20 00:52 48 L 94/64 L 88 L 08/05/20 00:30 48 L 90 08/05/20 00:00 97.3 F L 08/04/20 23:52 48 L 95/64 L 100 08/04/20 23:39 51 L 20 100 08/04/20 23:30 50 L 100 08/04/20 22:52 49 L 95/64 L 100 08/04/20 22:30 49 L 100 08/04/20 21:52 51 L 119/71 98 08/04/20 21:30 51 L 100 08/04/20 20:52 65 108/75 95 05/02/21 20:45 97 08/04/20 19:54 68 135/71 97 08/04/20 19:44 69 140/80 08/04/20 19:25 62 25 H 92 PG Care Time/CCT Total # of Minutes Spent Total Time Spent with Patient: Total time spent is greater than 50% in coordination of care (as documented) at patient's floor/unit and/or counseling patient: Coding Level of Care Code 65516 Subseq Hosp Care Lvl 2 Diagnoses Acute respiratory failure with hypoxia J96.01 COVID-19 U07.1 Acute kidney injury superimposed on CKD N17.9 CKD (chronic kidney disease), stage III N18.30 Chronic kidney disease stage 3 subtype: unspecified whether 3a or 3b Psoriasis L40.9 Prostate cancer metastatic to bone C61 Constipation K59.00 DVT prophylaxis Z29.9 (1) CKD (chronic kidney disease), stage III Chronic kidney disease stage 3 subtype: unspecified whether 3a or 3b Qualif ied Code(s): N18.30 - Chronic kidney disease, stage 3 unspecified
--- NOTE | 2020-08-05 08:28 | XRay Report ---
XR chest 1V portable CLINICAL HISTORY: f/u COMPARISON STUDY: Chest radiograph August 04, 2020. FINDINGS: Tip of endotracheal tube is 5.6 cm above the ayala. Tip of nasogastric tube is below the l ower aspect of this image but at least within the proximal stomach. There is no pneumothorax. Bilater al lower lung opacities and interstitial thickening is similar to prior exam. Old bilateral rib lesio ns consistent with metastatic disease are again noted. Right internal jugular central line remains in place IMPRESSION: 1. Satisfactory positioning of lines and tubes. 2. No significant change in lower lung airspace opacities and interstitial thickening suggestive of m ultifocal pneumonia. ACT 112: Negative or not required by law. Electronically signed by: Vamsi Hayes M.D. 08/05/2020 8:27 AM
[2020-08-05] MEDS: NOREPINEPHRINE/D5W 8 MG/508 ML BAG IV SCH (08:55)
[2020-08-05] MEDS: DOCUSATE SODIUM/SENNA 50/8.6MG TAB PO SCH (08:58)
[2020-08-05] MEDS: FAMOTIDINE 20 MG in SYRINGE 3 ML IV SCH (08:58)
[2020-08-05] MEDS: dexAMETHasone 6 MG in SYRINGE 0 ML IV SCH (08:58)
[2020-08-05] MEDS: TRIAMCINOLONE ACET 0.1% CR 15 GM TUBE TOP SCH ×3 (08:58→22:06)
[2020-08-05] MEDS: NYSTATIN POWDER 15GM BTL EXT SCH ×3 (08:58→22:06)
[2020-08-05] MEDS: SENNOSIDES 8.8 MG/5 ML UDC GT PRN (08:58)
[2020-08-05] MEDS: ARTIFICIAL TEARS OP OINT 3.5 GM TUBE OP SCH ×4 (08:58→20:11)
[2020-08-05] MEDS ORDERED: NOVASOURCE RENAL 2.0 CAL 1000ML BAG OG SCH (12:00)
[2020-08-05] MEDS: TUBE FEEDING WATER FLUSH OG SCH ×3 (13:23→20:11)
--- NOTE | 2020-08-05 14:27 | Critical Care Progress Note ---
Date of Service August 05, 2020 Assessment & Plan (1) Acute hypoxemic respiratory failure: Impression: 80-year-old male admitted to the hospital 07/28/2020 with Covid pneumonia. He was intubated 08/01/2020 and completed a course of proning as well as neuromuscular blockade. 24-hour events: Patient had issues with agitation when sedation was weaned. He is currently on fentanyl and propofol infusions. Recommendations Neurologic: Analgesics and sedation: Currently on Versed, propofol and fentanyl. He was on 3 days of Nimbex. He was mentating well prior to intubation. Will add low-dose of an antipsychotic (seroquel) to see if it helps with agitated delirium. Not a Precedex candidate given his bradycardia. QT ok, will follow Pulmonary: Ventilator/BiPAP settings: Assist-control/20/400/9/0 0.4. Peak pressures of 21 with plateau pressures of 20. Most recent blood gas 7.3 546/69. P/F 172. intubated 08/01/2020 due to ARDS secondary to COVID-19 pneumonitis. Continue ARDS net strategy. Adequately diuresed at this point time. SBT once ventilator settings are appropriate. Cardiovascular: Occasional sinus bradycardia likely from sedation. Nimbex drip has been weaned off. Hemodynamically stable. Gastrointestinal: Continue with bowel regimen including MiraLAX, senna and docusate. Continue tube feeds, advancing as tolerated to goal. Stress ulcer prophylaxis: Pepcid 20 mg IV daily. Renal: Stable creatinine today. Following urine output closely. Acid-base status and electrolytes are acceptable. Will need to follow phosphate and magnesium. Infectious disease: Procalcitonin is within normal limits. Sputum cultures with normal george. Off antibiotics received tocilizumab 07/31/2020. Not a candidate for remdesivir due to FREDO. Hematologic: No issues at present. Endocrine: Per ICU protocol Lines and tubes: Right IJ placed 08/01/2020. Right radial arterial line placed 08/01/2020. Intubated 08/01/2020. Peripheral IVs and Regan catheter are in place. VTE prophylaxis: Heparin 5000 units subcu 3 times daily. CODE STATUS: Full code Family at bedside: None available at bedside due to the COVID-19 pandemic. Disposition: Remain in ICU. I have personally spent 40 minutes of critical care time in the direct management of this patient. This is a life/limb threatening event. This includes time spent evaluating patient, direct bedside care, chart review, placing orders, interpretation of diagnostic studies, discussion with consultants, patient, and family members, as well as other required patient management activities. This time is exclusive of all separately billable procedures, and teaching time and separate from and in addition to any other critical care service time. Patient was discussed with the bedside critical care nurse, respiratory therapy, and on multidisciplinary rounds. (2) COVID-19: (3) CKD (chronic kidney disease), stage III: (4) ARDS (adult respiratory distress syndrome): Admission and Anticipated Discharge Date Admission Date: July 28, 2020 Subjective Patient intubated and sedated Review of Systems Review of Systems: Unobtainable due to endotracheal tube Results & Data Results & Data ([facility]) Vital Signs (Past 12 Hours) Vital Signs Temp Pulse Resp BP Pulse Ox 08/05/20 13:00 45 L 92 08/05/20 12:52 47 L 111/68 93 08/05/20 12:00 36.8 C 47 L 93 08/05/20 11:52 47 L 108/66 93 08/05/20 11:34 46 L 20 92 08/05/20 11:00 46 L 93 08/05/20 10:52 45 L 121/65 94 08/05/20 10:00 36.6 C 46 L 95 08/05/20 09:52 46 L 120/69 96 08/05/20 09:00 46 L 94 08/05/20 08:52 47 L 103/67 95 08/05/20 08:00 48 L 89 L 08/05/20 07:55 48 L 20 89 L 08/05/20 07:52 50 L 108/59 L 90 08/05/20 07:00 36.6 C 46 L 94 08/05/20 06:52 49 L 110/68 93 08/05/20 06:35 36.3 C L 08/05/20 06:30 47 L 94 08/05/20 05:52 47 L 101/63 90 08/05/20 05:30 48 L 93 08/05/20 04:52 47 L 99/67 L 92 08/05/20 04:30 47 L 92 08/05/20 03:52 49 L 99/66 L 92 08/05/20 03:30 47 L 92 08/05/20 02:52 48 L 110/68 92 08/05/20 02:30 49 L 20 86 L Laboratory Results 08/05/20 04:57 08/05/20 04:57 I/O: -400. Cumulative -4.6 L Diagnostic Findings Chest x-ray from today was independently reviewed and compared to prior films. The endotracheal tube is approximately 5.5 cm above the ayala but does rest below the heads of the clavicles. There are basilar patchy infiltrates identified. Central venous catheter in good position. Not significantly changed from prior films Coding Level of Care Code Critical Care 1st 30-74 mins Diagnoses Acute hypoxemic respiratory failure J96.01 COVID-19 U07.1 CKD (chronic kidney disease), stage III N18.30 ARDS (adult respiratory distress syndrome) J80 Time Spent (min) 40
[2020-08-05] MEDS ORDERED: QUEtiapine FUMARATE 200 MG TAB PO SCH (21:00)
[2020-08-06] MEDS: TUBE FEEDING WATER FLUSH OG SCH ×7 (00:24→22:07)
[2020-08-06] MEDS: HEPARIN SOD 5,000 UNIT/0.5 ML VIAL SQ SCH ×4 (00:24→21:37)
[2020-08-06] MEDS: INSULIN ASPART 100 UNITS/ML 3 ML PEN SC SCH ×4 (00:25→18:47)
[2020-08-06] MEDS: fentaNYL DRIP 1,250 MCG/250 ML BAG IV SCH ×3 (01:34→13:24)
[2020-08-06] MEDS: propofoL 1,000 MG/100 ML VIAL IV SCH ×5 (01:34→13:26)
[2020-08-06 04:26] LABS: iSTAT Arterial Blood Gas HCO3 26 meg/L (19-24); iSTAT Arterial Blood Gas pCO2 45 mmHg (35-46); iSTAT Arterial Blood Gas pH 7.37 (7.35-7.45); iSTAT Arterial Blood Gas pO2 67 mmHg (80-95); iSTAT Carbon Dioxide 27 mmol/L (24-31); iSTAT Hematocrit 39 % (42-52); iSTAT Hemoglobin 13.3 g/dl (14.0-18.0); iSTAT Potassium 4.2 mmol/L (3.3-5.0); iSTAT Sodium 144 mmol/L (135-144)
[2020-08-06 05:31] LABS: Basophils # (auto) 0.01 K/uL (0-0.2); Basophils % (auto) 0.1 %; Eosinophils # (auto) 0.15 K/uL (0-0.5); Eosinophils % (auto) 1.5 %; Hematocrit (blood only) 40.5 % (42-52); Hemoglobin 13.2 g/dL (14.0-18.0); Lymphocytes # (auto) 0.82 K/uL (1.2-3.4); Lymphocytes % (auto) 8.2 %; Mean Corpuscular Hemoglobin 30.7 pg (25-34); Mean Corpuscular Hgb Conc 32.6 g/dL (32-36); Mean Corpuscular Volume 94.2 fL (80-100); Mean Platelet Volume 10.5 fL (7.4-10.4); Monocytes # (auto) 0.58 K/uL (0.11-0.59); Monocytes % (auto) 5.8 %; Neutrophils % (auto) 81.4 %; Nucleated RBC # (auto) 0.05 K/uL (0-0); Nucleated RBC % (auto) 0.5 %; Platelet Count 282 K/uL (130-400); RDW Coefficient of Variation 13.3 % (11.5-14.5); RDW Standard Deviation 45.5 fL (36.4-46.3); White Blood Count 10.06 K/uL (4.8-10.8)
[2020-08-06 06:06] LABS: BUN Creatinine Ratio 58.7 (10-20); Calcium 8.2 mg/dl (8.5-10.1); Creatinine Clr Calc Pharmacy 42.5 ml/min; Est GFR (African American) 43.5; Est GFR (Non-African American) 37.5; Magnesium 3.9 mg/dl (1.8-2.4); Phosphorus 4.2 mg/dl (2.5-4.9); Potassium 4.1 mmol/L (3.5-5.1)
[2020-08-06] MEDS: ARTIFICIAL TEARS OP OINT 3.5 GM TUBE OP SCH ×4 (08:08→21:38)
[2020-08-06] MEDS: SENNOSIDES 8.8 MG/5 ML UDC GT PRN (08:08)
[2020-08-06] MEDS: NOREPINEPHRINE/D5W 8 MG/508 ML BAG IV SCH (08:08)
[2020-08-06] MEDS: DOCUSATE SODIUM/SENNA 50/8.6MG TAB PO SCH (08:08)
[2020-08-06] MEDS: TRIAMCINOLONE ACET 0.1% CR 15 GM TUBE TOP SCH ×3 (08:09→21:39)
[2020-08-06] MEDS: NYSTATIN POWDER 15GM BTL EXT SCH ×3 (08:09→21:38)
[2020-08-06] MEDS: FAMOTIDINE 20 MG in SYRINGE 3 ML IV SCH (08:11)
--- NOTE | 2020-08-06 09:30 | XRay Report ---
XR chest 1V portable CLINICAL HISTORY: f/u COMPARISON STUDY: Chest radiograph August 05, 2020. FINDINGS: Tip of the endotracheal tube is 4.9 cm above the ayala. Tip of nasogastric tube is within the body of the stomach. Right internal jugular central line remains in place. There is no pneumothor ax. No pleural effusion is identified. Bilateral rib lesions are again noted. Cardiomegaly is unchang ed. Bilateral mid to lower lung airspace opacities persist with interstitial thickening. IMPRESSION: 1. Satisfactory positioning of lines and tubes. 2. No significant change in bilateral airspace opacities and interstitial thickening which favor an i nfectious process. ACT 112: Negative or not required by law. Electronically signed by: Vamsi Hayes M.D. 08/06/2020 9:28 AM
--- NOTE | 2020-08-06 10:08 | Hospitalist Progress Note ---
Date of Service August 06, 2020 Assessment & Plan (1) Acute respiratory failure with hypoxia: due to COVID 19 pneumonia, possible bacterial infection as well IN patient team discussed with patient again about intubation/ventilation, he agreed IN patient team discussed with his daughter Annabella prior to intubation, she also agreed with plan intubated 08/[address] Sloan sedated with Propofol, Versed, Fentanyl, not ready for SBT 08/06/20 encouraged to have progression to extubation management per Dr. Gunderson completed dexamthasone (2) COVID-19: dexamethasone completed Administered Tocilizumab on 07/31 due to increasing oxygen requirements and CRP of 14 despite steroids CRP has gone down to 4.9 on 08/03 after Toci on 07/31 gave 5 days of Rocephin/Zithromax due to slightly elevated procalcitonin continues on Ceftriaxone for now no role for Remdesivir on admission due to FREDO and being 10 days into illness required intubation on 08/01, now moving to SBT Hep SC for DVT prophylaxis (3) Acute kidney injury superimposed on CKD: see above, resolved, Cr is 1.8 today (4) CKD (chronic kidney disease), stage III: Baseline Cr is 1.4-1.6. Patient was administered 1.5L of NSS in the ER for Cr of 2.0 FREDO and rising BUN question if elevation of BUN is from feeding (5) Psoriasis: Chronic. Patient with diffuse plaques on extensor surfaces of arms and legs as well as abdomen and scalp. 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 Patient follows with Urology. He was treated with one dose of Firmagon and now receives Lupron injections q6mo. He reports self catheterizing several times daily -Placed Regan on admission -Continue Casodex -Flomax daily (7) Constipation: went 6 days without BM mildly distended, hypoactive bowel sounds using Miralax down OGT has rectal tube to monitor for stools, some liquid brown stool (8) DVT prophylaxis: heparin due to renal dysfunction Admission and Anticipated Discharge Date Admission Date: July 28, 2020 Subjective Intubated sedated and ventilated, pt has had some improved ventilation numbers for SBT today Physical Exam Physical Exam: The patient appeared comfortable on the vent tolerating tube feeding Vital signs as documented. Head exam is normocephalic atraumatic Neck is without JVD, thyromegaly, or carotid bruits. Lungs are coarse bilaterally Cardiac exam, Rhythm is regular.. No murmurs, rubs or gallops. Abdominal exam reveals normal bowel sounds, soft does not appear to be distended Extremities are nonedematous and both pedal pulses are present Neurologic exam sedate this is open his eyes and a startle response does not follow commands Skin is without bruises or rashes Results & Data Results & Data ([facility]) Vital Signs (Past 12 Hours) Vital Signs Pulse Resp BP Pulse Ox 08/06/20 07:36 55 L 20 93 08/06/20 06:00 49 L 94 08/06/20 05:53 50 L 111/66 93 08/06/20 05:00 52 L 92 08/06/20 04:53 51 L 120/68 93 08/06/20 04:10 69 22 90 08/06/20 04:00 56 L 93 08/06/20 03:53 57 L 124/71 93 08/06/20 03:00 65 91 08/06/20 02:53 67 139/70 90 08/06/20 02:00 68 91 08/06/20 01:53 67 139/72 89 L 08/06/20 01:00 60 91 08/06/20 00:53 59 L 120/69 91 08/06/20 00:00 58 L 89 L 08/05/20 23:53 60 139/70 92 08/05/20 23:40 69 20 94 08/05/20 23:00 58 L 92 08/05/20 22:53 64 129/64 95 PG Care Time/CCT Total # of Minutes Spent Total Time Spent with Patient: Total time spent is greater than 50% in coordination of care (as documented) at patient's floor/unit and/or counseling patient: Coding Level of Care Code 58465 Subseq Hosp Care Lvl 2 Diagnoses Acute respiratory failure with hypoxia J96.01 COVID-19 U07.1 Acute kidney injury superimposed on CKD N17.9 CKD (chronic kidney disease), stage III N18.30 Chronic kidney disease stage 3 subtype: unspecified whether 3a or 3b Psoriasis L40.9 Prostate cancer metastatic to bone C61 Constipation K59.00 DVT prophylaxis Z29.9 (1) CKD (chronic kidney disease), stage III Chronic kidney disease stage 3 subtype: unspecified whether 3a or 3b Qualified Code(s): N18.30 - Chronic kidney disease, stage 3 unspecified
--- NOTE | 2020-08-06 13:25 | Critical Care Progress Note ---
Date of Service August 06, 2020 Assessment & Plan (1) Acute hypoxemic respiratory failure: Impression: 80-year-old male admitted to the hospital 07/28/2020 with Covid pneumonia. He was intubated 08/01/2020 and completed a course of proning as well as neuromuscular blockade. 24-hour events: Patient tolerated an SBT and sedation break this morning. He appeared neurologically intact. We will plan on trial of extubation and see how he does Recommendations Neurologic: We will discontinue fentanyl propofol and Seroquel and follow clinically. He will likely need aggressive PT and OT which will be initiated tomorrow. Will also request speech/swallow evaluation for tomorrow. Pulmonary: Doing well on SBT 08/07 with RSB of less than 100. Will pursue trial of extubation. May need some ventilatory support in the form of high flow oxygen or BiPAP post extubation Cardiovascular: No current issues. Diuresing as tolerated Gastrointestinal: Continue with bowel regimen including MiraLAX, senna and docusate. Tube feeds on hold in anticipation of extubation. Will need swallow evaluation prior to feeding. Stress ulcer prophylaxis: Pepcid 20 mg IV daily. Renal: Stable creatinine today. Following urine output closely. Acid-base status and electrolytes are acceptable. BUN is increased significantly. Unclear if he is catabolic. No evidence of ongoing GI bleeding. This could contribute to some encephalopathy and will need to be followed closely. Could consider additional IV fluids however in anticipation of extubation and trying to keep his lungs on the dry side will hold off for now. Infectious disease: Procalcitonin is within normal limits. Sputum cultures with normal george. Off antibiotics received tocilizumab 07/31/2020. Not a candidate for remdesivir due to FREDO. Hematologic: No issues at present. Endocrine: Per ICU protocol Lines and tubes: Right IJ placed 08/01/2020. Right radial arterial line placed 08/01/2020 we will discontinue today. Intubated 08/01/2020, trial of extubation. Peripheral IVs and Regan catheter are in place. Anticipate removal of Regan catheter in the next 24 hours VTE prophylaxis: Heparin 5000 units subcu 3 times daily. CODE STATUS: Full code Family at bedside: None available at bedside due to the COVID-19 pandemic. Disposition: Remain in ICU. I have personally spent 36 minutes of critical care time in the direct management of this patient. This is a life/limb threatening event. This includes time spent evaluating patient, direct bedside care, chart review, placing orders, interpretation of diagnostic studies, discussion with consultants, patient, and family members, as well as other required patient management activities. This time is exclusive of all separately billable procedures, and teaching time and separate from and in addition to any other critical care service time. Patient was discussed with the bedside critical care nurse, respiratory therapy, and on multidisciplinary rounds. (2) COVID-19: (3) CKD (chronic kidney disease), stage III: (4) ARDS (adult respiratory distress syndrome): Admission and Anticipated Discharge Date Admission Date: July 28, 2020 Subjective Patient intubated and sedated. He is able to follow commands and tolerating SBT Review of Systems Review of Systems: Unobtainable due to endotracheal tube Physical Exam Constitutional: + mechanically ventilated (prone, sedated, paralyzed) Neck: trachea midline, no thyromegaly Respiratory: symmetric chest movement Auscultation: lungs clear to auscultation bilaterally Cardiovascular: RRR, no murmur, no edema Gastrointestinal (Abdomen): Inspection/Auscultation: abdomen normal to inspection (difficult to exam, laying prone, has rectal tube) Musculoskeletal: Intubated, sedated and paralyzed. Difficult to examine skeletal tone. Skin: no rashes, warm and dry Neurologic: Moves limbs spontaneously. Follows simple commands. Psychiatric: Unable to fully assess due to sedation Lymphatic: no cervical or axillary lymphadenopathy Results & Data Results & Data ([facility]) Vital Signs (Past 12 Hours) Vital Signs Temp Pulse Resp BP Pulse Ox 08/06/20 10:37 66 14 92 08/06/20 08:00 37.6 C H 55 L 08/06/20 07:36 55 L 20 93 08/06/20 06:00 49 L 94 08/06/20 05:53 50 L 111/66 93 08/06/20 05:00 52 L 92 08/06/20 04:53 51 L 120/68 93 08/06/20 04:10 69 22 90 08/06/20 04:00 56 L 93 08/06/20 03:53 57 L 124/71 93 08/06/20 03:00 65 91 08/06/20 02:53 67 139/70 90 08/06/20 02:00 68 91 08/06/20 01:53 67 139/72 89 L Laboratory Results 08/06/20 05:21 08/06/20 05:21 Diagnostic Findings Chest x-ray today was independently reviewed. There is some basilar hazy opacities but no advancing interstitial markings or acute airspace opacity Coding Level of Care Code Critical Care 1st 30-74 mins Diagnoses Acute hypoxemic respiratory failure J96.01 COVID-19 U07.1 CKD (chronic kidney disease), stage III N18.30 ARDS (adult respiratory distress syndrome) J80 Time Spent (min) 36
[2020-08-06] MEDS ORDERED: QUEtiapine FUMARATE 25 MG TABLET PO SCH (21:00)
[2020-08-07] MEDS: INSULIN ASPART 100 UNITS/ML 3 ML PEN SC SCH ×5 (01:37→21:00)
[2020-08-07] MEDS: HEPARIN SOD 5,000 UNIT/0.5 ML VIAL SQ SCH ×3 (05:16→22:40)
[2020-08-07 05:32] LABS: Basophils # (auto) 0.02 K/uL (0-0.2); Basophils % (auto) 0.2 %; Eosinophils # (auto) 0.26 K/uL (0-0.5); Hematocrit (blood only) 45.9 % (42-52); Hemoglobin 14.8 g/dL (14.0-18.0); Immature Granulocytes % (auto) 4.5 %; Lymphocytes # (auto) 0.99 K/uL (1.2-3.4); Lymphocytes % (auto) 7.5 %; Mean Corpuscular Hemoglobin 30.6 pg (25-34); Mean Corpuscular Hgb Conc 32.2 g/dL (32-36); Mean Corpuscular Volume 94.8 fL (80-100); Mean Platelet Volume 10.3 fL (7.4-10.4); Monocytes # (auto) 0.62 K/uL (0.11-0.59); Monocytes % (auto) 4.7 %; Neutrophils # (auto) 10.71 K/uL (1.4-6.5); Neutrophils % (auto) 81.1 %; Nucleated RBC # (auto) 0.04 K/uL (0-0); Nucleated RBC % (auto) 0.3 %; Platelet Count 273 K/uL (130-400); RDW Coefficient of Variation 13.5 % (11.5-14.5); RDW Standard Deviation 45.5 fL (36.4-46.3); Red Blood Count 4.84 M/uL (4.7-6.1)
[2020-08-07 06:03] LABS: BUN Creatinine Ratio 48.2 (10-20); Est GFR (African American) 48.2; Est GFR (Non-African American) 41.6; Magnesium 3.6 mg/dl (1.8-2.4); Potassium 4.4 mmol/L (3.5-5.1)
[2020-08-07 06:30] LABS: Phosphorus 3.5 mg/dl (2.5-4.9)
--- NOTE | 2020-08-07 07:38 | Hospitalist Progress Note ---
Date of Service August 07, 2020 Assessment & Plan (1) Acute respiratory failure with hypoxia: due to COVID 19 pneumonia, possible bacterial infection as well intubated 08/[address] Sloan, SBT 08/06/20 encouraged to have progression to extubation 08/06/2020 Still however with high oxygen requirements but not requiring noninvasive positive pressure ventilation Patient stable to transfer off telemetry completed dexamthasone (2) COVID-19: dexamethasone completed Administered Tocilizumab on 07/31 due to increasing oxygen requirements and CRP of 14 despite steroids CRP has gone down to 4.9 on 08/03 after Toci on 07/31 gave 5 days of Rocephin/Zithromax due to slightly elevated procalcitonin continues on Ceftriaxone for now no role for Remdesivir on admission due to FREDO and being 10 days into illness Extubated 08/06 Hep SC for DVT prophylaxis (3) Acute kidney injury superimposed on CKD: see above, resolved, Cr is 1.8 today (4) CKD (chronic kidney disease), stage III: Baseline Cr is 1.4-1.6. Patient was administered 1.5L of NSS in the ER for Cr of 2.0 Patient has mixed bag with BUN decreasing, sodium however increasing continues on half-normal saline at this time follow electrolytes (5) Psoriasis: Chronic. Patient with diffuse plaques on extensor surfaces of arms and legs as well as abdomen and scalp. 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 Patient follows with Urology. He was treated with one dose of Firmagon and now receives Lupron injections q6mo. He reports self catheterizing several times daily -Placed Regan on admission -Continue Casodex -Flomax daily (7) Constipation: Continue to monitor and work on constipation (8) DVT prophylaxis: heparin due to renal dysfunction Admission and Anticipated Discharge Date Admission Date: July 28, 2020 Subjective Patient tolerated extubation and is doing well also been done. He is fatigued he gets tired just talking closes his eyes frequently he denies focal complaints to states he is very tired Review of Systems Review of Systems: Moderate distress and significant fatigue no headache, blurry or double vision no speech or swallowing issues no chest pain, pressure or palpitations Shortness of breath even with talking does have a nonproductive cough no abdominal pain, nausea or vomiting, diarrhea or constipation no dysuria, hematuria or frequency no focal joint pain some peripheral swelling no back pain, CVA tenderness or radicular pain no bruising, bleeding or rashes no focal signs of weakness or numbness or altered sensation globally weak and fatigued no complaints of anxiety or depression.. Physical Exam Physical Exam: The patient appeared extremely weak and tired fatigues easily Vital signs as documented. Head exam is normocephalic atraumatic Neck is without JVD, thyromegaly, or carotid bruits. Lungs are coarse bilaterally able to move air bilaterally though Cardiac exam, Rhythm is regular.. No murmurs, rubs or gallops. Abdominal exam reveals normal bowel sounds, soft mildly distended Extremities are trace edematous and both pedal pulses are present Neurologic exam responds to commands response to name does have some conversation falls asleep easily Skin is without bruises or rashes Results & Data Results & Data ([facility]) Vital Signs (Past 12 Hours) Vital Signs Temp Pulse Resp BP Pulse Ox 08/07/20 05:37 95 H 21 147/107 H 94 08/07/20 04:53 97.9 F 99 H 23 181/105 H 89 L 08/07/20 04:00 94 H 08/07/20 03:53 97.9 F 91 H 23 176/97 H 89 L 08/07/20 02:53 85 20 156/96 H 93 08/07/20 01:53 81 21 177/94 H 92 08/07/20 00:53 83 22 152/85 H 90 08/07/20 00:00 78 08/06/20 23:53 98.1 F 78 19 151/89 H 90 08/06/20 22:53 78 20 163/87 H 91 08/06/20 21:53 80 25 H 178/91 H 88 L 08/06/20 20:53 98.6 F 72 16 146/90 H 94 08/06/20 20:00 69 08/06/20 19:53 70 18 158/87 H 90 PG Care Time/CCT Total # of Minutes Spent Total Time Spent with Patient: Total time spent is greater than 50% in coordination of care (as documented) at patient's floor/unit and/or counseling patient: Coding Level of Care Code 55624 Subseq Hosp Care Lvl 3 Diagnoses Acute respiratory failure with hypoxia J96.01 COVID-19 U07.1 Acute kidney injury superimposed on CKD N17.9 CKD (chronic kidney disease), stage III N18.30 Chronic kidney disease stage 3 subtype: unspecified whether 3a or 3b Psoriasis L40.9 Prostate cancer metastatic to bone C61 Constipation K59.00 DVT prophylaxis Z29.9 (1) CKD (chronic kidney disease), stage III Chronic kidney disease stage 3 subtype: unspecified whether 3a or 3b Qualified Code(s): N18.30 - Chronic kidney disease, stage 3 unspecified
[2020-08-07] MEDS: ARTIFICIAL TEARS OP OINT 3.5 GM TUBE OP SCH ×4 (07:41→20:27)
[2020-08-07] MEDS: TUBE FEEDING WATER FLUSH OG SCH (07:41)
[2020-08-07] MEDS: DOCUSATE SODIUM/SENNA 50/8.6MG TAB PO SCH ×2 (07:45→20:28)
[2020-08-07] MEDS: FAMOTIDINE 20 MG in SYRINGE 3 ML IV SCH ×2 (07:46→07:47)
[2020-08-07] MEDS: TRIAMCINOLONE ACET 0.1% CR 15 GM TUBE TOP SCH ×3 (07:46→20:27)
[2020-08-07] MEDS: NYSTATIN POWDER 15GM BTL EXT SCH ×3 (07:46→20:28)
--- NOTE | 2020-08-07 08:09 | Critical Care Progress Note ---
Date of Service August 07, 2020 Assessment & Plan (1) Acute hypoxemic respiratory failure: Impression: 80-year-old male admitted to the hospital 07/28/2020 with Covid pneumonia. He was intubated 08/01/2020 and completed a course of proning as well as neuromuscular blockade. 24-hour events: Extubated yesterday. Has done well overnight. Oxygen requirement is varied anywhere between 6 and 12 L/min. He denies any complaints this morning. He is hypertensive. Recommendations Neurologic: Weak and deconditioned at this point time. Initiate PT OT. Out of bed to chair. Discontinue Regan. Speech therapy for swallow evaluation. Pulmonary: Wean oxygen as tolerated. Initiate incentive spirometry and flutter valve. Cardiovascular: Now hypertensive. Initiate hydralazine as needed for systolic blood pressure greater than 165. Once he is able to take p.o., will initiate oral antihypertensive regimen. Gastrointestinal: Continue with bowel regimen including MiraLAX, senna and docusate. Await speech/swallow evaluation prior to initiation of feeding. If fails, may need replacement of feeding tube. Stress ulcer prophylaxis: Pepcid 20 mg IV daily. Renal: Improved creatinine today. Following urine output closely. Hype rnatremic today. Will initiate half-normal saline at 80 cc an hour pending swallow evaluation. If passes swallow, will likely be able to regulate free water via oral intake. BUN decreasing today and will continue to follow. Infectious disease: Procalcitonin is within normal limits. Sputum cultures with normal george. Off antibiotics received tocilizumab 07/31/2020. Not a candidate for remdesivir due to FREDO. Patient is now day 13 from his positive test and isolation can likely be discontinued within the next 24 hours as the patient has not had fevers, is clinically improved, has not been receiving antipyretics. Hematologic: No issues at present. Endocrine: Per ICU protocol Lines and tubes: Right IJ placed 08/01/2020. Will remove if adequate peripheral IV access is available VTE prophylaxis: Heparin 5000 units SQ 3 times daily. CODE STATUS: Full code Family at bedside: None available at bedside due to the COVID-19 pandemic. Disposition: Okay to transfer to the floor. We will sign off when patient leaves the ICU. Hospitalist to assume care the patient on transfer. No free to contact us if we can be of additional assistance (2) COVID-19: (3) CKD (chronic kidney disease), stage III: (4) ARDS (adult respiratory distress syndrome): Admission and Anticipated Discharge Date Admission Date: July 28, 2020 Physical Exam Constitutional: + frail appearing Neck: trachea midline, no thyromegaly Respiratory: symmetric chest movement Auscultation: lungs clear to auscultation bilaterally Cardiovascular: RRR, no murmur, no edema Gastrointestinal (Abdomen): normal bowel sounds, soft, nontender, no hepatosplenomegaly Skin: no rashes, warm and dry Lymphatic: no cervical or axillary lymphadenopathy Results & Data Results & Data ([facility]) Vital Signs (Past 12 Hours) Vital Signs Temp Pulse Resp BP Pulse Ox 08/07/20 07:00 92 H 26 H 89 L 08/07/20 06:54 97 H 20 168/103 H 94 08/07/20 05:37 95 H 21 147/107 H 94 08/07/20 04:53 36.6 C 99 H 23 181/105 H 89 L 08/07/20 04:00 94 H 08/07/20 03:53 36.6 C 91 H 23 176/97 H 89 L 08/07/20 02:53 85 20 156/96 H 93 08/07/20 01:53 81 21 177/94 H 92 08/07/20 00:53 83 22 152/85 H 90 08/07/20 00:00 78 08/06/20 23:53 36.7 C 78 19 151/89 H 90 08/06/20 22:53 78 20 163/87 H 91 08/06/20 21:53 80 25 H 178/91 H 88 L 08/06/20 20:53 37.0 C 72 16 146/90 H 94 Laboratory Results 08/07/20 05:14 08/07/20 05:14 Diagnostic Findings no new films. Coding Level of Care Code 39834 Subseq Hosp Care Lvl 3 Diagnoses Acute hypoxemic respiratory failure J96.01 COVID-19 U07.1 CKD (chronic kidney disease), stage III N18.30 ARDS (adult respiratory distress syndrome) J80
[2020-08-07] MEDS ORDERED: hydrALAZINE HCL 20 MG/ML VIAL IV PRN (09:02)
[2020-08-07] MEDS: hydrALAZINE HCL 20 MG/ML VIAL IV PRN ×2 (10:02→23:46)
[2020-08-07] MEDS: SODIUM CHLORIDE 0.45 % 1,000 ML IV SCH (10:02)
--- NOTE | 2020-08-07 10:19 | XRay Report ---
SINGLE VIEW CHEST CLINICAL HISTORY: Respiratory failure. FINDINGS: An AP, portable, upright chest radiograph is compared to study dated 08/06/2020 and correlate d with chest CT dated 06/01/2019. A right internal jugular central venous catheter is unchanged in pos ition. Endotracheal and enteric tubes have been removed. The heart is enlarged. Bilateral airspace op acities are similar to yesterday. No large pleural effusion or pneumothorax is seen. The skeletal str uctures are osteopenic. The bony thorax is grossly intact. IMPRESSION: 1. Endotracheal and enteric tubes have been removed. 2. Bilateral airspace opacities are unchanged from yesterday. 3. Cardiomegaly. ACT 112: Negative or not required by law. Electronically signed by: Jorge Alberto Lan M.D. 08/07/2020 10:18 AM
[2020-08-07] MEDS ORDERED: ACETAMINOPHEN 1,000 MG/100 ML VIAL IV STA (11:27)
[2020-08-07] MEDS ORDERED: Nursing to Pharmacy Communication SCH (15:15)
[2020-08-07] MEDS: ONDANSETRON INJ 2 MG/ML 2 ML VIAL IV PRN (23:45)
[2020-08-08] MEDS: SODIUM CHLORIDE 0.45 % 1,000 ML IV SCH ×2 (00:23→13:04)
[2020-08-08] MEDS: HEPARIN SOD 5,000 UNIT/0.5 ML VIAL SQ SCH ×3 (06:38→22:07)
[2020-08-08] MEDS: ONDANSETRON INJ 2 MG/ML 2 ML VIAL IV PRN ×2 (06:42→13:04)
--- NOTE | 2020-08-08 07:17 | Hospitalist Progress Note ---
Date of Service August 08, 2020 Assessment & Plan (1) Acute respiratory failure with hypoxia: due to COVID 19 pneumonia, possible bacterial infection as well intubated 08/[address] Sloan, SBT 08/06/20 encouraged to have progression to extubation 08/06/2020 Still however with high oxygen requirements but not requiring noninvasive positive pressure ventilation Patient stable after transfer to icu, still with high oxygen requirements, cxr seems stable but still with significant persistent changes completed dexamethasone (2) COVID-19: dexamethasone completed Administered Tocilizumab on 07/31 due to increasing oxygen requirements and CRP of 14 despite steroids CRP has gone down to 4.9 on 08/03 after Toci on 07/31 gave 5 days of Rocephin/Zithromax due to slightly elevated procalcitonin continues on Ceftriaxone for now no role for Remdesivir on admission due to FREDO and being 10 days into illness Extubated 08/06 watch for fatigue and escalation of oxygen requirements, if either consider return to bipap assistance Hep SC for DVT prophylaxis (3) Nausea: Patient with persistent nausea throughout the day help with antiemetic still able to eat some food was constipated for extended period of time did have bowel movements with the clock suppository and Senokot twice daily. He does have history of cholecystectomy and his abdominal discomfort associate with the nausea is nonfocal. Is not known whether is diverticulosis. Patient has no recent CT scan on this presentation he does last have a CT scan to define his bony metastasis from his prostate cancer. If his pain continues to persist her laboratories are abnormal on 08/[address] scan testing. Patient is nearing coming off of isolation at this point time. Family was updated on 08/08/2020 (4) Acute kidney injury superimposed on CKD: see above, resolved, Cr is 1.8 today (5) CKD (chronic kidney disease), stage III: Baseline Cr is 1.4-1.6. Patient was administered 1.5L of NSS in the ER for Cr of 2.0 still with fredo and hypernatremia improving on 1/2 nss (6) Psoriasis: Chronic. Patient with diffuse plaques on extensor surfaces of arms and legs as well as abdomen and scalp. 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 Patient follows with Urology. He was treated with one dose of Firmagon and now receives Lupron injections q6mo. He reports self catheterizing several times daily -Placed Regan on admission -Continue Casodex -Flomax daily (8) Constipation: Continue to monitor and work on constipation (9) DVT prophylaxis: heparin due to renal dysfunction Admission and Anticipated Discharge Date Admission Date: July 28, 2020 Subjective Patient is having episodes of nausea today however he still eating with antiemetics. He was constipated prior to today did have 2 large bowel movements. His generalized abdominal pain not focal to suggest an acute intra- abdominal problem, does have a history of prostate cancer, he has had a previous cholecystectomy Review of Systems Review of Systems: Moderate distress and significant fatigue no headache, blurry or double vision no speech or swallowing issues no chest pain, pressure or palpitations Shortness of breath even with talking does have a nonproductive cough no abdominal pain, nausea or vomiting, diarrhea or constipation no dysuria, hematuria or frequency no focal joint pain some peripheral swelling no back pain, CVA tenderness or radicular pain no bruising, bleeding or rashes no focal signs of weakness or numbness or altered sensation globally weak and fatigued no complaints of anxiety or depression.. Physical Exam Physical Exam: The patient appeared extremely weak and tired fatigues easily Vital signs as documented. Head exam is normocephalic atraumatic Neck is without JVD, thyromegaly, or carotid bruits. Lungs are coarse bilaterally able to move air bilaterally though Cardiac exam, Rhythm is regular.. No murmurs, rubs or gallops. Abdominal exam reveals normal bowel sounds, soft mildly distended Extremities are trace edematous and both pedal pulses are present Neurologic exam responds to commands response to name does have some conversation falls asleep easily easily fatigued Skin is without bruises or rashes Results & Data Results & Data ([facility]) Vital Signs (Past 12 Hours) Vital Signs Temp Pulse Pulse Pulse Resp BP Pulse Ox 08/08/20 03:53 97.5 F L 94 H 21 148/85 H 92 08/08/20 00:25 91 H 23 160/82 H 95 08/07/20 23:26 97.5 F L 91 H 21 171/100 H 94 08/07/20 22:20 85 PG Care Time/CCT Total # of Minutes Spent Total Time Spent with Patient: Total time spent is greater than 50% in coordination of care (as documented) at patient's floor/unit and/or counseling patient: Coding Level of Care Code 29381 Subseq Hosp Care Lvl 3 Diagnoses Acute respiratory failure with hypoxia J96.01 COVID-19 U07.1 Nausea R11.0 Acute kidney injury superimposed on CKD N17.9 CKD (chronic kidney disease), stage III N18.30 Chronic kidney disease stage 3 subtype: unspecified whether 3a or 3b Psoriasis L40.9 Prostate cancer metastatic to bone C61 Constipation K59.00 DVT prophylaxis Z29.9 (1) CKD (chronic kidney disease), stage III Chronic kidney disease stage 3 subtype: unspecified whether 3a or 3b Qualified Code(s): N18.30 - Chronic kidney disease, stage 3 unspecified
[2020-08-08] MEDS ORDERED: bisacodyL 10 MG SUPP PR STA (07:32)
[2020-08-08 08:44] LABS: BUN Creatinine Ratio 39.4 (10-20); Calcium 9.4 mg/dl (8.5-10.1); Creatinine Clr Calc Pharmacy 48.3 ml/min; Est GFR (African American) 51.4; Est GFR (Non-African American) 44.3; Potassium 4.5 mmol/L (3.5-5.1)
[2020-08-08] MEDS: PROMETHAZINE HCL 12.5 MG in SODIUM CHLORIDE 0.9% 50 ML IV PRN (09:04)
[2020-08-08] MEDS: ARTIFICIAL TEARS OP OINT 3.5 GM TUBE OP SCH ×4 (09:04→20:21)
[2020-08-08] MEDS: TRIAMCINOLONE ACET 0.1% CR 15 GM TUBE TOP SCH ×3 (09:04→20:21)
[2020-08-08] MEDS: NYSTATIN POWDER 15GM BTL EXT SCH ×3 (09:04→20:21)
[2020-08-08] MEDS: SENNOSIDES 8.8 MG/5 ML UDC GT PRN (09:05)
--- NOTE | 2020-08-08 09:14 | XRay Report ---
XR chest 1V portable HISTORY: 80 years-old Male resp failure acute respiratory failure COMPARISON: Chest radiograph 08/07/2020 TECHNIQUE: Portable AP view of the chest FINDINGS: Cardiac silhouette is enlarged. Midline bibasilar airspace opacities appear stable slightly progresse d. No pneumothorax or pleural effusion. Interval removal of the right IJ central venous catheter. Deg enerative changes of the shoulders and spine. Healed remote bilateral rib fractures. IMPRESSION: 1. Interval removal of the right IJ central venous catheter. 2. Bilateral airspace opacities appear stable to mildly progressed from comparison. 3. Cardiomegaly. ACT 112: Negative or not required by law. The above report was generated using voice recognition software. It may contain grammatical, syntax o r spelling errors. Electronically signed by: Kobe Mcknight M.D. 08/08/2020 9:13 AM
[2020-08-08] MEDS: DOCUSATE SODIUM/SENNA 50/8.6MG TAB PO SCH ×2 (09:15→20:27)
[2020-08-08] MEDS: INSULIN ASPART 100 UNITS/ML 3 ML PEN SC SCH ×4 (09:18→21:00)
[2020-08-08] MEDS: ACETAMINOPHEN 325 MG TAB PO PRN (20:27)
[2020-08-09] MEDS: SODIUM CHLORIDE 0.45 % 1,000 ML IV SCH ×3 (01:42→15:33)
[2020-08-09] MEDS: HEPARIN SOD 5,000 UNIT/0.5 ML VIAL SQ SCH ×3 (06:16→21:05)
[2020-08-09 07:18] LABS: Albumin Level 2.6 gm/dl (3.4-5.0); BUN Creatinine Ratio 38.3 (10-20); Calcium 9.3 mg/dl (8.5-10.1); Creatinine Clr Calc Pharmacy 49.4 ml/min; Est GFR (African American) 53.1; Est GFR (Non-African American) 45.8; Potassium 4.3 mmol/L (3.5-5.1)
[2020-08-09 07:21] LABS: Albumin Globulin Ratio 0.7 (0.9-2); Bilirubin,Total 0.7 mg/dl (0.2-1); Globulin 3.9 gm/dl (2.5-4.0); Total Protein 6.5 gm/dl (6.4-8.2)
[2020-08-09] MEDS: INSULIN ASPART 100 UNITS/ML 3 ML PEN SC SCH ×4 (08:35→21:06)
[2020-08-09] MEDS: ARTIFICIAL TEARS OP OINT 3.5 GM TUBE OP SCH ×4 (08:37→21:06)
[2020-08-09] MEDS: NYSTATIN POWDER 15GM BTL EXT SCH ×3 (08:38→21:06)
[2020-08-09] MEDS: TRIAMCINOLONE ACET 0.1% CR 15 GM TUBE TOP SCH ×3 (08:38→21:06)
[2020-08-09] MEDS: FAMOTIDINE 20 MG in SYRINGE 3 ML IV SCH (08:39)
[2020-08-09] MEDS: DOCUSATE SODIUM/SENNA 50/8.6MG TAB PO SCH ×2 (08:43→21:07)
[2020-08-09] MEDS: ACETAMINOPHEN 325 MG TAB PO PRN ×2 (08:56→14:40)
--- NOTE | 2020-08-09 18:49 | Hospitalist Progress Note ---
Date of Service August 09, 2020 Assessment & Plan (1) Acute respiratory failure with hypoxia: due to COVID 19 pneumonia, possible bacterial infection as well intubated 08/[address] Sloan, SBT 08/06/20 encouraged to have progression to extubation 08/06/2020 Still however with high oxygen requirements but not requiring noninvasive positive pressure ventilation Patient remains stable after transfer to icu, with lessening high oxygen requirements, cxr 08/08 stable but still with significant persistent changes completed dexamethasone (2) COVID-19: dexamethasone completed Administered Tocilizumab on 07/31 due to increasing oxygen requirements and CRP of 14 despite steroids CRP has gone down to 4.9 on 08/03 after Toci on 07/31 gave 5 days of Rocephin/Zithromax due to slightly elevated procalcitonin continues on Ceftriaxone for now no role for Remdesivir on admission due to FREDO and being 10 days into illness Extubated 08/06 watch for fatigue and escalation of oxygen requirements, if either consider return to bipap assistance Hep SC for DVT prophylaxis (3) Nausea: Patient with persistent nausea throughout the day , lessening since did have BM, labs do not show lft changes, he does last have a CT scan in the past showing bony metastasis from his prostate cancer. Patient is nearing coming off of isolation at this point time. Family was updated on 08/09/2020 (4) Acute kidney injury superimposed on CKD: see above, resolved, (5) CKD (chronic kidney disease), stage III: Baseline Cr is 1.4-1.6. Patient was administered 1.5L of NSS in the ER for Cr of 2.0 still with fredo and hypernatremia improving on 1/2 nss (6) Psoriasis: Chronic. Patient with diffuse plaques on extensor surfaces of arms and legs as well as abdomen and scalp. 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 Patient follows with Urology. He was treated with one dose of Firmagon and now receives Lupron injections q6mo. He reports self catheterizing several times daily -Placed Regan on admission -Continue Casodex -Flomax daily (8) Constipation: Continue to monitor and work on constipation (9) DVT prophylaxis: heparin due to renal dysfunction Admission and Anticipated Discharge Date Admission Date: July 28, 2020 Subjective Patient is having less episodes of nausea today however he still eating with antiemetics. He was constipated but did have 2 large bowel movements 08/08. His generalized abdominal pain has resolved, does have a history of prostate cancer, he has had a previous cholecystectomy Review of Systems Review of Systems: Moderate distress and significant fatigue no headache, blurry or double vision no speech or swallowing issues no chest pain, pressure or palpitations Shortness of breath even with talking does have a nonproductive cough resolved abdominal pain, still mild nausea but no vomiting, diarrhea or constipation no dysuria, hematuria or frequency no focal joint pain some peripheral swelling no back pain, CVA tenderness or radicular pain no bruising, bleeding or rashes no focal signs of weakness or numbness or altered sensation globally weak and fatigued no complaints of anxiety or depression.. Physical Exam Physical Exam: The patient appeared extremely weak and tired fatigues easily Vital signs as documented. Head exam is normocephalic atraumatic Neck is without JVD, thyromegaly, or carotid bruits. Lungs are coarse bilaterally able to move air bilaterally though Cardiac exam, Rhythm is regular.. No murmurs, rubs or gallops. Abdominal exam reveals normal bowel sounds, soft mildly distended Extremities are trace edematous and both pedal pulses are present Neurologic exam responds to commands response to name does have some conversation falls asleep easily easily fatigued Skin is without bruises or rashes Results & Data Results & Data ([facility]) Vital Signs (Past 12 Hours) Vital Signs Temp Pulse Pulse Resp BP Pulse Ox 08/09/20 11:30 98.1 F 08/09/20 11:17 77 20 91 08/09/20 11:15 79 141/75 H 91 08/09/20 11:05 94 08/09/20 11:00 77 95 08/09/20 10:45 74 94 08/09/20 10:30 79 97 08/09/20 10:15 85 92 08/09/20 10:00 81 94 08/09/20 09:45 87 83 L 08/09/20 09:30 76 96 08/09/20 09:15 77 94 08/09/20 09:00 87 89 L 08/09/20 08:45 73 92 08/09/20 08:30 81 91 08/09/20 08:15 90 87 L 08/09/20 08:00 77 135/71 94 08/09/20 07:45 79 96 08/09/20 07:30 86 87 L 08/09/20 07:15 84 94 08/09/20 07:00 88 91 PG Care Time/CCT Total # of Minutes Spent Total Time Spent with Patient: Total time spent is greater than 50% in coordination of care (as documented) at patient's floor/unit and/or counseling patient: Coding Level of Care Code 36967 Subseq Hosp Care Lvl 3 Diagnoses Acute respiratory failure with hypoxia J96.01 COVID-19 U07.1 Nausea R11.0 Acute kidney injury superimposed on CKD N17.9 CKD (chronic kidney disease), stage III N18.30 Chronic kidney disease stage 3 subtype: unspecified whether 3a or 3b Psoriasis L40.9 Prostate cancer metastatic to bone C61 Constipation K59.00 DVT prophylaxis Z29.9 (1) CKD (chronic kidney disease), stage III Chronic kidney disease stage 3 subtype: unspecified whether 3a or 3b Qualified Code(s): N18.30 - Chronic kidney disease, stage 3 unspecified
[2020-08-09] MEDS: ONDANSETRON INJ 2 MG/ML 2 ML VIAL IV PRN (19:36)
[2020-08-09] MEDS: PROMETHAZINE HCL 12.5 MG in SODIUM CHLORIDE 0.9% 50 ML IV PRN (21:34)
[2020-08-10] MEDS: HEPARIN SOD 5,000 UNIT/0.5 ML VIAL SQ SCH ×3 (05:37→21:24)
[2020-08-10] MEDS: SODIUM CHLORIDE 0.45 % 1,000 ML IV SCH (05:38)
[2020-08-10] MEDS: TRIAMCINOLONE ACET 0.1% CR 15 GM TUBE TOP SCH ×3 (07:36→19:52)
[2020-08-10] MEDS: NYSTATIN POWDER 15GM BTL EXT SCH ×3 (07:36→19:52)
[2020-08-10] MEDS: FAMOTIDINE 20 MG in SYRINGE 3 ML IV SCH (07:37)
[2020-08-10] MEDS: ARTIFICIAL TEARS OP OINT 3.5 GM TUBE OP SCH ×4 (07:39→19:53)
[2020-08-10] MEDS: DOCUSATE SODIUM/SENNA 50/8.6MG TAB PO SCH ×2 (07:42→19:52)
[2020-08-10] MEDS: INSULIN ASPART 100 UNITS/ML 3 ML PEN SC SCH ×3 (08:51→17:48)
[2020-08-10] MEDS: ONDANSETRON INJ 2 MG/ML 2 ML VIAL IV PRN ×2 (12:18→19:53)
--- NOTE | 2020-08-10 14:09 | Hospitalist Progress Note ---
Date of Service August 10, 2020 Assessment & Plan (1) Acute respiratory failure with hypoxia: due to COVID 19 pneumonia, possible bacterial infection as well intubated 08/[address] Sloan, SBT 08/06/20 , extubation 08/06/2020 Still however with high oxygen requirements but declining every day and not requiring noninvasive positive pressure ventilation Patient is able to come off airborne precautions completed dexamethasone (2) COVID-19: dexamethasone completed Administered Tocilizumab on 07/31 due to increasing oxygen requirements and CRP of 14 despite steroids CRP has gone down to 4.9 on 08/03 after Toci on 07/31 gave 5 days of Rocephin/Zithromax due to slightly elevated procalcitonin continues on Ceftriaxone for now no role for Remdesivir on admission due to FREDO and being 10 days into illness Extubated 08/06 continues with higher oxygen requirements but lessening daily watch for fatigue and escalate noninvasive positive pressure ventilation if needed Hep SC for DVT prophylaxis (3) Nausea: Patient has lessening nausea daily we will continue with bowel regiment able to tolerate p.o. intake, he does last have a CT scan in the past showing bony metastasis from his prostate cancer. Patient is nearing coming off of isolation at this point time. Family was updated on 08/09/2020 (4) Acute kidney injury superimposed on CKD: see above, resolved, (5) CKD (chronic kidney disease), stage III: Baseline Cr is 1.4-1.6. Patient was administered 1.5L of NSS in the ER for Cr of 2.0 Eating and drinking reasonably well will stop IV fluids on 08/10 check labs on 08/11 (6) Psoriasis: Chronic. Patient with diffuse plaques on extensor surfaces of arms and le gs as well as abdomen and scalp. 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 Patient follows with Urology. He was treated with one dose of Firmagon and now receives Lupron injections q6mo. He reports self catheterizing several times daily -Placed Regan on admission patient typically straight caths asked him if he wished to return to straight cath at this point time he feels he is very weak and does not want to pursue that at this juncture but will consider short-term future -Continue Casodex -Flomax daily (8) Constipation: Continue to monitor and work on constipation (9) DVT prophylaxis: heparin due to renal dysfunction consider transition to Xarelto as we can continue this as an outpatient Admission and Anticipated Discharge Date Admission Date: July 28, 2020 Subjective Patient is improving daily however remains significantly weak. Having less and less abdominal discomfort and nausea but still having problems with constipation requiring an laxative at times. Regarding increase his bowel regiment at this time and hopefully escalate his physical and occupational therapy participation Review of Systems Review of Systems: Mild distress and significant fatigue no headache, blurry or double vision no speech or swallowing issues no chest pain, pressure or palpitations Still with dyspnea on exertion, nonproductive cough or wheezes no abdominal pain, nausea or vomiting, diarrhea or constipation no dysuria, hematuria or frequency no focal joint pain or swelling no back pain, CVA tenderness or radicular pain no bruising, bleeding or rashes no focal signs of weakness or numbness or altered sensation very weak overall no complaints of anxiety or depression.. Physical Exam Physical Exam: The patient appeared significantly deconditioned Vital signs as documented. Head exam is normocephalic atraumatic Neck is without JVD, thyromegaly, or carotid bruits. Lungs are diminished with lessening rales Cardiac exam, Rhythm is regular.. No murmurs, rubs or gallops. Abdominal exam reveals normal bowel sounds, soft non tender, no masses Extremities are trace to 1+ edematous and both pedal pulses are present Neurologic exam is alert and oriented, no focal loss of strength or sensation Skin is with is associate with his chronic ICU stay Psychologically is without concerns for anxiety or depression Results & Data Results & Data ([facility]) Vital Signs (Past 12 Hours) Vital Signs Temp Pulse Pulse Resp BP BP Pulse Ox 08/10/20 11:52 99.0 F 64 22 132/79 93 08/10/20 08:00 71 08/10/20 07:35 98.4 F 76 22 114/73 93 08/10/20 03:15 61 97 08/10/20 03:00 55 L 93 08/10/20 02:45 84 84 L 08/10/20 02:44 98.6 F 71 134/75 84 L 08/10/20 02:30 72 88 L 08/10/20 02:15 76 91 PG Care Time/CCT Total # of Minutes Spent Total Time Spent with Patient: Total time spent is greater than 50% in coordination of care (as documented) at patient's floor/unit and/or counseling patient: Coding Level of Care Code 02716 Subseq Hosp Care Lvl 3 Diagnoses Acute respiratory failure with hypoxia J96.01 COVID-19 U07.1 Nausea R11.0 Acute kidney injury superimposed on CKD N17.9 CKD (chronic kidney disease), stage III N18.30 Chronic kidney disease stage 3 subtype: unspecified whether 3a or 3b Psoriasis L40.9 Prostate cancer metastatic to bone C61 Constipation K59.00 DVT prophylaxis Z29.9 (1) CKD (chronic kidney disease), stage III Chronic kidney disease stage 3 subtype: unspecified whether 3a or 3b Qualified Code(s): N18.30 - Chronic kidney disease, stage 3 unspecified
[2020-08-10] MEDS: ACETAMINOPHEN 325 MG TAB PO PRN (19:53)
[2020-08-11] MEDS: HEPARIN SOD 5,000 UNIT/0.5 ML VIAL SQ SCH ×3 (05:50→20:50)
[2020-08-11 07:16] LABS: Magnesium 2.4 mg/dl (1.8-2.4); Phosphorus 3.1 mg/dl (2.5-4.9)
[2020-08-11] MEDS: ONDANSETRON INJ 2 MG/ML 2 ML VIAL IV PRN (07:18)
[2020-08-11] MEDS: FAMOTIDINE 20 MG in SYRINGE 3 ML IV SCH (07:18)
[2020-08-11] MEDS: TRIAMCINOLONE ACET 0.1% CR 15 GM TUBE TOP SCH ×3 (07:19→20:49)
[2020-08-11] MEDS: ARTIFICIAL TEARS OP OINT 3.5 GM TUBE OP SCH ×4 (07:20→20:48)
[2020-08-11] MEDS: DOCUSATE SODIUM/SENNA 50/8.6MG TAB PO SCH ×2 (07:20→20:48)
[2020-08-11] MEDS: NYSTATIN POWDER 15GM BTL EXT SCH ×3 (07:20→20:49)
[2020-08-11 08:14] LABS: BUN Creatinine Ratio 28.2 (10-20); Calcium 8.9 mg/dl (8.5-10.1); Creatinine Clr Calc Pharmacy 62.3 ml/min; Est GFR (African American) 68.8; Est GFR (Non-African American) 59.4; Potassium 4.1 mmol/L (3.5-5.1)
--- NOTE | 2020-08-11 15:40 | Hospitalist Progress Note ---
Date of Service August 11, 2020 Assessment & Plan (1) Acute respiratory failure with hypoxia: due to COVID 19 pneumonia, possible bacterial infection as well intubated 08/[address] Sloan, SBT 08/06/20 , extubation 08/06/2020 Still however with high oxygen requirements but declining every day and not requiring noninvasive positive pressure ventilation Patient is able to come off airborne precautions completed dexamethasone (2) COVID-19: dexamethasone completed Administered Tocilizumab on 07/31 due to increasing oxygen requirements and CRP of 14 despite steroids CRP has gone down to 4.9 on 08/03 after Toci on 07/31 gave 5 days of Rocephin/Zithromax due to slightly elevated procalcitonin continues on Ceftriaxone for now no role for Remdesivir on admission due to FREDO and being 10 days into illness Extubated 08/06 continues with slowly reducing oxygen requirements, lessening daily. watch for fatigue and escalate noninvasive positive pressure ventilation if needed Hep SC for DVT prophylaxis (3) Nausea: Patient has lessening nausea daily we will continue with bowel regiment able to tolerate p.o. intake, he does last have a CT scan in the past showing bony metastasis from his prostate cancer. will add pepcid and scheduled reglan for one day to see if it helps Patient is nearing coming off of isolation at this point time. Family was updated. was transferred from [facility] to [facility] (4) Acute kidney injury superimposed on CKD: see above, resolved, (5) CKD (chronic kidney disease), stage III: Baseline Cr is 1.4-1.6. Eating and drinking reasonably well will stop IV fluids on 08/10, labs on 08/11 are stable with resolution of hypernatremia, Uremia and resolution of fredo (6) Psoriasis: Chronic. Patient with diffuse plaques on extensor surfaces of arms and legs as well as abdomen and scalp. 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 Patient follows with Urology. He was treated with one dose of Firmagon and now receives Lupron injections q6mo. He reports self catheterizing several times daily -Placed Regan on admission patient typically straight caths asked him if he wished to return to straight cath at this point time he feels he is very weak and does not want to pursue that at this juncture but will consider short-term future -Continue Casodex -Flomax daily (8) Constipation: Continue to monitor and work on constipation (9) DVT prophylaxis: heparin due to renal dysfunction consider transition to Xarelto as we can continue this as an outpatient Admission and Anticipated Discharge Date Admission Date: July 28, 2020 Subjective Patient continues to be improving daily however remains significantly weak. Having less and less abdominal discomfort and nausea but still having problems with constipation requiring an laxative at times. Regarding increase his bowel regiment with good results, escalate his physical and occupational therapy participation Review of Systems Review of Systems: Mild distress and significant fatigue no headache, blurry or double vision no speech or swallowing issues no chest pain, pressure or palpitations Still with dyspnea on exertion, nonproductive cough or wheezes no abdominal pain, nausea or vomiting, diarrhea or constipation no dysuria, hematuria or frequency no focal joint pain or swelling no back pain, CVA tenderness or radicular pain no bruising, bleeding or rashes no focal signs of weakness or numbness or altered sensation very weak overall no complaints of anxiety or depression.. Physical Exam Physical Exam: The patient appeared significantly deconditioned Vital signs as documented. Head exam is normocephalic atraumatic Neck is without JVD, thyromegaly, or carotid bruits. Lungs are diminished with lessening rales Cardiac exam, Rhythm is regular.. No murmurs, rubs or gallops. Abdominal exam reveals normal bowel sounds, soft non tender, no masses Extremities are trace to 1+ edematous and both pedal pulses are present Neurologic exam is alert and oriented, no focal loss of strength or sensation Skin is with is associate with his chronic ICU stay Psychologically is without concerns for anxiety or depression Results & Data Results & Data ([facility]) Vital Signs (Past 12 Hours) Vital Signs Temp Pulse Pulse Pulse Resp BP Pulse Ox 08/11/20 11:09 98.1 F 85 20 111/61 94 08/11/20 08:00 76 08/11/20 07:28 97.9 F 74 20 140/77 92 08/11/20 04:33 98.6 F 95 H 19 117/59 L 96 PG Care Time/CCT Total # of Minutes Spent Total Time Spent with Patient: Total time spent is greater than 50% in coordination of care (as documented) at patient's floor/unit and/or counseling patient: Coding Level of Care Code 29765 Subseq Hosp Care Lvl 3 Diagnoses Acute respiratory failure with hypoxia J96.01 COVID-19 U07.1 Nausea R11.0 Acute kidney injury superimposed on CKD N17.9 CKD (chronic kidney disease), stage III N18.30 Chronic kidney disease stage 3 subtype: unspecified whether 3a or 3b Psoriasis L40.9 Prostate cancer metastatic to bone C61 Constipation K59.00 DVT prophylaxis Z29.9 (1) CKD (chronic kidney disease), stage III Chronic kidney disease stage 3 subtype: unspecified whether 3a or 3b Qualified Code(s): N18.30 - Chronic kidney disease, stage 3 unspecified
[2020-08-11] MEDS: METOCLOPRAMIDE HCL 5 MG TABLET PO SCH ×2 (20:47→20:52)
[2020-08-11] MEDS: FAMOTIDINE 20 MG TAB PO SCH (20:48)
[2020-08-11] MEDS: ACETAMINOPHEN 325 MG TAB PO PRN (20:51)
[2020-08-12] MEDS: HEPARIN SOD 5,000 UNIT/0.5 ML VIAL SQ SCH ×3 (05:41→20:47)
[2020-08-12 07:46] LABS: Hematocrit (blood only) 40.1 % (42-52); Hemoglobin 12.7 g/dL (14.0-18.0); Mean Corpuscular Hemoglobin 30.8 pg (25-34); Mean Corpuscular Hgb Conc 31.7 g/dL (32-36); Mean Corpuscular Volume 97.1 fL (80-100); Mean Platelet Volume 10.7 fL (7.4-10.4); Platelet Count 139 K/uL (130-400); RDW Coefficient of Variation 13.7 % (11.5-14.5); RDW Standard Deviation 47.4 fL (36.4-46.3); Red Blood Count 4.13 M/uL (4.7-6.1); White Blood Count 4.48 K/uL (4.8-10.8)
[2020-08-12 08:10] LABS: BUN Creatinine Ratio 25.1 (10-20); Calcium 8.6 mg/dl (8.5-10.1); Est GFR (Non-African American) 61.3; Potassium 4.3 mmol/L (3.5-5.1)
[2020-08-12] MEDS: METOCLOPRAMIDE HCL 5 MG TABLET PO SCH ×4 (08:25→20:46)
[2020-08-12] MEDS: FAMOTIDINE 20 MG TAB PO SCH ×2 (08:26→20:45)
[2020-08-12] MEDS: ARTIFICIAL TEARS OP OINT 3.5 GM TUBE OP SCH ×4 (08:26→20:45)
[2020-08-12] MEDS: DOCUSATE SODIUM/SENNA 50/8.6MG TAB PO SCH ×2 (08:26→20:45)
[2020-08-12] MEDS: NYSTATIN POWDER 15GM BTL EXT SCH ×3 (08:27→20:46)
[2020-08-12] MEDS: TRIAMCINOLONE ACET 0.1% CR 15 GM TUBE TOP SCH ×3 (08:27→20:46)
[2020-08-12] MEDS: ACETAMINOPHEN 325 MG TAB PO PRN (10:03)
--- NOTE | 2020-08-12 10:51 | Hospitalist Progress Note ---
Date of Service August 12, 2020 Assessment & Plan (1) Acute respiratory failure with hypoxia: due to COVID 19 pneumonia, possible bacterial infection as well intubated 08/[address] Sloan, SBT 08/06/20 , extubation 08/06/2020 down to 6L NC today, breathing comfortably, lungs clear continue to wean as tolerated, might need oxygen for a few weeks but only low flow completed dexamethasone (2) COVID-19: dexamethasone completed Administered Tocilizumab on 07/31 due to increasing oxygen requirements and CRP of 14 despite steroids CRP has gone down to 4.9 on 08/03 after Toci on 07/31 gave 5 days of Rocephin/Zithromax due to slightly elevated procalcitonin now off antibiotics completely no role for Remdesivir on admission due to FREDO and being 10 days into illness Extubated 08/06 continues with slowly reducing oxygen requirements, lessening d aily. watch for fatigue and escalate noninvasive positive pressure ventilation if needed Hep SC q8 for DVT prophylaxis (3) Nausea: Patient has lessening nausea daily we will continue with bowel regiment able to tolerate p.o. intake, he does last have a CT scan in the past showing bony metastasis from his prostate cancer. will add pepcid and scheduled reglan for one day to see if it helps doing better today, ate better (4) Acute kidney injury superimposed on CKD: see above, resolved, Cr is 1.1 (5) CKD (chronic kidney disease), stage III: Baseline Cr is 1.4-1.6. Eating and drinking reasonably well will stop IV fluids on 08/10, labs on 08/11 are stable with resolution of hypernatremia, Uremia and resolution of fredo will start back on Lasix 20mg PO daily Cr is 1.1 (6) Psoriasis: Chronic. Patient with diffuse plaques on extensor surfaces of arms and legs as well as abdomen and scalp. 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 Patient follows with Urology. He was treated with one dose of Firmagon and now receives Lupron injections q6mo. He reports self catheterizing several times daily -Placed Young on admission patient typically straight caths asked him if he wished to return to straight cath at this point time he feels he is very weak and does not want to pursue that at this juncture but will consider short-term future -Continue Casodex -Flomax daily (8) Constipation: Continue to monitor and work on constipation (9) DVT prophylaxis: heparin due to renal dysfunction consider transition to Xarelto as we can continue this as an outpatient Admission and Anticipated Discharge Date Admission Date: July 28, 2020 Subjective patient feels great, sitting up in chair, says he is weak, deconditioned he is eating well, had a BM this morning, still has a young in place his breathing is stable on 6L, no cough, no distress he is committed to go to rehab later this week he has not been able to speak with his , she is at [place], he is worried about her I updated his daughter on the phone today reviewed chart, reviewed labs, WBC 4k, Hb 12.7, Cr 1.14, K 4.3 will resume his Lasix 20mg PO daily this morning Review of Systems Review of Systems: All systems reviewed & are unremarkable except as noted in Subjective Constitutional: + weakness; no fever and no fatigue Respiratory: no cough and no dyspnea Cardiovascular: no chest pain, no palpitations and no edema Gastrointestinal: no abdominal pain, no nausea, no vomiting, no constipation and no diarrhea/loose stools Musculoskeletal: + muscle weakness (generalized, most in legs) Physical Exam Constitutional: WD/WN, vitals as above comfortable; no acute distress Neck: trachea midline, no thyromegaly Respiratory: normal respiratory effort, lungs clear to auscultation Cardiovascular: RRR, no murmur, no edema Gastrointestinal (Abdomen): normal bowel sounds, soft, nontender, no hepatosplenomegaly Musculoskeletal: no cyanosis or clubbing, extremities motor strength 5/5 Skin: no rashes, warm and dry Neurologic: patellar DTR's 2+ bilat, sensation intact and PERRL, EOMI, accommodation nl, no face palsy, no dysarthria Psychiatric: A+Ox3, euthymic affect Lymphatic: no cervical or axillary lymphadenopathy Results & Data Results & Data ([facility]) Vital Signs (Past 12 Hours) Vital Signs Temp Pulse Pulse Resp BP Pulse Ox 08/12/20 08:01 36.7 C 69 18 149/80 H 90 08/11/20 23:00 36.6 C 72 20 135/74 92 Laboratory Results Laboratory Results - last 24 hr 08/12/20 08/12/20 07:27 07:27 WBC 4.48 L RBC 4.13 L Hgb 12.7 L Hct 40.1 L MCV 97.1 MCH 30.8 MCHC 31.7 L RDW Std Deviation 47.4 H RDW Coeff of Jose 13.7 Plt Count 139 MPV 10.7 H Sodium 140 Potassium 4.3 Chloride 109 H Carbon Dioxide 26 Anion Gap 5.0 BUN 29 H Creatinine 1.14 Est Cr Clr Drug Dosing 64.0 Est GFR ( Amer) 71.0 Est GFR (Non-Af Amer) 61.3 BUN/Creatinine Ratio 25.1 H Glucose 96 Calcium 8.6 Medications Administered Current Inpatient Medications Acetaminophen (Acetaminophen 325 Mg Tab) 650 mg PO Q4H PRN PRN Reason: Pain or Fever Stop: 08/28/20 00:06 Last Admin: 08/12/20 10:03 Dose: 650 mg Documented by: Famotidine (Famotidine 20 Mg Tab) 20 mg PO BID [facility] Stop: 09/10/20 20:59 Last Admin: 08/12/20 08:26 Dose: 20 mg Documented by: Furosemide (Furosemide 20 Mg Tab) 20 mg PO QAM [facility] Stop: 09/11/20 10:44 Heparin Sodium (Porcine) (Heparin Sod 5,000 Unit/0.5 Ml Vial) 5,000 units SQ Q8 LORIE Stop: 08/28/20 05:59 Last Admin: 08/12/20 05:41 Dose: 5,000 units Documented by: Hydralazine HCl (Hydralazine Hcl 20 Mg/Ml Vial) 10 mg IV Q4 PRN PRN Reason: Hypertension Stop: 09/06/20 08:05 Last Admin: 08/07/20 23:46 Dose: 10 mg Documented by: Famotidine 20 mg/ Syringe 5 mls @ 2.5 mls/min IV DAILY [facility] Stop: 09/01/20 08:59 Last Admin: 08/11/20 07:18 Dose: 2.5 mls/min Documented by: Promethazine HCl 12.5 mg/ (Sodium Chloride) 50.5 mls @ 202 mls/hr IV Q6H PRN PRN Reason: Nausea And Vomiting Stop: 09/07/20 07:31 Last Infusion: 08/09/20 22:25 Dose: Infused Documented by: Metoclopramide HCl (Metoclopramide Hcl 5 Mg Tablet) 5 mg PO ACHS [facility] Stop: 08/12/20 21:01 Last Admin: 08/12/20 08:25 Dose: 5 mg Documented by: Multi-Ingredient Cream (Artificial Tears Op Oint 3.5 Gm Tube) 1 appln OP QID [facility] Stop: 09/02/20 12:59 Last Admin: 08/12/20 08:26 Dose: 1 appln Documented by: Nystatin (Nystatin Powder 15gm Btl) 1 appln EXT TID [facility] Stop: 09/02/20 13:59 Last Admin: 08/12/20 08:27 Dose: 1 appln Documented by: Ondansetron HCl (Ondansetron Inj 2 Mg/Ml 2 Ml Vial) 4 mg IV Q6H PRN PRN Reason: Nausea Stop: 08/28/20 00:06 Last Admin: 08/11/20 07:18 Dose: 4 mg Documented by: Polyethylene Glycol (Polyethylene (Miralax) 17 Gm Pack) 17 gm GT DAILY PRN PRN Reason: Constipation Stop: 08/31/20 17:46 Last Admin: 08/02/20 14:39 Dose: 17 gm Documented by: Senna/Docusate Sodium (Docusate Sodium/Senna 50/8.6mg Tab) 2 tab PO BID [facility] Stop: 09/09/20 20:59 Last Admin: 08/12/20 08:26 Dose: 2 tab Documented by: Sennosides (Sennosides 8.8 Mg/5 Ml Udc) 8.8 mg GT DAILY PRN PRN Reason: Constipation Stop: 08/31/20 17:47 Last Admin: 08/08/20 09:05 Dose: 8.8 mg Documented by: Triamcinolone Acetonide (Triamcinolone Acet 0.1% Cr 15 Gm Tube) 1 appln TOP TID [facility] Stop: 08/28/20 08:59 Last Admin: 08/12/20 08:27 Dose: 1 appln Documented by: PG Care Time/CCT Total # of Minutes Spent Total Time Spent with Patient: Total time spent is greater than 50% in coord ination of care (as documented) at patient's floor/unit and/or counseling patient: Coding Level of Care Code 93693 Subseq Hosp Care Lvl 2 Diagnoses Acute respiratory failure with hypoxia J96.01 COVID-19 U07.1 Nausea R11.0 Acute kidney injury superimposed on CKD N17.9 CKD (chronic kidney disease), stage III N18.30 Chronic kidney disease stage 3 subtype: unspecified whether 3a or 3b Psoriasis L40.9 Prostate cancer metastatic to bone C61 Constipation K59.00 DVT prophylaxis Z29.9 (1) CKD (chronic kidney disease), stage III Chronic kidney disease stage 3 subtype: unspecified whether 3a or 3b Qualified Code(s): N18.30 - Chronic kidney disease, stage 3 unspecified
[2020-08-12] MEDS: FUROSEMIDE 20 MG TAB PO SCH (12:08)
[2020-08-13] MEDS: HEPARIN SOD 5,000 UNIT/0.5 ML VIAL SQ SCH ×3 (05:56→21:06)
[2020-08-13] MEDS: FUROSEMIDE 20 MG TAB PO SCH (08:33)
[2020-08-13] MEDS: FAMOTIDINE 20 MG TAB PO SCH ×2 (08:34→20:03)
[2020-08-13] MEDS: TRIAMCINOLONE ACET 0.1% CR 15 GM TUBE TOP SCH ×3 (08:35→20:04)
[2020-08-13] MEDS: NYSTATIN POWDER 15GM BTL EXT SCH ×3 (08:35→20:04)
[2020-08-13] MEDS: ACETAMINOPHEN 325 MG TAB PO PRN ×2 (08:38→20:03)
[2020-08-13] MEDS: DOCUSATE SODIUM/SENNA 50/8.6MG TAB PO SCH ×2 (08:38→20:03)
[2020-08-13] MEDS: ARTIFICIAL TEARS OP OINT 3.5 GM TUBE OP SCH ×4 (10:32→20:03)
[2020-08-14] MEDS: HEPARIN SOD 5,000 UNIT/0.5 ML VIAL SQ SCH ×3 (06:12→22:14)
[2020-08-14] MEDS: ACETAMINOPHEN 325 MG TAB PO PRN (06:15)
[2020-08-14 07:19] LABS: Hematocrit (blood only) 36.7 % (42-52); Hemoglobin 11.6 g/dL (14.0-18.0); Mean Corpuscular Hemoglobin 30.1 pg (25-34); Mean Corpuscular Hgb Conc 31.6 g/dL (32-36); Mean Corpuscular Volume 95.1 fL (80-100); Mean Platelet Volume 10.6 fL (7.4-10.4); Platelet Count 143 K/uL (130-400); RDW Standard Deviation 46.3 fL (36.4-46.3); Red Blood Count 3.86 M/uL (4.7-6.1); White Blood Count 3.24 K/uL (4.8-10.8)
[2020-08-14 07:57] LABS: BUN Creatinine Ratio 20.9 (10-20); Calcium 8.1 mg/dl (8.5-10.1); Creatinine Clr Calc Pharmacy 62.8 ml/min; Est GFR (African American) 71.8; Est GFR (Non-African American) 61.9; Potassium 4.4 mmol/L (3.5-5.1)
[2020-08-14] MEDS: ARTIFICIAL TEARS OP OINT 3.5 GM TUBE OP SCH ×4 (08:21→22:12)
[2020-08-14] MEDS: FUROSEMIDE 20 MG TAB PO SCH (08:22)
[2020-08-14] MEDS: NYSTATIN POWDER 15GM BTL EXT SCH ×3 (08:22→22:14)
[2020-08-14] MEDS: FAMOTIDINE 20 MG TAB PO SCH ×2 (08:22→22:13)
[2020-08-14] MEDS: TRIAMCINOLONE ACET 0.1% CR 15 GM TUBE TOP SCH ×3 (08:23→22:14)
[2020-08-14] MEDS: DOCUSATE SODIUM/SENNA 50/8.6MG TAB PO SCH ×2 (09:06→22:12)
--- NOTE | 2020-08-14 12:21 | Hospitalist Progress Note ---
Date of Service August 14, 2020 Assessment & Plan (1) Acute respiratory failure with hypoxia: due to COVID 19 pneumonia, possible bacterial infection as well intubated 08/[address] Sloan, SBT 08/06/20 , extubation 08/06/2020 down to 4L NC today, breathing comfortably, lungs clear continue to wean as tolerated, might need oxygen for a few weeks but only low flow completed dexamethasone stable for discharge tomorrow if SNF can take him for rehab (2) COVID-19: dexamethasone completed Administered Tocilizumab on 07/31 due to increasing oxygen requirements and CRP of 14 despite steroids CRP has gone down to 4.9 on 08/03 after Toci on 07/31 gave 5 days of Rocephin/Zithromax due to slightly elevated procalcitonin now off antibiotics completely no role for Remdesivir on admission due to FREDO and being 10 days into illness Extubated 08/06 continues with slowly reducing oxygen requirements, lessening daily. watch for fatigue and escalate noninvasive positive pressure ventilation if needed Hep SC q8 for DVT prophylaxis (3) Nausea: Patient has lessening nausea daily we will continue with bowel regiment able to tolerate p.o. intake, he does last have a CT scan in the past showing bony metastasis from his prostate cancer. will add pepcid and scheduled reglan for one day to see if it helps doing better past few days, eating well (4) Acute kidney injury superimposed on CKD: see above, resolved, Cr is 1.1 (5) CKD (chronic kidney disease), stage III: Baseline Cr is 1.4-1.6. Eating and drinking reasonably well will stop IV fluids on 08/10, labs on 08/11 are stable with resolution of hypernatremia, Uremia and resolution of fredo resumed Lasix 20mg PO daily, increased UO yesterday with neg fluid balance Cr is 1.1 (6) Psoriasis: Chronic. Patient with diffuse plaques on extensor surfaces of arms and legs as well as abdomen and scalp. 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 Patient follows with Urology. He was treated with one dose of Firmagon and now receives Lupron injections q6mo. He reports self catheterizing several times daily -Placed Young on admission patient typically straight caths asked him if he wished to return to straight cath at this point time he feels he is very weak and does not want to pursue that at this juncture but will consider short-term future -Continue Casodex -Flomax daily will d/c young, can utilize straight cath TID which he does chronically (8) Constipation: resolved, moving bowels regularly (9) DVT prophylaxis: heparin due to renal dysfunction consider transition to Xarelto as we can continue this as an outpatient Admission and Anticipated Discharge Date Admission Date: July 28, 2020 Subjective patient doing well, down to 4L, saturations in the 90's still with young, says he is worried about being able to use the urinal told him we need to try as 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, 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 discussed that we can get him to SNF tomorrow if they can take him CBC and BMP are stable today, Cr is 1.1 responding well to lasix, negative fluid balance yesterday Review of Systems Review of Systems: All systems reviewed & are unremarkable except as noted in Subjective Physical Exam Constitutional: WD/WN, vitals as above comfortable; no acute distress Neck: trachea midline, no thyromegaly Respiratory: normal respiratory effort, lungs clear to auscultation Cardiovascular: RRR, no murmur, no edema Gastrointestinal (Abdomen): normal bowel sounds, soft, nontender, no hepatosplenomegaly Musculoskeletal: Head/Neck/Chest: normocephalic, head atraumatic and neck supple Extremities: extremities normal to inspection and + abnormal strength (generalized weakness); no cyanosis, no clubbing and no petechiae Skin: no rashes, warm and dry Neurologic: patellar DTR's 2+ bilat, sensation intact and PERRL, EOMI, accommodation nl, no face palsy, no dysarthria Psychiatric: A+Ox3, euthymic affect Lymphatic: no cervical or axillary lymphadenopathy Results & Data Results & Data ([facility]) Vital Signs (Past 12 Hours) Vital Signs Temp Pulse Resp BP Pulse Ox Pulse Ox 08/14/20 08:00 94 08/14/20 06:18 36.5 C 60 17 125/69 96 Laboratory Results Laboratory Results - last 24 hr 08/14/20 08/14/20 07:05 07:05 WBC 3.24 L RBC 3.86 L Hgb 11.6 L Hct 36.7 L MCV 95.1 MCH 30.1 MCHC 31.6 L RDW Std Deviation 46.3 RDW Coeff of Jose 14.0 Plt Count 143 MPV 10.6 H Sodium 141 Potassium 4.4 Chloride 109 H Carbon Dioxide 28 Anion Gap 4.0 BUN 24 H Creatinine 1.13 Est Cr Clr Drug Dosing 62.8 Est GFR ( Amer) 71.8 Est GFR (Non-Af Amer) 61.9 BUN/Creatinine Ratio 20.9 H Glucose 99 Calcium 8.1 L Medications Administered Current Inpatient Medications Acetaminophen (Acetaminophen 325 Mg Tab) 650 mg PO Q4H PRN PRN Reason: Pain or Fever Stop: 08/28/20 00:06 Last Admin: 08/14/20 06:15 Dose: 650 mg Documented by: Famotidine (Famotidine 20 Mg Tab) 20 mg PO BID [facility] Stop: 09/10/20 20:59 Last Admin: 08/14/20 08:22 Dose: 20 mg Documented by: Furosemide (Furosemide 20 Mg Tab) 20 mg PO QAM [facility] Stop: 09/11/20 10:44 Last Admin: 08/14/20 08:22 Dose: 20 mg Documented by: Heparin Sodium (Porcine) (Heparin Sod 5,000 Unit/0.5 Ml Vial) 5,000 units SQ Q8 [facility] Stop: 08/28/20 05:59 Last Admin: 08/14/20 06:12 Dose: 5,000 units Documented by: Hydralazine HCl (Hydralazine Hcl 20 Mg/Ml Vial) 10 mg IV Q4 PRN PRN Reason: Hypertension Stop: 09/06/20 08:05 Last Admin: 08/07/20 23:46 Dose: 10 mg Documented by: Famotidine 20 mg/ Syringe 5 mls @ 2.5 mls/min IV DAILY [facility] Stop: 09/01/20 08:59 Last Admin: 08/11/20 07:18 Dose: 2.5 mls/min Documented by: Promethazine HCl 12.5 mg/ (Sodium Chloride) 50.5 mls @ 202 mls/hr IV Q6H PRN PRN Reason: Nausea And Vomiting Stop: 09/07/20 07:31 Last Infusion: 08/09/20 22:25 Dose: Infused Documented by: Multi-Ingredient Cream (Artificial Tears Op Oint 3.5 Gm Tube) 1 appln OP QID [facility] Stop: 09/02/20 12:59 Last Admin: 08/14/20 08:21 Dose: 1 appln Documented by: Nystatin (Nystatin Powder 15gm Btl) 1 appln EXT TID [facility] Stop: 09/02/20 13:59 Last Admin: 08/14/20 08:22 Dose: 1 appln Documented by: Ondansetron HCl (Ondansetron Inj 2 Mg/Ml 2 Ml Vial) 4 mg IV Q6H PRN PRN Reason: Nausea Stop: 08/28/20 00:06 Last Admin: 08/11/20 07:18 Dose: 4 mg Documented by: Polyethylene Glycol (Polyethylene (Miralax) 17 Gm Pack) 17 gm GT DAILY PRN PRN Reason: Constipation Stop: 08/31/20 17:46 Last Admin: 08/02/20 14:39 Dose: 17 gm Documented by: Senna/Docusate Sodium (Docusate Sodium/Senna 50/8.6mg Tab) 2 tab PO BID [facility] Stop: 09/09/20 20:59 Last Admin: 08/14/20 09:06 Dose: Not Given Documented by: Sennosides (Sennosides 8.8 Mg/5 Ml Udc) 8.8 mg GT DAILY PRN PRN Reason: Constipation Stop: 08/31/20 17:47 Last Admin: 08/08/20 09:05 Dose: 8.8 mg Documented by: Triamcinolone Acetonide (Triamcinolone Acet 0.1% Cr 15 Gm Tube) 1 appln TOP TID [facility] Stop: 08/28/20 08:59 Last Admin: 08/14/20 08:23 Dose: 1 appln Documented by: PG Care Time/CCT Total # of Minutes Spent Total Time Spent with Patient: Total time spent is greater than 50% in coordination of care (as documented) at patient's floor/unit and/or counseling patient: Coding Level of Care Code 82398 Subseq Hosp Care Lvl 3 Diagnoses Acute respiratory failure with hypoxia J96.01 COVID-19 U07.1 Nausea R11.0 Acute kidney injury superimposed on CKD N17.9 CKD (chronic kidney disease), stage III N18.30 Chronic kidney disease stage 3 subtype: unspecified whether 3a or 3b Psoriasis L40.9 Prostate cancer metastatic to bone C61 Constipation K59.00 DVT prophylaxis Z29.9 (1) CKD (chronic kidney disease), stage III Chronic kidney disease stage 3 subtype: unspecified whether 3a or 3b Qualified Code(s): N18.30 - Chronic kidney disease, stage 3 unspecified
[2020-08-15] MEDS: ACETAMINOPHEN 325 MG TAB PO PRN (00:07)
[2020-08-15] MEDS: HEPARIN SOD 5,000 UNIT/0.5 ML VIAL SQ SCH ×2 (05:43→13:14)
[2020-08-15] MEDS: ONDANSETRON INJ 2 MG/ML 2 ML VIAL IV PRN (05:48)
--- NOTE | 2020-08-15 07:21 | Hospitalist Progress Note ---
Date of Service August 13, 2020 Assessment & Plan (1) Acute respiratory failure with hypoxia: due to COVID 19 pneumonia, possible bacterial infection as well intubated 08/[address] Sloan, SBT 08/06/20 , extubation 08/06/2020 down to 4L NC today, breathing comfortably, lungs clear continue to wean as tolerated, might need oxygen for a few weeks but only low flow completed dexamethasone working towards discharge to SNF, likely by end of the week (2) COVID-19: dexamethasone completed Administered Tocilizumab on 07/31 due to increasing oxygen requirements and CRP of 14 despite steroids CRP has gone down to 4.9 on 08/03 after Toci on 07/31 gave 5 days of Rocephin/Zithromax due to slightly elevated procalcitonin now off antibiotics completely no role for Remdesivir on admission due to FREDO and being 10 days into illness Extubated 08/06 continues with slowly reducing oxygen requirements, lessening daily. watch for fatigue and escalate noninvasive positive pressure ventilation if needed Hep SC q8 for DVT prophylaxis (3) Nausea: resolved (4) Acute kidney injury superimposed on CKD: see above, resolved, Cr is at baseline (5) CKD (chronic kidney disease), stage III: Baseline Cr is 1.4-1.6. Eating and drinking reasonably well will stop IV fluids on 08/10, labs on 08/11 are stable with resolution of hypernatremia, Uremia and resolution of fredo resumed Lasix 20mg PO daily today, working well Cr is stable keep young as he has urinary retention (6) Psoriasis: Chronic. Patient with diffuse plaques on extensor surfaces of arms and legs as well as abdomen and scalp. 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 Patient follows with Urology. He was treated with one dose of Firmagon and now receives Lupron injections q6mo. He reports self catheterizing several times daily -Placed Young on admission patient typically straight caths asked him if he wished to return to straight cath at this point time he feels he is very weak and does not want to pursue that at this juncture but will consider short-term future -Continue Casodex -Flomax daily keep young (8) Constipation: resolved, moving bowels regularly (9) DVT prophylaxis: heparin due to renal dysfunction consider transition to Xarelto as we can continue this as an outpatient Admission and Anticipated Discharge Date Admission Date: July 28, 2020 Subjective patient doing well on August 13, breathing easy on 6L, minimal to no cough no fever/chills, sweats, chest pain, GI issues discussed going to rehab, he agrees with plan, he is very weak discussed that for every day he was in the ICU he could expect a week to recover, so likely 4-5 weeks of recovery I called his daughter Annabella to discuss his progress, she agrees with [facility] on discharge Review of Systems Review of Systems: All systems reviewed & are unremarkable except as noted in Subjective Physical Exam Constitutional: WD/WN, vitals as above comfortable; no acute distress Neck: trachea midline, no thyromegaly Respiratory: normal respiratory effort, lungs clear to auscultation Cardiovascular: RRR, no murmur, no edema Gastrointestinal (Abdomen): normal bowel sounds, soft, nontender, no hepatosplenomegaly Musculoskeletal: Head/Neck/Chest: normocephalic, head atraumatic and neck supple Extremities: extremities normal to inspection and + abnormal strength (generalized weakness); no cyanosis, no clubbing and no petechiae Skin: no rashes, warm and dry Neurologic: patellar DTR's 2+ bilat, sensation intact and PERRL, EOMI, accommodation nl, no face palsy, no dysarthria Psychiatric: A+Ox3, euthymic affect Lymphatic: no cervical or axillary lymphadenopathy Results & Data Results & Data ([facility]) Vital Signs (Past 12 Hours) Vital Signs Temp Pulse Resp BP Pulse Ox 08/14/20 23:21 36.7 C 66 18 133/74 98 PG Care Time/CCT Total # of Minutes Spent Total Time Spent with Patient: Total time spent is greater than 50% in coordination of care (as documented) at patient's floor/unit and/or counseling patient: Coding Level of Care Code 57056 Subseq Hosp Care Lvl 2 Diagnoses Acute respiratory failure with hypoxia J96.01 COVID-19 U07.1 Nausea R11.0 Acute kidney injury superimposed on CKD N17.9 CKD (chronic kidney disease), stage III N18.30 Chronic kidney disease stage 3 subtype: unspecified whether 3a or 3b Psoriasis L40.9 Prostate cancer metastatic to bone C61 Constipation K59.00 DVT prophylaxis Z29.9 (1) CKD (chronic kidney disease), stage III Chronic kidney disease stage 3 subtype: unspecified whether 3a or 3b Qualified Code(s): N18.30 - Chronic kidney disease, stage 3 unspecified
[2020-08-15] MEDS: ARTIFICIAL TEARS OP OINT 3.5 GM TUBE OP SCH ×2 (08:42→12:27)
[2020-08-15] MEDS: DOCUSATE SODIUM/SENNA 50/8.6MG TAB PO SCH (08:42)
[2020-08-15] MEDS: TRIAMCINOLONE ACET 0.1% CR 15 GM TUBE TOP SCH ×2 (08:43→13:13)
[2020-08-15] MEDS: FUROSEMIDE 20 MG TAB PO SCH (08:43)
[2020-08-15] MEDS: NYSTATIN POWDER 15GM BTL EXT SCH ×2 (08:44→13:13)
[2020-08-15] MEDS: FAMOTIDINE 20 MG TAB PO SCH (08:44)
--- NOTE | 2020-08-15 13:22 | Discharge Summary ---
Date of Service August 15, 2020 Admission HPI Per Admitting Provider Som Upton is a 80yo C male presenting with Covid-19 infection, hypoxia. Patient states he has been feeling ill for the last 9 days. He has been weak and fatigued, abdominal pain, diarrhea and hip pain. He has fallen x 3 at home due to weakness. He also has some dry cough, SOB and chest discomfort. 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 His is currently admitted with Covid-19 as well. On arrival to the ER patient febrile, tachycardic, tachypneic and hypoxic to 89%. He was placed on supplemental O2 with improvement. ER Course: NSS x 1500mL, Dexamethasone 6mg IV Principal Diagnosis COVID 19 pneumonia with acute hypoxic respiratory failure Discharge Exam Constitutional WD/WN, vitals as above comfortable; no acute distress Neck trachea midline, no thyromegaly Respiratory normal respiratory effort, lungs clear to auscultation Cardiovascular RRR, no murmur, no edema Gastrointestinal (Abdomen) normal bowel sounds, soft, nontender, no hepatosplenomegaly Musculoskeletal Head/Neck/Chest: normocephalic, head atraumatic and neck supple Extremities: extremities normal to inspection and + abnormal strength (generalized weakness); no cyanosis, no clubbing and no petechiae Skin no rashes, warm and dry Neurologic patellar DTR's 2+ bilat, sensation intact and PERRL, EOMI, accommodation nl, no face palsy, no dysarthria Psychiatric A+Ox3, euthymic affect Lymphatic no cervical or axillary lymphadenopathy Discharge Data Allergies Allergy/AdvReac Type Severity Reaction Status Date / Time garlic Allergy Unknown Vomiting Verified 08/14/20 13:47 iodine Allergy Unknown Unknown Verified 07/28/20 21:21 Penicillins Allergy Unknown Unknown Verified 08/07/20 09:15 Consultations 08/01/20 08:04 Consult Food Counselor Routine Hospital Course (1) Acute respiratory failure with hypoxia: due to COVID 19 pneumonia, possible bacterial infection as well intubated 08/[address] Sloan, SBT 08/06/20 , extubation 08/06/2020 down to 4L NC past two days, breathing comfortably, lungs clear continue to wean as tolerated, might need oxygen for a few weeks but only low flow completed dexamethasone will discharge to [facility] for SNF rehab (2) COVID-19: dexamethasone completed Administered Tocilizumab on 07/31 due to increasing oxygen requirements and CRP of 14 despite steroids good response to this treatment gave 5 days of Rocephin/Zithromax due to slightly elevated procalcitonin now off antibiotics completely no role for Remdesivir on admission due to FREDO and being 10 days into illness Extubated 08/06 continues with slowly reducing oxygen requirements down to 4L NC today Hep SC q8 for DVT prophylaxis (3) Nausea: resolved (4) Acute kidney injury superimposed on CKD: see above, resolved, Cr is at baseline (5) CKD (chronic kidney disease), stage III: Baseline Cr is 1.4-1.6. Eating and drinking reasonably well will stop IV fluids on 08/10, labs on 08/11 are stable with resolution of hypernatremia, Uremia and resolution of fredo resumed Lasix 20mg PO daily, working well Cr is stable keep young as he has urinary retention typically he straight caths but does not have strength or mobility to straight cath right now (6) Psoriasis: Chronic. Patient with diffuse plaques on extensor surfaces of arms and legs as well as abdomen and scalp. 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 Patient follows with Urology. He was treated with one dose of Firmagon and now receives Lupron injections q6mo. He reports self catheterizing several times daily -Placed Young on admission patient typically straight caths, still does not have strength/mobility to do that -Continue Casodex -Flomax daily keep young, new young was placed on 08/15 (8) Constipation: resolved, moving bowels regularly (9) DVT prophylaxis: heparin SC while here recommend taking aspirin 81mg daily for next 30 days no history of DVT in the past so do not need to give NOAC Total Time Total Time Spent Total Time Spent (In Minutes): 33 Total Time Includes: Examination of the Patient, Discharge Planning and Medication Reconciliation Discharge Plan Discharge Items Patient Disposition: Transfer [facility] Reason For Visit: COVID Discharge Diagnosis: COVID 19 pneumonia with acute hypoxic respiratory failure Urinary retention, chronic Condition on Discharge: Good Goals: improve strength and mobility, was living independently prior to hospitalization stay well nourished, well hydrated Activity: Resume your previous activity Weightbearing: Full weightbearing Non-emergency contact: Primary Care Provider Call non-emergency contact if: you have any medication questions Follow-up/Referrals: Sebastien Nickerson III, MD [Primary Care Provider] - Diet: Regular Addtl Attending Provider Instructions: Medications: - ASPIRIN: recommend taking 81mg daily for next month as he recovers from COVID, was on DVT prophylaxis while admitted COVID 19 pneumonia with acute hypoxic respiratory failure recovering well, is on 4L NC, suspect he will need oxygen for some time, weeks to a month breathing comfortably at the peak of his illness he required intubation but was only for a few days for full details see d/c summary Pending Studies at Discharge: No Stand-Alone Forms: My [facility] Skilled Items Patient informed of condition?: Yes DNR: No Discharge Level of Care: Acute rehab Communicable Disease: No Discharge Prognosis: Stable Lines: None Urinary Catheter: Yes Medications and DC Order Prescriptions: New aspirin 81 mg tablet,delayed release (DR/EC) 81 mg PO DAILY Qty: 30 RF: 0 Continued Lupron [place] (6 Month) 45 mg syringe kit 45 mg IM Q24W RF: 0 tamsulosin 0.4 mg capsule 0.4 mg PO DAILY Qty: 90 RF: 3 cholecalciferol (vitamin D3) 25 mcg (1,000 unit) capsule 25 mcg PO DAILY RF: 0 furosemide 20 mg tablet 20 mg PO DAILY Qty: 90 RF: 3 bicalutamide 50 mg tablet 50 mg PO DAILY RF: 0 triamcinolone acetonide 0.1 % cream 1 applic topical TID Qty: 80 RF: 11 polyethylene glycol 3350 [Miralax] 17 gram Powder In Packet 17 g PO DAILY Qty: 30 RF: 0 Discharge Orders: Discharge Order (Routine); Ordered 08/15/20 Ordered By: Chau Castro Admission Data Admit Date/Time: 07/28/20 23:30 Attending Provider: Chau Castro Admit Provider: Radhika Conley Primary Care Provider: Sebastien Nickerson III Other Providers: [place],Alie ; Ernique Rich Other Interventions: Discharge Summary Assessment (RN) Last Done: 08/15/20 09:54 Coding Level of Care Code D/C Day Management >30 mins Diagnoses Acute respiratory failure with hypoxia J96.01 COVID-19 U07.1 Nausea R11.0 Acute kidney injury superimposed on CKD N17.9 CKD (chronic kidney disease), stage III N18.30 Chronic kidney disease stage 3 subtype: unspecified whether 3a or 3b Psoriasis L40.9 Prostate cancer metastatic to bone C61 Constipation K59.00 DVT prophylaxis Z29.9
== END 2020-08-15 15:40 | DRG 207 ==
LOC: ED 19:56 → 2E 23:23 → SUATTDRO 23:30 → 2E 23:30 → 1E 08-03 14:05 → 2E 08-07 17:36 → 2W 08-11 20:09 → 3W 08-13 10:02